=== PATIENT | male | born 1935 | race Caucasian/White ===

== ENCOUNTER → 2017-09-15 | Outpatient (CLI) | payer MEDICARE, BC ==
--- NOTE | 2017-09-15 09:14 | XR ---
EXAMINATION TYPE: XR chest 2V DATE OF EXAM: 09/15/2017 COMPARISON: NONE INDICATION: Asthma short of breath TECHNIQUE: Frontal and lateral views of the chest are obtained. FINDINGS: The heart size is normal. The pulmonary vasculature is normal. There is hyperinflation flattening the diaphragms compatible COPD. There is exaggeration of thoracic kyphosis and lower thoracic spine. Hiatal hernia is present. IMPRESSION: 1. COPD. 2. No acute pulmonary process. 3. Moderate size hiatal hernia
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
== END | disposition home or self-care (01) ==
LOC: RADCTMAIN 08:41
PROVIDERS: ATTEND Family Medicine
DX: J44.9 Chronic obstructive pulmonary disease, unspecified (principal); J45.901 Unspecified asthma with (acute) exacerbation; I63.9 Cerebral infarction, unspecified; I67.82 Cerebral ischemia; Z87.820 Personal history of traumatic brain injury
CPT/HCPCS: 70450; 71046

== ENCOUNTER 2017-11-23 13:47 | Emergency (ER) | payer OTHER, MEDICARE, BC ==
[2017-11-23] MEDS ORDERED: SODIUM CHLORIDE 0.9% 1,000 ML IV STA (14:51)
[2017-11-23] MEDS ORDERED: ACETAMINOPHEN IV (For NPO) 1,000 MG in EMPTY BAG 1 BAG IVPB STA (14:52)
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
[2017-11-23 15:40] LABS: Anisocytosis Slight; Basophils % (A) 0 %; Eosinophils # (A) 0.3 k/uL (0-0.7); Eosinophils % (A) 4 %; HCT 31.4 % (39.0-53.0); HGB 9.2 gm/dL (13.0-17.5); Hypochromasia Marked; Lymphocytes % (A) 10 %; MCH 20.7 pg (25.0-35.0); MCHC 29.4 g/dL (31.0-37.0); MCV 70.5 fL (80.0-100.0); Mean Platelet Volume 6.7; Microcytosis Marked; Monocytes # (A) 0.6 k/uL (0-1.0); Monocytes % (A) 6 %; Neutrophils # (A) 7.8 k/uL (1.3-7.7); Neutrophils % (A) 80 %; Platelet Count 386 k/uL (150-450); RBC 4.45 m/uL (4.30-5.90); RDW 16.8 % (11.5-15.5); WBC 9.8 k/uL (3.8-10.6)
[2017-11-23 15:50] LABS: ALT 33 U/L (21-72); AST 31 U/L (17-59); Albumin 3.2 g/dL (3.5-5.0); Alcohol <10 mg/dL; Alkaline Phosphatase 68 U/L (38-126); Anion Gap 8 mmol/L; Blood Urea Nitrogen 15 mg/dL (9-20); Calcium 8.4 mg/dL (8.4-10.2); Carbon Dioxide 26 mmol/L (22-30); Chloride 107 mmol/L (98-107); Glucose 89 mg/dL (74-99); Potassium 4.1 mmol/L (3.5-5.1); Sodium 141 mmol/L (137-145); Total Bilirubin 0.4 mg/dL (0.2-1.3); Total Protein 5.6 g/dL (6.3-8.2)
[2017-11-23 15:55] LABS: INR 1.1 (<1.2); Partial Thromboplastin Time 24.2 sec (22.0-30.0); Prothrombin Time 10.6 sec (9.0-12.0)
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
[2017-11-23 16:17] LABS: Creatine Kinase MB 0.6 ng/mL (0.0-2.4)
[2017-11-23 16:25] LABS: Troponin I 0.07 ng/mL (0.000-0.034)
[2017-11-23 16:29] LABS: Appearance,Urine Clear (Clear); Bilirubin,Urine Negative (Negative); Blood,Urine Negative (Negative); Color,Urine Yellow; Glucose,Urine (UA) Negative (Negative); Ketones,Urine Negative (Negative); Leukocyte Esterase,Urine Negative (Negative); Nitrite,Urine Negative (Negative); Protein,Urine Trace (Negative); Specific Gravity,Urine 1.025 (1.001-1.035)
[2017-11-23] MEDS ORDERED: SODIUM CHLORIDE 0.9% 500 ML IV STA (16:33)
[2017-11-23 16:40] LABS: Amphetamine Screen,Urine Not Detected (NotDetected); Barbiturate Screen,Urine Not Detected (NotDetected); Benzodiazepines Screen,Urine Detected (NotDetected); Cocaine Screen,Urine Not Detected (NotDetected); Methadone Screen, Urine Not Detected (NotDetected); Opiate Screen,Urine Not Detected (NotDetected); Oxycodone Screen, Urine Not Detected (NotDetected); Phencyclidine Screen,Urine Not Detected (NotDetected); Tricyclic Antidepressant,Urine Not Detected (NotDetected); Urn Cannabinoid Scrn Not Detected (NotDetected)
[2017-11-23 20:27] VITALS: BP 138/72; PULSE 63; RESP 18; TEMP 98.6
--- NOTE | 2017-11-24 18:16 | ECHOF ---
Referral Reason:elevTrop MEASUREMENTS -------- HEIGHT: 170.2 cm WEIGHT: 86.2 kg BP: 134/74 RVIDd: 4.8 cm (< 3.3) IVSd: 1.3 cm (0.6 - 1.1) LVIDd: 4.0 cm (3.9 - 5.3) LVPWd: 1.0 cm (0.6 - 1.1) IVSs: 1.5 cm LVIDs: 2.1 cm LVPWs: 1.2 cm LAESV Index (A-L): 29.57 ml/m Ao Diam: 3.8 cm (2.0 - 3.7) AV Cusp: 2.1 cm (1.5 - 2.6) LA Diam: 4.3 cm (2.7 - 3.8) EPSS: 0.7 cm MV E Alex: 0.93 m/s MV DecT: 218 ms MV A Alex: 0.91 m/s MV E/A Ratio: 1.01 AV maxP.95 mmHg AV meanP.48 mmHg RAP: 5.00 mmHg RVSP: 14.73 mmHg MV EF SLOPE: 54.61 mm/s (70 - 150) MV EXCURSION: 1.78 cm (> 18.000) FINDINGS -------- Undetermined rhythm. BBB This was a technically adequate study. The left ventricular size is normal. There is mild concentric left ventricular hypertrophy. Overa ll left ventricular systolic function is normal with, an EF between 55 - 60 %. The right ventricle is moderately enlarged. LA is midly dilated 29-33ml/m2. RA appears enlarged. Aortic valve is trileaflet and is mildly thickened. There is no evidence of aortic regurgitation. There is no evidence of aortic stenosis. The mitral valve leaflets are mildly thickened. Mild mitral annular calcification present. There is trace to mild mitral regurgitation. Trace tricuspid regurgitation present. Right ventricular systolic pressure is normal at < 35 mmHg. There is no evidence of pulmonary hypertension. The pulmonic valve was not well visualized. The aortic root size is normal. IVC Not well visulized. There is no pericardial effusion. CONCLUSIONS -------- 1. Undetermined rhythm. 2. BBB 3. This was a technically adequate study. 4. The left ventricular size is normal. 5. There is mild concentric left ventricular hypertrophy. 6. Overall left ventricular systolic function is normal with, an EF between 55 - 60 %. 7. The right ventricle is moderately enlarged. 8. LA is midly dilated 29-33ml/m2. 9. RA appears enlarged. 10. Aortic valve is trileaflet and is mildly thickened. 11. The mitral valve leaflets are mildly thickened. 12. Mild mitral annular calcification present. 13. There is trace to mild mitral regurgitation. 14. Trace tricuspid regurgitation present. 15. Right ventricular systolic pressure is normal at < 35 mmHg. 16. There is no evidence of pulmonary hypertension. 17. The pulmonic valve was not well visualized. 18. The aortic root size is normal. 19. IVC Not well visulized. 20. There is no pericardial effusion. PHYSICIAN RECRUITER: Manohar Rashid RDCS
== END 2017-11-23 20:15 | disposition home or self-care (01) ==
LOC: EC 13:47
DX: M54.5 Low back pain (principal); F03.90 Unspecified dementia, unspecified severity, without behavioral disturbance, psychotic disturbance, mood disturbance, and anxiety; J44.9 Chronic obstructive pulmonary disease, unspecified; K21.9 Gastro-esophageal reflux disease without esophagitis; K22.70 Barrett's esophagus without dysplasia; Z79.82 Long term (current) use of aspirin; Z79.899 Other long term (current) drug therapy; Z87.01 Personal history of pneumonia (recurrent); V43.53XA Car driver injured in collision with pick-up truck in traffic accident, initial encounter; Y92.410 Unspecified street and highway as the place of occurrence of the external cause
CPT/HCPCS: 36415; 93005; 93306; 86900; 86901; 80053; 82550; 82553; 84484; 85025; 85610; 85730; 86850; 81003; 80306; 80320; 72125; 70450; 71260; 74177; 99285; 96374; 96361 ×2; J0131; Q9967

== ENCOUNTER → 2018-02-27 | Outpatient (CLI) | payer MEDICARE, BC ==
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
== END | disposition home or self-care (01) ==
LOC: RADNMMAIN 09:48
PROVIDERS: ATTEND Family Medicine
DX: M85.80 Other specified disorders of bone density and structure, unspecified site (principal)
CPT/HCPCS: 78306; A9503

== ENCOUNTER 2019-06-29 13:42 | Inpatient (IN) | payer MEDICARE, BC ==
[2019-06-29] MEDS ORDERED: traMADol 50 MG TAB PO STA (14:03)
--- NOTE | 2019-06-29 14:09 | ED ---
Fall HPI - General Chief Complaint: Fall Stated Complaint: fell in shower Time Seen by Provider: 06/29/19 13:56 Source: patient Mode of arrival: ambulatory - History of Present Illness Initial Comments: Patient is an 83-year-old male presenting to the emergency department after falling in the shower prior to arrival. Patient states he went to grab his towel and slipped and he fell onto his left side hitting the side of the bathtub. Patient denies hitting his head, no LOC. Patient states he was able to get up after laying there for a few minutes and was walking around and did go sit down at the couch. Patient then started having more and more left-sided pain. Patient's son was needed to help him up from a seated position to come to the ER. Patient denies pain anywhere else. He denies nausea, vomiting, blurry vision, hip pain, abdominal pain. His only complaint is his left left-sided rib pain. Upon arrival to the ER, his vital signs are stable. - Related Data Home Medications Medication Instructions Recorded Confirmed ALPRAZolam [Xanax] 0.25 mg PO DAILY 11/23/17 11/23/17 Aspirin EC [Ecotrin Low Dose] 81 mg PO DAILY 11/23/17 11/23/17 Atorvastatin [Lipitor] 20 mg PO DAILY 11/23/17 11/23/17 Cetirizine HCl [Zyrtec] 10 mg PO DAILY 11/23/17 11/23/17 Isosorbide Mononitrate ER [Imdur] 30 mg PO DAILY 11/23/17 11/23/17 Metoprolol Succinate (ER) [Toprol 25 mg PO DAILY 11/23/17 11/23/17 Xl] Montelukast [Singulair] 10 mg PO DAILY 11/23/17 11/23/17 Omeprazole 20 mg PO DAILY 11/23/17 11/23/17 Allergies Allergy/AdvReac Type Severity Reaction Status Date / Time No Known Allergies Allergy Verified 06/29/19 13:45 Review of Systems ROS Statement: Those systems with pertinent positive or pertinent negative responses have been documented in the HPI. ROS Other: All systems not noted in ROS Statement are negative. Past Medical History Past Medical History: COPD, CVA/TIA, GERD/Reflux, GI Bleed, Hypertension, Memory Impairment, Pneumonia Additional Past Medical History / Comment(s): barretts esophagus, History of Any Multi-Drug Resistant Organisms: None Reported Past Surgical History: Heart Catheterization With Stent Additional Past Surgical History / Comment(s): Polyps removed via colonoscopy, 2 francisco holes and metal plates placed due to brain bleed. Past Psychological History: Depression Smoking Status: Never smoker Past Alcohol Use History: Rare Past Drug Use History: None Reported General Exam - General Exam Comments Initial Comments: GENERAL: Well-appearing, well-nourished and in mild distress secondary to pain. HEAD: Atraumatic, normocephalic. EYES: Pupils equal round and reactive to light, extraocular movements intact, sclera anicteric, conjunctiva are normal. ENT: TMs normal, nares patent, oropharynx clear without exudates. Moist mucous membranes. NECK: Normal range of motion, supple without lymphadenopathy or JVD. LUNGS: Breath sounds clear to auscultation bilaterally and equal. No wheezes rales or rhonchi. Tenderness with palpation of the left lateral, lower rib area. There is no bruising at this time. HEART: Regular rate and rhythm without murmurs, rubs or gallops. ABDOMEN: Soft, nontender, normoactive bowel sounds. No guarding, no rebound. No masses appreciated. : Deferred EXTREMITIES: Normal range of motion, no pitting or edema. No clubbing or cyanosis. NEUROLOGICAL: Cranial nerves II through XII grossly intact. Normal speech. PSYCH: Normal mood, normal affect. SKIN: Warm, Dry, normal turgor, no rashes or lesions noted. Limitations: no limitations Course Vital Signs 06/29/19 06/29/19 13:45 16:11 Temperature 97.8 F Pulse Rate 61 51 L Respiratory 18 20 Rate Blood Pressure 139/76 130/74 O2 Sat by Pulse 96 96 Oximetry Medical Decision Making - Medical Decision Making Patient is an 83-year-old male presenting with left-sided lateral rib pain after he fell in the shower just prior to arrival, and being on the side of the bathtub. Patient denies hitting his head, no LOC. Patient's exam reveals left lateral, lower rib pain. No other acute findings. Vital signs are stable. X-r ays reveal fractures with minimal displacement of the left seventh, eighth, ninth ribs. Patient was giving pain medication and is comfortable at this time. Patient has extreme pain with sitting up, going from sitting to standing. Given this, patient will be admitted for pain control and consult to pulmonology and anesthesia services. The patient was accepted by Dr. Blackburn. Case discussed with Dr. Webster. Disposition Clinical Impression: Fall, Multiple fractures of ribs, left side, initial encounter for closed fracture Disposition: ADMITTED IP TO THIS HOSP Is patient prescribed a controlled substance at d/c from ED?: No Referrals: Jason Johnson MD [Primary Care Provider] - 1-2 days Decision Date: 06/29/19 Decision Time: 16:26
--- NOTE | 2019-06-29 15:28 | XR ---
Chest x-ray and left RIBS HISTORY: Trauma and pain Frontal view of the chest, 4 views of left ribs submitted and correlated prior chest x-ray 09/15/2017 Some scarring persists in the mid right lung. Retrocardiac density with central lucency again noted c onsistent with partial intrathoracic stomach, hiatal hernia. There are fractures of the left seventh, eighth and ninth ribs with minimal displacement.. No pneumothorax or pleural effusion. Aorta is dens e. Heart size is stable. IMPRESSION: Left-sided rib fractures
[2019-06-29] MEDS ORDERED: NALOXONE 0.4 MG/ML 1 ML VIAL IV PRN (16:18)
[2019-06-29] MEDS ORDERED: ONDANSETRON 4 MG/2 ML VIAL IVP PRN (16:18)
[2019-06-29] MEDS ORDERED: ACETAMINOPHEN TAB 325 MG TAB PO PRN (16:18)
[2019-06-29] MEDS: MORPHINE SULFATE 4 MG/ML SYRINGE IVP PRN ×2 (16:49→22:54)
[2019-06-29] MEDS ORDERED: DOCUSATE 100 MG CAP PO PRN (21:05)
--- NOTE | 2019-06-29 21:05 | P.GSHP ---
History of Present Illness H&P Date: 06/29/19 Chief Complaint: Fractured ribs The patient is a 83-year-old man who was taking a shower this morning. While reaching for his towel, his foot slipped and he fell striking his side. He laid on the floor for a while and then was able to get up and go to the living room. The pain got progressively worse so he called family who brought him to the emergency room and workup showed several fractured ribs on the left side. He denies any other injuries. He is lying comfortably in bed at this time without pain. No shortness of breath. No pain in the anterior chest. Doesn't typically have a problem with falling. - Review of Systems All systems: negative Past Medical History Past Medical History: COPD, CVA/TIA, GERD/Reflux, GI Bleed, Hypertension, Memory Impairment, Pneumonia Additional Past Medical History / Comment(s): barretts esophagus, History of Any Multi-Drug Resistant Organisms: None Reported Past Surgical History: Heart Catheterization With Stent Additional Past Surgical History / Comment(s): Polyps removed via colonoscopy, 2 francisco holes and metal plates placed due to brain bleed. Date of Last Stent Placement:: 1989 Past Psychological History: Depression Smoking Status: Never smoker Past Alcohol Use History: Rare Past Drug Use History: None Reported - Past Family History Mother Family Medical History: AICD/Pacemaker Medications and Allergies Home Medications Medication Instructions Recorded Confirmed Type Aspirin EC [Ecotrin Low Dose] 81 mg PO DAILY 11/23/17 06/29/19 History Atorvastatin [Lipitor] 20 mg PO DAILY 11/23/17 06/29/19 History Cetirizine HCl [Zyrtec] 10 mg PO DAILY 11/23/17 06/29/19 History Isosorbide Mononitrate ER [Imdur] 30 mg PO DAILY 11/23/17 06/29/19 History Metoprolol Succinate (ER) [Toprol 25 mg PO DAILY 11/23/17 06/29/19 History Xl] Montelukast [Singulair] 10 mg PO DAILY 11/23/17 06/29/19 History Omeprazole 20 mg PO BID 11/23/17 06/29/19 History Docusate [Colace] 100 mg PO BID PRN 06/29/19 06/29/19 History Donepezil [Aricept] 10 mg PO DAILY 06/29/19 06/29/19 History Ergocalciferol [Vitamin D2] 50,000 unit PO Q7D 06/29/19 06/29/19 History Ferrous Sulfate [Feosol] 325 mg PO DAILY 06/29/19 06/29/19 History predniSONE 5 mg PO DAILY 06/29/19 06/29/19 History Allergies Allergy/AdvReac Type Severity Reaction Status Date / Time No Known Allergies Allergy Verified 06/29/19 16:41 Surgical - Exam Osteopathic Statement: *. No significant issues noted on an osteopathic structural exam other than those noted in the History and Physical/Consult. Vital Signs Temp Pulse Resp BP Pulse Ox 97.8 F 61 18 139/76 96 06/29/19 13:45 06/29/19 13:45 06/29/19 13:45 06/29/19 13:45 06/29/19 13:45 - General well developed, well nourished, no distress - Eyes normal ocular movement - Neck trachea midline - Respiratory Tenderness along the left lower rib cage, no obvious ecchymosis at this time normal expansion, clear to auscultation - Cardiovascular Rhythm: regular Results - Imaging Chest x-ray: report reviewed, image reviewed Assessment and Plan (1) COPD (chronic obstructive pulmonary disease) Current Visit: Yes Status: Acute Code(s): J44.9 - CHRONIC OBSTRUCTIVE PULMONARY DISEASE, UNSPECIFIED SNOMED Code(s): 01779502 (2) GERD (gastroesophageal reflux disease) Current Visit: Yes Status: Acute Code(s): K21.9 - GASTRO-ESOPHAGEAL REFLUX DISEASE WITHOUT ESOPHAGITIS SNOMED Code(s): 352016101 (3) Hypertension Current Visit: Yes Status: Acute Code(s): I10 - ESSENTIAL (PRIMARY) HYPERTENSION SNOMED Code(s): 81012651 (4) History of CVA (cerebrovascular accident) Current Visit: Yes Status: Acute Code(s): Z86.73 - PRSNL HX OF TIA (TIA), AND CEREB INFRC W/O RESID DEFICITS SNOMED Code(s): 767950718 (5) Fall Current Visit: Yes Status: Acute Code(s): W19.XXXA - UNSPECIFIED FALL, INITIAL ENCOUNTER SNOMED Code(s): 7844123 (6) Multiple fractures of ribs, left side, initial encounter for closed fracture Current Visit: Yes Status: Acute Code(s): S22.42XA - MULTIPLE FRACTURES OF RIBS, LEFT SIDE, INIT FOR CLOS FX SNOMED Code(s): 09758664 Plan: The patient is being observed for pain control and good pulmonary toilet. He was be seen by pulmonary. DVT and ulcer prophylaxis. Physical therapy to evaluate for fall risk. Further recommendations to follow.
[2019-06-30] MEDS: MORPHINE SULFATE 4 MG/ML SYRINGE IVP PRN (08:00)
[2019-06-30] MEDS: METOPROLOL SUCCINATE (ER) 25 MG TAB.ER.24H PO SCH (08:01)
[2019-06-30] MEDS: ASPIRIN 81 MG PO SCH (08:01)
[2019-06-30] MEDS: MONTELUKAST 10 MG TAB PO SCH (08:01)
[2019-06-30] MEDS: ATORVASTATIN 20 MG TAB PO SCH (08:01)
[2019-06-30] MEDS: DONEPEZIL 10 MG TAB PO SCH (08:01)
[2019-06-30] MEDS: FERROUS SULFATE 325 MG TAB PO SCH (08:01)
[2019-06-30] MEDS: ISOSORBIDE MONONITRATE ER 30 MG TAB.ER.24H PO SCH (08:01)
[2019-06-30] MEDS: LORATADINE 10 MG TAB PO SCH (08:01)
[2019-06-30] MEDS: predniSONE 5 MG TAB PO SCH (08:02)
[2019-06-30] MEDS ORDERED: PANTOPRAZOLE 40 MG/10 ML VIAL IVP SCH (09:00)
[2019-06-30] MEDS ORDERED: ERGOCALCIFEROL 50,000 UNIT CAP PO SCH (09:00)
[2019-06-30] MEDS ORDERED: NON FORMULARY DRUG (Omeprazole [Omeprazole] 20 MG) PO SCH (09:00)
[2019-06-30] MEDS: HYDROcodone/APAP 5-325MG 1 EACH TAB PO PRN (10:36)
--- NOTE | 2019-06-30 12:39 | P.PN ---
Subjective Progress Note Date: 06/30/19 Principal diagnosis: Rib fractures The patient is seen on rounds. He's fairly comfortable lying in bed but has significant left-sided chest pain when trying to move around. Nursing was unable to get him out of bed this morning. Objective - Vital Signs Vital signs: Vital Signs Temp 98.1 F 06/30/19 07:00 Pulse 71 06/30/19 07:00 Resp 18 06/30/19 07:00 BP 124/68 06/30/19 07:00 Pulse Ox 94 L 06/30/19 07:00 Intake & Output 06/29/19 06/30/19 06/30/19 18:59 06:59 18:59 Intake Total 100 Output Total 200 Balance -100 Weight 63.503 kg Intake: Oral 100 Output: Urine 200 - Constitutional General appearance: Present: cooperative, no acute distress - Respiratory Respiratory: bilateral: CTA, diminished (Minimally at the bases) Assessment and Plan (1) COPD (chronic obstructive pulmonary disease) Current Visit: Yes Status: Acute Code(s): J44.9 - CHRONIC OBSTRUCTIVE PULMONARY DISEASE, UNSPECIFIED SNOMED Code(s): 68950619 (2) GERD (gastroesophageal reflux disease) Current Visit: Yes Status: Acute Code(s): K21.9 - GASTRO-ESOPHAGEAL REFLUX DISEASE WITHOUT ESOPHAGITIS SNOMED Code(s): 192494225 (3) Hypertension Current Visit: Yes Status: Acute Code(s): I10 - ESSENTIAL (PRIMARY) HYPERTENSION SNOMED Code(s): 61103845 (4) History of CVA (cerebrovascular accident) Current Visit: Yes Status: Acute Code(s): Z86.73 - PRSNL HX OF TIA (TIA), AND CEREB INFRC W/O RESID DEFICITS SNOMED Code(s): 394626425 (5) Fall Current Visit: Yes Status: Acute Code(s): W19.XXXA - UNSPECIFIED FALL, INITIAL ENCOUNTER SNOMED Code(s): 4051782 (6) Multiple fractures of ribs, left side, initial encounter for closed fracture Current Visit: Yes Status: Acute Code(s): S22.42XA - MULTIPLE FRACTURES OF RIBS, LEFT SIDE, INIT FOR CLOS FX SNOMED Code(s): 25637175 Plan: He was not seen by anesthesia yesterday. I spoke with him via phone. He will be evaluated for rib block or epidural today. Doing well with incentive spirometry. Consult with physical therapy ordered. Progressing slowly.
[2019-06-30] MEDS ORDERED: NALOXONE 0.4 MG/ML 1 ML VIAL IV PRN (13:25)
[2019-06-30] MEDS ORDERED: fentaNYL (PF) 50 MCG/ML 2 ML AMP IVP ONE (14:25)
--- NOTE | 2019-06-30 14:29 | P.CNPUL ---
History of Present Illness Consult date: 06/30/19 Requesting physician: Samantha Blackburn Reason for consult: chest pain, abnormal CXR/CT Chief complaint: Left-sided chest pain, status post fall History of present illness: This is a very pleasant 83-year-old gentleman who follows with Dr. Johnson as his primary care provider. He has a history of hyperlipidemia, hypertension, CVA/TIA, GERD, coronary artery disease with previous stent placement, previous brain bleed requiring bur holes and plates, anxiety/depression. Lifelong nonsmoker. Yesterday he slipped and fell while in the shower hitting the side of the bathtub with his left chest wall. He denied any loss of consciousness. He did take, but to get up and get moving around. The pain was getting worse and he had significant discomfort changing positions. He was brought to the emergency room for the same. Rib x-rays did reveal fractures of left seventh and eighth and ninth ribs with minimal displacement. He was admitted for pain control. He is seen today in follow-up on the regular medical floor. He is currently awake and alert in no acute distress. Resting fairly comfortably in bed will not moving. He does have significant grimacing in pain while attempting to sit up in bed with assistance. He is maintaining O2 saturations in the 90s on room air. He's been afebrile. Hemodynamically stable. Chest x- ray revealed no acute process, persistent scarring in the mid right lung, retrocardiac density with central lucency consistent with partial intrathoracic stomach, hiatal hernia. He is educated on its use and working well with the incentive spirometer Review of Systems REVIEW OF SYSTEMS: CONSTITUTIONAL: Denies any recent significant weight loss or weight gain. EYES: Denies change in vision. EARS, NOSE, MOUTH, THROAT: Denies headaches, denies sore throat. CARDIOVASCULAR: Significant left-sided chest pain, no palpitations or syncopal episodes. RESPIRATORY: Denies shortness of breath, cough, congestion or hemoptysis. GASTROINTESTINAL: Denies change in appetite, denies abdominal pain GENITOURINARY: Denies hematuria, denies infections. MUSKULOSKELETAL: Denies pain, denies swelling. INTEGUMENTARY: Denies rash, denies eczema. NEUROLOGICAL: Denies recent memory loss, no recent seizure activity. PSYCHIATRIC: Denies anxiety, denies depression. HEMATOLOGIC/LYMPHATIC: Denies anemia, denies enlarged lymph nodes. Past Medical History Past Medical History: COPD, CVA/TIA, GERD/Reflux, GI Bleed, Hypertension, Memory Impairment, Pneumonia Additional Past Medical History / Comment(s): barretts esophagus, History of Any Multi-Drug Resistant Organisms: None Reported Past Surgical History: Heart Catheterization With Stent Additional Past Surgical History / Comment(s): Polyps removed via colonoscopy, 2 francisco holes and metal plates placed due to brain bleed. Date of Last Stent Placement:: 1989 Past Psychological History: Depression Smoking Status: Never smoker Past Alcohol Use History: Rare Past Drug Use History: None Reported - Past Family History Mother Family Medical History: AICD/Pacemaker Medications and Allergies Home Medications Medication Instructions Recorded Confirmed Type Aspirin EC [Ecotrin Low Dose] 81 mg PO DAILY 11/23/17 06/29/19 History Atorvastatin [Lipitor] 20 mg PO DAILY 11/23/17 06/29/19 History Cetirizine HCl [Zyrtec] 10 mg PO DAILY 11/23/17 06/29/19 History Isosorbide Mononitrate ER [Imdur] 30 mg PO DAILY 11/23/17 06/29/19 History Metoprolol Succinate (ER) [Toprol 25 mg PO DAILY 11/23/17 06/29/19 History Xl] Montelukast [Singulair] 10 mg PO DAILY 11/23/17 06/29/19 History Omeprazole 20 mg PO BID 11/23/17 06/29/19 History Docusate [Colace] 100 mg PO BID PRN 06/29/19 06/29/19 History Donepezil [Aricept] 10 mg PO DAILY 06/29/19 06/29/19 History Ergocalciferol [Vitamin D2] 50,000 unit PO Q7D 06/29/19 06/29/19 History Ferrous Sulfate [Feosol] 325 mg PO DAILY 06/29/19 06/29/19 History predniSONE 5 mg PO DAILY 06/29/19 06/29/19 History Allergies Allergy/AdvReac Type Severity Reaction Status Date / Time No Known Allergies Allergy Verified 06/29/19 16:41 Physical Exam Vitals: Vital Signs Temp Pulse Pulse Resp BP BP Pulse Ox 06/30/19 07:00 98.1 F 71 18 124/68 94 L 06/30/19 00:47 97.3 F L 62 14 125/76 92 L 06/29/19 19:02 97.7 F 55 L 14 124/71 95 06/29/19 17:16 97.8 F 51 L 20 130/74 96 06/29/19 16:11 51 L 20 130/74 96 Intake and Output 06/29/19 06/30/19 06/30/19 22:59 06:59 14:59 Intake Total 100 Output Total 200 Balance -100 Intake: Oral 100 Output: Urine 200 Other: Weight 63.503 kg GENERAL EXAM: Alert, very pleasant 83-year-old gentleman, on room air, comfortable at rest but significant left-sided chest discomfort with movement. HEAD: Normocephalic. EYES: Normal reaction of pupils, equal size. NOSE: Clear with pink turbinates. THROAT: No erythema or exudates. NECK: No masses, no JVD. CHEST: No chest wall deformity. Tender to touch the left chest wall secondary to fall. LUNGS: Equal air entry with no crackles, wheeze, rhonchi or dullness. CVS: S1 and S2 normal with no audible murmur, regular rhythm. ABDOMEN: No hepatosplenomegaly, normal bowel sounds, no guarding or rigidity. SPINE: No scoliosis or deformity SKIN: No rashes CENTRAL NERVOUS SYSTEM: No focal deficits, tone is normal in all 4 extremities. EXTREMITIES: There is no peripheral edema. No clubbing, no cyanosis. Peripheral pulses are intact. Results - Diagnostic Findings Chest x-ray: image reviewed Assessment and Plan Assessment: 1 Acute left-sided chest wall pain secondary to multiple left-sided rib fractures secondary to fall 2 History of hypertension 3 Coronary artery disease with previous stent placement #4 History of brain bleed with bur holes and plate placement 5 history of CVA/TIA 6 Memory impairment 7 Anxiety/depression 8 Hyperlipidemia 9 GERD Plan: The patient was seen and evaluated by Dr. Slade Chest x-ray reviewed Working well with the incentive spirometer, continue hourly Anesthesia for pain control Chest x-ray in the a.m. We'll continue to follow I, the cosigning physician, performed a history & physical examination of the patient. Lungs sounds are clear. Maintaining good O2 saturations in the 90s on room air. I discussed the assessment and plan of care with my nurse practitioner, Edna Sanches. I attest to the above consultation as dictated by her. Time with Patient: Greater than 30
[2019-06-30] MEDS ORDERED: ONDANSETRON 4 MG/2 ML VIAL IVP ONE (14:30)
[2019-06-30] MEDS ORDERED: LACTATED RINGERS 1,000 ML IV ONE (14:31)
--- NOTE | 2019-06-30 14:53 | P.PCN ---
Date of Procedure: 06/30/19 Procedure(s) Performed: Procedure= thoracic epidural catheter placement at T8-9 level. Preop diagnosis= acute pain secondary to multiple left side rib fractures. Postoperative diagnoses= acute pain secondary to multiple left side rib fractures. Anesthesia= local infiltration with lidocaine 1% 3 mL. Condition= stable. Complications=none. Indication and description of the procedure= this is a 83 years old male who had left-sided multiple rib fractures with acute and severe left-sided chest wall pain, patient failed conservative treatment and he will be good candidate to have thoracic epidural catheter placement for continuous infusion controlled his pain, procedure risk and benefits and alternatives discussed with the patient including but not limited to risk of infection bleeding, ALLERGIC reaction to the medication and posterior puncture headache, and he agreed with proceeding and he signed the consent patient placed in sitting position, back/thoracic and lumbar area prepped with Betadine 3, and local infiltration of the skin ,and subcutaneous tissue with lidocaine 1% 3 mL at T8-9 level , then 18-gauge Touhy needle advanced slowly under was positive loss of resistance to normal saline ,no heme, no paresthesia ,no supraspinal fluid, catherter advanced slowly, and there was no paresthesia Ransom test dose given and was negative, then the catheter secured with Tegaderm and tape, he will be started on continuous infusion of ropivacaine/fentanyl
[2019-06-30] MEDS ORDERED: METOCLOPRAMIDE 5 MG/ML 2 ML VIAL IVP ONE (15:00)
[2019-06-30] MEDS: IPRATROPIUM-ALBUTEROL 3 ML NEB INHALATION SCH (19:06)
[2019-06-30] MEDS: diphenhydrAMINE 50 MG/ML 1 ML VIAL IVP PRN (21:13)
[2019-07-01] MEDS: diphenhydrAMINE 50 MG/ML 1 ML VIAL IVP PRN ×3 (06:17→23:36)
--- NOTE | 2019-07-01 06:44 | P.PN ---
Progress Note - Text Progress Note Date: 07/01/19 83 years old male with a history of multiple rib fracture , thoracic epidural catheter placed for analgesia, patient doing well epidural site okay, patient currently on combination of epidural infusion solution of Ropivacaine 0.0625% and fentanyl 2.5 g per mL the infusion rate at 5 ml per hour , patient had no motor deficit epidural site okay , vital signs stable ,VAS 2 /10 , Patient had some itching, we are using Benadryl IV to treat his itching Assessment and plan= patient doing well ,pain well controlled , there is no anesthesia related complications
[2019-07-01] MEDS: ISOSORBIDE MONONITRATE ER 30 MG TAB.ER.24H PO SCH (07:31)
[2019-07-01] MEDS: MONTELUKAST 10 MG TAB PO SCH (07:31)
[2019-07-01] MEDS: METOPROLOL SUCCINATE (ER) 25 MG TAB.ER.24H PO SCH (07:31)
[2019-07-01] MEDS: FERROUS SULFATE 325 MG TAB PO SCH (07:32)
[2019-07-01] MEDS: ASPIRIN 81 MG PO SCH (07:32)
[2019-07-01] MEDS: predniSONE 5 MG TAB PO SCH (07:32)
[2019-07-01] MEDS: ATORVASTATIN 20 MG TAB PO SCH (07:32)
[2019-07-01] MEDS: LORATADINE 10 MG TAB PO SCH (07:32)
[2019-07-01] MEDS: DONEPEZIL 10 MG TAB PO SCH (07:33)
[2019-07-01] MEDS: PANTOPRAZOLE 40 MG TABLET PO SCH (07:33)
[2019-07-01] MEDS: IPRATROPIUM-ALBUTEROL 3 ML NEB INHALATION SCH ×4 (09:33→20:48)
--- NOTE | 2019-07-01 12:29 | P.PN ---
Subjective Progress Note Date: 07/01/19 Principal diagnosis: Rib fractures The patient is seen on rounds. An epidural was placed yesterday due to persistent pain. The pain is much better today. He is complaining of itching. No shortness of breath or cough. The patient is able to get up to the chair. Objective - Vital Signs Vital signs: Vital Signs Temp 98.8 F 07/01/19 07:00 Pulse 88 07/01/19 09:44 Resp 16 07/01/19 07:00 BP 107/62 07/01/19 07:00 Pulse Ox 95 07/01/19 09:36 Intake & Output 06/30/19 07/01/19 07/01/19 18:59 06:59 18:59 Intake Total 100 Output Total 200 600 Balance -200 -500 Intake: Oral 100 Output: Urine 200 600 Other: Voiding Method Indwelling Catheter Indwelling Catheter - Constitutional General appearance: Present: cooperative, no acute distress - Respiratory Respiratory: bilateral: CTA, diminished (At the bases) - Cardiovascular Rhythm: regular Assessment and Plan (1) COPD (chronic obstructive pulmonary disease) Current Visit: Yes Status: Acute Code(s): J44.9 - CHRONIC OBSTRUCTIVE PULMONARY DISEASE, UNSPECIFIED SNOMED Code(s): 54792232 (2) GERD (gastroesophageal reflux disease) Current Visit: Yes Status: Acute Code(s): K21.9 - GASTRO-ESOPHAGEAL REFLUX DISEASE WITHOUT ESOPHAGITIS SNOMED Code(s): 205824747 (3) Hypertension Current Visit: Yes Status: Acute Code(s): I10 - ESSENTIAL (PRIMARY) HYPERTENSION SNOMED Code(s): 75077954 (4) History of CVA (cerebrovascular accident) Current Visit: Yes Status: Acute Code(s): Z86.73 - PRSNL HX OF TIA (TIA), AND CEREB INFRC W/O RESID DEFICITS SNOMED Code(s): 503837887 (5) Fall Current Visit: Yes Status: Acute Code(s): W19.XXXA - UNSPECIFIED FALL, INITIAL ENCOUNTER SNOMED Code(s): 5559492 (6) Multiple fractures of ribs, left side, initial encounter for closed fracture Current Visit: Yes Status: Acute Code(s): S22.42XA - MULTIPLE FRACTURES OF RIBS, LEFT SIDE, INIT FOR CLOS FX SNOMED Code(s): 82966227 Plan: Epidural will be continued. Continue incentive spirometry. He is to be evaluated by physical therapy to check for his fall risk. Progressing slowly.
[2019-07-01] MEDS: ROPIVACAINE 250 MG, fentaNYL (PF) 625 MCG in SODIUM CHLORIDE 0.9% 188 ML EPIDURAL PRN (15:13)
--- NOTE | 2019-07-01 22:44 | PN ---
PROGRESS NOTE This patient is a white male admitted with left-sided rib fractures. He is able to lift his arm over his head with moderate amount of pain in his left ribs. His lungs are clear. His oxygen level is 95% on room air. Vital signs stable. Afebrile. Cardiovascular: S1, S2. Lungs show rales at the base. Hematology: Negative Homans. Psych: Fair mood and affect. PLAN: Updraft treatments. PT/OT and possible discharge home soon, as he is doing much better, saturating well on room air. MMODL / IJN: [id number] /
[2019-07-02] MEDS: ROPIVACAINE 250 MG, fentaNYL (PF) 625 MCG in SODIUM CHLORIDE 0.9% 188 ML EPIDURAL PRN ×2 (00:41→13:28)
[2019-07-02] MEDS: LORATADINE 10 MG TAB PO SCH (08:21)
[2019-07-02] MEDS: MONTELUKAST 10 MG TAB PO SCH (08:21)
[2019-07-02] MEDS: predniSONE 5 MG TAB PO SCH (08:21)
[2019-07-02] MEDS: PANTOPRAZOLE 40 MG TABLET PO SCH (08:21)
[2019-07-02] MEDS: ISOSORBIDE MONONITRATE ER 30 MG TAB.ER.24H PO SCH (08:21)
[2019-07-02] MEDS: ATORVASTATIN 20 MG TAB PO SCH (08:21)
[2019-07-02] MEDS: FERROUS SULFATE 325 MG TAB PO SCH (08:21)
[2019-07-02] MEDS: ASPIRIN 81 MG PO SCH (08:22)
[2019-07-02] MEDS: DONEPEZIL 10 MG TAB PO SCH (08:22)
--- NOTE | 2019-07-02 08:34 | P.PN ---
Progress Note - Text Progress Note Date: 07/02/19 Patient seen and examined at bedside at 6:30 AM on 07/02/2019. Patient has thoracic epidural placed for rib fractures, epidural catheter day 3, epidural catheter placed for rib fractures, patient doing well epidural site nontender to palpation, dressing is clean dry and intact, patient currently on epidural infusion rate at 7ml per hour , patient has no sensory or motor deficit, vital signs stable, VAS 4-5 /10, incentive spirometer 1000 mL. Patient denies side effects. Assessment and plan= epidural catheter day #3 placed for rib fractures, patient doing well, pain moderately controlled , there is no anesthesia related complications, will increase epidural catheter rate to 9 mL per hour.
[2019-07-02] MEDS: IPRATROPIUM-ALBUTEROL 3 ML NEB INHALATION SCH ×4 (09:33→19:47)
[2019-07-02] MEDS ORDERED: LACTATED RINGERS 1,000 ML IV ONE ×2 (11:18)
[2019-07-02] MEDS ORDERED: fentaNYL (PF) 50 MCG/ML 2 ML AMP IVP ONE (11:34)
--- NOTE | 2019-07-02 12:13 | P.PCN ---
Date of Procedure: 07/02/19 Procedure(s) Performed: Procedure= Replacement of thoracic epidural catheter. Preop diagnosis= 1-acute pain secondary to multiple left side rib fractures. 2- dislodge of the thoracic epidural catheter Postoperative diagnoses= 1-acute pain secondary to multiple left side rib fractures.2-dislodge of the thoracic epidural catheter Anesthesia= local infiltration with lidocaine 1% 3 mL. Condition= stable. Complications=none. Indication and description of the procedure= this is a 83 years old male ,who had left-sided multiple rib fractures with acute and severe left-sided chest wall pain, patient failed conservative treatment and thoracic epidural catheter placed 2 days ago, and yesterday we found out that the custom was dislodged, the patient continues to complain of severe chest wall pain for continuous infusion controlled his pain, and for this reason we have to replace the thoracic epidural catheter procedure risk and benefits and alternatives discussed with the patient including but not limited to risk of infection bleeding, ALLERGIC reaction to the medication and posterior puncture headache, and he agreed with proceeding ,and he signed the consent patient placed in sitting position, back/thoracic and lumbar area prepped with Betadine 3, and local infiltration of the skin ,and subcutaneous tissue with lidocaine 1% 3 mL at T8-9 level , then 18-gauge Touhy needle advanced slowly under was positive loss of resistance to normal saline ,no heme, no paresthesia ,no supraspinal fluid, catherter advanced slowly, and there was no paresthesia , test dose given, and was negative, then the catheter secured with Tegaderm and tape, he will be started on continuous infusion of ropivacaine/fentanyl
[2019-07-02] MEDS: METOPROLOL SUCCINATE (ER) 25 MG TAB.ER.24H PO SCH (12:48)
--- NOTE | 2019-07-02 13:51 | P.CNPUL ---
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 He denied any loss of consciousness. He did take, but to get up and get moving around. The pain was getting worse and he had significant discomfort changing positions. He was brought to the emergency room for the same. Rib x-rays did reveal fractures of left seventh and eighth and ninth ribs with minimal displacement. He was admitted for pain control. He is seen today in follow-up on the regular medical floor. He is currently awake and alert in no acute distress. Resting fairly comfortably in bed will not moving. He does have significant grimacing in pain while attempting to sit up in bed with assistance. He is maintaining O2 saturations in the 90s on room air. He's been afebrile. Hemodynamically stable. Chest x-ray revealed no acute process, working well with the incentive spirometer Due to severity of pain patient does require epidural but dislodge yesterday came out this morning a new one is placed patient's pain is improved the Review of Systems All systems: negative Past Medical History Past Medical History: COPD, CVA/TIA, GERD/Reflux, GI Bleed, Hypertension, Memory Impairment, Pneumonia Additional Past Medical History / Comment(s): barretts esophagus, History of Any Multi-Drug Resistant Organisms: None Reported Past Surgical History: Heart Catheterization With Stent Additional Past Surgical History / Comment(s): Polyps removed via colonoscopy, 2 francisco holes and metal plates placed due to brain bleed. Date of Last Stent Placement:: 1989 Past Psychological History: Depression Smoking Status: Never smoker Past Alcohol Use History: Rare Past Drug Use History: None Reported - Past Family History Mother Family Medical History: AICD/Pacemaker Medications and Allergies Home Medications Medication Instructions Recorded Confirmed Type Aspirin EC [Ecotrin Low Dose] 81 mg PO DAILY 11/23/17 06/29/19 History Atorvastatin [Lipitor] 20 mg PO DAILY 11/23/17 06/29/19 History Cetirizine HCl [Zyrtec] 10 mg PO DAILY 11/23/17 06/29/19 History Isosorbide Mononitrate ER [Imdur] 30 mg PO DAILY 11/23/17 06/29/19 History Metoprolol Succinate (ER) [Toprol 25 mg PO DAILY 11/23/17 06/29/19 History Xl] Montelukast [Singulair] 10 mg PO DAILY 11/23/17 06/29/19 History Omeprazole 20 mg PO BID 11/23/17 06/29/19 History Docusate [Colace] 100 mg PO BID PRN 06/29/19 06/29/19 History Donepezil [Aricept] 10 mg PO DAILY 06/29/19 06/29/19 History Ergocalciferol [Vitamin D2] 50,000 unit PO Q7D 06/29/19 06/29/19 History Ferrous Sulfate [Feosol] 325 mg PO DAILY 06/29/19 06/29/19 History predniSONE 5 mg PO DAILY 06/29/19 06/29/19 History Allergies Allergy/AdvReac Type Severity Reaction Status Date / Time No Known Allergies Allergy Verified 06/29/19 16:41 Physical Exam Vitals: Vital Signs Temp Pulse Pulse Pulse Resp BP BP 07/02/19 12:37 78 07/02/19 12:26 80 07/02/19 12:05 69 16 108/70 07/02/19 11:50 70 16 124/74 07/02/19 11:20 98.9 F 92 16 122/74 07/02/19 09:48 96 07/02/19 09:35 100 07/02/19 08:15 98.1 F 90 17 150/94 07/02/19 02:40 98.2 F 78 142/82 07/01/19 21:00 75 07/01/19 20:49 75 07/01/19 19:25 98.5 F 88 19 125/74 07/01/19 16:48 82 07/01/19 16:37 82 07/01/19 14:40 98.1 F 92 16 112/56 Pulse Ox 07/02/19 12:37 07/02/19 12:26 07/02/19 12:05 95 07/02/19 11:50 95 07/02/19 11:20 95 07/02/19 09:48 07/02/19 09:35 93 L 07/02/19 08:15 91 L 07/02/19 02:40 94 L 07/01/19 21:00 07/01/19 20:49 07/01/19 19:25 92 L 07/01/19 16:48 07/01/19 16:37 07/01/19 14:40 94 L Intake and Output 07/01/19 07/02/19 07/02/19 22:59 06:59 14:59 Intake Total 217.3 46.083 269.367 Output Total 400 Balance 217.3 -353.917 269.367 Intake: IV 200 Intake, IV Titration 17.3 46.083 69.367 Amount Ropivacaine 250 mg 17.3 46.083 69.367 fentaNYL (PF) 625 mcg In Sodium Chloride 0.9% 188 ml @ Per Protocol EPIDURAL .Q0M PRN Rx#: [id number] Oral 200 Output: Urine 400 Other: Voiding Method Indwelling Catheter Weight 63.503 kg GENERAL EXAM: Alert, very pleasant 83-year-old gentleman, on room air, comfortable at rest but significant left-sided chest discomfort with movement. HEAD: Normocephalic. EYES: Normal reaction of pupils, equal size. NOSE: Clear with pink turbinates. THROAT: No erythema or exudates. NECK: No masses, no JVD. CHEST: No chest wall deformity. Tender to touch the left chest wall secondary to fall. LUNGS: Equal air entry with no crackles, wheeze, rhonchi or dullness. CVS: S1 and S2 normal with no audible murmur, regular rhythm. ABDOMEN: No hepatosplenomegaly, normal bowel sounds, no guarding or rigidity. SPINE: No scoliosis or deformity SKIN: No rashes CENTRAL NERVOUS SYSTEM: No focal deficits, tone is normal in all 4 extremities. EXTREMITIES: There is no peripheral edema. No clubbing, no cyanosis. Peripheral pulses are intact. Results - Diagnostic Findings Chest x-ray: report reviewed, image reviewed (Finding as noted above) Assessment and Plan Assessment: Left-sided chest pain due to multiple left-sided 3 and a fracture Status post slip and fall History of end-stage COPD Hypertension hypertensive cardiovascular disease Coronary artery disease with history of stent placement Status post intra-cerebral hemorrhage requiring plate and bar holds Plan: Continue deep breathing exercise incentive spirometry Pain medications Continue home medications Continue bronchodilator Continue incentive spirometry Further recommendations pending plan of care as per clinical response of the patient Time with Patient: Greater than 30
--- NOTE | 2019-07-02 15:43 | P.PN ---
Subjective Progress Note Date: 07/02/19 Principal diagnosis: Rib fractures The patient is seen on rounds. He's doing well. Participating with physical therapy. Using incentive spirometry. Pain is controlled with the epidural. Objective - Vital Signs Vital signs: Vital Signs Temp 98.8 F 07/02/19 14:18 Pulse 82 07/02/19 14:18 Resp 16 07/02/19 14:18 BP 103/67 07/02/19 14:18 Pulse Ox 96 07/02/19 14:18 Intake & Output 07/01/19 07/02/19 07/02/19 18:59 06:59 18:59 Intake Total 17.3 246.083 269.367 Output Total 450 400 Balance -432.7 -153.917 269.367 Weight 63.503 kg Intake: IV 200 Intake, IV Titration 17.3 46.083 69.367 Amount Ropivacaine 250 mg 17.3 46.083 69.367 fentaNYL (PF) 625 mcg In Sodium Chloride 0.9% 188 ml @ Per Protocol EPIDURAL .Q0M PRN Rx#: [id number] Oral 200 Output: Urine 450 400 Other: Voiding Method Indwelling Catheter Indwelling Catheter Indwelling Catheter - Constitutional General appearance: Present: cooperative, no acute distress - Respiratory Details: on his incentive spirometry Respiratory: bilateral: CTA, diminished (Mildly at the bases) Assessment and Plan (1) COPD (chronic obstructive pulmonary disease) Current Visit: Yes Status: Acute Code(s): J44.9 - CHRONIC OBSTRUCTIVE PULMONARY DISEASE, UNSPECIFIED SNOMED Code(s): 34433431 (2) GERD (gastroesophageal reflux disease) Current Visit: Yes Status: Acute Code(s): K21.9 - GASTRO-ESOPHAGEAL REFLUX DISEASE WITHOUT ESOPHAGITIS SNOMED Code(s): 469912799 (3) Hypertension Current Visit: Yes Status: Acute Code(s): I10 - ESSENTIAL (PRIMARY) HYPERTENSION SNOMED Code(s): 54065103 (4) History of CVA (cerebrovascular accident) Current Visit: Yes Status: Acute Code(s): Z86.73 - PRSNL HX OF TIA (TIA), AND CEREB INFRC W/O RESID DEFICITS SNOMED Code(s): 777115614 (5) Fall Current Visit: Yes Status: Acute Code(s): W19.XXXA - UNSPECIFIED FALL, INITIAL ENCOUNTER SNOMED Code(s): 3183214 (6) Multiple fractures of ribs, left side, initial encounter for closed fracture Current Visit: Yes Status: Acute Code(s): S22.42XA - MULTIPLE FRACTURES OF RIBS, LEFT SIDE, INIT FOR CLOS FX SNOMED Code(s): 59311996 Plan: Good pain control and pulmonary toilet. Attempt to wean the epidural tomorrow and switch him over to oral medications. Hopefully ready for the discharge in 1-2 days
--- NOTE | 2019-07-02 23:02 | PN ---
PROGRESS NOTE This 83-year-old white male with rib fracture on the left, bronchospasm, COPD, hypertension, dementia continues to improve. He has some kind of pain pump implanted for severe pain due to his rib fractures. His lung saturation was 95% to 97% on room air. Continues on DuoNeb updraft treatments. Lungs reveal scattered wheeze, mild. Cardiac has regular rate, S1, S2. GI is soft. Hematology: Negative Homans. ASSESSMENT: 1. Rib fractures, left. 2. Bronchospasm. 3. Hypertension. 4. Chronic obstructive pulmonary disease. Continue current treatment. PT/OT. Pain control. Updraft treatments. Home medicines. Please see further orders. MMODL / IJN: [id number] /
[2019-07-03] MEDS: FERROUS SULFATE 325 MG TAB PO SCH (08:29)
[2019-07-03] MEDS: DONEPEZIL 10 MG TAB PO SCH (08:29)
[2019-07-03] MEDS: MONTELUKAST 10 MG TAB PO SCH (08:30)
[2019-07-03] MEDS: LORATADINE 10 MG TAB PO SCH (08:30)
[2019-07-03] MEDS: ISOSORBIDE MONONITRATE ER 30 MG TAB.ER.24H PO SCH (08:30)
[2019-07-03] MEDS: METOPROLOL SUCCINATE (ER) 25 MG TAB.ER.24H PO SCH (08:30)
[2019-07-03] MEDS: predniSONE 5 MG TAB PO SCH (08:31)
[2019-07-03] MEDS: ATORVASTATIN 20 MG TAB PO SCH (08:31)
[2019-07-03] MEDS: PANTOPRAZOLE 40 MG TABLET PO SCH (08:31)
[2019-07-03] MEDS: ASPIRIN 81 MG PO SCH (08:31)
[2019-07-03] MEDS: IPRATROPIUM-ALBUTEROL 3 ML NEB INHALATION SCH ×4 (08:52→20:58)
[2019-07-03] MEDS ORDERED: MAGNESIUM HYDROXIDE 2,400 MG/10 ML CUP PO PRN (12:50)
--- NOTE | 2019-07-03 12:52 | P.PN ---
Subjective Progress Note Date: 07/03/19 Principal diagnosis: Rib fractures The patient is doing well. Having some expected pain. Procedures to stop eating with physical therapy. No shortness of breath. Objective - Vital Signs Vital signs: Vital Signs Temp 99.0 F 07/03/19 07:00 Pulse 72 07/03/19 09:06 Resp 18 07/03/19 07:00 BP 118/76 07/03/19 07:00 Pulse Ox 93 L 07/03/19 09:45 Intake & Output 07/02/19 07/03/19 07/03/19 18:59 06:59 18:59 Intake Total 269.367 400 Output Total 525 600 Balance -255.633 -200 Weight 63.503 kg Intake: IV 200 Intake, IV Titration 69.367 Amount Ropivacaine 250 mg 69.367 fentaNYL (PF) 625 mcg In Sodium Chloride 0.9% 188 ml @ Per Protocol EPIDURAL .Q0M PRN Rx#: [id number] Oral 400 Output: Urine 525 600 Other: Voiding Method Indwelling Catheter Indwelling Catheter - Constitutional General appearance: Present: cooperative, no acute distress - Respiratory Details: Doing well with incentive spirometry Respiratory: bilateral: CTA, diminished (Mildly at the bases) Assessment and Plan (1) COPD (chronic obstructive pulmonary disease) Current Visit: Yes Status: Acute Code(s): J44.9 - CHRONIC OBSTRUCTIVE PULMONARY DISEASE, UNSPECIFIED SNOMED Code(s): 65757673 (2) GERD (gastroesophageal reflux disease) Current Visit: Yes Status: Acute Code(s): K21.9 - GASTRO-ESOPHAGEAL REFLUX DISEASE WITHOUT ESOPHAGITIS SNOMED Code(s): 363049991 (3) Hypertension Current Visit: Yes Status: Acute Code(s): I10 - ESSENTIAL (PRIMARY) HYPERTENSION SNOMED Code(s): 91021258 (4) History of CVA (cerebrovascular accident) Current Visit: Yes Status: Acute Code(s): Z86.73 - PRSNL HX OF TIA (TIA), AND CEREB INFRC W/O RESID DEFICITS SNOMED Code(s): 323253150 (5) Fall Current Visit: Yes Status: Acute Code(s): W19.XXXA - UNSPECIFIED FALL, INITIAL ENCOUNTER SNOMED Code(s): 7278706 (6) Multiple fractures of ribs, left side, initial encounter for closed fracture Current Visit: Yes Status: Acute Code(s): S22.42XA - MULTIPLE FRACTURES OF RIBS, LEFT SIDE, INIT FOR CLOS FX SNOMED Code(s): 49735840 Plan: Wean the epidural and change him over to oral pain medications. No bowel movement since admission so he'll get some milk of magnesia. Progressing slowly.
--- NOTE | 2019-07-03 13:19 | P.PN ---
Progress Note - Text 07/03 650am Male status post multiple rib fractures, was treated with thoracic epidural catheter but because it started to leak. Epidural was DC'd. A new thoracic epidural catheter was inserted, patient was seen this morning,doing well with a VAS of 0. No motor or sensory deficit noted, ambulating well. Plan to continue epidural infusion
--- NOTE | 2019-07-03 16:06 | P.PN ---
Subjective Progress Note Date: 07/03/19 Principal diagnosis: Left-sided chest pain due to multiple left-sided 3 rib fracture Status post slip and fall History of end-stage COPD Hypertension hypertensive cardiovascular disease Coronary artery disease with history of stent placement Status post intra-cerebral hemorrhage requiring plate and bar holds 07/03/2019, patient seen eval examined during the rounds patient has epidural working well denies any chest pain or shortness of breath breathing is stable patient has been pain-free cough shortness of breath is within reason, labs reviewed medications reviewed Objective - Vital Signs Vital signs: Vital Signs Temp 98.1 F 07/03/19 14:45 Pulse 100 07/03/19 14:45 Resp 16 07/03/19 14:45 BP 97/63 07/03/19 14:45 Pulse Ox 99 07/03/19 14:45 Intake & Output 07/02/19 07/03/19 07/03/19 18:59 06:59 18:59 Intake Total 269.367 400 Output Total 525 600 Balance -255.633 -200 Weight 63.503 kg Intake: IV 200 Intake, IV Titration 69.367 Amount Ropivacaine 250 mg 69.367 fentaNYL (PF) 625 mcg In Sodium Chloride 0.9% 188 ml @ Per Protocol EPIDURAL .Q0M PRN Rx#: [id number] Oral 400 Output: Urine 525 600 Other: Voiding Method Indwelling Catheter Indwelling Catheter - Exam GENERAL EXAM: Alert, very pleasant 83-year-old gentleman, on room air, comfortable at rest but significant left-sided chest discomfort with movement. HEAD: Normocephalic. EYES: Normal reaction of pupils, equal size. NOSE: Clear with pink turbinates. THROAT: No erythema or exudates. NECK: No masses, no JVD. CHEST: No chest wall deformity. Tender to touch the left chest wall secondary to fall. LUNGS: Equal air entry with no crackles, wheeze, rhonchi or dullness. CVS: S1 and S2 normal with no audible murmur, regular rhythm. ABDOMEN: No hepatosplenomegaly, normal bowel sounds, no guarding or rigidity. SPINE: No scoliosis or deformity SKIN: No rashes CENTRAL NERVOUS SYSTEM: No focal deficits, tone is normal in all 4 extremities. EXTREMITIES: There is no peripheral edema. No clubbing, no cyanosis. Peripheral pulses are intact. Assessment and Plan Assessment: Left-sided chest pain due to multiple left-sided 3 and a fracture Status post slip and fall History of end-stage COPD Hypertension hypertensive cardiovascular disease Coronary artery disease with history of stent placement Status post intra-cerebral hemorrhage requiring plate and bar holds Plan: Continue deep breathing exercise incentive spirometry Pain medications Continue home medications Continue bronchodilator Continue incentive spirometry Further recommendations pending plan of care as per clinical response of the patient Time with Patient: Greater than 30
[2019-07-03] MEDS: diphenhydrAMINE 50 MG/ML 1 ML VIAL IVP PRN (18:32)
[2019-07-03] MEDS: NAPROXEN 250 MG TAB PO SCH (19:57)
[2019-07-03] MEDS: HYDROcodone/APAP 5-325MG 1 EACH TAB PO PRN (23:37)
--- NOTE | 2019-07-04 00:02 | PN ---
PROGRESS NOTE 83-year-old white male with acute left-sided rib fractures x3, oxygen levels remains 90- 95 percent on room air. Lungs show decreased breath sounds at the bases. Scattered wheeze. ASSESSMENT: 1. Acute left-sided rib fractures. 2. Pleural effusions. 3. Chronic obstructive pulmonary disease. 4. Dementia. Continue current home medications. Wean PROCUREMENT CLERK pump. Increase PT OT and get him moving as he can move his left arm over his head without any pain. Get him off the PROCUREMENT CLERK pump. Get him ambulating. MMODL / IJN: [id number] /
[2019-07-04] MEDS: METOPROLOL SUCCINATE (ER) 25 MG TAB.ER.24H PO SCH (08:16)
[2019-07-04] MEDS: ATORVASTATIN 20 MG TAB PO SCH (08:16)
[2019-07-04] MEDS: DONEPEZIL 10 MG TAB PO SCH (08:16)
[2019-07-04] MEDS: MONTELUKAST 10 MG TAB PO SCH (08:16)
[2019-07-04] MEDS: ISOSORBIDE MONONITRATE ER 30 MG TAB.ER.24H PO SCH (08:16)
[2019-07-04] MEDS: ASPIRIN 81 MG PO SCH (08:16)
[2019-07-04] MEDS: LORATADINE 10 MG TAB PO SCH (08:16)
[2019-07-04] MEDS: NAPROXEN 250 MG TAB PO SCH ×2 (08:16→20:16)
[2019-07-04] MEDS: PANTOPRAZOLE 40 MG TABLET PO SCH (08:16)
[2019-07-04] MEDS: FERROUS SULFATE 325 MG TAB PO SCH (08:16)
[2019-07-04] MEDS: predniSONE 5 MG TAB PO SCH (08:16)
[2019-07-04] MEDS: IPRATROPIUM-ALBUTEROL 3 ML NEB INHALATION SCH ×4 (08:31→21:23)
--- NOTE | 2019-07-04 08:43 | P.PN ---
Progress Note - Text 07/04 650am 83-year-old male status post multiple rib fracture. Patient has a thoracic epidural for pain control, epidural solution is running at 4 mL an hour, with a VAS of 0. No motor or sensory deficits noted. Patient has been ambulating well. Plan to continue epidural infusion for another day and DC'd the epidural tomorrow morning
[2019-07-04] MEDS ORDERED: diphenhydrAMINE 25 MG CAP PO PRN (12:52)
[2019-07-04] MEDS: ROPIVACAINE 250 MG, fentaNYL (PF) 625 MCG in SODIUM CHLORIDE 0.9% 188 ML EPIDURAL PRN (13:33)
--- NOTE | 2019-07-04 15:01 | P.PN ---
Subjective Progress Note Date: 07/04/19 Principal diagnosis: Left-sided chest pain due to multiple left-sided 3 rib fracture Status post slip and fall History of end-stage COPD Hypertension hypertensive cardiovascular disease Coronary artery disease with history of stent placement Status post intra-cerebral hemorrhage requiring plate and bar holds 07/04/2019, patient seen eval examined respiratory status is stable patient is still an epidural severity of pain is much improved now, patient is currently running 4 mL an hour with a VAS score of 0 denies any weakness. Epidural likely be discontinued tomorrow 07/03/2019, patient seen eval examined during the rounds patient has epidural working well denies any chest pain or shortness of breath breathing is stable patient has been pain-free cough shortness of breath is within reason, labs reviewed medications reviewed This is a 83-year-old with end-stage COPD well-known to me from office, patient admitted into the hospital after he slipped and fell while in the shower hitting the side of the bathtub with his left chest wall. He denied any loss of cons ciousness. He did take, but to get up and get moving around. The pain was getting worse and he had significant discomfort changing positions. He was brought to the emergency room for the same. Rib x-rays did reveal fractures of left seventh and eighth and ninth ribs with minimal displacement. He was admitted for pain control. He is seen today in follow-up on the regular medical floor. He is currently awake and alert in no acute distress. Resting fairly comfortably in bed will not moving. He does have significant grimacing in pain while attempting to sit up in bed with assistance. He is maintaining O2 saturations in the 90s on room air. He's been afebrile. Hemodynamically stable. Chest x-ray revealed no acute process, working well with the incentive spirometer Due to severity of pain patient does require epidural but dislodge yesterday came out this morning a new one is placed patient's pain is improved Objective - Vital Signs Vital signs: Vital Signs Temp 97.8 F 07/04/19 07:00 Pulse 59 L 07/04/19 08:45 Resp 16 07/04/19 07:00 BP 123/59 07/04/19 07:00 Pulse Ox 96 07/04/19 07:00 Intake & Output 07/03/19 07/04/19 07/04/19 18:59 06:59 18:59 Intake Total 132.75 54.516 185.333 Output Total 550 775 850 Balance -417.25 -720.484 -664.667 Intake: Intake, IV Titration 132.75 54.516 35.333 Amount Ropivacaine 250 mg 132.75 54.516 35.333 fentaNYL (PF) 625 mcg In Sodium Chloride 0.9% 188 ml @ Per Protocol EPIDURAL .Q0M PRN Rx#: [id number] Oral 150 Output: Urine 550 775 850 Uretheral (Miles) 850 Other: Voiding Method Indwelling Catheter Indwelling Catheter Indwelling Catheter - Exam GENERAL EXAM: Alert, very pleasant 83-year-old gentleman, on room air, comfortable at rest but significant left-sided chest discomfort with movement. HEAD: Normocephalic. EYES: Normal reaction of pupils, equal size. NOSE: Clear with pink turbinates. THROAT: No erythema or exudates. NECK: No masses, no JVD. CHEST: No chest wall deformity. Tender to touch the left chest wall secondary to fall. LUNGS: Equal air entry with no crackles, wheeze, rhonchi or dullness. CVS: S1 and S2 normal with no audible murmur, regular rhythm. ABDOMEN: No hepatosplenomegaly, normal bowel sounds, no guarding or rigidity. SPINE: No scoliosis or deformity SKIN: No rashes CENTRAL NERVOUS SYSTEM: No focal deficits, tone is normal in all 4 extremities. EXTREMITIES: There is no peripheral edema. No clubbing, no cyanosis. Peripheral pulses are intact. Assessment and Plan Assessment: Left-sided chest pain due to multiple left-sided ribfracture Status post slip and fall History of end-stage COPD Hypertension hypertensive cardiovascular disease Coronary artery disease with history of stent placement Status post intra-cerebral hemorrhage requiring plate and bar holds Plan: Continue epidural for 1 more day Continue deep breathing exercise incentive spirometry Pain medications Continue home medications Continue bronchodilator Continue incentive spirometry Further recommendations pending plan of care as per clinical response of the patient Time with Patient: Greater than 30
--- NOTE | 2019-07-04 23:26 | PN ---
PROGRESS NOTE This is an 83-year-old white male with acute left-sided rib fractures, COPD, dementia, hypertension. He continues to improve. Saturations in mid to low 90s on room air. He can move his arm fully with minimal rib pain. Needs to be taken off his FILTER TANK OPERATOR pump and ambulated and possibly discharged home or to a rehab center in the next 24-48 hours. MMODL / ARACELIN: [id number] /
--- NOTE | 2019-07-05 08:14 | P.PN ---
Progress Note - Text Progress Note Date: 07/05/19 Patient was seen at 7:15 AM 07/05/2019 Thoracic epidural catheter placed for pain control for multiple rib fracture, acetabular day #4 ,patient doing well epidural site okay, patient currently on combination of epidural infusion solution of Ropivacaine 0.0625% and fentanyl mL the infusion rate at 2 ml per hour , patient had no motor deficit epidural site okay , vital signs stable ,VAS 2/10 , Assessment and plan= chest wall pain secondary to multiple rib fracture, patient doing well ,pain well controlled,Day #4 thoracic epidural catheter for pain control Will discontinue thoracic epidural
[2019-07-05] MEDS: FERROUS SULFATE 325 MG TAB PO SCH (08:37)
[2019-07-05] MEDS: ASPIRIN 81 MG PO SCH (08:37)
[2019-07-05] MEDS: DONEPEZIL 10 MG TAB PO SCH (08:37)
[2019-07-05] MEDS: ATORVASTATIN 20 MG TAB PO SCH (08:37)
[2019-07-05] MEDS: NAPROXEN 250 MG TAB PO SCH ×2 (08:38→22:11)
[2019-07-05] MEDS: LORATADINE 10 MG TAB PO SCH (08:38)
[2019-07-05] MEDS: MONTELUKAST 10 MG TAB PO SCH (08:38)
[2019-07-05] MEDS: ISOSORBIDE MONONITRATE ER 30 MG TAB.ER.24H PO SCH (08:38)
[2019-07-05] MEDS: METOPROLOL SUCCINATE (ER) 25 MG TAB.ER.24H PO SCH (08:38)
[2019-07-05] MEDS: PANTOPRAZOLE 40 MG TABLET PO SCH (08:40)
[2019-07-05] MEDS: predniSONE 5 MG TAB PO SCH (08:40)
[2019-07-05] MEDS: HYDROcodone/APAP 5-325MG 1 EACH TAB PO PRN (08:40)
[2019-07-05] MEDS: IPRATROPIUM-ALBUTEROL 3 ML NEB INHALATION SCH ×4 (08:51→19:28)
--- NOTE | 2019-07-05 14:57 | P.PN ---
Subjective Progress Note Date: 07/05/19 Patient seen and examined doing very well after DC of epidural. No complaints of pain Objective - Vital Signs Vital signs: Vital Signs Temp 98.1 F 07/05/19 07:00 Pulse 68 07/05/19 12:04 Resp 17 07/05/19 07:00 BP 160/84 07/05/19 07:00 Pulse Ox 96 07/05/19 07:00 Intake & Output 07/04/19 07/05/19 07/05/19 18:59 06:59 18:59 Intake Total 460.333 250 Output Total 1700 1000 800 Balance -1239.667 -750 -800 Intake: Intake, IV Titration 35.333 Amount Ropivacaine 250 mg 35.333 fentaNYL (PF) 625 mcg In Sodium Chloride 0.9% 188 ml @ Per Protocol EPIDURAL .Q0M PRN Rx#: [id number] Oral 425 250 Output: Urine 1700 1000 800 Uretheral (Miles) 1700 400 Other: Voiding Method Indwelling Catheter Indwelling Catheter Indwelling Catheter - Constitutional General appearance: Present: cooperative - Respiratory Details: Nonlabored - Gastrointestinal Gastrointestinal Comment(s): S/NT/ND - Psychiatric Psychiatric: Present: A&O x's 3 Assessment and Plan Assessment: Rib fractures Plan: Pain is resolved. Patient is stable from surgical standpoint for DC
--- NOTE | 2019-07-05 16:54 | P.PN ---
Subjective Progress Note Date: 07/05/19 Principal diagnosis: Left-sided chest pain due to multiple left-sided 3 rib fracture Status post slip and fall History of end-stage COPD Hypertension hypertensive cardiovascular disease Coronary artery disease with history of stent placement Status post intra-cerebral hemorrhage requiring plate and bar holds 07/05/2019, patient seen eval examined during the rounds labs reviewed medications reviewed care plan discussed with the patient as well, patient has episode of anxiety and delirium last night and still confused patient has one dementia and Alzheimer's disease, epidural has been removed 07/04/2019, patient seen eval examined respiratory status is stable patient is still an epidural severity of pain is much improved now, patient is currently running 4 mL an hour with a VAS score of 0 denies any weakness. Epidural likely be discontinued tomorrow 07/03/2019, patient seen eval examined during the rounds patient has epidural working well denies any chest pain or shortness of breath breathing is stable patient has been pain-free cough shortness of breath is within reason, labs reviewed medications reviewed This is a 83-year-old with end-stage COPD well-known to me from office, patient admitted into the hospital after he slipped and fell while in the shower hitting the side of the bathtub with his left chest wall. He denied any loss of consciousness. He did take, but to get up and get moving around. The pain was getting worse and he had significant discomfort changing positions. He was brought to the emergency room for the same. Rib x-rays did reveal fractures of left seventh and eighth and ninth ribs with minimal displacement. He was admit tiffanie for pain control. He is seen today in follow-up on the regular medical floor. He is currently awake and alert in no acute distress. Resting fairly comfortably in bed will not moving. He does have significant grimacing in pain while attempting to sit up in bed with assistance. He is maintaining O2 saturations in the 90s on room air. He's been afebrile. Hemodynamically stable. Chest x-ray revealed no acute process, working well with the incentive spirometer Due to severity of pain patient does require epidural but dislodge yesterday came out this morning a new one is placed patient's pain is improved Objective - Vital Signs Vital signs: Vital Signs Temp 98.2 F 07/05/19 15:00 Pulse 75 07/05/19 15:57 Resp 16 07/05/19 15:57 BP 163/90 07/05/19 15:00 Pulse Ox 94 L 07/05/19 15:00 Intake & Output 07/04/19 07/05/19 07/05/19 18:59 06:59 18:59 Intake Total 460.333 250 Output Total 1700 1000 950 Balance -1239.667 -750 -950 Intake: Intake, IV Titration 35.333 Amount Ropivacaine 250 mg 35.333 fentaNYL (PF) 625 mcg In Sodium Chloride 0.9% 188 ml @ Per Protocol EPIDURAL .Q0M PRN Rx#: [id number] Oral 425 250 Output: Urine 1700 1000 950 Uretheral (Miles) 1700 400 Other: Voiding Method Indwelling Catheter Indwelling Catheter Indwelling Catheter # Voids 1 - Exam GENERAL EXAM: Alert, very pleasant 83-year-old gentleman, on room air, comfortable at rest but significant left-sided chest discomfort with movement. HEAD: Normocephalic. EYES: Normal reaction of pupils, equal size. NOSE: Clear with pink turbinates. THROAT: No erythema or exudates. NECK: No masses, no JVD. CHEST: No chest wall deformity. Tender to touch the left chest wall secondary to fall. LUNGS: Equal air entry with no crackles, wheeze, rhonchi or dullness. CVS: S1 and S2 normal with no audible murmur, regular rhythm. ABDOMEN: No hepatosplenomegaly, normal bowel sounds, no guarding or rigidity. SPINE: No scoliosis or deformity SKIN: No rashes CENTRAL NERVOUS SYSTEM: No focal deficits, tone is normal in all 4 extremities. EXTREMITIES: There is no peripheral edema. No clubbing, no cyanosis. Peripheral pulses are intact. Assessment and Plan Assessment: Delirium likely medication related Advanced dementia exam is disease Left-sided chest pain due to multiple left-sided ribfracture Status post slip and fall History of end-stage COPD Hypertension hypertensive cardiovascular disease Coronary artery disease with history of stent placement Status post intra-cerebral hemorrhage requiring plate and bar holds Plan: Monitor patient off of epidural Continue supportive care and agree with set her Continue deep breathing exercise incentive spirometry Pain medications Continue home medications Continue bronchodilator Continue incentive spirometry Further recommendations pending plan of care as per clinical response of the patient Time with Patient: Greater than 30
[2019-07-06 07:10] VITALS: BP 134/78; RESP 15; TEMP 98
--- NOTE | 2019-07-06 07:13 | PN ---
PROGRESS NOTE COPD, dementia, sat in the mid 90s. Going to get PT, OT to ambulate. He has been confused today. We had got a sitter in his room. We hope this confusion clears up. CARDIOVASCULAR: S1-S2. LUNGS: Scattered wheeze. Decreased breath sounds. MUSCULOSKELETAL: He can move his arms over his head without minimal pain. ASSESSMENT: 1. Rib fracture left, bronchospasm. 2. Chronic obstructive pulmonary disease. 3. Dementia with some delirium. PT, OT, sitter at the bedside. Continue to monitor. possibly has been discontinued. Hopefully his mental status will improve off the IV pain medicine and be discharged home in the morning. MMODL / IJN: [id number] /
[2019-07-06] MEDS: IPRATROPIUM-ALBUTEROL 3 ML NEB INHALATION SCH (08:40)
[2019-07-06 08:52] VITALS: PULSE 80
[2019-07-06] MEDS: NAPROXEN 250 MG TAB PO SCH (09:41)
[2019-07-06] MEDS: METOPROLOL SUCCINATE (ER) 25 MG TAB.ER.24H PO SCH (09:42)
[2019-07-06] MEDS: MONTELUKAST 10 MG TAB PO SCH (09:42)
[2019-07-06] MEDS: DONEPEZIL 10 MG TAB PO SCH (09:42)
[2019-07-06] MEDS: PANTOPRAZOLE 40 MG TABLET PO SCH (09:42)
[2019-07-06] MEDS: LORATADINE 10 MG TAB PO SCH (09:42)
[2019-07-06] MEDS: FERROUS SULFATE 325 MG TAB PO SCH (09:42)
[2019-07-06] MEDS: ATORVASTATIN 20 MG TAB PO SCH (09:42)
[2019-07-06] MEDS: ASPIRIN 81 MG PO SCH (09:42)
[2019-07-06] MEDS: predniSONE 5 MG TAB PO SCH (09:42)
[2019-07-06] MEDS: ISOSORBIDE MONONITRATE ER 30 MG TAB.ER.24H PO SCH (09:42)
--- NOTE | 2019-07-06 12:36 | PN ---
PROGRESS NOTE An 83-year-old white male who is healing well. Since the PC pump has been removed, his mentation is back to his baseline. He is up ambulating. Wants to go home. Has minimal pain. Able to raise his arms over his head. Pain medicine has been been ordered by surgeon. He continues on his cardiac medications and hypertension medications. LUNGS: Clear. CARDIOVASCULAR: S1, S2. His saturations are in the mid to high 90s, 95% on room air. Blood pressure 134/78. PSYCH: He is alert and oriented. ASSESSMENT: 1. Status post rib fractures. 2. Delirium secondary to SUBSURFACE AUGMENTEE ELINT OPERATOR pump. 3. Dementia. 4. Hypertension. 5. Coronary artery disease. Continue current treatment. Possible discharge home today as he is stable medically. MMODL / IJN: [id number] /
--- NOTE | 2019-07-14 10:51 | DS ---
DISCHARGE SUMMARY 83-year-old white male who was admitted with rib fractures from a fall at home on the left side of the ribs. He was treated by the trauma surgeon and monitored for multiple days. Severe pain was given. He was placed on some kind of pain HOUSEKEEPER NANNY pump and was weaned to oral medications. He has some delirium due to the HOUSEKEEPER NANNY pump. Stabilized as a HOUSEKEEPER NANNY pump was discontinued. He will continue on his home medications and sent home in stable condition on: 1. Ecotrin 81 mg daily. 2. Singulair 10 mg daily. 3. Zyrtec 10 mg daily. 4. Omeprazole 20 b.i.d. 5. Metoprolol ER 25 mg daily. 6. Imdur 30 mg daily. 7. Lipitor 20 mg daily. 8. Colace 100 b.i.d. 9. Prednisone 5 mg daily. 10.Aricept 10 mg daily. 11.Iron sulfate 325 daily. 12.Vitamin D 44564 weekly. 13.Naprosyn 250 b.i.d. 14.Aricept 10 mg daily. 15.[place] 05/325 every 4-6 hours p.r.n. CONDITION: Stable. PROGNOSIS: Guarded. MMODL / IJN: [id number] /
--- NOTE | 2019-07-30 10:20 | CDI ---
Documentation Clarification Form Date: 07/30/2019 10:05:59 AM From: Aurora Davies RN, CCDS Admit Date: 07/01/2019 01:21:00 PM Patient Name: Lance Devi Visit Number: [id number] Discharge Date: 07/06/2019 01:20:00 PM ATTENTION: The Clinical Documentation Specialists (CDI) and [facility] Coding Staff appreciate your assistance in clarifying documentation. Please respond to the clarification below the line at the bottom and electronically sign. The CDI & [facility] Coding staff will review the response and follow-up if needed. Please note: Queries are made part of the Legal Health Record. If you have any questions, please contact the author of this message via ITS. Dr. Jason Johnson Delirium secondary to HOUSE CLEANER pump is documented and is a complication of care- can you please review and provide further specificity. History/Risk Factors: Fall with Fx ribs, had epidural in place prior. Hx of Alzheimers dementia Clinical Indicators: 07/05 Pulmonary: patient has episode of anxiety and delirium last night and still confused patient has one dementia and Alzheimer's disease, epidural has been removed." 07/06 Attending: "Since the PC pump has been removed, his mentation is back to his baseline. Hopefully his mental status will improve off the IV pain medicine and be discharged home in the morning." 07/14 D/C Summary: "He has some delirium due to the HOUSE CLEANER pump." Treatment Negative Spotter pump d/c and pt placed on Po ultram In your professional opinion, please clarify the etiology of the Altered Mental Status, if known. Encephalopathy (specify Type- Metabolic, Toxic, etc. and Underlying Medical Illness) Other condition (please specify) Unable to determine (Last Revision: September 2017) MTDD
--- NOTE | 2019-07-30 13:03 | DS ---
DISCHARGE SUMMARY ADDENDUM: Altered mental status, which is toxic encephalopathy secondary to METALLURGICAL ENGINEERING TEACHER pump use while being admitted. . MMODL / IJN: [id number] /
--- NOTE | 2019-08-01 07:49 | DS ---
DISCHARGE SUMMARY Please add to discharge diagnoses: Toxic encephalopathy. MMODL / IJN: [id number] /
== END 2019-07-06 13:20 | disposition home health service (06) | DRG 183 ==
LOC: EC 13:42 → 4SSUR 16:52 → OBSVTOIN 07-01 13:21
PROVIDERS: ADMIT Surgery; ATTEND Surgery
PROC: 3E0R3BZ Introduction of Anesthetic Agent into Spinal Canal, Percutaneous Approach (ICD-10-PCS; principal; 2019-06-30 13:17)
PROC: 00HU33Z Insertion of Infusion Device into Spinal Canal, Percutaneous Approach (ICD-10-PCS; principal; 2019-06-30 13:17)
PROC: 3E0R3BZ Introduction of Anesthetic Agent into Spinal Canal, Percutaneous Approach (ICD-10-PCS; 2019-07-02)
PROC: 00HU33Z Insertion of Infusion Device into Spinal Canal, Percutaneous Approach (ICD-10-PCS; 2019-07-02)
DX: S22.42XA Multiple fractures of ribs, left side, initial encounter for closed fracture (principal); G92 Toxic encephalopathy; F02.80 Dementia in other diseases classified elsewhere, unspecified severity, without behavioral disturbance, psychotic disturbance, mood disturbance, and anxiety; G30.9 Alzheimer's disease, unspecified; I11.9 Hypertensive heart disease without heart failure; T40.4X5A Adverse effect of other synthetic narcotics, initial encounter; T41.3X5A Adverse effect of local anesthetics, initial encounter; G89.11 Acute pain due to trauma; L29.9 Pruritus, unspecified; J98.01 Acute bronchospasm; F41.9 Anxiety disorder, unspecified; J44.9 Chronic obstructive pulmonary disease, unspecified; E78.5 Hyperlipidemia, unspecified; I25.10 Atherosclerotic heart disease of native coronary artery without angina pectoris; K21.9 Gastro-esophageal reflux disease without esophagitis; K22.70 Barrett's esophagus without dysplasia; Z79.82 Long term (current) use of aspirin; Z79.899 Other long term (current) drug therapy; Z86.73 Personal history of transient ischemic attack (TIA), and cerebral infarction without residual deficits; Z87.19 Personal history of other diseases of the digestive system; Z87.01 Personal history of pneumonia (recurrent); W01.198A Fall on same level from slipping, tripping and stumbling with subsequent striking against other object, initial encounter; Y92.002 Bathroom of unspecified non-institutional (private) residence as the place of occurrence of the external cause; Y93.E1 Activity, personal bathing and showering; Z95.5 Presence of coronary angioplasty implant and graft; Z86.010 Personal history of colon polyps; Z86.79 Personal history of other diseases of the circulatory system; Z86.59 Personal history of other mental and behavioral disorders; Z98.890 Other specified postprocedural states; Z82.49 Family history of ischemic heart disease and other diseases of the circulatory system
CPT/HCPCS: 62325; 94640; 94760; 96374; 99284

== ENCOUNTER 2019-08-06 13:39 | Inpatient (IN) | payer MEDICARE, BC ==
[2019-08-06] MEDS ORDERED: DEXAMETHASONE SOD PHOSPHATE 10 MG/ML 1 ML VIAL IV STA (14:33)
[2019-08-06] MEDS ORDERED: IPRATROPIUM-ALBUTEROL 3 ML NEB INHALATION STA (14:33)
[2019-08-06] MEDS ORDERED: SODIUM CHLORIDE 0.9% 500 ML 500 ML IV STA (14:33)
--- NOTE | 2019-08-06 14:38 | ED ---
General Adult HPI - General Chief complaint: Recheck/Abnormal Lab/Rx Stated complaint: left sided pain Time Seen by Provider: 08/06/19 13:50 Source: patient Mode of arrival: wheelchair Limitations: no limitations - History of Present Illness Initial comments: Dictation was produced using [employer]ond[employer] dictation software. please excuse any grammatical, word or spelling errors. Chief Complaint: 84-year-old male sent in by primary care physician for abnormal EKG and chest pain and shortness of breath. History of Present Illness:-year-old man has history of chronic bronchial asthma. He was at his primary care physician's office today were he was felt to have atrial fibrillation on EKG. Patient has been short of breath for last 2-3 days. He has history of bronchial asthma and takes baseline steroids. Patient has been having slight increase in cough. Patient denies any fever, chills or night sweats. He has extensive history of pneumonia and is very sensitive and susceptible. Patient denies any cardiac history. Daughter at bedside reports that patient fell approximately one week ago. He states he was walking around outside when his dog yanked on the leash causing him to fall landing on his left side. The ROS documented in this emergency department record has been reviewed and confirmed by me. Those systems with pertinent positive or negative responses have been documented in the HPI. All other systems are other negative and/or noncontributory. PHYSICAL EXAM: General Impression: Alert and oriented x3, not in acute distress HEENT: Normocephalic atraumatic, extra-ocular movements intact, pupils equal and reactive to light bilaterally, mucous membranes moist. Cardiovascular: Irregular Chest: Mild diffuse wheeze Abdomen: Bowel sounds present, abdomen soft, non-tender, non-distended, no organomegaly Musculoskeletal: Pulses present and equal in all extremities, no peripheral edema Motor: no focal deficits noted Neurological: CN II-XII grossly intact, no focal motor or sensory deficits noted Skin: Intact with no visualized rashes Psych: Normal affect and mood ED course: 84 Year old male presents with instruction from primary care doctor to come to the emergency department for abnormal EKG and shortness of breath. On arrival are within acceptable limits. EKG was reviewed from PMDs office showing concern for atrial fibrillation. EKG performed here showed sinus rhythm with premature atrial complexes. No concern for A. fib on our EKG. Return evaluation obtained. Leukocytosis of 13.0 likely secondary to stress. Hemoglobin stable at 13.8. Coag panel unremarkable. Metabolic panel is none unremarkable. Chest x-ray obtained showing pleural effusion to the left with left-sided rib fractures. Computed tomography scan of the chest was obtained showing large left effusion, hernia, multiple left-sided rib fractures and T12 compression fracture patient reevaluated bedside. He is notified of these results. Patient is in minimal pain. He is upset that he needs to be admitted to the hospital. Discussed patient case with Dr. Quintana who requests the patient be admitted to ICU with pulmonology on consult and cardiothoracic surgery on consult. Discussed patient case with Dr. Tony who requests interventional radiology be consulted for possible pigtail catheter thoracostomy. EKG interpretation: Ventricular rate sinus rhythm with premature atrial complexes, ND interval 172, QRS 1:30, QTc 516.. EKG consistent with prolonged QT - Related Data Home Medications Medication Instructions Recorded Confirmed Aspirin EC [Ecotrin Low Dose] 81 mg PO DAILY 11/23/17 08/06/19 Atorvastatin [Lipitor] 20 mg PO DAILY 11/23/17 08/06/19 Cetirizine HCl [Zyrtec] 10 mg PO DAILY 11/23/17 08/06/19 Isosorbide Mononitrate ER [Imdur] 30 mg PO DAILY 11/23/17 08/06/19 Metoprolol Succinate (ER) [Toprol 25 mg PO DAILY 11/23/17 08/06/19 Xl] Montelukast [Singulair] 10 mg PO DAILY 11/23/17 08/06/19 Omeprazole 20 mg PO BID 11/23/17 08/06/19 Docusate [Colace] 100 mg PO BID PRN 06/29/19 08/06/19 Donepezil [Aricept] 10 mg PO DAILY 06/29/19 08/06/19 Ergocalciferol [Vitamin D2] 50,000 unit PO FR 06/29/19 08/06/19 Ferrous Sulfate [Feosol] 325 mg PO DAILY 06/29/19 08/06/19 predniSONE 5 mg PO DAILY 06/29/19 08/06/19 Previous Rx's Medication Instructions Recorded HYDROcodone/APAP 5-325MG [[place]ath 1 - 2 tab PO Q4H PRN #30 tab 07/03/19 5-325] Naproxen [Naprosyn] 250 mg PO BID #60 tab 07/03/19 Allergies Allergy/AdvReac Type Severity Reaction Status Date / Time No Known Allergies Allergy Verified 08/06/19 14:28 Review of Systems ROS Statement: Those systems with pertinent positive or pertinent negative responses have been documented in the HPI. ROS Other: All systems not noted in ROS Statement are negative. Past Medical History Past Medical History: COPD, CVA/TIA, GERD/Reflux, GI Bleed, Hypertension, Memory Impairment, Pneumonia Additional Past Medical History / Comment(s): barretts esophagus, History of Any Multi-Drug Resistant Organisms: None Reported Past Surgical History: Heart Catheterization With Stent Additional Past Surgical History / Comment(s): Polyps removed via colonoscopy, 2 francisco holes and metal plates placed due to brain bleed. Date of Last Stent Placement:: 1989 Past Psychological History: Depression Smoking Status: Never smoker Past Alcohol Use History: Rare Past Drug Use History: None Reported - Past Family History Mother Family Medical History: AICD/Pacemaker General Exam Limitations: no limitations Course Vital Signs 08/06/19 08/06/19 08/06/19 13:41 15:00 15:17 Temperature 97.9 F Pulse Rate 87 81 73 Respiratory 18 18 Rate Blood Pressure 128/78 109/83 O2 Sat by Pulse 94 L 99 Oximetry 08/06/19 15:23 Temperature Pulse Rate 68 Respiratory Rate Blood Pressure O2 Sat by Pulse Oximetry Medical Decision Making - Lab Data Result diagrams: 08/06/19 14:40 08/06/19 14:40 Lab Results 08/06/19 08/06/19 08/06/19 Range/Units 14:40 14:40 14:40 WBC 13.0 H (3.8-10.6) k/uL RBC 4.62 (4.30-5.90) m/uL Hgb 13.8 (13.0-17.5) gm/dL Hct 42.4 (39.0-53.0) % MCV 91.8 (80.0-100.0) fL MCH 29.8 (25.0-35.0) pg MCHC 32.4 (31.0-37.0) g/dL RDW 12.1 (11.5-15.5) % Plt Count 555 H (150-450) k/uL Neutrophils % 71 % Lymphocytes % 6 % Monocytes % 6 % Eosinophils % 15 % Basophils % 0 % Neutrophils # 9.2 H (1.3-7.7) k/uL Lymphocytes # 0.8 L (1.0-4.8) k/uL Monocytes # 0.8 (0-1.0) k/uL Eosinophils # 1.9 H (0-0.7) k/uL Basophils # 0.0 (0-0.2) k/uL PT (9.0-12.0) sec INR (<1.2) APTT (22.0-30.0) sec Sodium 136 L (137-145) mmol/L Potassium 3.9 (3.5-5.1) mmol/L Chloride 103 (98-107) mmol/L Carbon Dioxide 30 (22-30) mmol/L Anion Gap 3 mmol/L BUN 12 (9-20) mg/dL Creatinine 0.77 (0.66-1.25) mg/dL Est GFR (CKD-EPI)AfAm >90 (>60 ml/min/1.73 sqM) Est GFR (CKD-EPI)NonAf 84 (>60 ml/min/1.73 sqM) Glucose 97 (74-99) mg/dL Calcium 8.4 (8.4-10.2) mg/dL Magnesium 2.0 (1.6-2.3) mg/dL Total Bilirubin 0.5 (0.2-1.3) mg/dL AST 29 (17-59) U/L ALT 15 (4-49) U/L Alkaline Phosphatase 83 (38-126) U/L Troponin I (0.000-0.034) ng/mL NT-Pro-B Natriuret Pep 280 pg/mL Total Protein 5.6 L (6.3-8.2) g/dL Albumin 2.8 L (3.5-5.0) g/dL 08/06/19 08/06/19 Range/Units 14:40 14:40 WBC (3.8-10.6) k/uL RBC (4.30-5.90) m/uL Hgb (13.0-17.5) gm/dL Hct (39.0-53.0) % MCV (80.0-100.0) fL MCH (25.0-35.0) pg MCHC (31.0-37.0) g/dL RDW (11.5-15.5) % Plt Count (150-450) k/uL Neutrophils % % Lymphocytes % % Monocytes % % Eosinophils % % Basophils % % Neutrophils # (1.3-7.7) k/uL Lymphocytes # (1.0-4.8) k/uL Monocytes # (0-1.0) k/uL Eosinophils # (0-0.7) k/uL Basophils # (0-0.2) k/uL PT 10.6 (9.0-12.0) sec INR 1.0 (<1.2) APTT 27.5 (22.0-30.0) sec Sodium (137-145) mmol/L Potassium (3.5-5.1) mmol/L Chloride (98-107) mmol/L Carbon Dioxide (22-30) mmol/L Anion Gap mmol/L BUN (9-20) mg/dL Creatinine (0.66-1.25) mg/dL Est GFR (CKD-EPI)AfAm (>60 ml/min/1.73 sqM) Est GFR (CKD-EPI)NonAf (>60 ml/min/1.73 sqM) Glucose (74-99) mg/dL Calcium (8.4-10.2) mg/dL Magnesium (1.6-2.3) mg/dL Total Bilirubin (0.2-1.3) mg/dL AST (17-59) U/L ALT (4-49) U/L Alkaline Phosphatase (38-126) U/L Troponin I <0.012 (0.000-0.034) ng/mL NT-Pro-B Natriuret Pep pg/mL Total Protein (6.3-8.2) g/dL Albumin (3.5-5.0) g/dL Disposition Clinical Impression: Hemothorax Disposition: ADMITTED IP TO THIS HOSP Condition: Fair Referrals: Jason Johnson MD [Primary Care Provider] - 1-2 days Decision Time: 16:34
[2019-08-06 14:59] LABS: Basophils % (A) 0 %; Eosinophils # (A) 1.9 k/uL (0-0.7); Eosinophils % (A) 15 %; HCT 42.4 % (39.0-53.0); HGB 13.8 gm/dL (13.0-17.5); Lymphocytes # (A) 0.8 k/uL (1.0-4.8); Lymphocytes % (A) 6 %; MCH 29.8 pg (25.0-35.0); MCHC 32.4 g/dL (31.0-37.0); MCV 91.8 fL (80.0-100.0); Mean Platelet Volume 7.1; Monocytes # (A) 0.8 k/uL (0-1.0); Monocytes % (A) 6 %; Neutrophils # (A) 9.2 k/uL (1.3-7.7); Neutrophils % (A) 71 %; Platelet Count 555 k/uL (150-450); RBC 4.62 m/uL (4.30-5.90); RDW 12.1 % (11.5-15.5)
--- NOTE | 2019-08-06 15:03 | XR ---
EXAMINATION TYPE: XR chest 2V DATE OF EXAM: 08/06/2019 COMPARISON: 06/29/2019 HISTORY: Difficulty breathing TECHNIQUE: Frontal and lateral views of the chest are obtained. FINDINGS: There is a new moderate to large left pleural effusion with associated left sided airspace disease. Large hiatal hernia is also demonstrated. There is obscuration of the cardiomediastinal nate houette. Right lung is well aerated as is the left lung apex. Lower thoracic compression deformity is stable from the prior. Exaggerated thoracic kyphosis is seen. IMPRESSION: New moderate to large left pleural effusion and associated left basilar airspace disease . Redemonstration of a large hiatal hernia.
[2019-08-06 15:08] LABS: ALT 15 U/L (4-49); AST 29 U/L (17-59); African American GFR (CKD) >90 (>60 ml/min/1.73 sqM); Albumin 2.8 g/dL (3.5-5.0); Alkaline Phosphatase 83 U/L (38-126); Anion Gap 3 mmol/L; Blood Urea Nitrogen 12 mg/dL (9-20); Calcium 8.4 mg/dL (8.4-10.2); Carbon Dioxide 30 mmol/L (22-30); Chloride 103 mmol/L (98-107); Glucose 97 mg/dL (74-99); Non-African American GFR(CKD) 84 (>60 ml/min/1.73 sqM); Potassium 3.9 mmol/L (3.5-5.1); Sodium 136 mmol/L (137-145); Total Bilirubin 0.5 mg/dL (0.2-1.3); Total Protein 5.6 g/dL (6.3-8.2)
[2019-08-06 15:09] LABS: Partial Thromboplastin Time 27.5 sec (22.0-30.0); Prothrombin Time 10.6 sec (9.0-12.0)
[2019-08-06] MEDS ORDERED: RX INFO: IV CONTRAST WAS GIVEN 1 EACH MISC MISCELLANE PRN (15:10)
--- NOTE | 2019-08-06 16:12 | CT ---
EXAMINATION TYPE: CT chest w con DATE OF EXAM: 08/06/2019 COMPARISON: Chest x-ray same date, prior CT 11/23/2017 HISTORY: Left sided chest pain. CT DLP: 451.4 mGycm Automated exposure control for dose reduction was used. CONTRAST: CT scan of the chest is performed with IV Contrast, patient injected with 100ml mL of Isovue 300. FINDINGS: LUNGS: The patient shows a large left pleural effusion and associated compressive atelectasis. MEDIASTINUM: There are no greater than 1 cm hilar or mediastinal lymph nodes. No pericardial effusi on is seen. There is a paraesophageal hernia with large portion of the stomach within the chest AORTA: No additional significant abnormality is seen. OTHER: Multiple left rib fractures are present to include the lateral seventh, eighth, ninth, hide salter ior 11th, 10th and ninth and eighth. Patient is post cholecystectomy. Compression fracture noted at T 12 with only minimal retropulsion, loss of height at 50%, interval finding compared to prior chest CT IMPRESSION: Large left effusion, associated atelectasis, paraesophageal hernia with intrathoracic st omach, multiple left-sided rib fractures
[2019-08-06] MEDS ORDERED: NALOXONE 0.4 MG/ML 1 ML VIAL IV PRN (16:26)
[2019-08-06] MEDS: SODIUM CHLORIDE 0.9% 1,000 ML IV SCH (17:12)
[2019-08-06 17:28] LABS: Glucose,Whole Blood 93 mg/dL (75-99)
[2019-08-06] MEDS ORDERED: DOCUSATE 100 MG CAP PO PRN (19:53)
[2019-08-06] MEDS ORDERED: HYDROcodone/APAP 5-325MG 1 EACH TAB PO PRN ×2 (19:53→19:57)
[2019-08-06] MEDS ORDERED: HALOPERIDOL LACTATE 5 MG/ML 1 ML VIAL IVP PRN (20:27)
[2019-08-07 05:25] LABS: Basophils % (A) 0 %; Eosinophils # (A) 0.1 k/uL (0-0.7); Eosinophils % (A) 1 %; HCT 39.7 % (39.0-53.0); HGB 12.4 gm/dL (13.0-17.5); Hypochromasia Slight; Lymphocytes # (A) 0.5 k/uL (1.0-4.8); Lymphocytes % (A) 6 %; MCH 29.5 pg (25.0-35.0); MCHC 31.2 g/dL (31.0-37.0); MCV 94.5 fL (80.0-100.0); Mean Platelet Volume 7.3; Monocytes # (A) 0.4 k/uL (0-1.0); Monocytes % (A) 4 %; Neutrophils # (A) 8.5 k/uL (1.3-7.7); Neutrophils % (A) 89 %; Platelet Count 674 k/uL (150-450); RDW 12.2 % (11.5-15.5); WBC 9.6 k/uL (3.8-10.6)
--- NOTE | 2019-08-07 07:27 | XR ---
EXAMINATION TYPE: XR chest 1V DATE OF EXAM: 08/07/2019 HISTORY: Shortness of breath. COMPARISON: 08/06/2019 TECHNIQUE: Single view of the chest is submitted. FINDINGS: Demonstrated are scattered senescent parenchymal change. There is layering of a large pleural effusion left lung. Left basilar atelectasis or infiltrate noted . The heart is stable. Hilar and mediastinal structures are within normal limits. Persistent fixed hiatal hernia. Degenerative changes are seen of the dorsal spine. IMPRESSION: 1. There is layering of a large pleural effusion left lung. Left basilar atelectasis or infiltrate n oted.
[2019-08-07] MEDS: FERROUS SULFATE 325 MG TAB PO SCH (08:00)
[2019-08-07] MEDS: MONTELUKAST 10 MG TAB PO SCH (08:00)
[2019-08-07] MEDS: PANTOPRAZOLE 40 MG TABLET PO SCH (08:00)
[2019-08-07] MEDS: predniSONE 5 MG TAB PO SCH (08:01)
[2019-08-07] MEDS: ISOSORBIDE MONONITRATE ER 30 MG TAB.ER.24H PO SCH (08:01)
[2019-08-07] MEDS: LORATADINE 10 MG TAB PO SCH (08:01)
[2019-08-07] MEDS: ATORVASTATIN 20 MG TAB PO SCH (08:01)
[2019-08-07] MEDS: METOPROLOL SUCCINATE (ER) 25 MG TAB.ER.24H PO SCH (08:01)
[2019-08-07] MEDS: DONEPEZIL 10 MG TAB PO SCH (08:01)
[2019-08-07] MEDS: IPRATROPIUM-ALBUTEROL 3 ML NEB INHALATION SCH ×4 (08:02→20:07)
--- NOTE | 2019-08-07 12:21 | P.GSCN ---
History of Present Illness Consult date: 08/07/19 Reason for Consult: Rib fractures, left hemothorax. Requesting physician: Bradley Louie History of present illness: This is an 84-year-old gentleman who follows with Dr. Jason Johnson on an outpatient basis. He is a past medical history significant for hypertension, hyperlipidemia, CVA/TIA, GERD, coronary artery disease with previous stent placement, previous brain bleed requiring bur holes and plates, depression, anxiety, lifetime nonsmoker, previous fall from standing around 1 month ago with rib fractures involving the left seventh, eighth and ninth ribs. The patient is somewhat of a poor historian with some episodes of forgetfulness. Some of the information obtained was obtained from his chart and his bedside nurses. The patient reports about 2 weeks ago he was walking his dog outside and subsequen tly slipped and fell on his left chest to the grass. He was able to get up on his own accord and reports he was not having any symptoms of shortness of breath at that time. Yesterday he presented to his primary care physician's office for a follow-up appointment, underwent a 12-lead EKG which possibly demonstrated atrial fibrillation and reports he had been experiencing some episodes of progressive shortness of breath over the last 2-3 day period. He denies any recent fever, chills, diarrhea, nausea, vomiting or hemoptysis. While in the emergency department here at [facility] he underwent a 12 EKG was completed which demonstrated him to be in normal sinus rhythm with premature atrial complexes and a heart rate of 90 bpm, and also a chest x-ray was completed on 08/06/2019 which showed a new moderate to large left sided pleural effusion associated with left basilar airspace disease and redemonstration of a large hiatal hernia. For further evaluation a computed tomography scan of his chest with contrast was completed which demonstrated a large left pleural effusion, associated atelectasis, paraesophageal hernia with intrathoracic stomach and multiple left-sided rib fractures which include the lateral seventh, eighth, ninth, posterior 11th, 10th, ninth and eighth. It also demonstrated compression fracture at T12. The patient was subsequently admitted to the hospital and a consult was placed to Dr. Nessa Cheatham from cardiothoracic surgery for further evaluation and treatment recommendations. Review of Systems A 14 point review of systems was completed and was negative except as mentioned in the HPI. 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 Past Anesthesia/Blood Transfusion Reactions: No Reported Reaction Date of Last Stent Placement:: 1989 Past Psychological History: Depression Smoking Status: Former smoker Past Alcohol Use History: Rare Additional Past Alcohol Use History / Comment(s): stopped smoking at last 40 years ago Past Drug Use History: None Reported - Past Family History Mother Family Medical History: AICD/Pacemaker Father Family Medical History: Congestive Heart Failure (CHF) Brother(s) Additional Family Medical History / Comment(s): 1 brother passed from sarcoidoisis. 1 brother, falls, Cancer, memory issues Sister(s) Additional Family Medical History / Comment(s): 1 sister passed from liver CA. 1 sister in [place] memory impairement Medications and Allergies Home Medications Medication Instructions Recorded Confirmed Type Aspirin EC [Ecotrin Low Dose] 81 mg PO DAILY 11/23/17 08/06/19 History Atorvastatin [Lipitor] 20 mg PO DAILY 11/23/17 08/06/19 History Cetirizine HCl [Zyrtec] 10 mg PO DAILY 11/23/17 08/06/19 History Isosorbide Mononitrate ER [Imdur] 30 mg PO DAILY 11/23/17 08/06/19 History Metoprolol Succinate (ER) [Toprol 25 mg PO DAILY 11/23/17 08/06/19 History Xl] Montelukast [Singulair] 10 mg PO DAILY 11/23/17 08/06/19 History Omeprazole 20 mg PO BID 11/23/17 08/06/19 History Docusate [Colace] 100 mg PO BID PRN 06/29/19 08/06/19 History Donepezil [Aricept] 10 mg PO DAILY 06/29/19 08/06/19 History Ergocalciferol [Vitamin D2] 50,000 unit PO FR 06/29/19 08/06/19 History Ferrous Sulfate [Feosol] 325 mg PO DAILY 06/29/19 08/06/19 History predniSONE 5 mg PO DAILY 06/29/19 08/06/19 History HYDROcodone/APAP 5-325MG [[place] 1 - 2 tab PO Q4H PRN #30 tab 07/03/19 08/06/19 Rx 5-325] Naproxen [Naprosyn] 250 mg PO BID #60 tab 07/03/19 08/06/19 Rx Allergies Allergy/AdvReac Type Severity Reaction Status Date / Time No Known Allergies Allergy Verified 08/06/19 14:28 Surgical - Exam Vital Signs Temp Pulse Resp BP Pulse Ox 97.9 F 87 18 128/78 94 L 08/06/19 13:41 08/06/19 13:41 08/06/19 13:41 08/06/19 13:41 08/06/19 13:41 - General Normocephalic atraumatic. well developed, well nourished, no distress, no pain, chronically ill - Eyes PERRL, normal ocular movement - ENT normal pinna, normal nares, normal mucosa, no hearing loss, no congestion - Neck Neck is supple, no lymphadenopathy. no masses, no bruits, trachea midline, no venous distension - Respiratory Lung sounds with expiratory wheezes throughout, diminished to his bilateral bases left greater than right. Respirations are symmetrical and nonlabored. - Cardiovascular Irregular rhythm with controlled rate. S1 and S2 present, negative for S3, gallop or murmur. - Abdomen Abdomen is soft, nontender and nondistended. Active bowel sounds present all 4 abdominal quadrants. No guarding or rigidity. No organomegaly. - Genitourinary Deferred - Rectum Deferred - Integumentary Skin is warm and dry. No clubbing or cyanosis is present. no rash, no growths, no abnormal pigmentation - Neurologic Cranial nerves II through XII intact. No focal motor or sensory deficits. - Musculoskeletal normal gait, normal posture - Psychiatric Episodes of forgetfulness. Alert and oriented [address] oriented to person, oriented to place, speech is normal Results - Labs 08/07/19 05:09 08/06/19 14:40 Abnormal Lab Results - Last 24 Hours (Table) 08/06/19 08/06/19 08/07/19 Range/Units 14:40 14:40 05:09 WBC 13.0 H (3.8-10.6) k/uL RBC 4.20 L (4.30-5.90) m/uL Hgb 12.4 L (13.0-17.5) gm/dL Plt Count 555 H 674 H (150-450) k/uL Neutrophils # 9.2 H 8.5 H (1.3-7.7) k/uL Lymphocytes # 0.8 L 0.5 L (1.0-4.8) k/uL Eosinophils # 1.9 H (0-0.7) k/uL Sodium 136 L (137-145) mmol/L Total Protein 5.6 L (6.3-8.2) g/dL Albumin 2.8 L (3.5-5.0) g/dL Diabetes panel 08/06/19 Range/Units 14:40 Sodium 136 L (137-145) mmol/L Potassium 3.9 (3.5-5.1) mmol/L Chloride 103 (98-107) mmol/L Carbon Dioxide 30 (22-30) mmol/L BUN 12 (9-20) mg/dL Creatinine 0.77 (0.66-1.25) mg/dL Glucose 97 (74-99) mg/dL Calcium 8.4 (8.4-10.2) mg/dL AST 29 (17-59) U/L ALT 15 (4-49) U/L Alkaline Phosphatase 83 (38-126) U/L Total Protein 5.6 L (6.3-8.2) g/dL Albumin 2.8 L (3.5-5.0) g/dL Calcium panel 08/06/19 Range/Units 14:40 Calcium 8.4 (8.4-10.2) mg/dL Albumin 2.8 L (3.5-5.0) g/dL Pituitary panel 08/06/19 Range/Units 14:40 Sodium 136 L (137-145) mmol/L Potassium 3.9 (3.5-5.1) mmol/L Chloride 103 (98-107) mmol/L Carbon Dioxide 30 (22-30) mmol/L BUN 12 (9-20) mg/dL Creatinine 0.77 (0.66-1.25) mg/dL Glucose 97 (74-99) mg/dL Calcium 8.4 (8.4-10.2) mg/dL Adrenal panel 08/06/19 Range/Units 14:40 Sodium 136 L (137-145) mmol/L Potassium 3.9 (3.5-5.1) mmol/L Chloride 103 (98-107) mmol/L Carbon Dioxide 30 (22-30) mmol/L BUN 12 (9-20) mg/dL Creatinine 0.77 (0.66-1.25) mg/dL Glucose 97 (74-99) mg/dL Calcium 8.4 (8.4-10.2) mg/dL Total Bilirubin 0.5 (0.2-1.3) mg/dL AST 29 (17-59) U/L ALT 15 (4-49) U/L Alkaline Phosphatase 83 (38-126) U/L Total Protein 5.6 L (6.3-8.2) g/dL Albumin 2.8 L (3.5-5.0) g/dL - Imaging Chest x-ray: report reviewed, image reviewed CT scan - chest: report reviewed, image reviewed Assessment and Plan Assessment: 1. Left hemothorax 2. Left-sided rib fracture secondary to fall from standing 3. Recent fall from standing 4. Coronary artery disease with previous stent placement 5. Hypertension 6. History of CVA/TIA 7. History of brain bleed with bur holes and plate placement 8. Memory impairment 9. History of depression/anxiety 10. Hyperlipidemia 11. GERD Plan: The patient was seen and examined at his bedside in intensive care unit. His chart diagnostics were reviewed. His case was discussed in detail with Dr. Szymanski his referring cardiothoracic surgery. Recommendations are for left chest thoracentesis to be performed by interventional radiology. Encourage use of his incentive spirometry every hour while awake. No surgical intervention is warranted at this time. Medical management other comorbidities per primary care service. Pulmonary management per Dr. Mendez's recommendations. Pain control per current when necessary orders, we will add Toradol 15 mg IV every 6 hours for pain control. More recommendations to follow based on patient's clinical course. Thank you for this consult and we look forward to working with you in the care of this patient. Time with Patient: Greater than 30
--- NOTE | 2019-08-07 13:03 | P.GSHP ---
History of Present Illness H&P Date: 08/07/19 Chief Complaint: fall CHIEF COMPLAINT: fall HISTORY OF PRESENT ILLNESS: 84-year-old male who recently sustained a fall while walking his dog about 2 weeks ago. Patient states he saw his primary care physician yesterday who recommended the patient come to the emergency room for further evaluation. Patient was evaluated in the intensive care unit with Dr. Huang. Patient states he is feeling well today. Denies abdominal pain. Denies shortness of breath. Denies heart palpitations. Tolerating diet without nausea or vomiting. PAST MEDICAL HISTORY: See list. PAST SURGICAL HISTORY: See list. SOCIAL HISTORY: No illicit drug use. REVIEW OF SYSTEMS: CONSTITUTIONAL: Denies fever or chills. Reports recent fall. HEENT: Denies blurred vision, vision changes, or eye pain. Denies hemoptysis CARDIOVASCULAR: Denies chest pain or pressure. RESPIRATORY: No shortness of breath. GASTROINTESTINAL: Denies abdominal pain. HEMATOLOGIC: Denies bleeding disorders. GENITOURINARY: Denies any blood in urine. SKIN: Denies pruitis. Denies rash. PHYSICAL EXAM: VITAL SIGNS: Reviewed. GENERAL: Well-developed in no acute distress. HEENT: No sclera icterus. Extraocular movements grossly intact. Moist buccal mucosa. Head is atraumatic, normocephalic. ABDOMEN: Soft. Nondistended. Nontender. NEUROLOGIC: Alert and oriented x 2. Cranial nerves II through XII grossly intact. LABORATORY DATA: WBC 13.0. Hemoglobin 13.8. Platelet count 555. Sodium 136 potassium 3.9. BUN 12. Creatinine 0.77. IMAGING: -Chest x-ray: New moderate to large left pleural effusion and associated left basilar airspace disease. Large hiatal hernia. -CT chest: Large left effusion, associated atelectasis, paraesophageal hernia with intrathoracic stomach multiple left-sided rib fractures ASSESSMENT: 1. S/P fall from standing 2. Left hemothorax 3. Multiple left-sided rib fractures 4. Paraesophageal hiatal hernia with intrathoracic stomach 5. History of CVA with stent placement, hypertension, CVA, hyperlipidemia PLAN: -Cardiothoracic surgery consulted for evaluation. Plans for interventional radiology for left chest thoracentesis. -Pulmonary consulted. Await recommendations and input -Incentive spirometer 10 times an hour -Activity as tolerated -Pain control -Medical management per Dr. Johnson -No general surgery intervention required from a trauma standpoint Nurse practitioner note has been reviewed by physician. Signing provider agrees with the documented findings, assessment, and plan of care. 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 Past Anesthesia/Blood Transfusion Reactions: No Reported Reaction Date of Last Stent Placement:: 1989 Past Psychological History: Depression Smoking Status: Former smoker Past Alcohol Use History: Rare Additional Past Alcohol Use History / Comment(s): stopped smoking at last 40 years ago Past Drug Use History: None Reported - Past Family History Mother Family Medical History: AICD/Pacemaker Father Family Medical History: Congestive Heart Failure (CHF) Brother(s) Additional Family Medical History / Comment(s): 1 brother passed from sarcoidoisis. 1 brother, falls, Cancer, memory issues Sister(s) Additional Family Medical History / Comment(s): 1 sister passed from liver CA. 1 sister in [place] memory impairement Medications and Allergies Home Medications Medication Instructions Recorded Confirmed Type Aspirin EC [Ecotrin Low Dose] 81 mg PO DAILY 11/23/17 08/06/19 History Atorvastatin [Lipitor] 20 mg PO DAILY 11/23/17 08/06/19 History Cetirizine HCl [Zyrtec] 10 mg PO DAILY 11/23/17 08/06/19 History Isosorbide Mononitrate ER [Imdur] 30 mg PO DAILY 11/23/17 08/06/19 History Metoprolol Succinate (ER) [Toprol 25 mg PO DAILY 11/23/17 08/06/19 History Xl] Montelukast [Singulair] 10 mg PO DAILY 11/23/17 08/06/19 History Omeprazole 20 mg PO BID 11/23/17 08/06/19 History Docusate [Colace] 100 mg PO BID PRN 06/29/19 08/06/19 History Donepezil [Aricept] 10 mg PO DAILY 06/29/19 08/06/19 History Ergocalciferol [Vitamin D2] 50,000 unit PO FR 06/29/19 08/06/19 History Ferrous Sulfate [Feosol] 325 mg PO DAILY 06/29/19 08/06/19 History predniSONE 5 mg PO DAILY 06/29/19 08/06/19 History HYDROcodone/APAP 5-325MG [[place] 1 - 2 tab PO Q4H PRN #30 tab 07/03/19 08/06/19 Rx 5-325] Naproxen [Naprosyn] 250 mg PO BID #60 tab 07/03/19 08/06/19 Rx Allergies Allergy/AdvReac Type Severity Reaction Status Date / Time No Known Allergies Allergy Verified 08/06/19 14:28 Surgical - Exam Vital Signs Temp Pulse Resp BP Pulse Ox 97.9 F 87 18 128/78 94 L 08/06/19 13:41 08/06/19 13:41 08/06/19 13:41 08/06/19 13:41 08/06/19 13:41 Results - Labs 08/07/19 05:09 08/06/19 14:40 Abnormal Lab Results - Last 24 Hours (Table) 08/06/19 08/06/19 08/07/19 Range/Units 14:40 14:40 05:09 WBC 13.0 H (3.8-10.6) k/uL RBC 4.20 L (4.30-5.90) m/uL Hgb 12.4 L (13.0-17.5) gm/dL Plt Count 555 H 674 H (150-450) k/uL Neutrophils # 9.2 H 8.5 H (1.3-7.7) k/uL Lymphocytes # 0.8 L 0.5 L (1.0-4.8) k/uL Eosinophils # 1.9 H (0-0.7) k/uL Sodium 136 L (137-145) mmol/L Total Protein 5.6 L (6.3-8.2) g/dL Albumin 2.8 L (3.5-5.0) g/dL Diabetes panel 08/06/19 Range/Units 14:40 Sodium 136 L (137-145) mmol/L Potassium 3.9 (3.5-5.1) mmol/L Chloride 103 (98-107) mmol/L Carbon Dioxide 30 (22-30) mmol/L BUN 12 (9-20) mg/dL Creatinine 0.77 (0.66-1.25) mg/dL Glucose 97 (74-99) mg/dL Calcium 8.4 (8.4-10.2) mg/dL AST 29 (17-59) U/L ALT 15 (4-49) U/L Alkaline Phosphatase 83 (38-126) U/L Total Protein 5.6 L (6.3-8.2) g/dL Albumin 2.8 L (3.5-5.0) g/dL Calcium panel 08/06/19 Range/Units 14:40 Calcium 8.4 (8.4-10.2) mg/dL Albumin 2.8 L (3.5-5.0) g/dL Pituitary panel 08/06/19 Range/Units 14:40 Sodium 136 L (137-145) mmol/L Potassium 3.9 (3.5-5.1) mmol/L Chloride 103 (98-107) mmol/L Carbon Dioxide 30 (22-30) mmol/L BUN 12 (9-20) mg/dL Creatinine 0.77 (0.66-1.25) mg/dL Glucose 97 (74-99) mg/dL Calcium 8.4 (8.4-10.2) mg/dL Adrenal panel 08/06/19 Range/Units 14:40 Sodium 136 L (137-145) mmol/L Potassium 3.9 (3.5-5.1) mmol/L Chloride 103 (98-107) mmol/L Carbon Dioxide 30 (22-30) mmol/L BUN 12 (9-20) mg/dL Creatinine 0.77 (0.66-1.25) mg/dL Glucose 97 (74-99) mg/dL Calcium 8.4 (8.4-10.2) mg/dL Total Bilirubin 0.5 (0.2-1.3) mg/dL AST 29 (17-59) U/L ALT 15 (4-49) U/L Alkaline Phosphatase 83 (38-126) U/L Total Protein 5.6 L (6.3-8.2) g/dL Albumin 2.8 L (3.5-5.0) g/dL
[2019-08-07] MEDS: KETOROLAC 30 MG/ML 1 ML VIAL IVP SCH ×3 (15:04→23:56)
--- NOTE | 2019-08-07 15:48 | XR ---
EXAMINATION TYPE: XR chest 1V portable DATE OF EXAM: 08/07/2019 HISTORY: Status post left-sided thoracentesis COMPARISON: Earlier in the day TECHNIQUE: Single view of the chest is submitted. FINDINGS: Demonstrated are scattered senescent parenchymal change. Diminution in left-sided pleural effusion. No evidence for left-sided pneumothorax. The heart is stable. Hilar and mediastinal structures are within normal limits. Degenerative changes are seen of the dorsal spine. IMPRESSION: 1. Diminution in left-sided pleural effusion. No evidence for left-sided pneumothorax.
--- NOTE | 2019-08-07 16:09 | US ---
EXAMINATION TYPE: US thoracentesis DATE OF EXAM: 08/07/2019 COMPARISON: NONE HISTORY: Pleural effusion. FINDINGS: Maximal barrier technique was utilized. The skin overlying a suitable pocket of fluid was localized and the overlying skin prepped and draped. Lidocaine was used for local anesthesia. Ultras ound was used with sterile technique. A 8 Chinese catheter over guide needle was advanced into the pl eural fluid collection using ultrasound guidance the catheter advanced, needle removed. Approximatel y 2.21 liter(s) of sanguinous fluid was removed. Catheter was withdrawn and hemostasis achieved. Th ere is no immediate complication. The patient discharged in stable condition without complication. IMPRESSION: STATUS POST ULTRASOUND GUIDED THORACENTESIS, POST PROCEDURE CHEST X-RAY PENDING. THIS MO OCEDURE WAS PERFORMED BY THE UNDERSIGNED.
[2019-08-07 17:46] LABS: Appearance,BF Bloody; Color,BF Red; Nucleated Cells, Body Fluid 1125 /uL; RBC, Body Fluid 297500 /uL
[2019-08-07 17:49] LABS: Mononuclear WBC,Body Fluid 61 %; Polynuclear WBC,Body Fluid 3 %; Total Cells Counted,Body Fluid 100
[2019-08-07] MEDS: SODIUM CHLORIDE 0.9% 1,000 ML IV SCH (19:30)
--- NOTE | 2019-08-07 23:47 | CONS ---
CONSULTATION This patient is an 84-year-old white male admitted to the hospital after sustaining a fall while walking a dog 2 weeks ago. I sent him to be directly admitted to the hospital. He was seen by ER instead, found to have a large pleural effusion. He was started on DuoNeb last night and IV steroids. His breathing is slowly improving. He has hemopneumothorax and multiple rib fractures. He has a history of COPD and dementia. Fourteen-point review of systems negative except as mentioned above. Chest x-ray shows moderate to large large left pleural effusion, left airspace disease, large hiatal hernia. CT of the chest shows large effusion, paraesophageal hernia, multiple left-sided rib fractures. Lungs show scattered wheeze x4. CARDIOVASCULAR: S1, S2. PSYCH: Fair mood and affect. He is sitting up in a chair, breathing on 2 L. NEUROLOGIC: Cranial nerves intact. ASSESSMENT: 1. Fall with left hemopneumothorax and multiple left rib fractures. 2. Paraesophageal hiatal hernia. 3. History of cerebrovascular accident with stents. 4. Hypertension. 5. Dyslipidemia. Will get a pulmonary consult. Drain the fluid out of his chest with radiology consult for thoracentesis. Ultrasound. Continue with IV steroids and updrafts. MMODL / IJN: [id number] /
[2019-08-08 05:26] LABS: Glucose, BF Source Thoracentesis Fluid; Glucose, Body Fluid 97 mg/dL; LDH, Body Fluid Source Thoracentesis Fluid
[2019-08-08 05:32] LABS: Basophils # (A) 0.1 k/uL (0-0.2); Basophils % (A) 0 %; Eosinophils # (A) 1.3 k/uL (0-0.7); Eosinophils % (A) 9 %; HCT 42.1 % (39.0-53.0); HGB 13.4 gm/dL (13.0-17.5); Lymphocytes # (A) 1.2 k/uL (1.0-4.8); Lymphocytes % (A) 9 %; MCH 29.2 pg (25.0-35.0); MCHC 31.8 g/dL (31.0-37.0); MCV 91.8 fL (80.0-100.0); Mean Platelet Volume 7.3; Monocytes # (A) 0.9 k/uL (0-1.0); Monocytes % (A) 7 %; Neutrophils % (A) 74 %; Platelet Count 513 k/uL (150-450); RBC 4.59 m/uL (4.30-5.90); RDW 12.3 % (11.5-15.5); WBC 13.5 k/uL (3.8-10.6)
[2019-08-08 05:40] LABS: African American GFR (CKD) >90 (>60 ml/min/1.73 sqM); Anion Gap 4 mmol/L; Blood Urea Nitrogen 14 mg/dL (9-20); Calcium 8.1 mg/dL (8.4-10.2); Carbon Dioxide 26 mmol/L (22-30); Chloride 105 mmol/L (98-107); Glucose 76 mg/dL (74-99); Magnesium 1.9 mg/dL (1.6-2.3); Non-African American GFR(CKD) 84 (>60 ml/min/1.73 sqM); Phosphorus 3.1 mg/dL (2.5-4.5); Potassium 4.1 mmol/L (3.5-5.1); Sodium 135 mmol/L (137-145)
[2019-08-08] MEDS: KETOROLAC 30 MG/ML 1 ML VIAL IVP SCH ×4 (06:48→23:15)
--- NOTE | 2019-08-08 08:07 | XR ---
EXAMINATION TYPE: XR chest 1V portable DATE OF EXAM: 08/08/2019 COMPARISON: 08/07/2019, CT chest 08/06/2019 INDICATION: TECHNIQUE: Single frontal view of the chest is obtained. FINDINGS: The heart size is normal. The pulmonary vasculature is normal. There is a moderate to large left pleural effusion. There is a large hiatal hernia along the right he art border. Some mild streak atelectasis may be within the right midlung. IMPRESSION: 1. Moderate to large left pleural effusion. This may be somewhat diminished from the chest CT 08/06/19 20. 2. Large hiatal hernia along the right heart border of the mediastinum.
[2019-08-08] MEDS: LORATADINE 10 MG TAB PO SCH (08:37)
[2019-08-08] MEDS: ATORVASTATIN 20 MG TAB PO SCH (08:37)
[2019-08-08] MEDS: PANTOPRAZOLE 40 MG TABLET PO SCH (08:37)
[2019-08-08] MEDS: MONTELUKAST 10 MG TAB PO SCH (08:37)
[2019-08-08] MEDS: METOPROLOL SUCCINATE (ER) 25 MG TAB.ER.24H PO SCH (08:37)
[2019-08-08] MEDS: IPRATROPIUM-ALBUTEROL 3 ML NEB INHALATION SCH ×5 (08:39→21:17)
[2019-08-08] MEDS: DONEPEZIL 10 MG TAB PO SCH (08:47)
[2019-08-08] MEDS: FERROUS SULFATE 325 MG TAB PO SCH (08:47)
[2019-08-08] MEDS: predniSONE 5 MG TAB PO SCH (08:49)
[2019-08-08] MEDS: ISOSORBIDE MONONITRATE ER 30 MG TAB.ER.24H PO SCH (08:55)
--- NOTE | 2019-08-08 10:05 | P.PN ---
Subjective Progress Note Date: 08/08/19 Principal diagnosis: Status post fall from standing 2 weeks ago, left rib fractures and left hemothorax. Past medical history significant for hypertension, hyperlipidemia, CVA/TIA, GERD, coronary artery disease with previous stent placement, previous brain bleed requiring bur holes and plates, depression, anxiety, lifetime nonsmoker, previous fall from standing around 1 month ago with rib fractures involving the left seventh, eighth and ninth ribs. The patient is somewhat of a poor historian with some episodes of forgetfulness. POD #1 status post ultrasound-guided thoracentesis with 2.21 L of sanguinous fluid removed by interventional radiology. The patient is laying in bed in the intensive care unit. He is in no acute distress. Denies any complaints of pain or shortness of breath at this time and reports that his breathing is slightly improved from yesterday after having that fluid removed. Oxygen saturations are 94% on 2 L nasal cannula and he is achieving 1000 mL on his incentive spirometry. He has been afebrile the last 24 hours. The bedside nurse reports that he did get out of bed to the bedside chair yesterday for all meals. Objective - Vital Signs Vital signs: Vital Signs Temp 97.6 F 08/08/19 09:00 Pulse 64 08/08/19 09:00 Resp 14 08/08/19 09:00 BP 110/62 08/08/19 09:00 Pulse Ox 94 L 08/08/19 09:00 Intake & Output 08/07/19 08/08/19 08/08/19 18:59 06:59 18:59 Intake Total 1080 100 250 Output Total 2560 Balance -1480 100 250 Weight 77 kg Intake: IV 240 100 Sodium Chloride 0.9% 1, 240 100 000 ml @ 20 mls/hr IV . Q24H [facility] Rx#:[id number] Oral 840 250 Output: Urine 400 Other 2160 Other: Voiding Method Urinal Toilet Toilet # Voids 1 0 0 # Bowel Movements 1 1 1 - Constitutional General appearance: Present: cooperative, no acute distress, obese - Respiratory Details: Lung sounds with scattered expiratory wheezes throughout, diminished to his bilateral bases left greater than right. Respirations are symmetrical and nonlabored. Oxygen saturation is 94% on 2 L nasal cannula. She 1000 mm on his incentive spirometry. - Cardiovascular Details: Irregular rhythm with controlled rate. S1 and S2 present, negative for S3, gallop or murmur. Bedside telemetry showing normal sinus rhythm with frequent PACs heart rate 68. - Gastrointestinal Gastrointestinal Comment(s): Abdomen is soft, nontender and nondistended. Active bowel sounds present in all 4 abdominal quadrants. No guarding or rigidity. Tolerating oral intake. - Integumentary Integumentary Comment(s): Skin is warm and dry. No clubbing or cyanosis is present. - Neurologic Neurologic: Present: CNII-XII intact - Musculoskeletal Musculoskeletal: Present: gait normal, generalized weakness, strength equal bilaterally - Psychiatric Psychiatric Comment(s): Alert and oriented [address] Episodes of forgetfulness with time. Psychiatric: Present: appropriate affect, intact judgment & insight - Allied health notes Allied health notes reviewed: nursing - Labs CBC & Chem 7: 08/08/19 04:50 08/08/19 04:50 Labs: Abnormal Lab Results - Last 24 Hours (Table) 08/08/19 08/08/19 Range/Units 04:50 04:50 WBC 13.5 H (3.8-10.6) k/uL Plt Count 513 H (150-450) k/uL Neutrophils # 10.0 H (1.3-7.7) k/uL Eosinophils # 1.3 H (0-0.7) k/uL Sodium 135 L (137-145) mmol/L Calcium 8.1 L (8.4-10.2) mg/dL Microbiology - Last 24 Hours (Table) 08/07/19 14:50 Body Fluid Culture - Preliminary Thoracic Fluid 08/07/19 14:50 Anaerobic Culture - Preliminary Thoracic Fluid 08/07/19 14:50 Acid Fast Bacilli Culture - Preliminary Thoracic Fluid 08/07/19 14:50 Fungal Culture - Preliminary Thoracic Fluid - Imaging and Cardiology Chest x-ray: report reviewed, image reviewed Assessment and Plan Assessment: 1. Left hemothorax 2. Left-sided rib fracture secondary to fall from standing 3. Recent fall from standing 4. Coronary artery disease with previous stent placement 5. Hypertension 6. History of CVA/TIA 7. History of brain bleed with bur holes and plate placement 8. Memory impairment 9. History of depression/anxiety 10. Hyperlipidemia 11. GERD Plan: 1. Continue to encourage use of his incentive spirometry every hour while oliver ke. 2. We will continue to follow his daily chest x-rays. 3. Increase activity as tolerated. 4. Pulmonary recommendations per Dr. Mendez. 5. Medical management other comorbidities per primary care service. 6. GI and DVT prophylaxis. 7. Pleural fluid cytology results remain pending. 8. More recommendations follow based on patient's clinical course. Time with Patient: Greater than 30
--- NOTE | 2019-08-08 12:47 | P.PN ---
Subjective Progress Note Date: 08/08/19 CHIEF COMPLAINT: fall HISTORY OF PRESENT ILLNESS: Patient examined at the bedside with Dr. Guerrier. He remains in the ICU. He states his SOB has improved. Patient is s/p thoracentesis with removal of 2.21 L. He denies abdominal pain. Denies nausea or vomiting. PHYSICAL EXAM: VITAL SIGNS: Reviewed. GENERAL: Well-developed in no acute distress. HEENT: No sclera icterus. Extraocular movements grossly intact. Moist buccal mucosa. Head is atraumatic, normocephalic. ABDOMEN: Soft. Nondistended. Nontender. NEUROLOGIC: Alert and oriented x 2. Cranial nerves II through XII grossly intact. ASSESSMENT: 1. S/P fall from standing 2. Left hemothorax 3. Multiple left-sided rib fractures 4. Paraesophageal hiatal hernia with intrathoracic stomach 5. History of CVA with stent placement, hypertension, CVA, hyperlipidemia PLAN: -Cardiothoracic surgery on consult. Appreciate recommendations -Pulmonary consulted. Appreciate recommendations -Incentive spirometer 10 times an hour -Activity as tolerated -Pain control -Medical management per Dr. Johnson -No general surgery intervention required from a trauma standpoint Nurse practitioner note has been reviewed by physician. Signing provider agrees with the documented findings, assessment, and plan of care. Objective - Vital Signs Vital signs: Vital Signs Temp 97.6 F 08/08/19 09:00 Pulse 84 08/08/19 10:00 Resp 24 08/08/19 10:00 BP 110/62 08/08/19 10:00 Pulse Ox 94 L 08/08/19 10:00 Intake & Output 08/07/19 08/08/19 08/08/19 18:59 06:59 18:59 Intake Total 1080 100 250 Output Total 2560 Balance -1480 100 250 Weight 77 kg Intake: IV 240 100 0 Sodium Chloride 0.9% 1, 240 100 0 000 ml @ 20 mls/hr IV . Q24H [facility] Rx#:[id number] Oral 840 250 Output: Urine 400 Other 2160 Other: Voiding Method Urinal Toilet Toilet # Voids 1 0 0 # Bowel Movements 1 1 1 - Labs CBC & Chem 7: 08/08/19 04:50 08/08/19 04:50 Labs: Abnormal Lab Results - Last 24 Hours (Table) 08/08/19 08/08/19 Range/Units 04:50 04:50 WBC 13.5 H (3.8-10.6) k/uL Plt Count 513 H (150-450) k/uL Neutrophils # 10.0 H (1.3-7.7) k/uL Eosinophils # 1.3 H (0-0.7) k/uL Sodium 135 L (137-145) mmol/L Calcium 8.1 L (8.4-10.2) mg/dL Microbiology - Last 24 Hours (Table) 08/07/19 14:50 Gram Stain - Preliminary Thoracic Fluid Body Fluid Culture - Preliminary 08/07/19 14:50 Anaerobic Culture - Preliminary Thoracic Fluid 08/07/19 14:50 Acid Fast Bacilli Culture - Preliminary Thoracic Fluid 08/07/19 14:50 Fungal Culture - Preliminary Thoracic Fluid
--- NOTE | 2019-08-08 15:14 | P.PN ---
Subjective Progress Note Date: 08/08/19 Principal diagnosis: Left-sided multiple rib fracture due to fall, left hemothorax, coronary artery disease, hypertension hypertensive cardiovascular disease, history of CVA TIA, m juliane impairment, history of cerebral hemorrhage with Lianet [place] and plate placement, generalized anxiety disorder, dyslipidemia, GERD 08/08/2019, patient seen eval reexamined during the rounds labs reviewed medications reviewed, he is sitting upright on the chair breathing comfortably he has a thoracentesis from the left side and 2.2 L of serous sanguinous fluid has been removed, denies any chest pain, breathing comfortably Objective - Vital Signs Vital signs: Vital Signs Temp 99.2 F 08/08/19 12:00 Pulse 67 08/08/19 13:00 Resp 16 08/08/19 13:00 BP 97/79 08/08/19 13:00 Pulse Ox 93 L 08/08/19 13:00 Intake & Output 08/07/19 08/08/19 08/08/19 18:59 06:59 18:59 Intake Total 1080 100 750 Output Total 2560 0 Balance -1480 100 750 Weight 77 kg Intake: IV 240 100 0 Sodium Chloride 0.9% 1, 240 100 0 000 ml @ 20 mls/hr IV . Q24H [facility] Rx#:[id number] Oral 840 750 Output: Urine 400 0 Other 2160 Other: Voiding Method Urinal Toilet Toilet # Voids 1 0 1 # Bowel Movements 1 1 1 - Exam - Constitutional General appearance: Present: cooperative, no acute distress, obese - Respiratory Details: Lung sounds with scattered expiratory wheezes throughout, diminished to his bilateral bases left greater than right. Respirations are symmetrical and nonlabored. Oxygen saturation is 94% on 2 L nasal cannula. She 1000 mm on his incentive spirometry. - Cardiovascular Details: Irregular rhythm with controlled rate. S1 and S2 present, negative for S3, gallop or murmur. Bedside telemetry showing normal sinus rhythm with frequent PACs heart rate 68. - Gastrointestinal Gastrointestinal Comment(s): Abdomen is soft, nontender and nondistended. Active bowel sounds present in all 4 abdominal quadrants. No guarding or rigidity. Tolerating oral intake. - Integumentary Integumentary Comment(s): Skin is warm and dry. No clubbing or cyanosis is present. - Neurologic Neurologic: Present: CNII-XII intact - Musculoskeletal Musculoskeletal: Present: gait normal, generalized weakness, strength equal bilaterally - Psychiatric Psychiatric Comment(s): Alert and oriented [address] Episodes of forgetfulness with time. Psychiatric: Present: appropriate affect, intact judgment & insight - Allied health notes Allied health notes reviewed: nursing - Labs CBC & Chem 7: 08/08/19 04:50 08/08/19 04:50 Labs: Abnormal Lab Results - Last 24 Hours (Table) 08/08/19 08/08/19 Range/Units 04:50 04:50 WBC 13.5 H (3.8-10.6) k/uL Plt Count 513 H (150-450) k/uL Neutrophils # 10.0 H (1.3-7.7) k/uL Eosinophils # 1.3 H (0-0.7) k/uL Sodium 135 L (137-145) mmol/L Calcium 8.1 L (8.4-10.2) mg/dL Microbiology - Last 24 Hours (Table) 08/07/19 14:50 Gram Stain - Preliminary Thoracic Fluid Body Fluid Culture - Preliminary 08/07/19 14:50 Anaerobic Culture - Preliminary Thoracic Fluid 08/07/19 14:50 Acid Fast Bacilli Culture - Preliminary Thoracic Fluid 08/07/19 14:50 Fungal Culture - Preliminary Thoracic Fluid Assessment and Plan Assessment: Left-sided pleural effusion likely reactive due to chest trauma Multiple left-sided rib fractures Status post fall Dementia and Alzheimer's disease History of cerebral hemorrhage status post francisco hole and plate placement Coronary artery disease with history of stent placement Plan: Continue pain medicine as needed increase activity as tolerated continue deep breathing sense incentive spirometry patient can be moved out of the ICU continue to monitor x-ray closely, continue monitor labs hemoglobin Time with Patient: Greater than 30
[2019-08-08] MEDS: SODIUM CHLORIDE 0.9% 1,000 ML IV SCH (17:06)
[2019-08-09 05:59] LABS: Basophils # (A) 0.1 k/uL (0-0.2); Basophils % (A) 1 %; Eosinophils % (A) 18 %; HGB 13.5 gm/dL (13.0-17.5); Lymphocytes # (A) 1.2 k/uL (1.0-4.8); Lymphocytes % (A) 11 %; MCH 29.7 pg (25.0-35.0); MCHC 32.1 g/dL (31.0-37.0); MCV 92.5 fL (80.0-100.0); Mean Platelet Volume 7.5; Monocytes # (A) 0.7 k/uL (0-1.0); Monocytes % (A) 6 %; Neutrophils # (A) 6.9 k/uL (1.3-7.7); Neutrophils % (A) 62 %; Platelet Count 486 k/uL (150-450); RBC 4.54 m/uL (4.30-5.90); RDW 12.3 % (11.5-15.5)
[2019-08-09 06:18] LABS: African American GFR (CKD) >90 (>60 ml/min/1.73 sqM); Anion Gap 5 mmol/L; Blood Urea Nitrogen 16 mg/dL (9-20); Carbon Dioxide 27 mmol/L (22-30); Chloride 103 mmol/L (98-107); Glucose 76 mg/dL (74-99); Non-African American GFR(CKD) 81 (>60 ml/min/1.73 sqM); Potassium 4.7 mmol/L (3.5-5.1); Sodium 135 mmol/L (137-145)
[2019-08-09] MEDS: KETOROLAC 30 MG/ML 1 ML VIAL IVP SCH ×3 (06:18→17:42)
--- NOTE | 2019-08-09 07:30 | XR ---
EXAMINATION TYPE: XR chest 1V portable DATE OF EXAM: 08/09/2019 COMPARISON: 08/08/2019 HISTORY: Rib fractures and chest pain TECHNIQUE: Single frontal view of the chest is obtained. FINDINGS: There is redemonstration of a large hiatal hernia/intrathoracic stomach and known paraesop hageal hernia seen on the prior CT of 08/06/2019. The multiple left-sided rib fractures are present bu t better visualized on the prior CT. The compression deformity at T12 is not visualized radiographica lly. There is a persistent moderate left pleural effusion and associated left basilar airspace diseas e. Right lung remains well aerated. IMPRESSION: Moderate left pleural effusion and associated left basilar airspace disease. Multiple le ft rib fractures and partially intrathoracic stomach are also redemonstrated.
[2019-08-09] MEDS: FERROUS SULFATE 325 MG TAB PO SCH (08:30)
[2019-08-09] MEDS: PANTOPRAZOLE 40 MG TABLET PO SCH (08:30)
[2019-08-09] MEDS: ISOSORBIDE MONONITRATE ER 30 MG TAB.ER.24H PO SCH (08:30)
[2019-08-09] MEDS: LORATADINE 10 MG TAB PO SCH (08:30)
[2019-08-09] MEDS: MONTELUKAST 10 MG TAB PO SCH (08:30)
[2019-08-09] MEDS: ATORVASTATIN 20 MG TAB PO SCH (08:30)
[2019-08-09] MEDS: METOPROLOL SUCCINATE (ER) 25 MG TAB.ER.24H PO SCH (08:30)
[2019-08-09] MEDS: DONEPEZIL 10 MG TAB PO SCH (08:31)
[2019-08-09] MEDS: predniSONE 5 MG TAB PO SCH (08:31)
[2019-08-09] MEDS ORDERED: ERGOCALCIFEROL 50,000 UNIT CAP PO SCH (09:00)
[2019-08-09] MEDS: IPRATROPIUM-ALBUTEROL 3 ML NEB INHALATION SCH ×4 (09:06→21:12)
--- NOTE | 2019-08-09 10:41 | P.PN ---
Subjective Progress Note Date: 08/09/19 Principal diagnosis: Status post fall from standing 2 weeks ago, left rib fractures and left hemothorax. Past medical history significant for hypertension, hyperlipidemia, CVA/TIA, GERD, coronary artery disease with previous stent placement, previous brain bleed requiring bur holes and plates, depression, anxiety, lifetime nonsmoker, previous fall from standing around 1 month ago with rib fractures involving the left seventh, eighth and ninth ribs. The patient is somewhat of a poor historian with some episodes of forgetfulness. POD #2 status post ultrasound-guided thoracentesis with 2.21 L of sanguinous fluid removed by interventional radiology. The patient is laying in bed in the intensive care unit. He is in no acute distress. He continues to deny any complaints of pain or shortness of breath. He is sitting up in bed tolerating his breakfast, remains having some episodes of forgetfulness to time. He is alert and oriented to person and place. The pleural fluid cytology remains pending. Oxygen saturation are 95% on 2 L nasal cannula and he is achieving 1000 mL on his incentive spirometry. He remains afebrile and his WBC count continues to trend down, yesterday the WBC count was 13.5 and today is 11.0. Hemoglobin remained stable at 13.5. He is hemo dynamically stable and is currently on no inotropic or pressor support. The chest x-ray was completed this morning which demonstrates a moderate left pleural effusion with associated left basilar airspace disease, multiple rib fractures and partially intrathoracic stomach. Objective - Vital Signs Vital signs: Vital Signs Temp 97.5 F L 08/09/19 08:00 Pulse 67 08/09/19 09:07 Resp 13 08/09/19 08:00 BP 101/73 08/09/19 08:00 Pulse Ox 94 L 08/09/19 08:00 Intake & Output 08/08/19 08/09/19 08/09/19 18:59 06:59 18:59 Intake Total 1300 100 250 Output Total 0 0 200 Balance 1300 100 50 Weight 78.2 kg Intake: IV 0 Sodium Chloride 0.9% 1, 0 000 ml @ 20 mls/hr IV . Q24H [facility] Rx#:[id number] Oral 1300 100 250 Output: Urine 0 0 200 Other: Voiding Method Toilet Toilet Toilet Urinal # Voids 1 1 1 # Bowel Movements 1 - Constitutional General appearance: Present: average body habitus, cooperative, no acute distress - Respiratory Details: Lung sounds essentially clear throughout, diminished to his bilateral bases. Respirations are symmetrical and nonlabored. Oxygen saturation is 95% on 2 L nasal cannula. Achieving 1000 mL on his incentive spirometry. - Cardiovascular Details: Irregular rhythm with controlled rate. S1 and S2 present, negative for S3, gallop or murmur. Bedside telemetry showing normal sinus rhythm with PACs heart rate 62. No edema present. - Gastrointestinal Gastrointestinal Comment(s): Abdomen is soft, nontender nondistended. Active bowel sounds is at all 4 abdominal quadrants. No guarding or rigidity. No organomegaly. Tolerating oral intake. - Genitourinary Genitourinary Comment(s): Voiding clear cosme urine. - Integumentary Integumentary Comment(s): Skin is warm and dry. No clubbing or cyanosis is present. - Neurologic Neurologic: Present: CNII-XII intact - Musculoskeletal Musculoskeletal: Present: gait normal, generalized weakness, strength equal bilaterally - Psychiatric Psychiatric Comment(s): Alert and oriented [address] Psychiatric: Present: appropriate affect, intact judgment & insight - Allied health notes Allied health notes reviewed: nursing - Labs CBC & Chem 7: 08/09/19 05:14 08/09/19 05:14 Labs: Abnormal Lab Results - Last 24 Hours (Table) 08/09/19 08/09/19 Range/Units 05:14 05:14 WBC 11.0 H (3.8-10.6) k/uL Plt Count 486 H (150-450) k/uL Eosinophils # 2.0 H (0-0.7) k/uL Sodium 135 L (137-145) mmol/L Calcium 8.0 L (8.4-10.2) mg/dL Microbiology - Last 24 Hours (Table) 08/07/19 14:50 Acid Fast Bacilli Smear - Final Thoracic Fluid Acid Fast Bacilli Culture - Preliminary 08/07/19 14:50 Gram Stain - Preliminary Thoracic Fluid Body Fluid Culture - Preliminary - Imaging and Cardiology Chest x-ray: report reviewed, image reviewed Assessment and Plan Assessment: 1. Left hemothorax, status post left thoracentesis with 2.2 L of sanguinous fluid removed by interventional radiology 2. Left-sided rib fracture secondary to fall from standing 3. Recent fall from standing 4. Coronary artery disease with previous stent placement 5. Hypertension 6. History of CVA/TIA 7. History of brain bleed with bur holes and plate placement 8. Memory impairment 9. History of depression/anxiety 10. Hyperlipidemia 11. GERD Plan: 1. Continue to encourage use of his incentive spirometry every hour while awake. 2. We will continue to follow his daily chest x-rays. 3. Increase activity as tolerated. Physical 4/occupational therapy is following. 4. Pulmonary recommendations per Dr. Mendez. 5. Medical management other comorbidities per primary care service. 6. GI and DVT prophylaxis. 7. Pleural fluid cytology results remain pending. 8. We will order an ultrasound of his left chest with markings. 9. More recommendations follow based on patient's clinical course. Time with Patient: Greater than 30
--- NOTE | 2019-08-09 11:59 | P.PN ---
Subjective Progress Note Date: 08/09/19 CHIEF COMPLAINT: fall HISTORY OF PRESENT ILLNESS: Patient examined at the bedside with Dr. Guerrier. He remains in the ICU. Patient is s/p thoracentesis with removal of 2.21 L. patient states his breathing feels well this morning and denies difficulty in breathing. He is using incentive spirometer. He denies abdominal pain. Tolerating diet. Denies nausea or vomiting. Chest x-ray from this morning reveals moderate left pleural effusion and associated left basilar airspace disease. PHYSICAL EXAM: VITAL SIGNS: Reviewed. GENERAL: Well-developed in no acute distress. HEENT: No sclera icterus. Extraocular movements grossly intact. Moist buccal mucosa. Head is atraumatic, normocephalic. ABDOMEN: Soft. Nondistended. Nontender. NEUROLOGIC: Alert and oriented x 2. Cranial nerves II through XII grossly intact. ASSESSMENT: 1. S/P fall from standing 2. Left hemothorax 3. Multiple left-sided rib fractures 4. Paraesophageal hiatal hernia with intrathoracic stomach 5. History of CVA with stent placement, hypertension, CVA, hyperlipidemia PLAN: -Cardiothoracic surgery on consult. Appreciate recommendations. Case discussed with Lavell Fitzpatrick NP. Ultrasound of the chest ordered. Await results. -Pulmonary consulted. Appreciate recommendations -Incentive spirometer 10 times an hour -Activity as tolerated -Pain control -Medical management per Dr. Johnson -No general surgery intervention required from a trauma standpoint Nurse practitioner note has been reviewed by physician. Signing provider agrees with the documented findings, assessment, and plan of care. Objective - Vital Signs Vital signs: Vital Signs Temp 97.5 F L 08/09/19 08:00 Pulse 77 08/09/19 11:00 Resp 18 08/09/19 11:00 BP 119/73 08/09/19 11:00 Pulse Ox 95 08/09/19 11:00 Intake & Output 08/08/19 08/09/19 08/09/19 18:59 06:59 18:59 Intake Total 1300 100 450 Output Total 0 0 350 Balance 1300 100 100 Weight 78.2 kg Intake: IV 0 Sodium Chloride 0.9% 1, 0 000 ml @ 20 mls/hr IV . Q24H [facility] Rx#:[id number] Oral 1300 100 450 Output: Urine 0 0 350 Other: Voiding Method Toilet Toilet Toilet Urinal # Voids 1 1 1 # Bowel Movements 1 - Labs CBC & Chem 7: 08/09/19 05:14 08/09/19 05:14 Labs: Abnormal Lab Results - Last 24 Hours (Table) 08/09/19 08/09/19 Range/Units 05:14 05:14 WBC 11.0 H (3.8-10.6) k/uL Plt Count 486 H (150-450) k/uL Eosinophils # 2.0 H (0-0.7) k/uL Sodium 135 L (137-145) mmol/L Calcium 8.0 L (8.4-10.2) mg/dL Microbiology - Last 24 Hours (Table) 08/07/19 14:50 Acid Fast Bacilli Smear - Final Thoracic Fluid Acid Fast Bacilli Culture - Preliminary 08/07/19 14:50 Gram Stain - Preliminary Thoracic Fluid Body Fluid Culture - Preliminary
--- NOTE | 2019-08-09 12:11 | US ---
EXAMINATION TYPE: US chest DATE OF EXAM: 08/09/2019 COMPARISON: Chest x-ray of the same date CLINICAL HISTORY: Left pleural effusion. Thoracentesis 2 days prior on the left, Pl Eff seen on xray TECHNIQUE: Targeted ultrasound of the posterior lower Left EXAM MEASUREMENTS: Left Pleural Effusion pocket size: 8.7 cm pocket does have several loculations but I did place mar k on the largest pocket if draining is necessary Left skin surface to fluid distance: 3.7 cm Left side marked for possible thoracentesis outside the dept. Pulmonologists are able to review the images in the patient?s EMR. IMPRESSIONS: Loculated moderate left pleural effusion with numerous septations.
--- NOTE | 2019-08-09 13:46 | P.PN ---
Subjective Progress Note Date: 08/09/19 Principal diagnosis: Left-sided multiple rib fracture due to fall, left hemothorax, coronary artery disease, hypertension hypertensive cardiovascular disease, history of CVA TIA, m juliane impairment, history of cerebral hemorrhage with Lianet [place] and plate placement, generalized anxiety disorder, dyslipidemia, GERD 08/09/2019, patient seen eval examined during the rounds labs reviewed medications reviewed radiographic studies reviewed as well so as the ultrasound fairly moderate to large left-sided pleural effusion is noted again about 8-9 cm was discussed with cardiothoracic surgery for tapping it again patient has been doing well labs reviewed has been doing I-S 08/08/2019, patient seen eval reexamined during the rounds labs reviewed medications reviewed, he is sitting upright on the chair breathing comfortably he has a thoracentesis from the left side and 2.2 L of serous sanguinous fluid has been removed, denies any chest pain, breathing comfortably Objective - Vital Signs Vital signs: Vital Signs Temp 97.9 F 08/09/19 13:00 Pulse 77 08/09/19 13:00 Resp 14 08/09/19 13:00 BP 106/66 08/09/19 13:00 Pulse Ox 93 L 08/09/19 13:00 Intake & Output 08/08/19 08/09/19 08/09/19 18:59 06:59 18:59 Intake Total 1300 100 700 Output Total 0 0 550 Balance 1300 100 150 Weight 78.2 kg Intake: IV 0 Sodium Chloride 0.9% 1, 0 000 ml @ 20 mls/hr IV . Q24H [facility] Rx#:[id number] Oral 1300 100 700 Output: Urine 0 0 550 Other: Voiding Method Toilet Toilet Toilet Urinal # Voids 1 1 1 # Bowel Movements 1 - Exam - Constitutional General appearance: Present: cooperative, no acute distress, obese - Respiratory Details: Lung sounds with scattered expiratory wheezes throughout, diminished to his bilateral bases left greater than right. Respirations are symmetrical and nonlabored. Oxygen saturation is 94% on 2 L nasal cannula. She 1000 mm on his incentive spirometry. - Cardiovascular Details: Irregular rhythm with controlled rate. S1 and S2 present, negative for S3, gallop or murmur. Bedside telemetry showing normal sinus rhythm with frequent PACs heart rate 68. - Gastrointestinal Gastrointestinal Comment(s): Abdomen is soft, nontender and nondistended. Active bowel sounds present in all 4 abdominal quadrants. No guarding or rigidity. Tolerating oral intake. - Integumentary Integumentary Comment(s): Skin is warm and dry. No clubbing or cyanosis is present. - Neurologic Neurologic: Present: CNII-XII intact - Musculoskeletal Musculoskeletal: Present: gait normal, generalized weakness, strength equal bilaterally - Psychiatric Psychiatric Comment(s): Alert and oriented [address] Episodes of forgetfulness with time. Psychiatric: Present: appropriate affect, intact judgment & insight - Allied health notes Allied health notes reviewed: nursing - Labs CBC & Chem 7: 08/09/19 05:14 08/09/19 05:14 Labs: Abnormal Lab Results - Last 24 Hours (Table) 08/09/19 08/09/19 Range/Units 05:14 05:14 WBC 11.0 H (3.8-10.6) k/uL Plt Count 486 H (150-450) k/uL Eosinophils # 2.0 H (0-0.7) k/uL Sodium 135 L (137-145) mmol/L Calcium 8.0 L (8.4-10.2) mg/dL Microbiology - Last 24 Hours (Table) 08/07/19 14:50 Acid Fast Bacilli Smear - Final Thoracic Fluid Acid Fast Bacilli Culture - Preliminary 08/07/19 14:50 Gram Stain - Preliminary Thoracic Fluid Body Fluid Culture - Preliminary Assessment and Plan Assessment: Left-sided pleural effusion likely reactive due to chest trauma Multiple left-sided rib fractures Status post fall Dementia and Alzheimer's disease History of cerebral hemorrhage status post francisco hole and plate placement Coronary artery disease with history of stent placement Plan: Consider redo thoracentesis of the left side Continue pain medicine as needed increase activity as tolerated continue deep breathing sense incentive spirometry patient can be moved out of the ICU continue to monitor x-ray closely, continue monitor labs hemoglobin Time with Patient: Greater than 30
--- NOTE | 2019-08-09 15:03 | PN ---
PROGRESS NOTE DATE OF SERVICE: 08/08/2019 An 84-year-old white male who presents with hemopneumothorax and had 2.2 L tapped, breathing much better today. Remains in ICU. CARDIOVASCULAR: S1, S2. LUNGS: Show decreased wheezing on the left base. HEMATOLOGY: Negative Homans. PSYCH: Fair mood and affect. ASSESSMENT: 1. Hemopneumothorax. 2. Multiple rib fractures. 3. Dementia. 4. Hypertension. Continue current treatments. Wean steroids, updraft treatments. Monitor for further bloating up of fluid. ICU time 20 minutes. MMODL / IJN: [id number] /
--- NOTE | 2019-08-09 16:07 | P.PCN ---
Date of Procedure: 08/09/19 Preoperative Diagnosis: left hemothorax Procedure(s) Performed: u/s chest tube placement Anesthesia: local Estimated Blood Loss (ml): 5 Pathology: other (specimen to cytology) Condition: stable Disposition: ICU Indications for Procedure: hemothorax Operative Findings: sanguinous material to gravity seal
--- NOTE | 2019-08-09 16:25 | XR ---
EXAMINATION TYPE: XR chest 1V portable DATE OF EXAM: 08/09/2019 Comparison: 08/09/2019 Clinical History: 84-year-old male post left chest tube placement Findings: Heart upper limits of normal in size. Left-sided pigtail pleural catheter has been placed. There is r esidual moderate effusion, decreased from prior left basilar opacity. Impression: Left pigtail pleural catheter in place. Decreased, now moderate residual effusion with adjacent atele ctasis and/or consolidation.
--- NOTE | 2019-08-09 16:35 | US ---
EXAMINATION TYPE: US guided chest tube insertion DATE OF EXAM: 08/09/2019 COMPARISON: NONE HISTORY: Left Pleural effusion. FINDINGS: Maximal barrier technique was utilized. The skin overlying a suitable pocket of fluid in t he posterior right chest was localized and the overlying skin prepped and draped. Lidocaine was used for local anesthesia. Ultrasound was used with sterile technique. A 21-gauge needle was advanced in to the pleural fluid collection using ultrasound guidance and a wire advanced, needle removed, access site was dilated with a transitional dilator, wire was upsized, dilation was performed and subsequen tly an 8.5 Armenian tube was advanced into the pleural fluid over wire, wire and stiffener were removed . Sanguinous material obtained. Catheter fixed in place and a sterile dressing placed. Hemostasis ach ieved. 20 cc obtained for laboratory analysis. Catheter attached to water seal. Post procedure chest x-ray pending. There is no immediate complication. The patient discharged in stable condition withou t complication. IMPRESSION: STATUS POST ULTRASOUND GUIDED PLEURAL DRAINAGE TUBE CATHETER PLACEMENT, POST PROCEDURE CH EST X-RAY PENDING. THIS PROCEDURE WAS PERFORMED BY THE UNDERSIGNED.
[2019-08-10] MEDS: KETOROLAC 30 MG/ML 1 ML VIAL IVP SCH ×5 (00:12→23:27)
[2019-08-10 05:42] LABS: HGB 12.7 gm/dL (13.0-17.5); MCH 29.7 pg (25.0-35.0); MCHC 32.6 g/dL (31.0-37.0); Mean Platelet Volume 7.1; Platelet Count 528 k/uL (150-450); RBC 4.29 m/uL (4.30-5.90); RDW 12.2 % (11.5-15.5); WBC 10.7 k/uL (3.8-10.6)
[2019-08-10 05:55] LABS: African American GFR (CKD) >90 (>60 ml/min/1.73 sqM); Anion Gap 3 mmol/L; Blood Urea Nitrogen 16 mg/dL (9-20); Calcium 8.4 mg/dL (8.4-10.2); Carbon Dioxide 28 mmol/L (22-30); Chloride 103 mmol/L (98-107); Glucose 88 mg/dL (74-99); Non-African American GFR(CKD) 81 (>60 ml/min/1.73 sqM); Potassium 4.1 mmol/L (3.5-5.1); Sodium 134 mmol/L (137-145)
--- NOTE | 2019-08-10 06:59 | XR ---
EXAMINATION TYPE: XR chest 1V portable DATE OF EXAM: 08/10/2019 HISTORY: Left hemothorax. REFERENCE: Previous study dated 08/09/2019. FINDINGS: There is a pigtail catheter in place in the left hemithorax. There is a left-sided effusion . There is atelectatic change at the right lung base. This confluent airspace disease the left lung b ase. Heart size is upper limits of normal. IMPRESSION: WORSENING ATELECTASIS, RIGHT LUNG BASE.
[2019-08-10] MEDS: IPRATROPIUM-ALBUTEROL 3 ML NEB INHALATION SCH ×4 (07:36→20:38)
[2019-08-10] MEDS: PANTOPRAZOLE 40 MG TABLET PO SCH (08:56)
[2019-08-10] MEDS: DONEPEZIL 10 MG TAB PO SCH (08:56)
[2019-08-10] MEDS: ISOSORBIDE MONONITRATE ER 30 MG TAB.ER.24H PO SCH (08:56)
[2019-08-10] MEDS: ATORVASTATIN 20 MG TAB PO SCH (08:56)
[2019-08-10] MEDS: FERROUS SULFATE 325 MG TAB PO SCH (08:56)
[2019-08-10] MEDS: MONTELUKAST 10 MG TAB PO SCH (08:56)
[2019-08-10] MEDS: predniSONE 5 MG TAB PO SCH (08:57)
[2019-08-10] MEDS: METOPROLOL SUCCINATE (ER) 25 MG TAB.ER.24H PO SCH (08:57)
[2019-08-10] MEDS: LORATADINE 10 MG TAB PO SCH (08:57)
--- NOTE | 2019-08-10 08:59 | P.PN ---
Progress Note - Text Progress Note Date: 08/10/19 The patient is resting comfortably in his chair. He had she feels better. He had an ultrasound-guided placement of a left chest tube yesterday. He's had some serosanguineous drainage. He denies any shortness of breath. On exam vital signs appear stable. Patient has some left chest wall pain. Patient will be continued to be observed for his left pleural effusion. We'll await thoracic surgery and put.
--- NOTE | 2019-08-10 09:38 | P.PN ---
Subjective Progress Note Date: 08/10/19 Principal diagnosis: Left-sided rib fractures, left hemothorax, status post fall from standing x 2. Previous medical history of coronary artery disease with previous stent placeme nt, hypertension, hyperlipidemia, CVA/TIA, previous brain bleed requiring bur holes and plates, depression/anxiety, dementia on Aricept, lifetime nonsmoker. POD #3 ultrasound-guided thoracentesis with 2.21 L of sanguinous fluid removed by interventional radiology. POD #1 ultrasound guided left smallbore chest tube placement by interventional radiology The patient is currently sitting up in bed in no acute distress. Denies significant pain or shortness of breath. Pigtail catheter was placed yesterday by interventional radiology. Patient states he has been ambulatory to and from the bathroom. No new complaints. Objective - Vital Signs Vital signs: Vital Signs Temp 97.9 F 08/10/19 08:00 Pulse 86 08/10/19 09:00 Resp 14 08/10/19 09:00 BP 120/68 08/10/19 09:00 Pulse Ox 93 L 08/10/19 09:00 Intake & Output 08/09/19 08/10/19 08/10/19 18:59 06:59 18:59 Intake Total 1400 240 Output Total 850 335 300 Balance 550 -335 -60 Weight 77.4 kg Intake: Oral 1400 240 Output: Chest Tube Drainage 225 Chest Tube Left Upper 225 Posterior Chest Urine 850 110 300 Other: Voiding Method Toilet Toilet Toilet Urinal Urinal Urinal # Voids 1 1 # Bowel Movements 1 - Constitutional General appearance: Present: cooperative, no acute distress - Respiratory Details: Lungs sounds diminished bilaterally with expiratory wheezes present. Respirations even, nonlabored. Currently on 2 L nasal cannula with oxygen saturation 94%. Able to achieve 750 mL on his incentive spirometry. Left pigtail catheter present to continuous wall suction, 750 mL serosanguineous output since placement, no air leak present. - Cardiovascular Details: S1, S2 present. Regular rate and rhythm, sinus rhythm with occasional PACs pr esent. Palpable peripheral pulses bilaterally. No edema present. No calf pain or tenderness noted. - Gastrointestinal Gastrointestinal Comment(s): Abdomen soft, nontender, nondistended. Active bowel sounds present 4 quadrants. Tolerating diet. Positive bowel movement - Genitourinary Genitourinary Comment(s): Continues to void clear, yellow urine. - Integumentary Integumentary Comment(s): Skin is warm and dry with evidence of good perfusion. - Neurologic Neurologic: Present: CNII-XII intact - Musculoskeletal Musculoskeletal: Present: strength equal bilaterally - Psychiatric Psychiatric Comment(s): Forgetful Psychiatric: Present: A&O x's 3, appropriate affect - Allied health notes Allied health notes reviewed: nursing - Labs CBC & Chem 7: 08/10/19 05:29 08/10/19 05:29 Labs: Abnormal Lab Results - Last 24 Hours (Table) 08/10/19 08/10/19 Range/Units 05:29 05:29 WBC 10.7 H (3.8-10.6) k/uL RBC 4.29 L (4.30-5.90) m/uL Hgb 12.7 L (13.0-17.5) gm/dL Plt Count 528 H (150-450) k/uL Sodium 134 L (137-145) mmol/L Microbiology - Last 24 Hours (Table) 08/07/19 14:50 Gram Stain - Preliminary Thoracic Fluid Body Fluid Culture - Preliminary - Imaging and Cardiology Chest x-ray: report reviewed, image reviewed Assessment and Plan Assessment: 1. Left-sided rib fractures, left hemothorax, status post left thoracentesis with 2.2 L of sanguinous fluid removed by IR, status post ultrasound-guided left small bore chest tube placement by IR 2. History of fall from standing x 2 3. Coronary artery disease with previous stent placement 4. Hypertension 5. Hyperlipidemia 6. History of CVA/TIA 7. History of brain bleed with bur holes and plate placement 8. Dementia, currently on Aricept 9. History of depression/anxiety Plan: 1. Will monitor output from pleural catheter. 2. Wean O2 as tolerated. Encourage incentive spirometry use 10x every hour while awake. 3. Continue to follow daily chest x-rays. 4. Increase activity as tolerated. PT/OT following. 5. Bronchodilators, pulmonary recommendations per Dr. Mendez. 6. GI and DVT prophylaxis. 7. Medical management of other comorbidities per Dr. Johnson 8. More recommendations to follow based on patient's clinical course. Time with Patient: Greater than 30
[2019-08-11] MEDS: PANTOPRAZOLE 40 MG TABLET PO SCH (05:58)
[2019-08-11] MEDS: KETOROLAC 30 MG/ML 1 ML VIAL IVP SCH ×4 (05:59→23:34)
--- NOTE | 2019-08-11 06:41 | XR ---
EXAMINATION TYPE: XR chest 1V portable DATE OF EXAM: 08/11/2019 HISTORY: effusion. REFERENCE: Previous study dated 08/10/2019. FINDINGS: A left pleural drain remains in place. There continues be left basilar airspace disease as well as a left effusion. There is improved aeration at the right lung base. The heart is not enlarged . IMPRESSION: CONTINUING LEFT BASILAR AIRSPACE DISEASE WELL A LEFT EFFUSION. THE OVERALL APPEARANCE HAS NOT C HANGED SIGNIFICANTLY FROM PREVIOUS.
[2019-08-11] MEDS: IPRATROPIUM-ALBUTEROL 3 ML NEB INHALATION SCH ×4 (08:34→21:03)
[2019-08-11] MEDS: ISOSORBIDE MONONITRATE ER 30 MG TAB.ER.24H PO SCH (08:44)
[2019-08-11] MEDS: LORATADINE 10 MG TAB PO SCH (08:44)
[2019-08-11] MEDS: ATORVASTATIN 20 MG TAB PO SCH (08:44)
[2019-08-11] MEDS: MONTELUKAST 10 MG TAB PO SCH (08:44)
[2019-08-11] MEDS: FERROUS SULFATE 325 MG TAB PO SCH (08:44)
[2019-08-11] MEDS: predniSONE 5 MG TAB PO SCH (08:44)
[2019-08-11] MEDS: METOPROLOL SUCCINATE (ER) 25 MG TAB.ER.24H PO SCH (08:44)
[2019-08-11] MEDS: DONEPEZIL 10 MG TAB PO SCH (08:44)
--- NOTE | 2019-08-11 08:58 | PN ---
PROGRESS NOTE This is a white male who remains in the ICU. He has a chest tube in place. Cardiovascular: S1 and S2. Lungs show rales at the base. Hematology: Negative Homans'. Psychiatric: Appropriate mood and affect. ASSESSMENT: 1. Rib fractures on the left. 2. Left hemopneumothorax. 3. Chronic obstructive pulmonary disease. 4. Dementia. Continue with current treatment. Chest tube is in place. Blood pressure control. Breathing control. Standard treatment for chest tube per Dr. Mendez. Follow up in the next 24-48 hours. MMODL / IJN: [id number] /
--- NOTE | 2019-08-11 10:09 | P.PN ---
Progress Note - Text Progress Note Date: 08/11/19 Patient resting comfortably is bed. He denies any shortness of breath. His chest x-ray from this morning shows residual left pleural effusion. On exam his vital signs are stable. Abdomen soft. Reactive left pleural effusion after chest wall trauma. Patient will continue receive supportive care.
--- NOTE | 2019-08-11 10:29 | P.PN ---
Subjective Progress Note Date: 08/11/19 Principal diagnosis: Left-sided rib fractures, left hemothorax, status post fall from standing x 2. Previous medical history of coronary artery disease with previous stent placeme nt, hypertension, hyperlipidemia, CVA/TIA, previous brain bleed requiring bur holes and plates, depression/anxiety, dementia on Aricept, lifetime nonsmoker. POD #4 ultrasound-guided thoracentesis with 2.21 L of sanguinous fluid removed by interventional radiology. POD #2 ultrasound guided left smallbore chest tube placement by interventional radiology The patient is currently sitting up in bed in no acute distress. Denies significant pain or shortness of breath. Pigtail catheter remains to continuous suction, no output since yesterday. Patient states he has been ambulatory to and from the bathroom. No new complaints. Objective - Vital Signs Vital signs: Vital Signs Temp 98.8 F 08/11/19 07:47 Pulse 90 08/11/19 07:47 Resp 18 08/11/19 07:47 BP 109/63 08/11/19 07:47 Pulse Ox 92 L 08/11/19 07:47 Intake & Output 08/10/19 08/11/19 08/11/19 18:59 06:59 18:59 Intake Total 960 Output Total 300 0 Balance 660 0 Weight 75 kg Intake: Oral 960 Output: Chest Tube Drainage 0 Chest Tube Left Upper 0 Posterior Chest Urine 300 Other: Voiding Method Toilet Urinal # Voids 1 1 1 - Constitutional General appearance: Present: cooperative, no acute distress - Respiratory Details: Lungs sounds diminished bilaterally. Respirations even, nonlabored. Currently on room air with oxygen saturation 92%. Able to achieve 750 mL on his incentive spirometry. Left pigtail catheter present to continuous wall suction, no drainage since yesterday, no air leak present. - Cardiovascular Details: S1, S2 present. Regular rate and rhythm, sinus rhythm with occasional PACs present. Palpable peripheral pulses bilaterally. No edema present. No calf pain or tenderness noted. - Gastrointestinal Gastrointestinal Comment(s): Abdomen soft, nontender, nondistended. Active bowel sounds present 4 quadrants. Tolerating diet. Positive bowel movement - Genitourinary Genitourinary Comment(s): Continues to void clear, yellow urine. - Integumentary Integumentary Comment(s): Skin is warm and dry with evidence of good perfusion. - Neurologic Neurologic: Present: CNII-XII intact - Musculoskeletal Musculoskeletal: Present: strength equal bilaterally - Psychiatric Psychiatric Comment(s): Forgetful Psychiatric: Present: A&O x's 3, appropriate affect - Allied health notes Allied health notes reviewed: nursing - Labs CBC & Chem 7: 08/10/19 05:29 08/10/19 05:29 - Imaging and Cardiology Chest x-ray: report reviewed, image reviewed Assessment and Plan Assessment: 1. Left-sided rib fractures, left hemothorax, status post left thoracentesis with 2.2 L of sanguinous fluid removed by IR, status post ultrasound-guided left small bore chest tube placement by IR 2. History of fall from standing x 2 3. Coronary artery disease with previous stent placement 4. Hypertension 5. Hyperlipidemia 6. History of CVA/TIA 7. History of brain bleed with bur holes and plate placement 8. Dementia, currently on Aricept 9. History of depression/anxiety Plan: 1. Will instill alteplase today, clamp tube for 1 hour, monitor drainage 2. Encourage incentive spirometry use 10x every hour while awake. 3. Continue to follow daily chest x-rays. 4. Increase activity as tolerated. PT/OT following. 5. Bronchodilators, pulmonary recommendations per Dr. Mendez. 6. GI and DVT prophylaxis. 7. Medical management of other comorbidities per Dr. Johnson 8. More recommendations to follow based on patient's clinical course. Time with Patient: Greater than 30
[2019-08-11] MEDS ORDERED: ALTEPLASE 10 MG in SODIUM CHLORIDE 0.9% 100 ML IRRIGATION ONE (10:30)
--- NOTE | 2019-08-11 11:13 | PN ---
PROGRESS NOTE The patient remains on Imdur, Toradol, Claritin, Toprol-XL, Singulair, Protonix, [place] for pain, Aricept, Lipitor, DuoNeb treatments. He still has chest tube in place. Hemoglobin is stable at 12.7, white count is 10.7, platelets 528. Sodium 134, potassium 4.1, BUN 16, creatinine 0.848. He had a chest tube in place. He is resting comfortably. Denies any shortness of breath. Chest x-ray shows residual left pleural effusion. Abdomen is soft. Chest wall trauma with hemopneumothorax. Will monitor hemoglobin. Chest tube removal when pulmonary clears. Continue home medications. Appears to be stable. He is breathing fine at this time. MMODL / IJN: [id number] /
--- NOTE | 2019-08-11 14:39 | P.PN ---
Subjective Progress Note Date: 08/10/19 Principal diagnosis: Left-sided multiple rib fracture due to fall, left hemothorax, coronary artery disease, hypertension hypertensive cardiovascular disease, history of CVA TIA, m juliane impairment, history of cerebral hemorrhage with Lianet [place] and plate placement, generalized anxiety disorder, dyslipidemia, GERD 08/10/2019, patient seen eval examined during the rounds labs reviewed medications reviewed care plan discussed, denies any chest pain, patient is being planned to be moved out of the ICU, patient has a pigtail catheter by interventional radiology placed, no air leak is present, minimal chest tube output 08/09/2019, patient seen eval examined during the rounds labs reviewed medications reviewed radiographic studies reviewed as well so as the ultrasound fairly moderate to large left-sided pleural effusion is noted again about 8-9 cm was discussed with cardiothoracic surgery for tapping it again patient has been doing well labs reviewed has been doing I-S 08/08/2019, patient seen eval reexamined during the rounds labs reviewed medications reviewed, he is sitting upright on the chair breathing comfortably he has a thoracentesis from the left side and 2.2 L of serous sanguinous fluid has been removed, denies any chest pain, breathing comfortably Objective - Vital Signs Vital signs: Vital Signs Temp 98.1 F 08/10/19 16:00 Pulse 96 08/10/19 18:00 Resp 20 08/10/19 18:00 BP 113/70 08/10/19 18:00 Pulse Ox 92 L 08/10/19 18:00 Intake & Output 08/09/19 08/10/19 08/10/19 18:59 06:59 18:59 Intake Total 1400 960 Output Total 850 335 300 Balance 550 -335 660 Weight 77.4 kg Intake: Oral 1400 960 Output: Chest Tube Drainage 225 Chest Tube Left Upper 225 Posterior Chest Urine 850 110 300 Other: Voiding Method Toilet Toilet Toilet Urinal Urinal Urinal # Voids 1 1 1 # Bowel Movements 1 - Exam - Constitutional General appearance: Present: cooperative, no acute distress, obese - Respiratory Details: Lung sounds with scattered expiratory wheezes throughout, diminished to his bilateral bases left greater than right. Respirations are symmetrical and nonlabored. Oxygen saturation is 94% on 2 L nasal cannula. She 1000 mm on his incentive spirometry. - Cardiovascular Details: Irregular rhythm with controlled rate. S1 and S2 present, negative for S3, gallop or murmur. Bedside telemetry showing normal sinus rhythm with frequent PACs heart rate 68. - Gastrointestinal Gastrointestinal Comment(s): Abdomen is soft, nontender and nondistended. Active bowel sounds present in all 4 abdominal quadrants. No guarding or rigidity. Tolerating oral intake. - Integumentary Integumentary Comment(s): Skin is warm and dry. No clubbing or cyanosis is present. - Neurologic Neurologic: Present: CNII-XII intact - Musculoskeletal Musculoskeletal: Present: gait normal, generalized weakness, strength equal bilaterally - Psychiatric Psychiatric Comment(s): Alert and oriented [address] Episodes of forgetfulness with time. Psychiatric: Present: appropriate affect, intact judgment & insight - Allied health notes Allied health notes reviewed: nursing - Labs CBC & Chem 7: 08/10/19 05:29 08/10/19 05:29 Labs: Abnormal Lab Results - Last 24 Hours (Table) 08/10/19 08/10/19 Range/Units 05:29 05:29 WBC 10.7 H (3.8-10.6) k/uL RBC 4.29 L (4.30-5.90) m/uL Hgb 12.7 L (13.0-17.5) gm/dL Plt Count 528 H (150-450) k/uL Sodium 134 L (137-145) mmol/L Microbiology - Last 24 Hours (Table) 08/07/19 14:50 Gram Stain - Preliminary Thoracic Fluid Body Fluid Culture - Preliminary Assessment and Plan Assessment: Left-sided pleural effusion likely reactive due to chest trauma Multiple left-sided rib fractures Status post fall Dementia and Alzheimer's disease History of cerebral hemorrhage status post francisco hole and plate placement Coronary artery disease with history of stent placement Plan: Status post pigtail catheter of the left side Cardiothoracic surgery following Continue pain medicine as needed increase activity as tolerated continue deep breathing sense incentive spirometry patient can be moved out of the ICU continue to monitor x-ray closely, continue monitor labs hemoglobin Time with Patient: Greater than 30
--- NOTE | 2019-08-11 14:41 | P.PN ---
Subjective Progress Note Date: 08/11/19 Principal diagnosis: Left-sided multiple rib fracture due to fall, left hemothorax, coronary artery disease, hypertension hypertensive cardiovascular disease, history of CVA TIA, m juliane impairment, history of cerebral hemorrhage with Lianet Parmer and plate placement, generalized anxiety disorder, dyslipidemia, GERD 08/11/2019, patient seen eval examined during the rounds labs reviewed medications reviewed care plan discussed, denies any chest pain, no significant output or air leak present on the chest tube, patient has been given alteplase for cardiothoracic surgery is still no output is present, chest x-ray basal sex segmental atelectasis with a small left-sided pleural effusion overall remains the same given patient stable no significant complains of present we'll observe it for now follow clinical course closely 08/10/2019, patient seen eval examined during the rounds labs reviewed medications reviewed care plan discussed, denies any chest pain, patient is ziyad ng planned to be moved out of the ICU, patient has a pigtail catheter by interventional radiology placed, no air leak is present, minimal chest tube output 08/09/2019, patient seen eval examined during the rounds labs reviewed medications reviewed radiographic studies reviewed as well so as the ultrasound fairly moderate to large left-sided pleural effusion is noted again about 8-9 cm was discussed with cardiothoracic surgery for tapping it again patient has been doing well labs reviewed has been doing I-S 08/08/2019, patient seen eval reexamined during the rounds labs reviewed medications reviewed, he is sitting upright on the chair breathing comfortably he has a thoracentesis from the left side and 2.2 L of serous sanguinous fluid has been removed, denies any chest pain, breathing comfortably Objective - Vital Signs Vital signs: Vital Signs Temp 97.6 F 08/11/19 12:00 Pulse 88 08/11/19 12:25 Resp 18 08/11/19 12:00 BP 95/68 08/11/19 12:00 Pulse Ox 92 L 08/11/19 12:00 Intake & Output 08/10/19 08/11/19 08/11/19 18:59 06:59 18:59 Intake Total 960 446 Output Total 300 0 0 Balance 660 0 446 Weight 75 kg Intake: IV 10 Invasive Line 4 10 Oral 960 436 Output: Chest Tube Drainage 0 0 Chest Tube Left Upper 0 0 Posterior Chest Urine 300 Other: Voiding Method Toilet Urinal # Voids 1 1 3 # Bowel Movements 2 - Exam - Constitutional General appearance: Present: cooperative, no acute distress, obese - Respiratory Details: Lung sounds with scattered expiratory wheezes throughout, diminished to his bilateral bases left greater than right. Respirations are symmetrical and nonlabored. Oxygen saturation is 94% on 2 L nasal cannula. Status post left- sided pigtail catheter- Cardiovascular Details: Irregular rhythm with controlled rate. S1 and S2 present, negative for S3, gallop or murmur. Bedside telemetry showing normal sinus rhythm with frequent PACs heart rate 68. - Gastrointestinal Gastrointestinal Comment(s): Abdomen is soft, nontender and nondistended. Active bowel sounds present in all 4 abdominal quadrants. No guarding or rigidity. Tolerating oral intake. - Integumentary Integumentary Comment(s): Skin is warm and dry. No clubbing or cyanosis is present. - Neurologic Neurologic: Present: CNII-XII intact - Musculoskeletal Musculoskeletal: Present: gait normal, generalized weakness, strength equal bilaterally - Psychiatric Psychiatric Comment(s): Alert and oriented [address] Episodes of forgetfulness with time. Psychiatric: Present: appropriate affect, intact judgment & insight - Allied health notes Allied health notes reviewed: nursing - Labs CBC & Chem 7: 08/10/19 05:29 08/10/19 05:29 Assessment and Plan Assessment: Left-sided pleural effusion likely reactive due to chest trauma Multiple left-sided rib fractures Status post left-sided pigtail catheter placement Status post fall Dementia and Alzheimer's disease History of cerebral hemorrhage status post francisco hole and plate placement Coronary artery disease with history of stent placement Plan: Status post pigtail catheter of the left side Cardiothoracic surgery following Continue pain medicine as needed increase activity as tolerated continue deep breathing sense incentive spirometry patient can be moved out of the ICU continue to monitor x-ray closely, continue monitor labs hemoglobin Time with Patient: Greater than 30
[2019-08-12 04:59] VITALS: RESP 18
[2019-08-12] MEDS: KETOROLAC 30 MG/ML 1 ML VIAL IVP SCH ×2 (05:56→12:00)
[2019-08-12] MEDS: PANTOPRAZOLE 40 MG TABLET PO SCH (05:56)
--- NOTE | 2019-08-12 07:32 | XR ---
EXAMINATION TYPE: XR chest 1V portable DATE OF EXAM: 08/12/2019 COMPARISON: 08/11/2019 HISTORY: Effusion. Follow-up exam. TECHNIQUE: Single frontal view of the chest is obtained. FINDINGS: There is a small left pleural effusion similar to the prior and associated left basilar ai rspace disease. Left thoracostomy tube is similar in position. Paraesophageal hernia overlies the med iastinum and right atrial border. Linear right lower lung atelectasis is new from the prior and plate like. Rotation artificially widens the upper mediastinum. IMPRESSION: Similar small left pleural effusion and left basilar airspace disease. Thoracostomy tube positioning is also similar to the prior. Known paraesophageal hernia and new platelike right lower lung atelectasis.
[2019-08-12] MEDS: IPRATROPIUM-ALBUTEROL 3 ML NEB INHALATION SCH ×3 (07:42→15:42)
[2019-08-12] MEDS: ISOSORBIDE MONONITRATE ER 30 MG TAB.ER.24H PO SCH (08:17)
[2019-08-12] MEDS: ATORVASTATIN 20 MG TAB PO SCH (08:17)
[2019-08-12] MEDS: MONTELUKAST 10 MG TAB PO SCH (08:18)
[2019-08-12] MEDS: METOPROLOL SUCCINATE (ER) 25 MG TAB.ER.24H PO SCH (08:18)
[2019-08-12] MEDS: FERROUS SULFATE 325 MG TAB PO SCH (08:18)
[2019-08-12] MEDS: LORATADINE 10 MG TAB PO SCH (08:18)
[2019-08-12] MEDS: predniSONE 5 MG TAB PO SCH (08:18)
[2019-08-12] MEDS: DONEPEZIL 10 MG TAB PO SCH (08:18)
--- NOTE | 2019-08-12 09:43 | P.PN ---
Subjective Progress Note Date: 08/12/19 Principal diagnosis: Left-sided rib fractures, left hemothorax, status post fall from standing x 2. Previous medical history of coronary artery disease with previous stent placeme nt, hypertension, hyperlipidemia, CVA/TIA, previous brain bleed requiring bur holes and plates, depression/anxiety, dementia on Aricept, lifetime nonsmoker. POD #5 ultrasound-guided thoracentesis with 2.21 L of sanguinous fluid removed by interventional radiology. POD #3 ultrasound guided left smallbore chest tube placement by interventional radiology The patient is currently sitting up in bed in no acute distress. Denies significant pain or shortness of breath. Pigtail catheter remains to continuous suction, no output in 24 hours despite instillation of alteplase yesterday. Patient states he has been ambulatory to and from the bathroom. No new complaints except that he wants to go home. Objective - Vital Signs Vital signs: Vital Signs Temp 97.7 F 08/12/19 08:00 Pulse 78 08/12/19 08:00 Resp 18 08/12/19 08:00 BP 107/68 08/12/19 08:00 Pulse Ox 95 08/12/19 08:00 Intake & Output 08/11/19 08/12/19 08/12/19 18:59 06:59 18:59 Intake Total 656 250 260 Output Total 11 0 Balance 645 250 260 Weight 74.8 kg Intake: IV 20 10 Invasive Line 4 20 10 Oral 636 240 260 Output: Chest Tube Drainage 11 0 Chest Tube Left Upper 11 0 Posterior Chest Other: Voiding Method Toilet Toilet Urinal Urinal # Voids 3 1 # Bowel Movements 2 1 - Constitutional General appearance: Present: cooperative, no acute distress - Respiratory Details: Lungs sounds diminished bilaterally. Respirations even, nonlabored. Currently on room air with oxygen saturation 93%. Able to achieve 1500 mL on his incentive spirometry. Left pigtail catheter present to continuous wall suction, no drainage >24 hours, no air leak present. - Cardiovascular Details: S1, S2 present. Regular rate and rhythm, sinus rhythm with occasional PACs present. Palpable peripheral pulses bilaterally. No edema present. No calf p ain or tenderness noted. - Gastrointestinal Gastrointestinal Comment(s): Abdomen soft, nontender, nondistended. Active bowel sounds present 4 quadrants. Tolerating diet. Positive bowel movement - Genitourinary Genitourinary Comment(s): Continues to void clear, yellow urine. - Integumentary Integumentary Comment(s): Skin is warm and dry with evidence of good perfusion. - Neurologic Neurologic: Present: CNII-XII intact - Musculoskeletal Musculoskeletal: Present: strength equal bilaterally - Psychiatric Psychiatric: Present: A&O x's 3, appropriate affect - Allied health notes Allied health notes reviewed: nursing - Labs CBC & Chem 7: 08/10/19 05:29 08/10/19 05:29 Labs: Microbiology - Last 24 Hours (Table) 08/07/19 14:50 Anaerobic Culture - Final Thoracic Fluid 08/07/19 14:50 Gram Stain - Final Thoracic Fluid Body Fluid Culture - Final - Imaging and Cardiology Chest x-ray: report reviewed, image reviewed Assessment and Plan Assessment: 1. Left-sided rib fractures, left hemothorax, status post left thoracentesis with 2.2 L of sanguinous fluid removed by IR, status post ultrasound-guided left small bore chest tube placement by IR 2. History of fall from standing x 2 3. Coronary artery disease with previous stent placement 4. Hypertension 5. Hyperlipidemia 6. History of CVA/TIA 7. History of brain bleed with bur holes and plate placement 8. Dementia, currently on Aricept 9. History of depression/anxiety Plan: 1. Discontinue pigtail catheter. No surgical intervention from our standpoint 2. Encourage incentive spirometry use 10x every hour while awake. 3. Continue to follow daily chest x-rays. 4. Increase activity as tolerated. PT/OT following. 5. Bronchodilators, pulmonary recommendations per Dr. Mendez. 6. GI and DVT prophylaxis. 7. Medical management of other comorbidities per Dr. Johnson 8. May discharge from our standpoint when okay with other services Time with Patient: Greater than 30
--- NOTE | 2019-08-12 11:09 | P.PN ---
Subjective Progress Note Date: 08/12/19 CHIEF COMPLAINT: fall HISTORY OF PRESENT ILLNESS: Patient examined at the bedside. Left pigtail catheter remains intact. He denies shortness of breath. Denies abdominal pain. Tolerating diet. Denies nausea or vomiting. PHYSICAL EXAM: VITAL SIGNS: Reviewed. GENERAL: Well-developed in no acute distress. HEENT: No sclera icterus. Extraocular movements grossly intact. Moist buccal mucosa. Head is atraumatic, normocephalic. CHEST: Left chest tube present ABDOMEN: Soft. Nondistended. Nontender. NEUROLOGIC: Alert and oriented x 2. Cranial nerves II through XII grossly intact. ASSESSMENT: 1. S/P fall from standing 2. Left hemothorax 3. Multiple left-sided rib fractures 4. Paraesophageal hiatal hernia with intrathoracic stomach 5. History of CVA with stent placement, hypertension, CVA, hyperlipidemia PLAN: -Management of left chest tube per CTS -Incentive spirometer 10 times an hour -Activity as tolerated -Pain control Nurse practitioner note has been reviewed by physician. Signing provider agrees with the documented findings, assessment, and plan of care. Objective - Vital Signs Vital signs: Vital Signs Temp 97.7 F 08/12/19 08:00 Pulse 78 08/12/19 08:00 Resp 18 08/12/19 08:00 BP 107/68 08/12/19 08:00 Pulse Ox 95 08/12/19 08:00 Intake & Output 08/11/19 08/12/19 08/12/19 18:59 06:59 18:59 Intake Total 656 250 260 Output Total 11 0 0 Balance 645 250 260 Weight 74.8 kg Intake: IV 20 10 Invasive Line 4 20 10 Oral 636 240 260 Output: Chest Tube Drainage 11 0 0 Chest Tube Left Upper 11 0 0 Posterior Chest Other: Voiding Method Toilet Toilet Urinal Urinal # Voids 3 1 # Bowel Movements 2 1 - Labs CBC & Chem 7: 08/10/19 05:29 08/10/19 05:29 Labs: Microbiology - Last 24 Hours (Table) 08/07/19 14:50 Anaerobic Culture - Final Thoracic Fluid 08/07/19 14:50 Gram Stain - Final Thoracic Fluid Body Fluid Culture - Final
[2019-08-12 15:43] VITALS: BP 107/54; TEMP 97.6
[2019-08-12 15:55] VITALS: PULSE 82
--- NOTE | 2019-08-15 13:57 | P.DS ---
Providers Date of admission: 08/06/19 16:27 Expected date of discharge: 08/15/19 Attending physician: Arden Guerrier Consults: 08/06/19 16:26 Consult Physician Routine Consulting Provider: Nessa Cheatham Consult Reason/Comments: rib fractures, hemothorax Do you want consulting provider notified?: Yes Consult to Anesthesia Routine Consulting Provider: Anesthesia,Services Consult Reason/Comments: rib block 08/06/19 17:17 Consult Physician Routine Consulting Provider: Jason Johnson Consult Reason/Comments: medical consultation Do you want consulting provider notified?: Already Contacted 08/06/19 19:57 Consult Physician Routine Consulting Provider: Bishop Mendez Consult Reason/Comments: pleural effusion, rib fractures, ICU management Do you want consulting provider notified?: Yes Primary care physician: [facility] Course: Final Diagnoses: Left-sided pleural effusion likely reactive due to chest trauma Multiple left-sided rib fractures Status post left-sided pigtail catheter placement Status post fall Dementia and Alzheimer's disease History of cerebral hemorrhage status post francisco hole and plate placement Coronary artery disease with history of stent placement Hospital course: This is an 84-year-old gentleman developed left hemothorax status post fall with multiple left-sided rib fractures and multiple other medical issues. Evaluated by pulmonary, cardiothoracic surgery, trauma surgery. Significant clinical improvement. Cardiothoracic surgery has ordered for pigtail catheter be discontinued as per interventional radiology. Patient will be discharged home in stable condition with guarded prognosis, pending final DC recommendations and clearance from pulmonary, cardiothoracic surgery and trauma surgery. The impression and plan of care has been dictated as directed. : I performed a history and examination of this patient, discussed the same with the dictator. I agree with the dictator's note ,documented as a scribe. Any additional findings or plans will be noted. Patient Condition at Discharge: Stable Plan - Discharge Summary Discharge Rx Participant: No New Discharge Prescriptions: New Ipratropium-Albuterol Nebulize [Duoneb 0.5 mg-3 mg/3 ml Soln] 3 ml INHALATION RT-QID #120 ml Continue Montelukast [Singulair] 10 mg PO DAILY Cetirizine HCl [Zyrtec] 10 mg PO DAILY Omeprazole 20 mg PO BID Metoprolol Succinate (ER) [Toprol XL] 25 mg PO DAILY Isosorbide Mononitrate ER [Imdur] 30 mg PO DAILY Atorvastatin [Lipitor] 20 mg PO DAILY Docusate [Colace] 100 mg PO BID PRN PRN Reason: Constipation predniSONE 5 mg PO DAILY Ergocalciferol [Vitamin D2 (DRISDOL)] 50,000 unit PO FR Ferrous Sulfate [Iron (65 MG Elemental)] 325 mg PO DAILY Donepezil [Aricept] 10 mg PO DAILY HYDROcodone/APAP 5-325MG [[place] 5-325] 1 - 2 tab PO Q4H PRN #30 tab PRN Reason: Pain Discontinued Naproxen [Naprosyn] 250 mg PO BID #60 tab Discharge Medication List Atorvastatin [Lipitor] 20 mg PO DAILY 11/23/17 [History] Cetirizine HCl [Zyrtec] 10 mg PO DAILY 11/23/17 [History] Isosorbide Mononitrate ER [Imdur] 30 mg PO DAILY 11/23/17 [History] Metoprolol Succinate (ER) [Toprol XL] 25 mg PO DAILY 11/23/17 [History] Montelukast [Singulair] 10 mg PO DAILY 11/23/17 [History] Omeprazole 20 mg PO BID 11/23/17 [History] Docusate [Colace] 100 mg PO BID PRN 06/29/19 [History] Donepezil [Aricept] 10 mg PO DAILY 06/29/19 [History] Ergocalciferol [Vitamin D2 (DRISDOL)] 50,000 unit PO FR 06/29/19 [History] Ferrous Sulfate [Iron (65 MG Elemental)] 325 mg PO DAILY 06/29/19 [History] predniSONE 5 mg PO DAILY 06/29/19 [History] HYDROcodone/APAP 5-325MG [[place] 5-325] 1 - 2 tab PO Q4H PRN #30 tab 07/03/19 [Rx] Ipratropium-Albuterol Nebulize [Duoneb 0.5 mg-3 mg/3 ml Soln] 3 ml INHALATION RT-QID #120 ml 08/12/19 [Rx] Follow up Appointment(s)/Referral(s): [facility] [NON-STAFF] - 1-2 Days Jason Johnson MD [Primary Care Provider] - 08/15/19 1:45 pm () Bishop Mendez MD [STAFF PHYSICIAN] - 1 Week (Office is closed. Please call to schedule appointment) Patient Instructions/Handouts: Thoracentesis (GEN) Discharge Disposition: HOME SELF-CARE
== END 2019-08-12 18:02 | disposition home or self-care (01) | DRG 200 ==
LOC: EC 13:39 → 2SICU 16:27 → 3SCARD 08-10 21:15
PROVIDERS: ADMIT Surgery; ATTEND Surgery
PROC: 0W9B3ZZ Drainage of Left Pleural Cavity, Percutaneous Approach (ICD-10-PCS; 2019-08-08)
PROC: 0W9B30Z Drainage of Left Pleural Cavity with Drainage Device, Percutaneous Approach (ICD-10-PCS; principal; 2019-08-09)
DX: S27.1XXA Traumatic hemothorax, initial encounter (principal); S22.42XA Multiple fractures of ribs, left side, initial encounter for closed fracture; J90 Pleural effusion, not elsewhere classified; J98.11 Atelectasis; S27.2XXA Traumatic hemopneumothorax, initial encounter; W01.0XXA Fall on same level from slipping, tripping and stumbling without subsequent striking against object, initial encounter; Y93.K1 Activity, walking an animal; D72.829 Elevated white blood cell count, unspecified; E78.5 Hyperlipidemia, unspecified; F02.80 Dementia in other diseases classified elsewhere, unspecified severity, without behavioral disturbance, psychotic disturbance, mood disturbance, and anxiety; G30.9 Alzheimer's disease, unspecified; F32.9 Major depressive disorder, single episode, unspecified; F41.1 Generalized anxiety disorder; I11.9 Hypertensive heart disease without heart failure; I25.10 Atherosclerotic heart disease of native coronary artery without angina pectoris; I49.1 Atrial premature depolarization; J44.9 Chronic obstructive pulmonary disease, unspecified; K21.9 Gastro-esophageal reflux disease without esophagitis; K22.70 Barrett's esophagus without dysplasia; K44.9 Diaphragmatic hernia without obstruction or gangrene; Z79.82 Long term (current) use of aspirin; Z79.899 Other long term (current) drug therapy; Z80.0 Family history of malignant neoplasm of digestive organs; Z82.49 Family history of ischemic heart disease and other diseases of the circulatory system; Z86.73 Personal history of transient ischemic attack (TIA), and cerebral infarction without residual deficits; Z87.01 Personal history of pneumonia (recurrent); Z87.891 Personal history of nicotine dependence; Z95.5 Presence of coronary angioplasty implant and graft; Z86.010 Personal history of colon polyps; Z79.52 Long term (current) use of systemic steroids
CPT/HCPCS: 32551; 32555; 36415; 71045; 71046; 71260; 76604; 76942; 80048; 80053; 82945; 83605; 83615; 83735; 83880; 84100; 84157; 84484; 85025; 85027; 85610; 85730; 86850; 86900; 86901; 87070; 87075; 87102; 87116; 87205; 87206; 88108; 88305; 89050; 93005; 94640; 96361; 96374; 99285

== ENCOUNTER → 2020-10-02 | Outpatient (CLI) | payer MEDICARE, BC ==
[~2020-10-02] MED LIST: REGADENOSON 0.4 MG/5 ML SYRINGE IV PRN
--- NOTE | 2020-10-02 13:00 | ECHOF ---
Referral Reason:Abn EKG R94.31 MEASUREMENTS -------- HEIGHT: 170.2 cm WEIGHT: 83.9 kg BP: RVIDd: 2.6 cm (< 3.3) IVSd: 0.9 cm (0.6 - 1.1) LVIDd: 4.3 cm (3.9 - 5.3) LVPWd: 1.1 cm (0.6 - 1.1) IVSs: 2.0 cm LVIDs: 1.8 cm LVPWs: 1.8 cm LAESV Index (A-L): 15.99 ml/m Ao Diam: 3.4 cm (2.0 - 3.7) AV Cusp: 1.5 cm (1.5 - 2.6) LA Diam: 3.8 cm (2.7 - 3.8) MV EXCURSION: 18.395 mm (> 18.000) MV EF SLOPE: 64 mm/s (70 - 150) EPSS: 0.6 cm MV E Alex: 0.55 m/s MV DecT: 310 ms MV A Alex: 0.77 m/s MV E/A Ratio: 0.71 AV maxP.25 mmHg AV meanP.63 mmHg RAP: 5.00 mmHg RVSP: 9.64 mmHg FINDINGS -------- This was a technically adequate study. The left ventricular size is normal. Left ventricular wall thickness is normal. Overall left vent ricular systolic function is normal with, an EF between 55 - 60 %. The diastolic filling pattern is normal for the age of the patient 8.42. The right ventricle is normal in size. The left atrial size is normal. Normal LA size by volume 22+/-6 ml/m2. The right atrial size is normal. Aortic valve is trileaflet and is mildly thickened. There is moderate aortic valve sclerosis. Pea k/mean gradient across the Aortic Valve is 12.25mmHg / 5.63mmHg. The mitral valve is normal. Mild mitral annular calcification present. There is trace mitral regu rgitation. The tricuspid valve appears structurally normal. Trace tricuspid regurgitation present. Right [place] tricular systolic pressure is normal at < 35 mmHg. There is no pulmonic regurgitation present. The aortic root size is normal. Normal inferior vena cava with normal inspiratory collapse consistent with estimated right atrial pre ssure of 5 mmHg. There is no pericardial effusion. CONCLUSIONS -------- 1. The left ventricular size is normal. 2. Left ventricular wall thickness is normal. 3. Overall left ventricular systolic function is normal with, an EF between 55 - 60 %. 4. The diastolic filling pattern is normal for the age of the patient 8.42 5. Aortic valve is trileaflet and is mildly thickened. 6. There is moderate aortic valve sclerosis. 7. Peak/mean gradient across the Aortic Valve is 12.25mmHg / 5.63mmHg. 8. Mild mitral annular calcification present. 9. There is trace mitral regurgitation. 10. Trace tricuspid regurgitation present. 11. There is no pericardial effusion. ORTHOTIC PRACTITIONER: Regina Bullock RDCS
--- NOTE | 2020-10-02 14:23 | EST ---
EXERCISE STRESS AGE: 85 SEX: M HT: 5'6" WT: 185 lbs. PROTOCOL: Lexiscan STAGE: N/A DURATION OF EXERCISE: N/A HEART RATE REST: 49 BLOOD PRESSURE REST: 111/72 MAXIMUM HEART RATE ACHIEVED: 64 MAXIMUM BLOOD PRESSURE: 111/72 85% MPHR: 115 100% MPHR: 135 METS: N/A INDICATIONS: Coronary artery disease, chest pain CLINICAL INFORMATION: STRESS DATA: Heart rate is 49. Blood pressure is 111/72 mmHg. Baseline EKG showed sinus mechanism. The patient was given 0.4 mg of Lexiscan over 15 seconds per protocol. Max heart rate was 64 beats per minute. Maximum blood pressure was 111/72 mmHg. Clinically, the patient did not have symptoms and the EKG did not show any significant ST or T-wave abnormalities concerning for ischemia. CONCLUSION: 1. Nondiagnostic electrocardiogram stress testing in response to Lexiscan. 2. Please follow up on the Cardiolite portion on separate report from Radiology Department. MMODL / IJN: [id number] /
--- NOTE | 2020-10-02 15:09 | NM ---
EXAMINATION TYPE: NM stress lexiscan cardiolite DATE OF EXAM: 10/02/2020 COMPARISON: NONE HISTORY: 85-year-old male abnormal EKG, R94.31 TECHNIQUE: After the intravenous administration of 9.8 mCi Tc 99m Sestamibi - Cardiolite resting SPE CT images acquired 45 minutes post injection. The patient received 0.4mg Lexiscan, 25.6 mCi Tc 99m Sestamibi - Stress images obtained [address] injection FINDINGS: Review of stress and rest SPECT images demonstrates a large area of fixed perfusion defect along the inferior wall. However, there is no corresponding perfusion abnormality on the polar maps. Gated anal ysis shows normal wall motion with an estimated left ventricular ejection fraction of 65 %. TID is c alculated at 1.11, within normal limits. IMPRESSION: Large fixed perfusion defect involving the inferior wall has no correlate on the polar maps or wall m otion abnormality and may reflect prominent diaphragmatic attenuation artifact rather than an area of prior infarct. Clinically correlate. Otherwise, no discrete reversibility is identified.
== END | disposition home or self-care (01) ==
LOC: RADNMMAIN 08:02
PROVIDERS: ATTEND Family Medicine
DX: R94.31 Abnormal electrocardiogram [ECG] [EKG] (principal); I08.1 Rheumatic disorders of both mitral and tricuspid valves; I25.10 Atherosclerotic heart disease of native coronary artery without angina pectoris; R07.9 Chest pain, unspecified
CPT/HCPCS: 93017; 93306; 78452; A9500; J2785

== ENCOUNTER 2021-02-09 17:37 | Emergency (ER) | payer MEDICARE, BC ==
[2021-02-09 18:02] VITALS: BP 105/61; RESP 20; TEMP 98.5
[2021-02-09] MEDS ORDERED: ALBUTEROL NEBULIZED 2.5 MG/3 ML INHALATION STA (18:45)
[2021-02-09] MEDS ORDERED: IPRATROPIUM-ALBUTEROL 3 ML NEB INHALATION STA (18:45)
[2021-02-09] MEDS ORDERED: methylPREDNISolone SOD SUCCI 125 MG/2 ML VIAL IV STA (18:45)
[2021-02-09 19:14] LABS: Basophils # (A) 0.1 k/uL (0-0.2); Basophils % (A) 1 %; Eosinophils # (A) 0.1 k/uL (0-0.7); Eosinophils % (A) 1 %; HCT 46.6 % (39.0-53.0); Lymphocytes # (A) 0.8 k/uL (1.0-4.8); Lymphocytes % (A) 7 %; MCH 33.1 pg (25.0-35.0); MCHC 34.3 g/dL (31.0-37.0); MCV 96.5 fL (80.0-100.0); Mean Platelet Volume 6.9; Monocytes # (A) 0.9 k/uL (0-1.0); Monocytes % (A) 8 %; Neutrophils # (A) 9.6 k/uL (1.3-7.7); Neutrophils % (A) 82 %; Platelet Count 286 k/uL (150-450); RBC 4.83 m/uL (4.30-5.90); RDW 13.3 % (11.5-15.5); WBC 11.8 k/uL (3.8-10.6)
[2021-02-09 19:23] LABS: Albumin 3.3 g/dL (3.5-5.0); Calcium 7.9 mg/dL (8.4-10.2); Potassium 3.2 mmol/L (3.5-5.1); Total Bilirubin 0.3 mg/dL (0.2-1.3); Total Protein 5.8 g/dL (6.3-8.2)
[2021-02-09 19:27] VITALS: PULSE 89
[2021-02-09 19:28] LABS: INR 0.9 (<1.2); Prothrombin Time 10.1 sec (9.0-12.0)
--- NOTE | 2021-02-09 20:13 | XR ---
EXAMINATION TYPE: XR chest 2V DATE OF EXAM: 02/09/2021 COMPARISON: August 12, 2019 HISTORY: Difficulty breathing TECHNIQUE: 2 views FINDINGS: There is large hiatal hernia. There is no heart failure nor confluent pneumonic infiltrate. There are chest leads. There is no evidence of pleural effusion. IMPRESSION: Large hiatal hernia. There is clearing of the left pleural effusion and left lower lobe i nfiltrate compared to old exam.
[2021-02-09] MEDS ORDERED: DOXYCYCLINE 100 MG CAP PO STA (22:02)
--- NOTE | 2021-02-09 22:09 | ED ---
SOB HPI - General Chief Complaint: Shortness of Breath Stated Complaint: SOB, congestion Time Seen by Provider: 02/09/21 18:33 Source: patient, family Mode of arrival: wheelchair - History of Present Illness Initial Comments: Patient is an 85-year-old male past medical history of COPD, CVA who presents emergency room with reported shortness of breath. Daughter is at bedside and helps provide the history. Daughter states that the patient has been more short of breath over the past couple of days. Today he was sweaty and so short of breath that she brought him into the emergency room for evaluation. He follows with Dr. Mendez. He is on chronic steroids - 10 mg daily. He was 2 L of oxygen at night until recently when they found that the patient was having hypoxia during the day. Patient is now on continuous oxygen. He has been using his nebulizers as directed without improvement. No fevers or chills. Admits to a productive cough. No hemoptysis. Patient had Covid earlier this year and states that his symptoms have been persistent since his infection. Patient was vaccinated at the time of his infection. He does have an appointment with his primary care doctor tomorrow however the daughter did not think that he would make it to the night. He denies any chest pain. No history of heart failure. No calf pain or swelling. No history of DVT or PE. No other alleviating, precipitating or modifying factors - Related Data Home Medications Medication Instructions Recorded Confirmed Atorvastatin [Lipitor] 20 mg PO DAILY 11/23/17 02/09/21 Cetirizine HCl [Zyrtec] 10 mg PO DAILY 11/23/17 02/09/21 Isosorbide Mononitrate ER [Imdur] 30 mg PO DAILY 11/23/17 02/09/21 Metoprolol Succinate (ER) [Toprol 25 mg PO DAILY 11/23/17 02/09/21 XL] Montelukast [Singulair] 10 mg PO DAILY 11/23/17 02/09/21 Omeprazole 20 mg PO BID 11/23/17 02/09/21 Donepezil [Aricept] 10 mg PO DAILY 06/29/19 02/09/21 Ergocalciferol [Vitamin D2 50,000 unit PO FR 06/29/19 02/09/21 (DRISDOL)] Ferrous Sulfate [Iron (65 MG 325 mg PO DAILY 06/29/19 02/09/21 Elemental)] predniSONE 10 mg PO DAILY 06/29/19 02/09/21 Aspirin EC [Ecotrin Low Dose] 81 mg PO DAILY 02/09/21 02/09/21 Budesonide [Pulmicort] 0.5 mg INHALATION RT-BID PRN 02/09/21 02/09/21 FLUoxetine HCL [PROzac] 10 mg PO DAILY 02/09/21 02/09/21 Furosemide [Lasix] 20 mg PO DAILY 02/09/21 02/09/21 Ipratropium-Albuterol Nebulize 3 ml INHALATION RT-Q4H PRN 02/09/21 02/09/21 [Duoneb 0.5 mg-3 mg/3 ml Soln] Memantine HCl 5 mg PO BID 02/09/21 02/09/21 Allergies Allergy/AdvReac Type Severity Reaction Status Date / Time No Known Allergies Allergy Verified 02/09/21 19:16 Review of Systems ROS Statement: Those systems with pertinent positive or pertinent negative responses have been documented in the HPI. ROS Other: All systems not noted in ROS Statement are negative. 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 Past Anesthesia/Blood Transfusion Reactions: No Reported Reaction Date of Last Stent Placement:: 1989 Past Psychological History: Depression Smoking Status: Never smoker Past Alcohol Use History: Rare Past Drug Use History: None Reported - Past Family History Mother Family Medical History: AICD/Pacemaker Father Family Medical History: Congestive Heart Failure (CHF) Brother(s) Additional Family Medical History / Comment(s): 1 brother passed from sarcoidoisis. 1 brother, falls, Cancer, memory issues Sister(s) Additional Family Medical History / Comment(s): 1 sister passed from liver CA. 1 sister in [place] memory impairement General Exam General appearance: alert, anxious, in distress Head exam: Present: atraumatic, normocephalic, normal inspection Eye exam: Present: normal appearance, PERRL, EOMI. Absent: scleral icterus, conjunctival injection, periorbital swelling Respiratory exam: Present: respiratory distress, wheezes, accessory muscle use Cardiovascular Exam: Present: regular rate, normal rhythm, normal heart sounds. Absent: systolic murmur, diastolic murmur, rubs, gallop, clicks GI/Abdominal exam: Present: soft, normal bowel sounds. Absent: distended, tenderness, guarding, rebound, rigid Extremities exam: Absent: pedal edema Neurological exam: Present: alert, oriented X3 Psychiatric exam: Present: agitated, anxious Skin exam: Present: warm, dry, intact, normal color. Absent: rash Course Vital Signs 02/09/21 02/09/21 02/09/21 17:59 18:57 19:26 Temperature 98.5 F Pulse Rate 80 80 89 Respiratory 20 Rate Blood Pressure 105/61 O2 Sat by Pulse 94 L Oximetry Medical Decision Making - Medical Decision Making Upon arrival patient is placed in room 9. Thorough history and physical exam is performed. Patient to placed on continuous pulse ox and cardiac monitoring. Placed on 4 L of oxygen. He is given a DuoNeb breathing treatment followed by a 5 mg of albuterol. Laboratories studies are conducted and a chest x-rays performed. I did review the patient's labs. Potassium low at 3.2. Chest x-ray demonstrates no acute process. Reevaluated the patient he appears to be breathing much more comfortably. Discussed the treatment plan with the patient. He would like to follow up with his primary care doctor tomorrow in office for which he already has a scheduled appointment. He is given a dose of doxycycline in the emergency room and will be discharged home. He is instructed to ask his primary care doctor if he feels that he should be on a higher dose of steroids or antibiotics at this time. Patient understood. Given written and verbal discharge instructions and discharged home in stable condition - Lab Data Result diagrams: 02/09/21 18:57 02/09/21 18:57 Lab Results 02/09/21 02/09/21 02/09/21 Range/Units 13:12 18:57 18:57 WBC 11.8 H (3.8-10.6) k/uL RBC 4.83 (4.30-5.90) m/uL Hgb 16.0 (13.0-17.5) gm/dL Hct 46.6 (39.0-53.0) % MCV 96.5 (80.0-100.0) fL MCH 33.1 (25.0-35.0) pg MCHC 34.3 (31.0-37.0) g/dL RDW 13.3 (11.5-15.5) % Plt Count 286 (150-450) k/uL MPV 6.9 Neutrophils % 82 % Lymphocytes % 7 % Monocytes % 8 % Eosinophils % 1 % Basophils % 1 % Neutrophils # 9.6 H (1.3-7.7) k/uL Lymphocytes # 0.8 L (1.0-4.8) k/uL Monocytes # 0.9 (0-1.0) k/uL Eosinophils # 0.1 (0-0.7) k/uL Basophils # 0.1 (0-0.2) k/uL PT 10.1 (9.0-12.0) sec INR 0.9 (<1.2) APTT 24.0 (22.0-30.0) sec Sodium (137-145) mmol/L Potassium (3.5-5.1) mmol/L Chloride (98-107) mmol/L Carbon Dioxide (22-30) mmol/L Anion Gap mmol/L BUN (9-20) mg/dL Creatinine (0.66-1.25) mg/dL Est GFR (CKD-EPI)AfAm (>60 ml/min/1.73 sqM) Est GFR (CKD-EPI)NonAf (>60 ml/min/1.73 sqM) Glucose (74-99) mg/dL Plasma Lactic Acid Anup (0.7-2.0) mmol/L Calcium (8.4-10.2) mg/dL Total Bilirubin (0.2-1.3) mg/dL AST (17-59) U/L ALT (4-49) U/L Alkaline Phosphatase (38-126) U/L Troponin I (0.000-0.034) ng/mL NT-Pro-B Natriuret Pep 169 pg/mL Total Protein (6.3-8.2) g/dL Albumin (3.5-5.0) g/dL 02/09/21 02/09/21 02/09/21 Range/Units 18:57 18:57 18:57 WBC (3.8-10.6) k/uL RBC (4.30-5.90) m/uL Hgb (13.0-17.5) gm/dL Hct (39.0-53.0) % MCV (80.0-100.0) fL MCH (25.0-35.0) pg MCHC (31.0-37.0) g/dL RDW (11.5-15.5) % Plt Count (150-450) k/uL MPV Neutrophils % % Lymphocytes % % Monocytes % % Eosinophils % % Basophils % % Neutrophils # (1.3-7.7) k/uL Lymphocytes # (1.0-4.8) k/uL Monocytes # (0-1.0) k/uL Eosinophils # (0-0.7) k/uL Basophils # (0-0.2) k/uL PT (9.0-12.0) sec INR (<1.2) APTT (22.0-30.0) sec Sodium 135 L (137-145) mmol/L Potassium 3.2 L (3.5-5.1) mmol/L Chloride 103 (98-107) mmol/L Carbon Dioxide 25 (22-30) mmol/L Anion Gap 7 mmol/L BUN 15 (9-20) mg/dL Creatinine 1.03 (0.66-1.25) mg/dL Est GFR (CKD-EPI)AfAm 77 (>60 ml/min/1.73 sqM) Est GFR (CKD-EPI)NonAf 66 (>60 ml/min/1.73 sqM) Glucose 105 H (74-99) mg/dL Plasma Lactic Acid Anup 2.0 (0.7-2.0) mmol/L Calcium 7.9 L (8.4-10.2) mg/dL Total Bilirubin 0.3 (0.2-1.3) mg/dL AST 47 (17-59) U/L ALT 31 (4-49) U/L Alkaline Phosphatase 52 (38-126) U/L Troponin I 0.014 (0.000-0.034) ng/mL NT-Pro-B Natriuret Pep pg/mL Total Protein 5.8 L (6.3-8.2) g/dL Albumin 3.3 L (3.5-5.0) g/dL - EKG Data EKG Comments: EKG demonstrates a sinus rhythm with PVCs. Rate of 79. CA interval 190. QRS 148. QTC of 497. Right bundle-branch block. No acute ST segment elevations Disposition Clinical Impression: COPD with acute exacerbation Disposition: HOME SELF-CARE Condition: Stable Instructions (If sedation given, give patient instructions): COPD (Chronic Obstructive Pulmonary Disease) (ED) Additional Instructions: Please see Dr. Cedeno tomorrow. He may want you on a higher dose of steroids and antibiotics. Return to the ED for any new or worsening symptoms. Is patient prescribed a controlled substance at d/c from ED?: No Referrals: Jason Johnson MD [Primary Care Provider] - 1-2 days Time of Disposition: 22:09
== END 2021-02-09 22:21 | disposition home or self-care (01) ==
LOC: EC 17:37
DX: J44.1 Chronic obstructive pulmonary disease with (acute) exacerbation (principal); I10 Essential (primary) hypertension; K21.9 Gastro-esophageal reflux disease without esophagitis; F32.9 Major depressive disorder, single episode, unspecified; Z79.51 Long term (current) use of inhaled steroids; Z79.52 Long term (current) use of systemic steroids; Z79.82 Long term (current) use of aspirin; Z79.899 Other long term (current) drug therapy; Z82.49 Family history of ischemic heart disease and other diseases of the circulatory system; Z86.73 Personal history of transient ischemic attack (TIA), and cerebral infarction without residual deficits; Z87.19 Personal history of other diseases of the digestive system; Z99.81 Dependence on supplemental oxygen
CPT/HCPCS: 36415; 94640; 93005; 83880; 80053; 83605; 84484; 85025; 85610; 85730; 71046; 99285; 96374; J2930

== ENCOUNTER 2021-11-12 16:48 | Inpatient (IN) | payer MEDICARE, BC ==
[2021-11-12 17:54] LABS: Basophils # (A) 0.8 k/uL (0-0.2); Basophils % (A) 1 %; Eosinophils # (A) 0.1 k/uL (0-0.7); Eosinophils % (A) 0 %; HGB 18.9 gm/dL (13.0-17.5); Lymphocytes # (A) 0.3 k/uL (1.0-4.8); MCH 30.6 pg (25.0-35.0); MCHC 31.9 g/dL (31.0-37.0); MCV 95.9 fL (80.0-100.0); Mean Platelet Volume 8.3; Monocytes # (A) 4.2 k/uL (0-1.0); Monocytes % (A) 7 %; Neutrophils # (A) 57.9 k/uL (1.3-7.7); Platelet Count 368 k/uL (150-450); RBC 6.17 m/uL (4.30-5.90); RDW 12.6 % (11.5-15.5)
--- NOTE | 2021-11-12 17:58 | ED ---
General Adult HPI - General Chief complaint: Weakness Stated complaint: Not feeling well Time Seen by Provider: 11/12/21 17:03 Source: patient Mode of arrival: ambulatory Limitations: no limitations - History of Present Illness Initial comments: Dictation was produced using [employer] dictation software. please excuse any grammatical, word or spelling errors. Chief Complaint: 86-year-old male past medical history of COPD, hypertension p resents to the emergency department for generalized weakness. History of Present Illness: Patient is an 86-year-old male he tested positive for COVID-19 a couple weeks ago. Since then he's been getting slowly weaker. He lives at home with his grandson who is his primary advanced manufacturing associate. Patient calmly by 2 daughters. He stated that he is not eaten in 4 days. He's been significantly weak and unable to perform his activities of daily living. They did report that he had a syncopal episode while coming to the emergency room. Patient is a poor historian. He has had episodes of abdominal pain per daughters at the bedside. He was seen initially at urgent care where urinalysis was performed and was found be unremarkable. He is instructed to come to the emergency room for further care. The ROS documented in this emergency department record has been reviewed and confirmed by me. Those systems with pertinent positive or negative responses have been documented in the HPI. All other systems are other negative and/or noncontributory. PHYSICAL EXAM: General Impression: Alert and oriented x3, not in acute distress, malaised HEENT: Normocephalic atraumatic, extra-ocular movements intact, pupils equal and reactive to light bilaterally, dry mucous membranes Cardiovascular: Heart regular rate and rhythm Chest: Able to complete full sentences, no retractions, no tachypnea Abdomen: abdomen soft, non-tender, non-distended, no organomegaly Musculoskeletal: Pulses present and equal in all extremities, no peripheral edema Motor: no focal deficits noted Neurological: CN II-XII grossly intact, no focal motor or sensory deficits noted Skin: Intact with no visualized rashes Psych: Normal affect and mood ED course: 86-year-old male presents emergency department for worsening weakness. Vital signs upon arrival are within acceptable limits. EKG interpretation: Ventricular rate 77, EKG machine reports junctional rhythm however there does appear to be consistent P waves identifiable in some leads. This likely reflects sinus rhythm with right bundle branch block. AZ interval 123, QS 141, QTc 46.. No AZ prolongation, no QTC prolongation, no ST or T-wave changes noted. Overall, this EKG is nonspecific Laboratory evaluation obtained showing critically high leukocytosis of 16.7. Hemoglobin is 18.9. Platelet count is normal. Coag panel is unremarkable. Metabolic panel shows hyponatremia 1:30. Elevated renal markers lactic acidosis of 5.3. Clinical presentation concerning for a hematologic malignancy. Patient covered with antibiotics for suspicion of potential bacterial infection. He does not have any localizing symptoms. X-rays unremarkable. He does not have her symptoms. Patient reevaluated bedside at 7:45 PM found to be in stable medical condition. Patient be admitted with consultation to hematology and infectious disease. - Related Data Home Medications Medication Instructions Recorded Confirmed Atorvastatin [Lipitor] 20 mg PO DAILY 11/23/17 02/09/21 Cetirizine HCl [Zyrtec] 10 mg PO DAILY 11/23/17 02/09/21 Isosorbide Mononitrate ER [Imdur] 30 mg PO DAILY 11/23/17 02/09/21 Metoprolol Succinate (ER) [Toprol 25 mg PO DAILY 11/23/17 02/09/21 XL] Montelukast [Singulair] 10 mg PO DAILY 11/23/17 02/09/21 Omeprazole 20 mg PO BID 11/23/17 02/09/21 Donepezil [Aricept] 10 mg PO DAILY 06/29/19 02/09/21 Ergocalciferol [Vitamin D2 50,000 unit PO FR 06/29/19 02/09/21 (DRISDOL)] Ferrous Sulfate [Iron (65 MG 325 mg PO DAILY 06/29/19 02/09/21 Elemental)] predniSONE 10 mg PO DAILY 06/29/19 02/09/21 Aspirin EC [Ecotrin Low Dose] 81 mg PO DAILY 02/09/21 02/09/21 Budesonide [Pulmicort] 0.5 mg INHALATION RT-BID PRN 02/09/21 02/09/21 FLUoxetine HCL [PROzac] 10 mg PO DAILY 02/09/21 02/09/21 Furosemide [Lasix] 20 mg PO DAILY 02/09/21 02/09/21 Ipratropium-Albuterol Nebulize 3 ml INHALATION RT-Q4H PRN 02/09/21 02/09/21 [Duoneb 0.5 mg-3 mg/3 ml Soln] Memantine HCl 5 mg PO BID 02/09/21 02/09/21 Allergies Allergy/AdvReac Type Severity Reaction Status Date / Time No Known Allergies Allergy Verified 02/09/21 19:16 Review of Systems ROS Statement: Those systems with pertinent positive or pertinent negative responses have been documented in the HPI. ROS Other: All systems not noted in ROS Statement are negative. 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 Past Anesthesia/Blood Transfusion Reactions: No Reported Reaction Date of Last Stent Placement:: 1989 Past Psychological History: Depression Smoking Status: Never smoker Past Alcohol Use History: Rare Past Drug Use History: None Reported - Past Family History Mother Family Medical History: AICD/Pacemaker Father Family Medical History: Congestive Heart Failure (CHF) Brother(s) Additional Family Medical History / Comment(s): 1 brother passed from sarcoidoisis. 1 brother, falls, Cancer, memory issues Sister(s) Additional Family Medical History / Comment(s): 1 sister passed from liver CA. 1 sister in [place] memory impairement General Exam Limitations: no limitations Course Vital Signs 11/12/21 11/12/21 11/12/21 16:49 17:00 17:30 Temperature 97.6 F Pulse Rate 100 63 77 Respiratory 18 16 17 Rate Blood Pressure 122/84 O2 Sat by Pulse 96 96 97 Oximetry 11/12/21 11/12/21 18:00 18:30 Temperature Pulse Rate 67 72 Respiratory 14 29 H Rate Blood Pressure O2 Sat by Pulse 96 96 Oximetry Medical Decision Making - Lab Data Result diagrams: 11/12/21 17:36 11/12/21 17:36 Lab Results 06/03/22 06/03/22 06/03/22 Range/Units 17:36 17:36 17:36 WBC 63.7 H* (3.8-10.6) k/uL RBC 6.17 H (4.30-5.90) m/uL Hgb 18.9 H (13.0-17.5) gm/dL Hct 59.2 H* (39.0-53.0) % MCV 95.9 (80.0-100.0) fL MCH 30.6 (25.0-35.0) pg MCHC 31.9 (31.0-37.0) g/dL RDW 12.6 (11.5-15.5) % Plt Count 368 (150-450) k/uL MPV 8.3 Neutrophils % 89 % Lymphocytes % 2 % Monocytes % 7 % Eosinophils % 0 % Basophils % 1 % Neutrophils # 57.9 H (1.3-7.7) k/uL Lymphocytes # 0.3 L (1.0-4.8) k/uL Monocytes # 4.2 H (0-1.0) k/uL Eosinophils # 0.1 (0-0.7) k/uL Basophils # 0.8 H (0-0.2) k/uL Manual Slide Review Performed Toxic Granulation Present PT (9.0-12.0) sec INR (<1.2) APTT (22.0-30.0) sec Sodium 130 L (137-145) mmol/L Potassium 5.0 (3.5-5.1) mmol/L Chloride 95 L (98-107) mmol/L Carbon Dioxide 25 (22-30) mmol/L Anion Gap 10 mmol/L BUN 44 H (9-20) mg/dL Creatinine 1.56 H (0.66-1.25) mg/dL Est GFR (CKD-EPI)AfAm 46 (>60 ml/min/1.73 sqM) Est GFR (CKD-EPI)NonAf 40 (>60 ml/min/1.73 sqM) Glucose 140 H (74-99) mg/dL Plasma Lactic Acid Anup 5.3 H* (0.7-2.0) mmol/L Calcium 7.7 L (8.4-10.2) mg/dL Magnesium 2.6 H (1.6-2.3) mg/dL Total Bilirubin 1.9 H (0.2-1.3) mg/dL AST 43 (17-59) U/L ALT 25 (4-49) U/L Alkaline Phosphatase 85 (38-126) U/L Total Protein 5.0 L (6.3-8.2) g/dL Albumin 2.6 L (3.5-5.0) g/dL 11/12/21 Range/Units 18:45 WBC (3.8-10.6) k/uL RBC (4.30-5.90) m/uL Hgb (13.0-17.5) gm/dL Hct (39.0-53.0) % MCV (80.0-100.0) fL MCH (25.0-35.0) pg MCHC (31.0-37.0) g/dL RDW (11.5-15.5) % Plt Count (150-450) k/uL MPV Neutrophils % % Lymphocytes % % Monocytes % % Eosinophils % % Basophils % % Neutrophils # (1.3-7.7) k/uL Lymphocytes # (1.0-4.8) k/uL Monocytes # (0-1.0) k/uL Eosinophils # (0-0.7) k/uL Basophils # (0-0.2) k/uL Manual Slide Review Toxic Granulation PT 11.0 (9.0-12.0) sec INR 1.0 (<1.2) APTT 22.6 (22.0-30.0) sec Sodium (137-145) mmol/L Potassium (3.5-5.1) mmol/L Chloride (98-107) mmol/L Carbon Dioxide (22-30) mmol/L Anion Gap mmol/L BUN (9-20) mg/dL Creatinine (0.66-1.25) mg/dL Est GFR (CKD-EPI)AfAm (>60 ml/min/1.73 sqM) Est GFR (CKD-EPI)NonAf (>60 ml/min/1.73 sqM) Glucose (74-99) mg/dL Plasma Lactic Acid Anup (0.7-2.0) mmol/L Calcium (8.4-10.2) mg/dL Magnesium (1.6-2.3) mg/dL Total Bilirubin (0.2-1.3) mg/dL AST (17-59) U/L ALT (4-49) U/L Alkaline Phosphatase (38-126) U/L Total Protein (6.3-8.2) g/dL Albumin (3.5-5.0) g/dL Disposition Clinical Impression: Leukocytosis Disposition: ADMITTED IP TO THIS HOSP Condition: Serious Referrals: Jason Johnson MD [Primary Care Provider] - 1-2 days Decision Time: 19:47
[2021-11-12 18:04] LABS: Albumin 2.6 g/dL (3.5-5.0); Calcium 7.7 mg/dL (8.4-10.2); Magnesium 2.6 mg/dL (1.6-2.3); Total Bilirubin 1.9 mg/dL (0.2-1.3)
[2021-11-12 18:11] LABS: WBC 63.7 k/uL (3.8-10.6)
[2021-11-12 18:12] LABS: HCT 59.2 % (39.0-53.0)
--- NOTE | 2021-11-12 18:14 | XR ---
EXAMINATION TYPE: XR chest 1V portable DATE OF EXAM: 11/12/2021 5:50 PM COMPARISON: Chest radiographs from 02/09/2021 TECHNIQUE: XR chest 1V portable Frontal view of the chest. CLINICAL INDICATION:Male, 86 years old with history of weakness; FINDINGS: Lungs/Pleura: There is no evidence of pleural effusion, focal consolidation, or pneumothorax. Pulmonary vascularity: Unremarkable. Heart/mediastinum: Cardiomediastinal silhouette is unremarkable. There is a large hiatal hernia as se en on prior. Musculoskeletal: No acute osseous pathology. IMPRESSION: 1. No acute cardiopulmonary disease/process. 2. Similar large hiatal hernia.
--- NOTE | 2021-11-12 18:18 | CT ---
EXAMINATION TYPE: CT brain wo con CT DLP: 1173.4 mGycm, Automated exposure control for dose reduction was used. DATE OF EXAM: 11/12/2021 5:52 PM COMPARISON: Prior CT Brain from 11/23/2017 CLINICAL INDICATION:Male, 86 years old with history of episode of slurred speech, and syncope, ams TECHNIQUE: Brain: Multiple axial CT images of the brain were obtained without IV contrast. FINDINGS: Brain: Extra-axial spaces: No abnormal extra-axial fluid collections. Ventricular system: Within normal limits Cerebral parenchyma: Similar bilateral basal ganglia and left thalamus hypodensities consistent with remote lacunar injuries. No acute intraparenchymal hemorrhage or mass effect. The german-white junctio n is well differentiated. Cerebellum: Unremarkable. Mass effect: No evidence of midline shift. Intracranial vasculature: unremarkable Soft tissues: Normal. Calvarium/osseous structures: No depressed skull fracture. Right craniotomy changes Paranasal sinuses and mastoid air cells: Mild scattered paranasal sinus disease. Visualized orbits: Orbital contents are intact. IMPRESSION: 1. No acute intracranial process. 2. Remote lacunar injuries along with nonspecific white matter changes likely secondary to chronic mi croangiopathy.
[2021-11-12] MEDS ORDERED: SODIUM CHLORIDE 0.9% 1,000 ML IV STA (18:19)
[2021-11-12 18:38] LABS: Lymphocytes % (A) 2 %; Neutrophils % (A) 89 %
[2021-11-12 18:39] LABS: Toxic Granulation Present
[2021-11-12 19:18] LABS: Partial Thromboplastin Time 22.6 sec (22.0-30.0)
[2021-11-12] MEDS ORDERED: NALOXONE 0.4 MG/ML 1 ML VIAL IV PRN (19:43)
[2021-11-12] MEDS ORDERED: VANCOMYCIN IV PER PHARMACY 1 EACH MISC MISCELLANE PRN (19:45)
[2021-11-12] MEDS ORDERED: PIPERACILLIN-TAZOBACTAM 3.375 GM in SODIUM CHLORIDE 0.9% 100 ML IVPB STA (19:45)
[2021-11-12] MEDS ORDERED: VANCOMYCIN 1,750 MG in SODIUM CHLORIDE 0.9% 500 ML 500 ML IVPB STA (19:53)
[2021-11-12] MEDS ORDERED: LOPERAMIDE 2 MG CAP PO STA (20:51)
[2021-11-12] MEDS: SODIUM CHLORIDE 0.9% 1,000 ML IV SCH (20:57)
[2021-11-12] MEDS ORDERED: ZOLPIDEM 5 MG TAB PO PRN (22:49)
[2021-11-13] MEDS: SODIUM CHLORIDE 0.9% 1,000 ML IV SCH ×3 (05:01→21:24)
[2021-11-13] MEDS: BUDESONIDE 0.5 MG/2 ML NEBU INHALATION SCH ×2 (08:08→19:50)
[2021-11-13] MEDS: ALBUTEROL NEBULIZED 2.5 MG/3 ML INHALATION SCH ×4 (08:08→19:50)
[2021-11-13] MEDS ORDERED: SODIUM CHLORIDE 0.9% 500 ML 500 ML IV ONE (08:23)
[2021-11-13] MEDS: SODIUM CHLORIDE 0.45% 1,000 ML IV SCH ×2 (08:41→21:25)
[2021-11-13] MEDS: MEMANTINE 5 MG TAB PO SCH (08:42)
[2021-11-13] MEDS: DONEPEZIL 10 MG TAB PO SCH (08:42)
[2021-11-13] MEDS: LORATADINE 10 MG TAB PO SCH (08:42)
[2021-11-13] MEDS: predniSONE 5 MG TAB PO SCH (08:42)
[2021-11-13] MEDS: PANTOPRAZOLE 40 MG TABLET PO SCH (08:42)
[2021-11-13] MEDS: FUROSEMIDE 20 MG TAB PO SCH (08:42)
[2021-11-13] MEDS: MONTELUKAST 10 MG TAB PO SCH (08:42)
[2021-11-13] MEDS: ISOSORBIDE MONONITRATE ER 30 MG TAB.ER.24H PO SCH (08:42)
[2021-11-13] MEDS: FLUoxetine HCL 10 MG CAP PO SCH (08:42)
[2021-11-13] MEDS: ATORVASTATIN 20 MG TAB PO SCH (08:42)
[2021-11-13] MEDS: METOPROLOL SUCCINATE (ER) 25 MG TAB.ER.24H PO SCH (08:42)
[2021-11-13 08:52] LABS: ALT 24 U/L (4-49); African American GFR (CKD) 45 (>60 ml/min/1.73 sqM); Albumin/Globulin Ratio 0.9; Anion Gap 8 mmol/L; Blood Urea Nitrogen 49 mg/dL (9-20); Carbon Dioxide 21 mmol/L (22-30); Chloride 102 mmol/L (98-107); Globulin 2.4 g/dL; Glucose 132 mg/dL (74-99); Non-African American GFR(CKD) 39 (>60 ml/min/1.73 sqM); Sodium 131 mmol/L (137-145); Total Bilirubin 1.5 mg/dL (0.2-1.3)
[2021-11-13 09:13] LABS: Albumin 2.2 g/dL (3.5-5.0); Total Protein 4.6 g/dL (6.3-8.2)
[2021-11-13 09:14] LABS: AST 38 U/L (17-59); Alkaline Phosphatase 55 U/L (38-126)
[2021-11-13] MEDS ORDERED: VANCOMYCIN 1,250 MG in SODIUM CHLORIDE 0.9% 250 ML IVPB SCH (10:00)
[2021-11-13 10:34] LABS: Basophils # (A) 1.7 k/uL (0-0.2); Basophils % (A) 4 %; Eosinophils # (A) 0.2 k/uL (0-0.7); Eosinophils % (A) 0 %; HCT 54.9 % (39.0-53.0); HGB 17.8 gm/dL (13.0-17.5); Lymphocytes # (A) 0.7 k/uL (1.0-4.8); Lymphocytes % (A) 1 %; MCH 30.6 pg (25.0-35.0); MCHC 32.5 g/dL (31.0-37.0); MCV 94.1 fL (80.0-100.0); Mean Platelet Volume 8.2; Monocytes # (A) 3.3 k/uL (0-1.0); Monocytes % (A) 7 %; Neutrophils # (A) 44.3 k/uL (1.3-7.7); Neutrophils % (A) 91 %; Platelet Count 251 k/uL (150-450); RBC 5.83 m/uL (4.30-5.90); RDW 12.9 % (11.5-15.5); WBC 48.7 k/uL (3.8-10.6)
[2021-11-13 11:00] LABS: Lymphocytes # (M) 2.92 k/uL (1.0-4.8); Monocytes # (M) 2.92 k/uL (0-1.0); Neutrophils # (M) 42.86 k/uL (1.3-7.7); Neutrophils % (M) 88 %; Nucleated Red Blood Cells 0 /100 WBC (0-0); Total Cells Counted 100
--- NOTE | 2021-11-13 11:02 | HP ---
HISTORY AND PHYSICAL This is an 86-year-old white male with a past medical history of COPD and hypertension who came into the emergency room with generalized weakness. He had COVID-19 a couple of weeks ago. He has been getting weaker. He has a history of atrial fibrillation and severe pulmonary COPD and pulmonary fibrosis. He also has dementia. He is a poor historian. He has refused to wear oxygen and BiPAP at night. Fourteen-point review of systems positive as mentioned above. Past medical history reviewed. Medications reviewed. Family history reviewed. Fourteen-point review of systems otherwise is negative. He looks his stated age. Integument: Dry skin turgor mucous membranes. He gives appropriate answers on psych eval, but he is lethargic and somnolent. Cardiovascular S1, S2. Lungs with scattered rhonchi and wheeze. Hematology: Two plus edema. Abdomen is soft, nontender. EKG shows junctional rhythm, no ST-T changes. Musculoskeletal range of motion full x4. Home medications include Lipitor 20 daily, Zyrtec 10 daily, Imdur 30 daily, metoprolol ER 25 daily, Singulair 10 daily, omeprazole 20 b.i.d., Aricept 10 daily, ferrous sulfate 325 daily, prednisone 10 mg daily, Pulmicort 0.5 nebulized b.i.d. Prozac 10 mg daily, Lasix 20 mg daily, DuoNeb q.i.d., 5 mg b.i.d. ALLERGIES: NO KNOWN DRUG ALLERGIES. PAST MEDICAL HISTORY: COPD, CVI, TIA, GERD, GI bleed, hypertension, memory impairment, pneumonia. White count is 63,000, hemoglobin is 13.9, platelets 358. Sodium 130, potassium 5.0, BUN 44, creatinine 1.56. ASSESSMENT: 1. Severe leukocytosis. 2. Severely dehydrated. 3. Rule out chronic leukemia. 4. Rule out pneumonia versus sepsis. 5. Severe dehydration, prerenal azotemia. 6. Acute tubular necrosis. IV fluid boluses will be given. Lactic acidosis. Give fluid boluses. Broad-spectrum antibiotics. Infectious disease and pulmonary consults as well as hematology. Continue with vancomycin and Zosyn at this time. Prognosis extremely guarded. Dehydrated. He will get multiple fluid boluses and be given 100 mL/hour after his normal saline boluses. MMODL / IJN: [id number] /
[2021-11-13] MEDS: PIPERACILLIN-TAZOBACTAM 3.375 GM in SODIUM CHLORIDE 0.9% 100 ML IVPB SCH ×3 (12:40→23:53)
[2021-11-13] MEDS: FAMOTIDINE 20 MG/2 ML VIAL IV SCH (13:22)
--- NOTE | 2021-11-13 14:08 | CT ---
EXAMINATION TYPE: CT ChestAbdPelvis wo con CT DLP: 875.3 mGycm, Automated exposure control for dose reduction was used. DATE OF EXAM: 11/13/2021 12:32 PM COMPARISON: CT chest 08/06/2021 chest abdomen pelvis of the 11/23/2017 CLINICAL INDICATION:Male, 86 years old with history of abscess/wbc 67k; , Abscess Technique: Multiple axial images of the chest, abdomen, and pelvis were obtained following the intrav enous administration of 100 mL Isovue-300. Two-dimensional coronal and sagittal reconstructions were obtained. Findings: CHEST: LUNGS/ PLEURA: The lung parenchyma appears unremarkable. Calcified granuloma without evidence for fo evens consolidation, pneumothorax or pleural effusion. AIRWAY: Patent and unremarkable.. HEART: Size within normal limits. Mild coronary artery atherosclerosis. MEDIASTINUM: No gross evidence of adenopathy. There is a large hiatal hernia present containing a lonnie ority of the stomach. Fluid is seen within the distal esophagus. VASCULATURE: No aortic aneurysm. MUSCULOSKELETAL: No acute osseous abnormalities. Multilevel disc degeneration changes throughout the spine. SOFT TISSUES/LYMPH NODES: Unremarkable. LOWER NECK: No significant findings. ABDOMEN: ABDOMEN LIVER: Unremarkable GALLBLADDER AND BILE DUCTS: The gallbladder is surgically absent. PANCREAS: Unremarkable. SPLEEN: Unremarkable. ADRENAL GLANDS: Unremarkable. KIDNEYS AND URETERS: No evidence of hydronephrosis or renal calculus. The ureters are unremarkable. PELVIS BLADDER: Unremarkable REPRODUCTIVE: Unremarkable. ABDOMEN & PELVIS STOMACH AND BOWEL: Bowel wall thickening of the colon within the right upper quadrant includes the ce cum and ascending colon and hepatic flexure. There is wall thickening extending to the sigmoid colon. Multiple clonic diverticula are present. No evidence of bowel obstruction. PERITONEUM: No evidence of pneumoperitoneum . Small amount of free fluid VASCULATURE: No evidence of aortic aneurysm. MUSCULOSKELETAL: No acute osseous abnormalities multilevel disc degeneration changes throughout the s pine with scattered compression deformities. LYMPH NODES: No gross evidence for lymphadenopathy. SOFT TISSUE/ABDOMINAL WALL: No evidence of organizing fluid collection within the soft tissues. IMPRESSION: No evidence of abscess. 1. Colitis involving a majority of the colon from the essentially hepatic flexures/right upper quadr ant to the sigmoid colon. Multiple colonic diverticula are present without definitive diverticulitis. Abundant to the right colon is square shift in the right upper quadrant. 2. Large hiatal hernia containing majority of the stomach. 3. Distal esophagus layering fluid could relate to reflux and/or dysmotility. 4. Colonic diverticulosis 5. Small amount of ascites present and likely reactive to #1.
--- NOTE | 2021-11-13 16:03 | P.CONS ---
History of Present Illness - Reason for Consult Consult date: 11/13/21 Leukocytosis and polycythemia - History of Present Illness The patient is an 86-year-old white male with multiple medical problems. The patient was brought into the hospital by his family because of significant change in his status over the last 4-5 days. The patient was diagnosed with coronavirus infection about 2 weeks ago. According to them he did recover and seemed to be back to his normal health status. However about 4-5 days ago he started complaining of abdominal pain and then developed marked decrease in appetite with progressive weakness and confusion/lethargy. He was taken to urgent care where urinalysis was found to be negative. He therefore came into the emergency room. Labs showed increase of a 63.7 and hemoglobin of 13.9. He was noted to have evidence of renal failure, the creatinine in the 1.6 range. These findings were new compared to labs from 01/30. At that time he had a mild leukocytosis in the 11-13 range. Consult was placed to rule out a primary hematologic malignancy. The patient was lethargic and difficult to arouse. Therefore most of the history was obtained from the family were at the bedside. They denied Any prior history of blood problems or cancer. The patient has been on prednisone chronically for many years because of COPD. No known history of any autoimmune disease. Interestingly the patient was also found to be hypothermic intermittently Patient's WBC and hemoglobin actually decreased after hospitalization, the WBC 48.7, and hemoglobin in the 70 range. Chest x-ray did not show any specific pathology. Computed tomography scan showed remote lacunar injuries. CT of the chest abdomen and pelvis however showed extensive colitis. Review of Systems Constitutional: Reports fatigue, Reports poor appetite, Reports weakness Eyes: denies blurred vision, denies pain Ears: deny: decreased hearing, ear discharge, earache, tinnitus Ears, nose, mouth and throat: Denies headache, Denies sore throat Cardiovascular: Reports decreased exercise tolerance Respiratory: Reports as per HPI, Reports dyspnea Gastrointestinal: Reports abdominal pain, Reports change in bowel habits Genitourinary: Reports as per HPI Musculoskeletal: Reports muscle weakness Integumentary: Denies pruritus, Denies rash Neurological: Reports as per HPI, Reports change in mentation, Reports confusion, Reports weakness Psychiatric: Reports confusion Endocrine: Reports fatigue Hematologic/Lymphatic: Reports as per HPI Past Medical History Past Medical History: COPD, CVA/TIA, GERD/Reflux, GI Bleed, Hypertension, Memory Impairment, Pneumonia Additional Past Medical History / Comment(s): barretts esophagus, 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 Past Anesthesia/Blood Transfusion Reactions: No Reported Reaction Date of Last Stent Placement:: 1989 Past Psychological History: Depression Smoking Status: Never smoker Past Alcohol Use History: Rare Additional Past Alcohol Use History / Comment(s): stopped smoking at last 40 years ago Past Drug Use History: None Reported - Past Family History Mother Family Medical History: AICD/Pacemaker Father Family Medical History: Congestive Heart Failure (CHF) Brother(s) Additional Family Medical History / Comment(s): 1 brother passed from sarcoidoisis. 1 brother, falls, Cancer, memory issues Sister(s) Additional Family Medical History / Comment(s): 1 sister passed from liver CA. 1 sister in [place] memory impairement Medications and Allergies Home Medications Medication Instructions Recorded Confirmed Type Atorvastatin [Lipitor] 20 mg PO DAILY 11/23/17 11/12/21 History Cetirizine HCl [Zyrtec] 10 mg PO DAILY 11/23/17 11/12/21 History Isosorbide Mononitrate ER [Imdur] 30 mg PO DAILY 11/23/17 11/12/21 History Metoprolol Succinate (ER) [Toprol 25 mg PO DAILY 11/23/17 11/12/21 History XL] Montelukast [Singulair] 10 mg PO DAILY 11/23/17 11/12/21 History Omeprazole 20 mg PO DAILY 11/23/17 11/12/21 History Donepezil [Aricept] 10 mg PO DAILY 06/29/19 11/12/21 History Budesonide [Pulmicort] 0.5 mg INHALATION RT-BID 02/09/21 11/12/21 History FLUoxetine HCL [PROzac] 10 mg PO DAILY 02/09/21 11/12/21 History Furosemide [Lasix] 20 mg PO DAILY 02/09/21 11/12/21 History Memantine HCl 5 mg PO DAILY 02/09/21 11/12/21 History Albuterol Nebulized [Ventolin 2.5 mg INHALATION RT-QID 11/12/21 11/12/21 History Nebulized] Megestrol Acetate 40 mg PO DAILY 11/12/21 11/12/21 History predniSONE 5 mg PO DAILY 11/12/21 11/12/21 History Allergies Allergy/AdvReac Type Severity Reaction Status Date / Time No Known Allergies Allergy Verified 11/12/21 20:16 Physical Exam Vitals: Vital Signs Temp Pulse Pulse Resp BP BP Pulse Ox 11/13/21 15:39 78 11/13/21 15:27 76 11/13/21 15:00 97.2 F L 54 L 18 127/72 98 11/13/21 11:39 70 11/13/21 11:32 68 11/13/21 08:00 96.4 F L 80 17 108/73 97 11/13/21 07:25 80 17 11/13/21 02:00 99.0 F 75 17 128/84 97 11/12/21 21:55 97.1 F L 71 17 107/75 96 11/12/21 20:58 80 18 125/88 94 L 11/12/21 18:30 72 29 H 96 11/12/21 18:00 67 14 96 11/12/21 17:30 77 17 97 11/12/21 17:00 63 16 96 11/12/21 16:49 97.6 F 100 18 122/84 96 Intake and Output 11/13/21 11/13/21 11/13/21 06:59 14:59 22:59 Other: # Voids 3 # Bowel Movements 1 - Constitutional Patient lethargic and sleepy, difficult to arouse. Intermittently verbal. Responding to commands appropriately General appearance: mild distress - EENT Eyes: EOMI, PERRLA ENT: hearing grossly normal, normal oropharynx - Neck Neck: no lymphadenopathy Thyroid: bilateral: normal size - Respiratory Respiratory: bilateral: CTA - Cardiovascular Rhythm: regular Heart sounds: normal: S1, S2 - Gastrointestinal General gastrointestinal: decreased bowel sounds, soft Localized gastrointestinal: tender: RLQ, LLQ - Integumentary Integumentary: normal - Neurologic Neurologic: CNII-XII intact - Musculoskeletal Musculoskeletal: generalized weakness, strength equal bilaterally - Psychiatric Mental status as noted above Results CBC & Chem 7: 11/13/21 10:15 11/13/21 08:27 Labs: Abnormal Lab Results - Last 24 Hours (Table) 11/12/21 11/12/21 11/12/21 Range/Units 17:36 17:36 17:36 WBC 63.7 H* (3.8-10.6) k/uL RBC 6.17 H (4.30-5.90) m/uL Hgb 18.9 H (13.0-17.5) gm/dL Hct 59.2 H* (39.0-53.0) % Neutrophils # 57.9 H (1.3-7.7) k/uL Neutrophils # (Manual) (1.3-7.7) k/uL Lymphocytes # 0.3 L (1.0-4.8) k/uL Monocytes # 4.2 H (0-1.0) k/uL Monocytes # (Manual) (0-1.0) k/uL Basophils # 0.8 H (0-0.2) k/uL Sodium 130 L (137-145) mmol/L Chloride 95 L (98-107) mmol/L Carbon Dioxide (22-30) mmol/L BUN 44 H (9-20) mg/dL Creatinine 1.56 H (0.66-1.25) mg/dL Glucose 140 H (74-99) mg/dL Plasma Lactic Acid Anup 5.3 H* (0.7-2.0) mmol/L Calcium 7.7 L (8.4-10.2) mg/dL Magnesium 2.6 H (1.6-2.3) mg/dL Total Bilirubin 1.9 H (0.2-1.3) mg/dL Total Protein 5.0 L (6.3-8.2) g/dL Albumin 2.6 L (3.5-5.0) g/dL 11/12/21 11/13/21 11/13/21 Range/Units 20:25 00:21 04:06 WBC (3.8-10.6) k/uL RBC (4.30-5.90) m/uL Hgb (13.0-17.5) gm/dL Hct (39.0-53.0) % Neutrophils # (1.3-7.7) k/uL Neutrophils # (Manual) (1.3-7.7) k/uL Lymphocytes # (1.0-4.8) k/uL Monocytes # (0-1.0) k/uL Monocytes # (Manual) (0-1.0) k/uL Basophils # (0-0.2) k/uL Sodium (137-145) mmol/L Chloride (98-107) mmol/L Carbon Dioxide (22-30) mmol/L BUN (9-20) mg/dL Creatinine (0.66-1.25) mg/dL Glucose (74-99) mg/dL Plasma Lactic Acid Anup 3.6 H* 3.3 H* 10.6 H* (0.7-2.0) mmol/L Calcium (8.4-10.2) mg/dL Magnesium (1.6-2.3) mg/dL Total Bilirubin (0.2-1.3) mg/dL Total Protein (6.3-8.2) g/dL Albumin (3.5-5.0) g/dL 11/13/21 11/13/21 11/13/21 Range/Units 08:27 08:27 10:15 WBC 48.7 H (3.8-10.6) k/uL RBC (4.30-5.90) m/uL Hgb 17.8 H (13.0-17.5) gm/dL Hct 54.9 H (39.0-53.0) % Neutrophils # 44.3 H (1.3-7.7) k/uL Neutrophils # (Manual) 42.86 H (1.3-7.7) k/uL Lymphocytes # 0.7 L (1.0-4.8) k/uL Monocytes # 3.3 H (0-1.0) k/uL Monocytes # (Manual) 2.92 H (0-1.0) k/uL Basophils # 1.7 H (0-0.2) k/uL Sodium 131 L (137-145) mmol/L Chloride (98-107) mmol/L Carbon Dioxide 21 L (22-30) mmol/L BUN 49 H (9-20) mg/dL Creatinine 1.60 H (0.66-1.25) mg/dL Glucose 132 H (74-99) mg/dL Plasma Lactic Acid Anup 3.2 H* (0.7-2.0) mmol/L Calcium 7.0 L (8.4-10.2) mg/dL Magnesium (1.6-2.3) mg/dL Total Bilirubin 1.5 H (0.2-1.3) mg/dL Total Protein 4.6 L (6.3-8.2) g/dL Albumin 2.2 L (3.5-5.0) g/dL 11/13/21 Range/Units 13:03 WBC (3.8-10.6) k/uL RBC (4.30-5.90) m/uL Hgb (13.0-17.5) gm/dL Hct (39.0-53.0) % Neutrophils # (1.3-7.7) k/uL Neutrophils # (Manual) (1.3-7.7) k/uL Lymphocytes # (1.0-4.8) k/uL Monocytes # (0-1.0) k/uL Monocytes # (Manual) (0-1.0) k/uL Basophils # (0-0.2) k/uL Sodium (137-145) mmol/L Chloride (98-107) mmol/L Carbon Dioxide (22-30) mmol/L BUN (9-20) mg/dL Creatinine (0.66-1.25) mg/dL Glucose (74-99) mg/dL Plasma Lactic Acid Anup 3.4 H* (0.7-2.0) mmol/L Calcium (8.4-10.2) mg/dL Magnesium (1.6-2.3) mg/dL Total Bilirubin (0.2-1.3) mg/dL Total Protein (6.3-8.2) g/dL Albumin (3.5-5.0) g/dL Chest x-ray: report reviewed CT scan - abdomen: report reviewed CT scan - chest: report reviewed CT Scan - head: report reviewed CT scan - pelvis: report reviewed Assessment and Plan (1) Leukocytosis Narrative/Plan: The patient's leukocytosis is new compared to 01/30. He does have a mild chronic leukocytosis even prior to that, most likely due to long-term prednisone use. The current clinical picture shows predominantly neutrophilia. There is some mild increase in basophils and monocytes which is overall minor. WBC actually improved since hospitalization. It was discussed with the family that clinically, this appears to be most likely reactive phenomenon. The patient has evidence of underlying SIRS type presentation, with confusion, and hypothermia. He appeared to be dehydrated. Subsequent imaging has shown evidence of colitis. - Therefore discharged time the patient does not require any workup for an underlying myeloproliferative disorder. Check iron studies. Continue to monitor. Expectation is of improvement in WBC assuming his underlying colitis improved with treatment. Discussed in detail with family. Current Visit: Yes Status: Acute Code(s): D72.829 - ELEVATED WHITE BLOOD CELL COUNT, UNSPECIFIED SNOMED Code(s): 939031582 Plan: Defer to the admitting service and ID for management of colitis and related SI RS.
--- NOTE | 2021-11-13 16:37 | P.CNPUL ---
History of Present Illness Consult date: 11/13/21 Reason for consult: asthma, COPD Chief complaint: COVID-19 infection History of present illness: Patient is a 86-year-old male well-known to me with a history of asthma in the past along with multiple complex medical problems and issues patient was diagnosed as COVID-19 infection about 14 days ago, postinfection become weak with rapidly declining status also had intermittent aspiration episodes of abdominal pain and diarrhea and loose stool, poor appetite came into the hospital for further evaluation along with family member due to failure to thrive, on arrival noted to have white cell count of 48,000 with hemoglobin of 17.8, sodium 131, rotation of 5, BUN/creatinine 49 and 1.6, lactic acid is 3.6 on arrival chest x-ray revealed large hiatal hernia no active pulmonary process, computed tomography scan no acute intracranial process with remote lacunar injury is seen with some white matter changes due to prior stroke, computed tomography scan of the chest abdominal and pelvis no significant pathology noted and lung and pleural space airways are patent, no adenopathy is seen, and large hiatal hernia seen, however abdominal CAT scan is positive for large bowel thickening extended to sigmoid colon with diverticula and no evidence of abscess, extensive colitis involving the majority of the colon seen no definite diverticulitis have been noted, currently patient is being treated with bronchodilator and continuation of his home medicines with IV Zosyn and vancomycin, patient has been on chronic maintenance dose of prednisone 5 mg for his chronic dermatitis as well as asthma per family he is slightly more responsive today compared to yesterday with hydration. ID has been consulted blood cultures have been drawn including C. 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 Past Anesthesia/Blood Transfusion Reactions: No Reported Reaction Date of Last Stent Placement:: 1989 Past Psychological History: Depression Smoking Status: Never smoker Past Alcohol Use History: Rare Additional Past Alcohol Use History / Comment(s): stopped smoking at last 40 years ago Past Drug Use History: None Reported - Past Family History Mother Family Medical History: AICD/Pacemaker Father Family Medical History: Congestive Heart Failure (CHF) Brother(s) Additional Family Medical History / Comment(s): 1 brother passed from sarcoidoisis. 1 brother, falls, Cancer, memory issues Sister(s) Additional Family Medical History / Comment(s): 1 sister passed from liver CA. 1 sister in [place] memory impairement Medications and Allergies Home Medications Medication Instructions Recorded Confirmed Type Atorvastatin [Lipitor] 20 mg PO DAILY 11/23/17 11/12/21 History Cetirizine HCl [Zyrtec] 10 mg PO DAILY 11/23/17 11/12/21 History Isosorbide Mononitrate ER [Imdur] 30 mg PO DAILY 11/23/17 11/12/21 History Metoprolol Succinate (ER) [Toprol 25 mg PO DAILY 11/23/17 11/12/21 History XL] Montelukast [Singulair] 10 mg PO DAILY 11/23/17 11/12/21 History Omeprazole 20 mg PO DAILY 11/23/17 11/12/21 History Donepezil [Aricept] 10 mg PO DAILY 06/29/19 11/12/21 History Budesonide [Pulmicort] 0.5 mg INHALATION RT-BID 02/09/21 11/12/21 History FLUoxetine HCL [PROzac] 10 mg PO DAILY 02/09/21 11/12/21 History Furosemide [Lasix] 20 mg PO DAILY 02/09/21 11/12/21 History Memantine HCl 5 mg PO DAILY 02/09/21 11/12/21 History Albuterol Nebulized [Ventolin 2.5 mg INHALATION RT-QID 11/12/21 11/12/21 History Nebulized] Megestrol Acetate 40 mg PO DAILY 11/12/21 11/12/21 History predniSONE 5 mg PO DAILY 11/12/21 11/12/21 History Allergies Allergy/AdvReac Type Severity Reaction Status Date / Time No Known Allergies Allergy Verified 11/12/21 20:16 Physical Exam Vitals: Vital Signs Temp Pulse Pulse Resp BP BP Pulse Ox 11/13/21 15:39 78 11/13/21 15:27 76 11/13/21 15:00 97.2 F L 54 L 18 127/72 98 11/13/21 11:39 70 11/13/21 11:32 68 11/13/21 08:00 96.4 F L 80 17 108/73 97 11/13/21 07:25 80 17 11/13/21 02:00 99.0 F 75 17 128/84 97 11/12/21 21:55 97.1 F L 71 17 107/75 96 11/12/21 20:58 80 18 125/88 94 L 11/12/21 18:30 72 29 H 96 11/12/21 18:00 67 14 96 11/12/21 17:30 77 17 97 11/12/21 17:00 63 16 96 11/12/21 16:49 97.6 F 100 18 122/84 96 Intake and Output 11/13/21 11/13/21 11/13/21 06:59 14:59 22:59 Other: # Voids 3 # Bowel Movements 1 - Constitutional General appearance: average body habitus, disheveled - EENT Eyes: EOMI, PERRLA Ears: bilateral: normal - Neck Neck: normal ROM Carotids: bilateral: upstroke normal Thyroid: bilateral: normal size - Respiratory Respiratory: bilateral: CTA - Cardiovascular Rhythm: regular Heart sounds: normal: S1, S2 - Gastrointestinal General gastrointestinal: decreased bowel sounds - Integumentary Integumentary: normal turgor - Musculoskeletal Musculoskeletal: generalized weakness Results - Laboratory Findings CBC and BMP: 11/13/21 10:15 11/13/21 08:27 PT/INR, D-dimer PT 11.0 sec (9.0-12.0) 11/12/21 18:45 INR 1.0 (<1.2) 11/12/21 18:45 Abnormal lab findings: Abnormal Labs 11/12/21 11/12/21 11/12/21 17:36 17:36 17:36 WBC 63.7 H* RBC 6.17 H Hgb 18.9 H Hct 59.2 H* Neutrophils # 57.9 H Neutrophils # (Manual) Lymphocytes # 0.3 L Monocytes # 4.2 H Monocytes # (Manual) Basophils # 0.8 H Sodium 130 L Chloride 95 L Carbon Dioxide BUN 44 H Creatinine 1.56 H Glucose 140 H Plasma Lactic Acid Anup 5.3 H* Calcium 7.7 L Magnesium 2.6 H Total Bilirubin 1.9 H Total Protein 5.0 L Albumin 2.6 L 11/12/21 11/13/21 11/13/21 20:25 00:21 04:06 WBC RBC Hgb Hct Neutrophils # Neutrophils # (Manual) Lymphocytes # Monocytes # Monocytes # (Manual) Basophils # Sodium Chloride Carbon Dioxide BUN Creatinine Glucose Plasma Lactic Acid Anup 3.6 H* 3.3 H* 10.6 H* Calcium Magnesium Total Bilirubin Total Protein Albumin 11/13/21 11/13/21 11/13/21 08:27 08:27 10:15 WBC 48.7 H RBC Hgb 17.8 H Hct 54.9 H Neutrophils # 44.3 H Neutrophils # (Manual) 42.86 H Lymphocytes # 0.7 L Monocytes # 3.3 H Monocytes # (Manual) 2.92 H Basophils # 1.7 H Sodium 131 L Chloride Carbon Dioxide 21 L BUN 49 H Creatinine 1.60 H Glucose 132 H Plasma Lactic Acid Anup 3.2 H* Calcium 7.0 L Magnesium Total Bilirubin 1.5 H Total Protein 4.6 L Albumin 2.2 L 11/13/21 13:03 WBC RBC Hgb Hct Neutrophils # Neutrophils # (Manual) Lymphocytes # Monocytes # Monocytes # (Manual) Basophils # Sodium Chloride Carbon Dioxide BUN Creatinine Glucose Plasma Lactic Acid Anup 3.4 H* Calcium Magnesium Total Bilirubin Total Protein Albumin - Diagnostic Findings Chest x-ray: report reviewed, image reviewed CT scan - chest: report reviewed, image reviewed Assessment and Plan Assessment: Sepsis due to diffuse colitis with a differential diagnoses of nonspecific colitis versus infectious colitis, patient has been on broad-spectrum antibiotics, aggressive rehydration ID workup is in progress, patient will benefit from endoscopy Asthma and chronic intermittent, overall stable on bronchodilators and maintenance prednisone Chronic dermatitis on prednisone COVID-19 infection History of CVA Advanced dementia exam is disease Coronary artery disease and stent placement Plan: Overall plan as above continue monitor lactic acid closely repeat labs tomorrow may need surgical evaluation if lactic acid do not trend down
[2021-11-13] MEDS: MORPHINE SULFATE 4 MG/ML SYRINGE IV PRN (17:12)
[2021-11-13] MEDS: VANCOMYCIN 1,750 MG in SODIUM CHLORIDE 0.9% 500 ML 500 ML IVPB SCH (23:43)
--- NOTE | 2021-11-14 00:03 | P.CONS ---
History of Present Illness - Reason for Consult Consult date: 11/13/21 [facility] Requesting physician: Bradley Louie - Chief Complaint Weakness and diarrhea x few days - History of Present Illness Patient is a 86 year male with a past medical history negative for COPD and hypertension the patient was recently diagnosed with covid 19 pneumonia or with the patient was treated with the Paxlovid and apparently the patient has recovered from it with repeat test was negative patient was doing well until 4 days ago with the patient stopped eating or drinking and has become more weaker and weaker patient is also develop diarrhea with multiple loose stools but no blood or mucus in the stool no clear history of any abdominal pain or any vomiting and no clear history of any chest pain shortness of breath or cough as per the history provided by the family the bedside. Patient on presentation to the hospital was afebrile and no valvular have been recorded subsequently, patient was noticed to have elevated white count was 63,000 that is down to 48.7 with a left shift, patient did have elevated BUN and Creatinine as well as a lactic acid of 10.6 however it is trending down liver enzymes are normal, the patient had been started on Zosyn and infectious disease was consulted for further management of antibiotic therapy most information has been obtained from review the chart and talking to family and some information from the patient who was lethargic but arousable and was able to answer some questions Review of Systems Positive point has been mentioned in the HPI rest of the systems are negative Past Medical History Past Medical History: COPD, CVA/TIA, GERD/Reflux, GI Bleed, Hypertension, Memory Impairment, Pneumonia Additional Past Medical History / Comment(s): barretts esophagus, 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 Past Anesthesia/Blood Transfusion Reactions: No Reported Reaction Date of Last Stent Placement:: 1989 Past Psychological History: Depression Smoking Status: Never smoker Past Alcohol Use History: Rare Additional Past Alcohol Use History / Comment(s): stopped smoking at last 40 years ago Past Drug Use History: None Reported - Past Family History Mother Family Medical History: AICD/Pacemaker Father Family Medical History: Congestive Heart Failure (CHF) Brother(s) Additional Family Medical History / Comment(s): 1 brother passed from sarcoidoisis. 1 brother, falls, Cancer, memory issues Sister(s) Additional Family Medical History / Comment(s): 1 sister passed from liver CA. 1 sister in [place] memory impairement Medications and Allergies Home Medications Medication Instructions Recorded Confirmed Type Atorvastatin [Lipitor] 20 mg PO DAILY 11/23/17 11/12/21 History Cetirizine HCl [Zyrtec] 10 mg PO DAILY 11/23/17 11/12/21 History Isosorbide Mononitrate ER [Imdur] 30 mg PO DAILY 11/23/17 11/12/21 History Metoprolol Succinate (ER) [Toprol 25 mg PO DAILY 11/23/17 11/12/21 History XL] Montelukast [Singulair] 10 mg PO DAILY 11/23/17 11/12/21 History Omeprazole 20 mg PO DAILY 11/23/17 11/12/21 History Donepezil [Aricept] 10 mg PO DAILY 06/29/19 11/12/21 History Budesonide [Pulmicort] 0.5 mg INHALATION RT-BID 02/09/21 11/12/21 History FLUoxetine HCL [PROzac] 10 mg PO DAILY 02/09/21 11/12/21 History Furosemide [Lasix] 20 mg PO DAILY 02/09/21 11/12/21 History Memantine HCl 5 mg PO DAILY 02/09/21 11/12/21 History Albuterol Nebulized [Ventolin 2.5 mg INHALATION RT-QID 11/12/21 11/12/21 History Nebulized] Megestrol Acetate 40 mg PO DAILY 11/12/21 11/12/21 History predniSONE 5 mg PO DAILY 11/12/21 11/12/21 History Allergies Allergy/AdvReac Type Severity Reaction Status Date / Time No Known Allergies Allergy Verified 11/12/21 20:16 Physical Exam Vitals: Vital Signs Temp Pulse Pulse Resp BP BP Pulse Ox 11/13/21 08:00 96.4 F L 80 17 108/73 97 11/13/21 07:25 80 17 11/13/21 02:00 99.0 F 75 17 128/84 97 11/12/21 21:55 97.1 F L 71 17 107/75 96 11/12/21 20:58 80 18 125/88 94 L 11/12/21 18:30 72 29 H 96 11/12/21 18:00 67 14 96 11/12/21 17:30 77 17 97 11/12/21 17:00 63 16 96 11/12/21 16:49 97.6 F 100 18 122/84 96 Intake and Output 11/12/21 11/13/21 11/13/21 22:59 06:59 14:59 Other: # Voids 3 # Bowel Movements 1 Weight 104.326 kg GENERAL DESCRIPTION: Elderly male lying in bed, no distress. No tachypnea or accessory muscle of respiration use. HEENT: Shows Pallor , no scleral icterus. Oral mucous membrane is dry. No pharyngeal erythema or thrush NECK: Trachea central, no thyromegaly. LUNGS: Unlabored breathing. Clear to auscultation anteriorly. No wheeze or crackle. HEART: S1, S2, regular rate and rhythm. No loud murmur ABDOMEN: Soft, left lower quadrant tenderness EXTREMITIES: No edema of feet. SKIN: No rash, no masses palpable. NEUROLOGICAL: The patient is sleepy lethargic but arousable and no neck rigidity Results CBC & Chem 7: 11/13/21 10:15 11/13/21 08:27 Labs: Abnormal Lab Results - Last 24 Hours (Table) 11/12/21 11/12/21 11/12/21 Range/Units 17:36 17:36 17:36 WBC 63.7 H* (3.8-10.6) k/uL RBC 6.17 H (4.30-5.90) m/uL Hgb 18.9 H (13.0-17.5) gm/dL Hct 59.2 H* (39.0-53.0) % Neutrophils # 57.9 H (1.3-7.7) k/uL Neutrophils # (Manual) (1.3-7.7) k/uL Lymphocytes # 0.3 L (1.0-4.8) k/uL Monocytes # 4.2 H (0-1.0) k/uL Monocytes # (Manual) (0-1.0) k/uL Basophils # 0.8 H (0-0.2) k/uL Sodium 130 L (137-145) mmol/L Chloride 95 L (98-107) mmol/L Carbon Dioxide (22-30) mmol/L BUN 44 H (9-20) mg/dL Creatinine 1.56 H (0.66-1.25) mg/dL Glucose 140 H (74-99) mg/dL Plasma Lactic Acid Anup 5.3 H* (0.7-2.0) mmol/L Calcium 7.7 L (8.4-10.2) mg/dL Magnesium 2.6 H (1.6-2.3) mg/dL Total Bilirubin 1.9 H (0.2-1.3) mg/dL Total Protein 5.0 L (6.3-8.2) g/dL Albumin 2.6 L (3.5-5.0) g/dL 11/12/21 11/13/21 11/13/21 Range/Units 20:25 00:21 04:06 WBC (3.8-10.6) k/uL RBC (4.30-5.90) m/uL Hgb (13.0-17.5) gm/dL Hct (39.0-53.0) % Neutrophils # (1.3-7.7) k/uL Neutrophils # (Manual) (1.3-7.7) k/uL Lymphocytes # (1.0-4.8) k/uL Monocytes # (0-1.0) k/uL Monocytes # (Manual) (0-1.0) k/uL Basophils # (0-0.2) k/uL Sodium (137-145) mmol/L Chloride (98-107) mmol/L Carbon Dioxide (22-30) mmol/L BUN (9-20) mg/dL Creatinine (0.66-1.25) mg/dL Glucose (74-99) mg/dL Plasma Lactic Acid Anup 3.6 H* 3.3 H* 10.6 H* (0.7-2.0) mmol/L Calcium (8.4-10.2) mg/dL Magnesium (1.6-2.3) mg/dL Total Bilirubin (0.2-1.3) mg/dL Total Protein (6.3-8.2) g/dL Albumin (3.5-5.0) g/dL 11/13/21 11/13/21 11/13/21 Range/Units 08:27 08:27 10:15 WBC 48.7 H (3.8-10.6) k/uL RBC (4.30-5.90) m/uL Hgb 17.8 H (13.0-17.5) gm/dL Hct 54.9 H (39.0-53.0) % Neutrophils # 44.3 H (1.3-7.7) k/uL Neutrophils # (Manual) 42.86 H (1.3-7.7) k/uL Lymphocytes # 0.7 L (1.0-4.8) k/uL Monocytes # 3.3 H (0-1.0) k/uL Monocytes # (Manual) 2.92 H (0-1.0) k/uL Basophils # 1.7 H (0-0.2) k/uL Sodium 131 L (137-145) mmol/L Chloride (98-107) mmol/L Carbon Dioxide 21 L (22-30) mmol/L BUN 49 H (9-20) mg/dL Creatinine 1.60 H (0.66-1.25) mg/dL Glucose 132 H (74-99) mg/dL Plasma Lactic Acid Anup 3.2 H* (0.7-2.0) mmol/L Calcium 7.0 L (8.4-10.2) mg/dL Magnesium (1.6-2.3) mg/dL Total Bilirubin 1.5 H (0.2-1.3) mg/dL Total Protein 4.6 L (6.3-8.2) g/dL Albumin 2.2 L (3.5-5.0) g/dL Assessment and Plan (1) Leukocytosis Current Visit: Yes Status: Acute Code(s): D72.829 - ELEVATED WHITE BLOOD CELL COUNT, UNSPECIFIED SNOMED Code(s): 139599069 Plan: 1patient with significant elevated white count which is likely multifactorial in this patient who recently has been exposed to steroids for his covid 19 pneumonia treatment and the patient also noted to have significant dehydration as well as elevated lactic acid and tenderness on the left side of the colon With a question of possible ischemic versus nonischemic colitis and need to cover for the polymicrobial enteric gram-negative tera. 2we will wait for the CT of abdominal pelvis to be completed. 3UA check stool culture and stool for C. diff. 4continue with the Zosyn and IV fluids. Family the bedside they have multiple questions were answered. We will follow on clinical condition and cultures to further adjust medication if needed Thank you for this consultation will follow this patient with you Time with Patient: Greater than 30
[2021-11-14] MEDS: SODIUM CHLORIDE 0.9% 1,000 ML IV SCH ×3 (06:08→19:04)
[2021-11-14] MEDS: PIPERACILLIN-TAZOBACTAM 3.375 GM in SODIUM CHLORIDE 0.9% 100 ML IVPB SCH ×3 (07:52→23:43)
[2021-11-14] MEDS: FAMOTIDINE 20 MG/2 ML VIAL IV SCH (07:52)
[2021-11-14] MEDS: ALBUTEROL NEBULIZED 2.5 MG/3 ML INHALATION SCH ×4 (08:03→19:38)
[2021-11-14] MEDS: BUDESONIDE 0.5 MG/2 ML NEBU INHALATION SCH ×2 (08:04→19:38)
[2021-11-14] MEDS: ATORVASTATIN 20 MG TAB PO SCH (09:28)
[2021-11-14] MEDS: ISOSORBIDE MONONITRATE ER 30 MG TAB.ER.24H PO SCH (09:28)
[2021-11-14] MEDS: MONTELUKAST 10 MG TAB PO SCH (09:28)
[2021-11-14] MEDS: LORATADINE 10 MG TAB PO SCH (09:28)
[2021-11-14] MEDS: MEMANTINE 5 MG TAB PO SCH (09:29)
[2021-11-14] MEDS: METOPROLOL SUCCINATE (ER) 25 MG TAB.ER.24H PO SCH (09:29)
[2021-11-14] MEDS: predniSONE 5 MG TAB PO SCH (09:29)
[2021-11-14] MEDS: DONEPEZIL 10 MG TAB PO SCH (09:29)
[2021-11-14] MEDS: FUROSEMIDE 20 MG TAB PO SCH (09:29)
[2021-11-14] MEDS: PANTOPRAZOLE 40 MG TABLET PO SCH (09:29)
[2021-11-14 10:40] LABS: HCT 55.5 % (39.6-50.0); HGB 18.4 g/dL (13.0-17.0); MCH 30.3 pg (27.0-32.0); MCHC 33.2 g/dL (32.0-37.0); MCV 91.3 fL (80.0-97.0); Mean Platelet Volume 10.8 fL (9.5-12.2); NRBC Per 100 WBC 0 /100 WBCS (0.0-0.0); Platelet Count 200 X 10*3/uL (140-440); RBC 6.08 X 10*6/uL (4.40-5.60); RDW 14.1 % (11.5-14.5); WBC 45.49 X 10*3/uL (4.50-10.00)
[2021-11-14 10:58] LABS: African American GFR (CKD) 48.2 (60.0-200.0); Albumin 2.1 g/dL (3.8-4.9); Albumin/Globulin Ratio 1.24 (1.60-3.17); Anion Gap 18.4 mmol/L (10.00-18.00); BUN/Creat Ratio 26.27 Ratio (12.00-20.00); Blood Urea Nitrogen 39.4 mg/dL (9.0-27.0); Calcium 6.9 mg/dL (8.7-10.3); Carbon Dioxide 14.6 mmol/L (20.0-27.5); Globulin 1.7 g/dL (1.6-3.3); Non-African American GFR(CKD) 41.6 (60.0-200.0); Total Bilirubin 0.8 mg/dL (0.30-1.20); Total Protein 3.8 g/dL (6.2-8.2)
[2021-11-14 11:31] LABS: Basophils # (M) 0 X 10*3/uL (0.00-0.10); Crenated RBC 2+; Eosinophils # (M) 0 X 10*3/uL (0.04-0.35); Lymphocytes # (M) 0.45 X 10*3/uL (0.90-5.00); Metamyelocytes % 1 % (0-0); Monocytes # (M) 4.55 X 10*3/uL (0.20-1.00); Myelocytes % 1 % (0-0); Neutrophils # (M) 39.58 X 10*3/uL (2.00-8.90); Neutrophils % (M) 87 %
[2021-11-14] MEDS: MORPHINE SULFATE 4 MG/ML SYRINGE IV PRN (12:15)
[2021-11-14 13:44] LABS: % Iron Saturation 19.47 (15.00-50.00)
--- NOTE | 2021-11-14 15:48 | PN ---
PROGRESS NOTE He is seen by Hematology/Oncology and Pulmonary. White count decreased today down to 47, up from 70s. 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 Extensive colitis on CT scan of the abdomen, chest. We started him on Flagyl to add to his current medications and get GI to see him. Sating at 94%, temp 97, respiratory rate 16 to 18, cardiovascular S1, S2. Lungs scattered rhonchi and wheeze. GI is decreased bowel sounds. Tender left lower quadrant, right lower quadrant. White count 47, hemoglobin 17.3, sodium 131, BUN 49, creatinine 1.5. Leukocytosis with predominant neutrophilia which is improved since admission, most likely a reactive phenomenon to the systemic inflammatory response syndrome with confusion, hypothermia, and colitis, COPD exacerbation, dehydration. He is to continue to monitor and check iron levels and treat for COPD exacerbation and possible pneumonia, hypertension, dementia. Continue current home medications. History of COVID 19 infection, chronic dermatitis on prednisone, asthma, COPD, sepsis due to colitis. Get GI consult. Prognosis guarded. MMODL / IJN: [id number] /
[2021-11-14] MEDS: metroNIDAZOLE 500 MG TAB PO SCH ×2 (16:49→22:44)
[2021-11-14] MEDS: methylPREDNISolone SOD SUCCI 40 MG/ML 1 ML VIAL IV SCH ×2 (16:49→23:48)
[2021-11-14] MEDS: SODIUM CHLORIDE 0.45% 1,000 ML IV SCH ×2 (19:03→22:26)
[2021-11-14] MEDS: VANCOMYCIN 1,750 MG in SODIUM CHLORIDE 0.9% 500 ML 500 ML IVPB SCH (22:44)
[2021-11-15] MEDS: SODIUM CHLORIDE 0.9% 1,000 ML IV SCH ×3 (02:54→16:12)
[2021-11-15] MEDS: SODIUM CHLORIDE 0.45% 1,000 ML IV SCH ×3 (02:54→23:12)
[2021-11-15] MEDS: ATORVASTATIN 20 MG TAB PO SCH (07:07)
[2021-11-15] MEDS: ISOSORBIDE MONONITRATE ER 30 MG TAB.ER.24H PO SCH (07:07)
[2021-11-15] MEDS: LORATADINE 10 MG TAB PO SCH (07:07)
[2021-11-15] MEDS: MEMANTINE 5 MG TAB PO SCH (07:08)
[2021-11-15] MEDS: MONTELUKAST 10 MG TAB PO SCH (07:08)
[2021-11-15] MEDS: METOPROLOL SUCCINATE (ER) 25 MG TAB.ER.24H PO SCH (07:08)
[2021-11-15] MEDS: predniSONE 5 MG TAB PO SCH (07:08)
[2021-11-15] MEDS: DONEPEZIL 10 MG TAB PO SCH (07:08)
[2021-11-15] MEDS: metroNIDAZOLE 500 MG TAB PO SCH ×3 (07:08→22:36)
[2021-11-15] MEDS: PANTOPRAZOLE 40 MG TABLET PO SCH (07:08)
[2021-11-15] MEDS: FUROSEMIDE 20 MG TAB PO SCH (07:08)
[2021-11-15] MEDS: FLUoxetine HCL 10 MG CAP PO SCH (07:08)
--- NOTE | 2021-11-15 07:20 | P.PN ---
Subjective Progress Note Date: 11/14/21 Principal diagnosis: Leukocytosis Patient is 86-year-old male was recently treated outpatient setting for covid 19 pneumonia treated with Paxlovid , presented to the hospital with weakness decrease oral intake and diarrhea in this patient did have significantly elevated white count on admission. On today's evaluation that is 11/14/2021, patient is afebrile, feeling slightly better oral intake remains to be poor some abdominal discomfort and is having diarrhea unfortunately stools for C. diff was requested were not collected stool cultures also not collected Objective - Vital Signs Vital signs: Vital Signs Temp 98.1 F 11/14/21 07:34 Pulse 72 11/14/21 11:42 Resp 18 11/14/21 07:34 BP 112/66 11/14/21 07:34 Pulse Ox 95 11/14/21 07:34 FiO2 Intake & Output 11/13/21 11/14/21 11/14/21 18:59 06:59 18:59 Intake Total 1550 Balance 1550 Intake: Intake, IV Titration 1300 Amount Piperacillin-Tazobactam 3 200 .375 gm In Sodium Chloride 0.9% 100 ml @ 25 mls/hr IVPB Q8HR [facility] Rx# :[id number] Sodium Chloride 0.45% 1, 600 000 ml @ 100 mls/hr IV . Q10H [facility] Rx#:[id number] Sodium Chloride 0.9% 500 500 ml 500 ml @ 999 mls/hr IV .Q31M [facility] Rx#:[id number] Oral 250 Other: Voiding Method Diaper Diaper # Voids 3 - Exam GENERAL DESCRIPTION: An elderly male lying in bed in no distress RESPIRATORY SYSTEM: Unlabored breathing , decreased breath sounds at bases HEART: S1 S2 regular rate and rhythm , ABDOMEN: Soft , mild lower abdominal tenderness EXTREMITIES: No edema feet - Labs CBC & Chem 7: 11/14/21 05:40 11/14/21 05:40 Labs: Abnormal Lab Results - Last 24 Hours (Table) 11/13/21 11/13/21 11/13/21 Range/Units 16:32 20:24 23:44 WBC (4.50-10.00) X 10*3/uL RBC (4.40-5.60) X 10*6/uL Hgb (13.0-17.0) g/dL Hct (39.6-50.0) % Metamyelocytes % (0-0) % Myelocytes % (0-0) % Neutrophils # (Manual) (2.00-8.90) X 10*3/uL Lymphocytes # (Manual) (0.90-5.00) X 10*3/uL Monocytes # (Manual) (0.20-1.00) X 10*3/uL Eosinophils # (Manual) (0.04-0.35) X 10*3/uL Carbon Dioxide (20.0-27.5) mmol/L Anion Gap (10.00-18.00) mmol/L BUN (9.0-27.0) mg/dL Est GFR (CKD-EPI)AfAm (60.0-200.0) Est GFR (CKD-EPI)NonAf (60.0-200.0) BUN/Creatinine Ratio (12.00-20.00) Ratio Glucose (70-110) mg/dL Plasma Lactic Acid Anup 2.7 H* 3.0 H* 4.0 H* (0.7-2.0) mmol/L Calcium (8.7-10.3) mg/dL Iron (65-175) ug/dL TIBC (228-460) ug/dL Transferrin (204.0-354.0) mg/dL Ferritin (22.0-322.0) ng/mL Total Protein (6.2-8.2) g/dL Albumin (3.8-4.9) g/dL Albumin/Globulin Ratio (1.60-3.17) g/dL 11/14/21 11/14/21 11/14/21 Range/Units 02:40 05:30 05:40 WBC 45.49 H (4.50-10.00) X 10*3/uL RBC 6.08 H (4.40-5.60) X 10*6/uL Hgb 18.4 H (13.0-17.0) g/dL Hct 55.5 H (39.6-50.0) % Metamyelocytes % 1 H (0-0) % Myelocytes % 1 H (0-0) % Neutrophils # (Manual) 39.58 H (2.00-8.90) X 10*3/uL Lymphocytes # (Manual) 0.45 L (0.90-5.00) X 10*3/uL Monocytes # (Manual) 4.55 H (0.20-1.00) X 10*3/uL Eosinophils # (Manual) 0 L (0.04-0.35) X 10*3/uL Carbon Dioxide (20.0-27.5) mmol/L Anion Gap (10.00-18.00) mmol/L BUN (9.0-27.0) mg/dL Est GFR (CKD-EPI)AfAm (60.0-200.0) Est GFR (CKD-EPI)NonAf (60.0-200.0) BUN/Creatinine Ratio (12.00-20.00) Ratio Glucose (70-110) mg/dL Plasma Lactic Acid Anup 2.7 H* 3.7 H* (0.7-2.0) mmol/L Calcium (8.7-10.3) mg/dL Iron (65-175) ug/dL TIBC (228-460) ug/dL Transferrin (204.0-354.0) mg/dL Ferritin (22.0-322.0) ng/mL Total Protein (6.2-8.2) g/dL Albumin (3.8-4.9) g/dL Albumin/Globulin Ratio (1.60-3.17) g/dL 11/14/21 Range/Units 05:40 WBC (4.50-10.00) X 10*3/uL RBC (4.40-5.60) X 10*6/uL Hgb (13.0-17.0) g/dL Hct (39.6-50.0) % Metamyelocytes % (0-0) % Myelocytes % (0-0) % Neutrophils # (Manual) (2.00-8.90) X 10*3/uL Lymphocytes # (Manual) (0.90-5.00) X 10*3/uL Monocytes # (Manual) (0.20-1.00) X 10*3/uL Eosinophils # (Manual) (0.04-0.35) X 10*3/uL Carbon Dioxide 14.6 L (20.0-27.5) mmol/L Anion Gap 18.40 H (10.00-18.00) mmol/L BUN 39.4 H (9.0-27.0) mg/dL Est GFR (CKD-EPI)AfAm 48.2 L (60.0-200.0) Est GFR (CKD-EPI)NonAf 41.6 L (60.0-200.0) BUN/Creatinine Ratio 26.27 H (12.00-20.00) Ratio Glucose 119 H (70-110) mg/dL Plasma Lactic Acid Anup (0.7-2.0) mmol/L Calcium 6.9 L (8.7-10.3) mg/dL Iron 22 L (65-175) ug/dL TIBC 113 L (228-460) ug/dL Transferrin 80.7 L (204.0-354.0) mg/dL Ferritin 1066.0 H (22.0-322.0) ng/mL Total Protein 3.8 L (6.2-8.2) g/dL Albumin 2.1 L (3.8-4.9) g/dL Albumin/Globulin Ratio 1.24 L (1.60-3.17) g/dL Microbiology - Last 24 Hours (Table) 11/12/21 18:45 Blood Culture - Preliminary Blood No Growth after 24 hours 11/12/21 18:53 Blood Culture - Preliminary Blood No Growth after 24 hours Assessment and Plan (1) Leukocytosis Current Visit: Yes Status: Acute Code(s): D72.829 - ELEVATED WHITE BLOOD CELL COUNT, UNSPECIFIED SNOMED Code(s): 144934454 Plan: 1patient with significant elevated white count which is likely multifactorial in this patient who recently has been exposed to steroids for his covid 19 pneumonia treatment and the patient also noted to have significant dehydration as well as elevated lactic acid and tenderness on the left side of the colon With a question of possible ischemic versus nonischemic colitis and need to cover for the polymicrobial enteric gram-negative tera. 2CT of abdominal pelvis which shows evidence of colitis 3RNhas been instructed again to collect stool culture and stool for C. diff. 4continue with the Zosyn and IV fluids. Family the bedside they have multiple questions were answered. Time with Patient: Less than 30
[2021-11-15] MEDS: FAMOTIDINE 20 MG/2 ML VIAL IV SCH (07:50)
[2021-11-15] MEDS: methylPREDNISolone SOD SUCCI 40 MG/ML 1 ML VIAL IV SCH ×3 (07:50→23:14)
[2021-11-15] MEDS: PIPERACILLIN-TAZOBACTAM 3.375 GM in SODIUM CHLORIDE 0.9% 100 ML IVPB SCH ×3 (07:54→23:14)
[2021-11-15] MEDS: BUDESONIDE 0.5 MG/2 ML NEBU INHALATION SCH ×2 (08:23→20:42)
[2021-11-15] MEDS: ALBUTEROL NEBULIZED 2.5 MG/3 ML INHALATION SCH ×4 (08:23→20:42)
[2021-11-15 08:45] LABS: ALT 27 U/L (4-49); African American GFR (CKD) 61 (>60 ml/min/1.73 sqM); Albumin/Globulin Ratio 0.9; Anion Gap 8 mmol/L; Blood Urea Nitrogen 33 mg/dL (9-20); Calcium 6.5 mg/dL (8.4-10.2); Carbon Dioxide 14 mmol/L (22-30); Chloride 111 mmol/L (98-107); Globulin 2.1 g/dL; Glucose 179 mg/dL (74-99); Non-African American GFR(CKD) 53 (>60 ml/min/1.73 sqM); Sodium 133 mmol/L (137-145); Total Bilirubin 1.1 mg/dL (0.2-1.3)
[2021-11-15 08:46] LABS: AST 52 U/L (17-59); Albumin 1.8 g/dL (3.5-5.0); Alkaline Phosphatase 85 U/L (38-126); Potassium 4.6 mmol/L (3.5-5.1); Total Protein 3.9 g/dL (6.3-8.2)
--- NOTE | 2021-11-15 10:50 | P.PN ---
Subjective Progress Note Date: 11/15/21 Principal diagnosis: leukocytosis In f/u today pt continually calling out "oh my Lord", when a direct question is asked he did answer appropriately. He denied pain, very distressed-stated he urinated. Objective - Vital Signs Vital signs: Vital Signs Temp 98.5 F 11/15/21 02:00 Pulse 72 11/15/21 08:36 Resp 22 11/15/21 02:00 BP 97/66 11/15/21 02:00 Pulse Ox 93 L 11/15/21 02:00 FiO2 Intake & Output 11/14/21 11/15/21 11/15/21 18:59 06:59 18:59 Intake Total 1770 Output Total 500 Balance 1270 Intake: Intake, IV Titration 1770 Amount Piperacillin-Tazobactam 3 100 .375 gm In Sodium Chloride 0.9% 100 ml @ 25 mls/hr IVPB Q8HR [facility] Rx# :[id number] Sodium Chloride 0.9% 1, 1170 000 ml @ 130 mls/hr IV . Q7H42M [facility] Rx#:[id number] Vancomycin 1,750 mg In 500 Sodium Chloride 0.9% 500 ml 500 ml @ 167 mls/hr IVPB Q24H [facility] Rx#: [id number] Output: Urine 500 Other: Voiding Method Diaper Diaper Diaper External Catheter External Catheter # Voids 3 - Constitutional General appearance: Present: average body habitus, cooperative, mild distress - EENT EENT Comment(s): very dry mucus membranes ENT: Present: hearing grossly normal - Respiratory Details: resp even and unlabored at rest, congested cough - Gastrointestinal General gastrointestinal: Present: soft, tenderness (rebound) - Integumentary Integumentary Comment(s): thin skin, mult bruises - Musculoskeletal Musculoskeletal: Present: generalized weakness - Psychiatric Psychiatric Comment(s): alert, oriented to self and place - Labs CBC & Chem 7: 11/14/21 05:40 11/15/21 08:14 Labs: Abnormal Lab Results - Last 24 Hours (Table) 11/14/21 11/14/21 11/14/21 Range/Units 05:40 05:40 15:43 WBC 45.49 H (4.50-10.00) X 10*3/uL RBC 6.08 H (4.40-5.60) X 10*6/uL Hgb 18.4 H (13.0-17.0) g/dL Hct 55.5 H (39.6-50.0) % Metamyelocytes % 1 H (0-0) % Myelocytes % 1 H (0-0) % Neutrophils # (Manual) 39.58 H (2.00-8.90) X 10*3/uL Lymphocytes # (Manual) 0.45 L (0.90-5.00) X 10*3/uL Monocytes # (Manual) 4.55 H (0.20-1.00) X 10*3/uL Eosinophils # (Manual) 0 L (0.04-0.35) X 10*3/uL Sodium (137-145) mmol/L Chloride (98-107) mmol/L Carbon Dioxide 14.6 L (20.0-27.5) mmol/L Anion Gap 18.40 H (10.00-18.00) mmol/L BUN 39.4 H (9.0-27.0) mg/dL Est GFR (CKD-EPI)AfAm 48.2 L (60.0-200.0) Est GFR (CKD-EPI)NonAf 41.6 L (60.0-200.0) BUN/Creatinine Ratio 26.27 H (12.00-20.00) Ratio Glucose 119 H (70-110) mg/dL Plasma Lactic Acid Anup 2.3 H* (0.7-2.0) mmol/L Calcium 6.9 L (8.7-10.3) mg/dL Iron 22 L (65-175) ug/dL TIBC 113 L (228-460) ug/dL Transferrin 80.7 L (204.0-354.0) mg/dL Ferritin 1066.0 H (22.0-322.0) ng/mL Total Protein 3.8 L (6.2-8.2) g/dL Albumin 2.1 L (3.8-4.9) g/dL Albumin/Globulin Ratio 1.24 L (1.60-3.17) g/dL 11/14/21 11/15/21 11/15/21 Range/Units 19:42 08:14 08:14 WBC (4.50-10.00) X 10*3/uL RBC (4.40-5.60) X 10*6/uL Hgb (13.0-17.0) g/dL Hct (39.6-50.0) % Metamyelocytes % (0-0) % Myelocytes % (0-0) % Neutrophils # (Manual) (2.00-8.90) X 10*3/uL Lymphocytes # (Manual) (0.90-5.00) X 10*3/uL Monocytes # (Manual) (0.20-1.00) X 10*3/uL Eosinophils # (Manual) (0.04-0.35) X 10*3/uL Sodium 133 L (137-145) mmol/L Chloride 111 H (98-107) mmol/L Carbon Dioxide 14 L (20.0-27.5) mmol/L Anion Gap (10.00-18.00) mmol/L BUN 33 H (9.0-27.0) mg/dL Est GFR (CKD-EPI)AfAm (60.0-200.0) Est GFR (CKD-EPI)NonAf (60.0-200.0) BUN/Creatinine Ratio (12.00-20.00) Ratio Glucose 179 H (70-110) mg/dL Plasma Lactic Acid Anup 2.4 H* 2.8 H* (0.7-2.0) mmol/L Calcium 6.5 L (8.7-10.3) mg/dL Iron (65-175) ug/dL TIBC (228-460) ug/dL Transferrin (204.0-354.0) mg/dL Ferritin (22.0-322.0) ng/mL Total Protein 3.9 L (6.2-8.2) g/dL Albumin 1.8 L (3.8-4.9) g/dL Albumin/Globulin Ratio (1.60-3.17) g/dL Microbiology - Last 24 Hours (Table) 11/14/21 21:30 Stool Culture - Preliminary Stool 11/12/21 18:53 Blood Culture - Preliminary Blood No Growth after 48 hours 11/12/21 18:45 Blood Culture - Preliminary Blood No Growth after 48 hours Assessment and Plan (1) Leukocytosis Current Visit: Yes Status: Acute Priority: Medium Code(s): D72.829 - ELEVATED WHITE BLOOD CELL COUNT, UNSPECIFIED SNOMED Code(s): 759583000 Plan: Suspect leukocytosis is multifactorial-reactive to infection, chronic steroid use. Work up so far neg for underlying malignant cause for leukocytosis. WBC is trending down. Cont to monitor CBC. Further work up will be considered if a bnormal lab values progress. Lactic acid did increase. Attending has consulted GI to evaluate colitis.
[2021-11-15] MEDS: MORPHINE SULFATE 2 MG/ML SYRINGE IVP PRN ×3 (10:56→22:34)
[2021-11-15 11:18] LABS: HCT 51.1 % (39.6-50.0); HGB 16.9 g/dL (13.0-17.0); MCH 30.3 pg (27.0-32.0); MCHC 33.1 g/dL (32.0-37.0); MCV 91.6 fL (80.0-97.0); Mean Platelet Volume 11.8 fL (9.5-12.2); NRBC Per 100 WBC 0.1 /100 WBCS (0.0-0.0); Platelet Count 155 X 10*3/uL (140-440); RBC 5.58 X 10*6/uL (4.40-5.60); RDW 14.1 % (11.5-14.5); WBC 36.34 X 10*3/uL (4.50-10.00)
[2021-11-15 11:34] LABS: Acanthocytes 2+; Basophils # (M) 0 X 10*3/uL (0.00-0.10); Eosinophils # (M) 0 X 10*3/uL (0.04-0.35); Lymphocytes # (M) 0.73 X 10*3/uL (0.90-5.00); Metamyelocytes % 1 % (0-0); Monocytes # (M) 0.36 X 10*3/uL (0.20-1.00); Myelocytes % 1 % (0-0); Neutrophils # (M) 34.16 X 10*3/uL (2.00-8.90); Neutrophils % (M) 94 %; Promyelocytes % 1 % (0-0)
--- NOTE | 2021-11-15 12:04 | P.CONS ---
History of Present Illness - Reason for Consult Consult date: 11/15/21 Colitis Requesting physician: Jason Johnson - Chief Complaint Abdominal pain - History of Present Illness this is an 86-year-old male with a past medical history COPD, atrial fibrillation, hypertension, memory impairment with recent COVID-19 infection who presented to the emergency department brought in by his daughters for increased weakness and abdominal pain. Most of the information is obtained from the patient's chart as he is confused at this time. Apparently patient had been complaining of abdominal pain and some loose stools. Nursing reports he had a very watery stool this morning, nonbloody. Initial C differential stool was negative. Stool cultures are pending. No reported nausea or vomiting. He is currently on Solu-Medrol 40 mg every 8 hours, Flagyl and Zosyn. He had a CT of the chest, abdomen and pelvis that reported no evidence of abscess. Colitis involving the majority of the colon with multiple colonic diverticula without definitive diverticulitis. Abundant to the right colon is square shift in the right upper quadrant. Large hiatal hernia containing majority of the stomach. Distal esophagus layering fluid could free relate to reflux and/or dysmotility. Colonic diverticulosis with a small amount of ascites present. Hematology was consulted and believes elevation in WBC and plasma lactic acid related to systemic inflammatory response syndrome weekly related from underlying colitis. Patient is unsure of last colonoscopy. On admission the patient was noted to have significant elevation in the WBC is 63.7 hemoglobin 18.9 hematocrit 59.2 platelet count 368,000 sodium 1:30 potassium 5.0P 144 creatinine 1.56 glucose 140 with elevated plasma lactic acid 3.6. Total bilirubin 1.9 AST 43 ALT 25 alkaline phosphatase 85. C. 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 Past Anesthesia/Blood Transfusion Reactions: No Reported Reaction Date of Last Stent Placement:: 1989 Past Psychological History: Depression Smoking Status: Never smoker Past Alcohol Use History: Rare Additional Past Alcohol Use History / Comment(s): stopped smoking at last 40 years ago Past Drug Use History: None Reported - Past Family History Mother Family Medical History: AICD/Pacemaker Father Family Medical History: Congestive Heart Failure (CHF) Brother(s) Additional Family Medical History / Comment(s): 1 brother passed from sarcoidoisis. 1 brother, falls, Cancer, memory issues Sister(s) Additional Family Medical History / Comment(s): 1 sister passed from liver [place]. 1 sister in [place] memory impairement Medications and Allergies Home Medications Medication Instructions Recorded Confirmed Type Atorvastatin [Lipitor] 20 mg PO DAILY 11/23/17 11/12/21 History Cetirizine HCl [Zyrtec] 10 mg PO DAILY 11/23/17 11/12/21 History Isosorbide Mononitrate ER [Imdur] 30 mg PO DAILY 11/23/17 11/12/21 History Metoprolol Succinate (ER) [Toprol 25 mg PO DAILY 11/23/17 11/12/21 History XL] Montelukast [Singulair] 10 mg PO DAILY 11/23/17 11/12/21 History Omeprazole 20 mg PO DAILY 11/23/17 11/12/21 History Donepezil [Aricept] 10 mg PO DAILY 06/29/19 11/12/21 History Budesonide [Pulmicort] 0.5 mg INHALATION RT-BID 02/09/21 11/12/21 History FLUoxetine HCL [PROzac] 10 mg PO DAILY 02/09/21 11/12/21 History Furosemide [Lasix] 20 mg PO DAILY 02/09/21 11/12/21 History Memantine HCl 5 mg PO DAILY 02/09/21 11/12/21 History Albuterol Nebulized [Ventolin 2.5 mg INHALATION RT-QID 11/12/21 11/12/21 History Nebulized] Megestrol Acetate 40 mg PO DAILY 11/12/21 11/12/21 History predniSONE 5 mg PO DAILY 11/12/21 11/12/21 History Allergies Allergy/AdvReac Type Severity Reaction Status Date / Time No Known Allergies Allergy Verified 11/12/21 20:16 Physical Exam Vitals: Vital Signs Temp Pulse Pulse Resp BP Pulse Ox 11/15/21 08:36 72 11/15/21 08:23 72 11/15/21 02:00 98.5 F 69 22 97/66 93 L 11/14/21 20:00 97.4 F L 74 20 93 L 11/14/21 19:46 66 11/14/21 19:40 62 11/14/21 14:00 98.5 F 62 19 111/73 95 11/14/21 11:42 72 11/14/21 11:34 72 Intake and Output 11/14/21 11/15/21 11/15/21 22:59 06:59 14:59 Intake Total 1770 Output Total 500 Balance 1270 Intake: Intake, IV Titration 1770 Amount Piperacillin-Tazobactam 3 100 .375 gm In Sodium Chloride 0.9% 100 ml @ 25 mls/hr IVPB Q8HR [facility] Rx# :[id number] Sodium Chloride 0.9% 1, 1170 000 ml @ 130 mls/hr IV . Q7H42M [facility] Rx#:[id number] Vancomycin 1,750 mg In 500 Sodium Chloride 0.9% 500 ml 500 ml @ 167 mls/hr IVPB Q24H [facility] Rx#: [id number] Output: Urine 500 Other: Voiding Method Diaper Diaper External Catheter External Catheter # Voids 3 General appearance: The patient is alert, oriented, appears in no acute distress. HET: Head is normocephalic and atraumatic. Conjunctiva pink. Sclera anicteric. Neck: Supple without lymphadenopathy. Trachea midline. Heart: S1 S2. Regular rate and rhythm. Lungs: Clear to auscultation. Abdomen: Soft, left lower quadrant tenderness, nondistended with bowel sounds. No guarding or rigidity. Skin: No rashes. No jaundice. Extremities: Normal skin color and turgor. No pedal edema. Neurological: No focal deficits. Alert and oriented x3. Results CBC & Chem 7: 11/15/21 08:14 11/15/21 08:14 Labs: Abnormal Lab Results - Last 24 Hours (Table) 11/14/21 11/14/21 11/14/21 Range/Units 05:40 05:40 15:43 WBC 45.49 H (4.50-10.00) X 10*3/uL RBC 6.08 H (4.40-5.60) X 10*6/uL Hgb 18.4 H (13.0-17.0) g/dL Hct 55.5 H (39.6-50.0) % Metamyelocytes % 1 H (0-0) % Myelocytes % 1 H (0-0) % Neutrophils # (Manual) 39.58 H (2.00-8.90) X 10*3/uL Lymphocytes # (Manual) 0.45 L (0.90-5.00) X 10*3/uL Monocytes # (Manual) 4.55 H (0.20-1.00) X 10*3/uL Eosinophils # (Manual) 0 L (0.04-0.35) X 10*3/uL Sodium (137-145) mmol/L Chloride (98-107) mmol/L Carbon Dioxide 14.6 L (20.0-27.5) mmol/L Anion Gap 18.40 H (10.00-18.00) mmol/L BUN 39.4 H (9.0-27.0) mg/dL Est GFR (CKD-EPI)AfAm 48.2 L (60.0-200.0) Est GFR (CKD-EPI)NonAf 41.6 L (60.0-200.0) BUN/Creatinine Ratio 26.27 H (12.00-20.00) Ratio Glucose 119 H (70-110) mg/dL Plasma Lactic Acid Anup 2.3 H* (0.7-2.0) mmol/L Calcium 6.9 L (8.7-10.3) mg/dL Iron 22 L (65-175) ug/dL TIBC 113 L (228-460) ug/dL Transferrin 80.7 L (204.0-354.0) mg/dL Ferritin 1066.0 H (22.0-322.0) ng/mL Total Protein 3.8 L (6.2-8.2) g/dL Albumin 2.1 L (3.8-4.9) g/dL Albumin/Globulin Ratio 1.24 L (1.60-3.17) g/dL 11/14/21 11/15/21 11/15/21 Range/Units 19:42 08:14 08:14 WBC (4.50-10.00) X 10*3/uL RBC (4.40-5.60) X 10*6/uL Hgb (13.0-17.0) g/dL Hct (39.6-50.0) % Metamyelocytes % (0-0) % Myelocytes % (0-0) % Neutrophils # (Manual) (2.00-8.90) X 10*3/uL Lymphocytes # (Manual) (0.90-5.00) X 10*3/uL Monocytes # (Manual) (0.20-1.00) X 10*3/uL Eosinophils # (Manual) (0.04-0.35) X 10*3/uL Sodium 133 L (137-145) mmol/L Chloride 111 H (98-107) mmol/L Carbon Dioxide 14 L (20.0-27.5) mmol/L Anion Gap (10.00-18.00) mmol/L BUN 33 H (9.0-27.0) mg/dL Est GFR (CKD-EPI)AfAm (60.0-200.0) Est GFR (CKD-EPI)NonAf (60.0-200.0) BUN/Creatinine Ratio (12.00-20.00) Ratio Glucose 179 H (70-110) mg/dL Plasma Lactic Acid Anup 2.4 H* 2.8 H* (0.7-2.0) mmol/L Calcium 6.5 L (8.7-10.3) mg/dL Iron (65-175) ug/dL TIBC (228-460) ug/dL Transferrin (204.0-354.0) mg/dL Ferritin (22.0-322.0) ng/mL Total Protein 3.9 L (6.2-8.2) g/dL Albumin 1.8 L (3.8-4.9) g/dL Albumin/Globulin Ratio (1.60-3.17) g/dL Microbiology - Last 24 Hours (Table) 11/14/21 21:30 Stool Culture - Preliminary Stool 11/12/21 18:53 Blood Culture - Preliminary Blood No Growth after 48 hours 11/12/21 18:45 Blood Culture - Preliminary Blood No Growth after 48 hours Comments: CT of the chest, abdomen and pelvis that reported no evidence of abscess. Colitis involving the majority of the colon with multiple colonic diverticula without definitive diverticulitis. Abundant to the right colon is square shift in the right upper quadrant. Large hiatal hernia containing majority of the stomach. Distal esophagus layering fluid could free relate to reflux and/or dysmotility. Colonic diverticulosis with a small amount of ascites present. Brain CT: No acute intracranial process. Remote lacunar injuries along with nonspecific white matter changes likely secondary to chronic microangiopathy Assessment and Plan (1) Colitis Narrative/Plan: 86-year-old male with history of multiple comorbidities who recently was diagnosed with COVID-19 infection presented to the emergency department for increased weakness and abdominal pain. Patient has memory impairment and is pleasantly confused. He had a CT of the chest abdomen and pelvis showing diffuse colitis involving the majority of the colon from the essentially hepatic flexure right upper quadrant to the sigmoid colon. Multiple colonic diverticula without definitive diverticulitis. He has a large hiatal hernia containing majority of the stomach, distal esophagus layering fluid could 3 weight to reflux or dysmotility colonic diverticulosis and a small amount of ascites. Patient had significant elevated white count on admission with elevated plasma lactic acid likely thought to be systemic inflammatory response syndrome. WBC improving. Likely we are dealing with acute colitis, possibly ischemic versus infectious. Continue to treat with antibiotics. No plans on endoscopic evaluation at this time. Current Visit: Yes Status: Acute Code(s): K52.9 - NONINFECTIVE GASTROENTERITIS AND COLITIS, UNSPECIFIED SNOMED Code(s): 18197404 (2) COPD (chronic obstructive pulmonary disease) Current Visit: No Status: Acute Code(s): J44.9 - CHRONIC OBSTRUCTIVE PULMONARY DISEASE, UNSPECIFIED SNOMED Code(s): 69639591 (3) GERD (gastroesophageal reflux disease) Current Visit: No Status: Acute Code(s): K21.9 - GASTRO-ESOPHAGEAL REFLUX DISEASE WITHOUT ESOPHAGITIS SNOMED Code(s): 285531610 (4) History of CVA (cerebrovascular accident) Current Visit: No Status: Acute Code(s): Z86.73 - PRSNL HX OF TIA (TIA), AND CEREB INFRC W/O RESID DEFICITS SNOMED Code(s): 698675595 Plan: 1. Continue symptomatic and supportive care 2. Continue antibiotics as ordered 3. Continue clear liquid diet 4. No plans at this time for colonoscopy 5. Stool culture currently pending 6. Daily CBC Thank you for this consultation, we will continue to follow. Dr. Jamel Ansari I agree with the dictator's note, documented as a scribe by Emerald Thakkar.
[2021-11-15 15:11] VITALS: BMI 29.5
--- NOTE | 2021-11-15 17:26 | P.PN ---
Subjective Progress Note Date: 11/14/21 Principal diagnosis: Sepsis due to diffuse colitis with a differential diagnoses of nonspecific colitis versus infectious colitis, patient has been on broad-spectrum antibiotics, aggressive rehydration ID workup is in progress, patient will benefit from endoscopy Asthma and chronic intermittent, overall stable on bronchodilators and maintenance prednisone Chronic dermatitis on prednisone COVID-19 infection History of CVA Advanced dementia exam is disease Coronary artery disease and stent placement 11/14/2021, patient seen and evaluated examined remains very weak and somnolent but arousable mumbles intermittently, labs from today reviewed white cell count is 45,000 hemoglobin and hematocrit 18/55 platelet count 200,000, lactic acid remains elevated, stool for C. diff is negative suspicion of diffuse ischemic colitis would recommend surgical consult Patient is a 86-year-old male well-known to me with a history of asthma in the past along with multiple complex medical problems and issues patient was diagnosed as COVID-19 infection about 14 days ago, postinfection become weak with rapidly declining status also had intermittent aspiration episodes of abdominal pain and diarrhea and loose stool, poor appetite came into the hospital for further evaluation along with family member due to failure to thrive, on arrival noted to have white cell count of 48,000 with hemoglobin of 17.8, sodium 131, rotation of 5, BUN/creatinine 49 and 1.6, lactic acid is 3.6 on arrival chest x-ray revealed large hiatal hernia no active pulmonary process, computed tomography scan no acute intracranial process with remote lacunar injury is seen with some white matter changes due to prior stroke, computed tomography scan of the chest abdominal and pelvis no significant pathology noted and lung and pleural space airways are patent, no adenopathy is seen, and large hiatal hernia seen, however abdominal CAT scan is positive for large bowel thickening extended to sigmoid colon with diverticula and no evidence of abscess, extensive colitis involving the majority of the colon seen no definite diverticulitis have been noted, currently patient is being treated with bronchodilator and continuation of his home medicines with IV Zosyn and vancomycin, patient has been on chronic maintenance dose of prednisone 5 mg for his chronic dermatitis as well as asthma per family he is slightly more responsive today compared to yesterday with hydration. ID has been consulted blood cultures have been drawn including C. difficile and stool culture Objective - Vital Signs Vital signs: Vital Signs Temp 98.1 F 11/14/21 07:34 Pulse 80 11/14/21 08:10 Resp 18 11/14/21 07:34 BP 112/66 11/14/21 07:34 Pulse Ox 95 11/14/21 07:34 FiO2 Intake & Output 11/13/21 11/14/21 11/14/21 18:59 06:59 18:59 Intake Total 1550 Balance 1550 Intake: Intake, IV Titration 1300 Amount Piperacillin-Tazobactam 3 200 .375 gm In Sodium Chloride 0.9% 100 ml @ 25 mls/hr IVPB Q8HR [facility] Rx# :[id number] Sodium Chloride 0.45% 1, 600 000 ml @ 100 mls/hr IV . Q10H [facility] Rx#:[id number] Sodium Chloride 0.9% 500 500 ml 500 ml @ 999 mls/hr IV .Q31M [facility] Rx#:[id number] Oral 250 Other: Voiding Method Diaper Diaper # Voids 3 - Exam - Constitutional General appearance: average body habitus, disheveled - EENT Eyes: EOMI, PERRLA Ears: bilateral: normal - Neck Neck: normal ROM Carotids: bilateral: upstroke normal Thyroid: bilateral: normal size - Respiratory Respiratory: bilateral: CTA - Cardiovascular Rhythm: regular Heart sounds: normal: S1, S2 - Gastrointestinal General gastrointestinal: decreased bowel sounds - Integumentary Integumentary: normal turgor - Musculoskeletal Musculoskeletal: generalized weakness - Labs CBC & Chem 7: 11/15/21 08:14 11/15/21 08:14 Labs: Abnormal Lab Results - Last 24 Hours (Table) 11/13/21 11/13/21 11/13/21 Range/Units 10:15 13:03 16:32 WBC (4.50-10.00) X 10*3/uL RBC (4.40-5.60) X 10*6/uL Hgb (13.0-17.0) g/dL Hct (39.6-50.0) % Neutrophils # 44.3 H (1.3-7.7) k/uL Neutrophils # (Manual) 42.86 H (1.3-7.7) k/uL Lymphocytes # 0.7 L (1.0-4.8) k/uL Monocytes # 3.3 H (0-1.0) k/uL Monocytes # (Manual) 2.92 H (0-1.0) k/uL Basophils # 1.7 H (0-0.2) k/uL Carbon Dioxide (20.0-27.5) mmol/L Anion Gap (10.00-18.00) mmol/L BUN (9.0-27.0) mg/dL Est GFR (CKD-EPI)AfAm (60.0-200.0) Est GFR (CKD-EPI)NonAf (60.0-200.0) BUN/Creatinine Ratio (12.00-20.00) Ratio Glucose (70-110) mg/dL Plasma Lactic Acid Anup 3.4 H* 2.7 H* (0.7-2.0) mmol/L Calcium (8.7-10.3) mg/dL Total Protein (6.2-8.2) g/dL Albumin (3.8-4.9) g/dL Albumin/Globulin Ratio (1.60-3.17) g/dL 11/13/21 11/13/21 11/14/21 Range/Units 20:24 23:44 02:40 WBC (4.50-10.00) X 10*3/uL RBC (4.40-5.60) X 10*6/uL Hgb (13.0-17.0) g/dL Hct (39.6-50.0) % Neutrophils # (1.3-7.7) k/uL Neutrophils # (Manual) (1.3-7.7) k/uL Lymphocytes # (1.0-4.8) k/uL Monocytes # (0-1.0) k/uL Monocytes # (Manual) (0-1.0) k/uL Basophils # (0-0.2) k/uL Carbon Dioxide (20.0-27.5) mmol/L Anion Gap (10.00-18.00) mmol/L BUN (9.0-27.0) mg/dL Est GFR (CKD-EPI)AfAm (60.0-200.0) Est GFR (CKD-EPI)NonAf (60.0-200.0) BUN/Creatinine Ratio (12.00-20.00) Ratio Glucose (70-110) mg/dL Plasma Lactic Acid Anup 3.0 H* 4.0 H* 2.7 H* (0.7-2.0) mmol/L Calcium (8.7-10.3) mg/dL Total Protein (6.2-8.2) g/dL Albumin (3.8-4.9) g/dL Albumin/Globulin Ratio (1.60-3.17) g/dL 11/14/21 11/14/21 11/14/21 Range/Units 05:30 05:40 05:40 WBC 45.49 H (4.50-10.00) X 10*3/uL RBC 6.08 H (4.40-5.60) X 10*6/uL Hgb 18.4 H (13.0-17.0) g/dL Hct 55.5 H (39.6-50.0) % Neutrophils # (1.3-7.7) k/uL Neutrophils # (Manual) (1.3-7.7) k/uL Lymphocytes # (1.0-4.8) k/uL Monocytes # (0-1.0) k/uL Monocytes # (Manual) (0-1.0) k/uL Basophils # (0-0.2) k/uL Carbon Dioxide 14.6 L (20.0-27.5) mmol/L Anion Gap 18.40 H (10.00-18.00) mmol/L BUN 39.4 H (9.0-27.0) mg/dL Est GFR (CKD-EPI)AfAm 48.2 L (60.0-200.0) Est GFR (CKD-EPI)NonAf 41.6 L (60.0-200.0) BUN/Creatinine Ratio 26.27 H (12.00-20.00) Ratio Glucose 119 H (70-110) mg/dL Plasma Lactic Acid Anup 3.7 H* (0.7-2.0) mmol/L Calcium 6.9 L (8.7-10.3) mg/dL Total Protein 3.8 L (6.2-8.2) g/dL Albumin 2.1 L (3.8-4.9) g/dL Albumin/Globulin Ratio 1.24 L (1.60-3.17) g/dL Microbiology - Last 24 Hours (Table) 11/12/21 18:45 Blood Culture - Preliminary Blood No Growth after 24 hours 11/12/21 18:53 Blood Culture - Preliminary Blood No Growth after 24 hours Assessment and Plan Assessment: Sepsis due to diffuse colitis with a differential diagnoses of nonspecific colitis versus infectious colitis, patient has been on broad-spectrum antibiotics, aggressive rehydration ID workup is in progress, patient will benefit from endoscopy and surgical evaluation Asthma and chronic intermittent, overall stable on bronchodilators and maintenance prednisone Chronic dermatitis on prednisone COVID-19 infection History of CVA Advanced dementia exam is disease Coronary artery disease and stent placement Plan: Overall plan as above continue monitor lactic acid closely repeat labs tomorrow may need surgical evaluation if lactic acid do not trend down Time with Patient: Greater than 30
--- NOTE | 2021-11-15 17:28 | P.PN ---
Subjective Progress Note Date: 11/15/21 Principal diagnosis: Sepsis due to diffuse colitis with a differential diagnoses of nonspecific colitis versus infectious colitis, patient has been on broad-spectrum antibiotics, aggressive rehydration ID workup is in progress, patient will benefit from endoscopy Asthma and chronic intermittent, overall stable on bronchodilators and maintenance prednisone Chronic dermatitis on prednisone COVID-19 infection History of CVA Advanced dementia exam is disease Coronary artery disease and stent placement 11/15/2021 patient is relatively more responsive now intermittently complains of pain has been given a gram of morphine now he is more somnolent however family history thing patient is more responsive remains on broad-spectrum antibiotics surgery on consult, along with supportive care 11/14/2021, patient seen and evaluated examined remains very weak and somnolent but arousable mumbles intermittently, labs from today reviewed white cell count is 45,000 hemoglobin and hematocrit 18/55 platelet count 200,000, lactic acid remains elevated, stool for C. diff is negative suspicion of diffuse ischemic colitis would recommend surgical consult Patient is a 86-year-old male well-known to me with a history of asthma in the past along with multiple complex medical problems and issues patient was diagnosed as COVID-19 infection about 14 days ago, postinfection become weak with rapidly declining status also had intermittent aspiration episodes of abdominal pain and diarrhea and loose stool, poor appetite came into the hospital for further evaluation along with family member due to failure to thrive, on arrival noted to have white cell count of 48,000 with hemoglobin of 17.8, sodium 131, rotation of 5, BUN/creatinine 49 and 1.6, lactic acid is 3.6 on arrival chest x-ray revealed large hiatal hernia no active pulmonary process, computed tomography scan no acute intracranial process with remote lacunar injury is seen with some white matter changes due to prior stroke, computed tomography scan of the chest abdominal and pelvis no significant pathology noted and lung and pleural space airways are patent, no adenopathy is seen, and large hiatal hernia seen, however abdominal CAT scan is positive for large bowel thickening extended to sigmoid colon with diverticula and no evidence of abscess, extensive colitis involving the majority of the colon seen no definite diverticulitis have been noted, currently patient is being treated with bronchodilator and continuation of his home medicines with IV Zosyn and vancomycin, patient has been on chronic maintenance dose of prednisone 5 mg for his chronic dermatitis as well as asthma per family he is slightly more responsive today compared to yesterday with hydration. ID has been consulted blood cultures have been drawn including C. difficile and stool culture Objective - Vital Signs Vital signs: Vital Signs Temp 97.4 F L 11/15/21 13:54 Pulse 68 11/15/21 16:08 Resp 19 11/15/21 13:54 BP 106/57 11/15/21 13:54 Pulse Ox 95 11/15/21 13:54 FiO2 Intake & Output 11/14/21 11/15/21 11/15/21 18:59 06:59 18:59 Intake Total 1770 60 Output Total 500 Balance 1270 60 Weight 104.326 kg Intake: Intake, IV Titration 1770 Amount Piperacillin-Tazobactam 3 100 .375 gm In Sodium Chloride 0.9% 100 ml @ 25 mls/hr IVPB Q8HR [facility] Rx# :[id number] Sodium Chloride 0.9% 1, 1170 000 ml @ 130 mls/hr IV . Q7H42M [facility] Rx#:[id number] Vancomycin 1,750 mg In 500 Sodium Chloride 0.9% 500 ml 500 ml @ 167 mls/hr IVPB Q24H [facility] Rx#: [id number] Oral 60 Output: Urine 500 Other: Voiding Method Diaper Diaper Diaper External Catheter External Catheter # Voids 3 # Bowel Movements 1 - Exam - Constitutional General appearance: average body habitus, disheveled - EENT Eyes: EOMI, PERRLA Ears: bilateral: normal - Neck Neck: normal ROM Carotids: bilateral: upstroke normal Thyroid: bilateral: normal size - Respiratory Respiratory: bilateral: CTA - Cardiovascular Rhythm: regular Heart sounds: normal: S1, S2 - Gastrointestinal General gastrointestinal: decreased bowel sounds - Integumentary Integumentary: normal turgor - Musculoskeletal Musculoskeletal: generalized weakness - Labs CBC & Chem 7: 11/15/21 08:14 11/15/21 08:14 Labs: Abnormal Lab Results - Last 24 Hours (Table) 11/14/21 11/15/21 11/15/21 Range/Units 19:42 08:14 08:14 WBC 36.34 H (4.50-10.00) X 10*3/uL Hct 51.1 H (39.6-50.0) % Absolute Nucleated RBC 0.02 H (0.00-0.00) X 10*3/uL Metamyelocytes % 1 H (0-0) % Myelocytes % 1 H (0-0) % Promyelocytes % 1 H (0-0) % Neutrophils # (Manual) 34.16 H (2.00-8.90) X 10*3/uL Lymphocytes # (Manual) 0.73 L (0.90-5.00) X 10*3/uL Eosinophils # (Manual) 0 L (0.04-0.35) X 10*3/uL NRBC/100 WBC Diff 0.1 H (0.0-0.0) /100 WBCS Sodium 133 L (137-145) mmol/L Chloride 111 H (98-107) mmol/L Carbon Dioxide 14 L (22-30) mmol/L BUN 33 H (9-20) mg/dL Glucose 179 H (74-99) mg/dL Plasma Lactic Acid Anup 2.4 H* (0.7-2.0) mmol/L Calcium 6.5 L (8.4-10.2) mg/dL Total Protein 3.9 L (6.3-8.2) g/dL Albumin 1.8 L (3.5-5.0) g/dL /12/01 Range/Units 08:14 WBC (4.50-10.00) X 10*3/uL Hct (39.6-50.0) % Absolute Nucleated RBC (0.00-0.00) X 10*3/uL Metamyelocytes % (0-0) % Myelocytes % (0-0) % Promyelocytes % (0-0) % Neutrophils # (Manual) (2.00-8.90) X 10*3/uL Lymphocytes # (Manual) (0.90-5.00) X 10*3/uL Eosinophils # (Manual) (0.04-0.35) X 10*3/uL NRBC/100 WBC Diff (0.0-0.0) /100 WBCS Sodium (137-145) mmol/L Chloride (98-107) mmol/L Carbon Dioxide (22-30) mmol/L BUN (9-20) mg/dL Glucose (74-99) mg/dL Plasma Lactic Acid Anup 2.8 H* (0.7-2.0) mmol/L Calcium (8.4-10.2) mg/dL Total Protein (6.3-8.2) g/dL Albumin (3.5-5.0) g/dL Microbiology - Last 24 Hours (Table) 11/14/21 21:30 Stool Culture - Preliminary Stool 11/12/21 18:53 Blood Culture - Preliminary Blood No Growth after 48 hours 11/12/21 18:45 Blood Culture - Preliminary Blood No Growth after 48 hours Assessment and Plan Assessment: Sepsis due to diffuse colitis with a differential diagnoses of nonspecific colitis versus ischemic colitis, patient has been on broad-spectrum antibiotics, aggressive rehydration ID workup is in progress, patient will benefit from endoscopy and surgical evaluation Asthma and chronic intermittent, overall stable on bronchodilators and maintenance prednisone Chronic dermatitis on prednisone COVID-19 infection History of CVA Advanced dementia exam is disease Coronary artery disease and stent placement Plan: Overall plan as above continue monitor lactic acid closely repeat labs tomorrow may need surgical evaluation if lactic acid do not trend down Time with Patient: Greater than 30
[2021-11-16] MEDS: SODIUM CHLORIDE 0.9% 1,000 ML IV SCH ×3 (01:53→17:08)
[2021-11-16] MEDS: MORPHINE SULFATE 2 MG/ML SYRINGE IVP PRN (04:42)
[2021-11-16] MEDS: BUDESONIDE 0.5 MG/2 ML NEBU INHALATION SCH ×2 (07:59→20:33)
[2021-11-16] MEDS: ALBUTEROL NEBULIZED 2.5 MG/3 ML INHALATION SCH ×4 (07:59→20:33)
[2021-11-16] MEDS: metroNIDAZOLE 500 MG TAB PO SCH ×3 (08:50→21:52)
[2021-11-16] MEDS: ATORVASTATIN 20 MG TAB PO SCH (08:50)
[2021-11-16] MEDS: MONTELUKAST 10 MG TAB PO SCH (08:50)
[2021-11-16] MEDS: MEMANTINE 5 MG TAB PO SCH (08:51)
[2021-11-16] MEDS: FLUoxetine HCL 10 MG CAP PO SCH (08:51)
[2021-11-16] MEDS: METOPROLOL SUCCINATE (ER) 25 MG TAB.ER.24H PO SCH (08:51)
[2021-11-16] MEDS: FUROSEMIDE 20 MG TAB PO SCH (08:51)
[2021-11-16] MEDS: predniSONE 5 MG TAB PO SCH (08:51)
[2021-11-16] MEDS: DONEPEZIL 10 MG TAB PO SCH (08:51)
[2021-11-16] MEDS: LORATADINE 10 MG TAB PO SCH (08:51)
[2021-11-16] MEDS: PANTOPRAZOLE 40 MG TABLET PO SCH (08:51)
[2021-11-16] MEDS: ISOSORBIDE MONONITRATE ER 30 MG TAB.ER.24H PO SCH (08:52)
[2021-11-16] MEDS: PIPERACILLIN-TAZOBACTAM 3.375 GM in SODIUM CHLORIDE 0.9% 100 ML IVPB SCH ×2 (08:54→15:42)
[2021-11-16] MEDS: SODIUM CHLORIDE 0.45% 1,000 ML IV SCH ×2 (09:10→17:05)
[2021-11-16] MEDS: FAMOTIDINE 20 MG/2 ML VIAL IV SCH (09:55)
[2021-11-16] MEDS: methylPREDNISolone SOD SUCCI 40 MG/ML 1 ML VIAL IV SCH ×2 (09:56→17:05)
--- NOTE | 2021-11-16 10:21 | PN ---
PROGRESS NOTE This patient is an 86-year-old white male suspected blood malignancy. He was admitted with severe colitis, for which white count is slowly improving. Remains on IV steroids, IV antibiotics. A surgical consult is pending. Cardiovascular S1, S2. Lungs clear. GI soft. Hematology negative Homans. ASSESSMENT: 1. Leukocytosis. 2. Diffuse colitis. Continue with IV antibiotics, IV steroids. Prognosis guarded. Morphine for pain. Increase his diet. GI and surgical consults. MMODL / IJN: [id number] /
[2021-11-16 10:23] LABS: HCT 49.6 % (39.6-50.0); HGB 16.2 g/dL (13.0-17.0); MCH 29.9 pg (27.0-32.0); MCHC 32.7 g/dL (32.0-37.0); MCV 91.5 fL (80.0-97.0); NRBC Per 100 WBC 0.1 /100 WBCS (0.0-0.0); Platelet Count 136 X 10*3/uL (140-440); RBC 5.42 X 10*6/uL (4.40-5.60); RDW 13.9 % (11.5-14.5); WBC 27.76 X 10*3/uL (4.50-10.00)
[2021-11-16 10:51] LABS: Basophils # (A) 0.01 X 10*3/uL (0.00-0.10); Basophils % (A) 0 %; Eosinophils # (A) 0 X 10*3/uL (0.04-0.35); Eosinophils % (A) 0 %; Immature Grans, Automated 3.8 %; Lymphocytes # (A) 0.45 X 10*3/uL (0.90-5.00); Lymphocytes % (A) 1.6 %; Monocytes % (A) 5.4 %; Neutrophils # (A) 24.75 X 10*3/uL (1.80-7.70); Neutrophils % (A) 89.2 %; RBC Morphology NORMAL
[2021-11-16] MEDS: IOPAMIDOL CONTRAST (ORAL USE) VIAL PO PRN ×2 (11:43→12:22)
--- NOTE | 2021-11-16 13:29 | CT ---
EXAMINATION TYPE: CT abdomen pelvis wo con DATE OF EXAM: 11/16/2021 COMPARISON: CT dated 11/13/2021 HISTORY: Abdominal pain CT DLP: 867.8 mGycm Automated exposure control for dose reduction was used. TECHNIQUE: Helical acquisition of images was performed from the lung bases through the pelvis. FINDINGS: LUNG BASES: Progressive bilateral pleural effusions with subsegmental pulmonary atelectasis. LIVER/GB: Previous cholecystectomy. No definite hepatic focal lesion. PANCREAS: Grossly unremarkable SPLEEN: Small spleen. ADRENALS: No significant abnormality is seen. KIDNEYS: Unchanged renal cysts and suspected left hemorrhagic/proteinaceous cyst. FREE AIR: No free air is visualized RETROPERITONEAL ADENOPATHY: None visualized REPRODUCTIVE ORGANS: Prominent prostate. Unremarkable seminal vesicles. URINARY BLADDER: No significant abnormality is seen. PELVIC ADENOPATHY: No pathology enlarged pelvic lymph nodes. OSSEOUS STRUCTURES: Osteopenia. Degenerative changes of the lower thoracic and lumbar spine. Stable L5 and T12 vertebral body collapse, likely chronic. BOWEL: Again noted is a large hiatal hernia containing most of the stomach with mass effect on the a djacent portion of the heart and lungs. Diffuse wall thickening of the small bowel without evidence o f bowel obstruction. There is also persistent wall thickening of the colon with surrounding fat stran ding, most evident involving the left hemicolon, suggestive of persistent acute colitis. This could b e from inflammatory, infectious or pseudomembranous, for clinical correlation and further workup. Col onic ischemia can't be excluded. OTHER: Moderate free abdominal and pelvic fluid. Scattered arterial calcifications. Peritoneal fat st randing, peritonitis can't be excluded. No free peritoneal air. IMPRESSION: Persistent signs suggestive of severe acute colitis which could be inflammatory, infectious or pseudo membranous. Colonic ischemia cannot be excluded. Recommend clinical correlation and further workup. Moderate free abdominal and pelvic fluid with progressive bilateral pleural effusions. Other interval changes and incidental findings as described above.
--- NOTE | 2021-11-16 13:48 | P.GSCN ---
History of Present Illness Consult date: 11/16/21 History of present illness: CHIEF COMPLAINT: Abdominal pain Reason for consult abdominal pain, acute colitis and leukocytosis HISTORY OF PRESENT ILLNESS: This is a 86-year-old male who presented to the hospital with increased weakness and abdominal pain. Patient has a history of dementia. Patient admitted to the hospital with colitis. Computed tomography scan from 11/13/2021 showed colitis involving the majority of the colon from the hepatic flexure right upper quadrant to the sigmoid colon. Multiple colonic diverticula are present without diverticulitis. There is also a large hiatal hernia containing majority of the stomach. Patient seen and evaluated by GI service. They have no plans for endoscopies. No nausea or vomiting have been reported. Nursing staff reports mucousy stools. Patient has been complaining of abdominal pain. There are concerns about ischemic versus infectious colitis. Patient had evidence of leukocytosis on admission and elevated lactic acid level. White count was elevated at 63. He has also on chronic steroids. Patient followed by oncology as well. They felt that there is no evidence of any malignancy. Patient seen and examined with Dr. webster PAST MEDICAL HISTORY: COPD, CVA/TIA, GERD/Reflux, GI Bleed, Hypertension, Memory Impairment, Pneumonia, Meek's esophagus, CVA PAST SURGICAL HISTORY: Polyps removed via colonoscopy, 2 francisco holes and metal plates placed due to brain bleed MEDICATIONS: See list. ALLERGIES: See list. SOCIAL HISTORY: No illicit drug use. REVIEW OF SYSTEMS: CONSTITUTIONAL: Denies fever or chills. HEENT: Denies blurred vision, vision changes, or eye pain. Denies hemoptysis CARDIOVASCULAR: Denies chest pain or pressure. RESPIRATORY: No shortness of breath. GASTROINTESTINAL: See HPI for pertinent findings HEMATOLOGIC: Denies bleeding disorders. GENITOURINARY: Denies any blood in urine or increased urinary frequency. SKIN: Denies pruitis. Denies rash. PHYSICAL EXAM: VITAL SIGNS: Reviewed GENERAL: Well-developed in no acute distress. HEENT: No sclera icterus. Extraocular movements grossly intact. Moist buccal mucosa. Head is atraumatic, normocephalic. No nasal drainage. ABDOMEN: Soft. Nondistended. Tender NEUROLOGIC: Alert and orientated to name and place LABORATORY DATA: WBC 63.7 down to 27.76 Hgb 16.2 platelets 136 Sodium 133 potassium 4.6 creatinine 1.24 Lactic acid 5.3 down to 2.4 and now up slightly at 2.8 Stool for C. diff negative IMAGING: Computed tomography scan chest abdomen pelvis colitis involving the majority of the colon from the hepatic flexure right upper quadrant to the sigmoid colon. Multiple colonic diverticula are present without diverticulitis. There is also a large hiatal hernia containing majority of the stomach. This esophagus layering fluid could relate to reflux and/or dysmotility. Colonic diverticulosis. Small amount of ascites present and likely reactive. ASSESSMENT: 1. Abdominal pain 2. Ischemic versus infectious colitis 3. Large hiatal hernia containing majority of the stomach 4. Sepsis PLAN: -Computed tomography scan abdomen and pelvis with oral contrast ordered for further evaluation of abdominal pain -Continue IV fluids -Continue antibiotics -Continue clear liquids -Further recommendations forthcoming per repeat computed tomography scan results thank you for this consultation Physician Other Sports Coach Or Instructor note has been reviewed by physician. Signing provider agrees with the documented findings, assessment, and plan of care. 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 Past Anesthesia/Blood Transfusion Reactions: No Reported Reaction Date of Last Stent Placement:: 1989 Past Psychological History: Depression Smoking Status: Never smoker Past Alcohol Use History: Rare Additional Past Alcohol Use History / Comment(s): stopped smoking at last 40 years ago Past Drug Use History: None Reported - Past Family History Mother Family Medical History: AICD/Pacemaker Father Family Medical History: Congestive Heart Failure (CHF) Brother(s) Additional Family Medical History / Comment(s): 1 brother passed from sarcoidoisis. 1 brother, falls, Cancer, memory issues Sister(s) Additional Family Medical History / Comment(s): 1 sister passed from liver CA. 1 sister in [place] memory impairement Medications and Allergies Home Medications Medication Instructions Recorded Confirmed Type Atorvastatin [Lipitor] 20 mg PO DAILY 11/23/17 11/12/21 History Cetirizine HCl [Zyrtec] 10 mg PO DAILY 11/23/17 11/12/21 History Isosorbide Mononitrate ER [Imdur] 30 mg PO DAILY 11/23/17 11/12/21 History Metoprolol Succinate (ER) [Toprol 25 mg PO DAILY 11/23/17 11/12/21 History XL] Montelukast [Singulair] 10 mg PO DAILY 11/23/17 11/12/21 History Omeprazole 20 mg PO DAILY 11/23/17 11/12/21 History Donepezil [Aricept] 10 mg PO DAILY 06/29/19 11/12/21 History Budesonide [Pulmicort] 0.5 mg INHALATION RT-BID 02/09/21 11/12/21 History FLUoxetine HCL [PROzac] 10 mg PO DAILY 02/09/21 11/12/21 History Furosemide [Lasix] 20 mg PO DAILY 02/09/21 11/12/21 History Memantine HCl 5 mg PO DAILY 02/09/21 11/12/21 History Albuterol Nebulized [Ventolin 2.5 mg INHALATION RT-QID 11/12/21 11/12/21 History Nebulized] Megestrol Acetate 40 mg PO DAILY 11/12/21 11/12/21 History predniSONE 5 mg PO DAILY 11/12/21 11/12/21 History Allergies Allergy/AdvReac Type Severity Reaction Status Date / Time No Known Allergies Allergy Verified 11/12/21 20:16 Surgical - Exam Vital Signs Temp Pulse Resp BP Pulse Ox 97.6 F 100 18 122/84 96 11/12/21 16:49 11/12/21 16:49 11/12/21 16:49 11/12/21 16:49 11/12/21 16:49 Results - Labs 11/16/21 04:45 11/15/21 08:14 Abnormal Lab Results - Last 24 Hours (Table) 11/15/21 11/16/21 Range/Units 08:14 04:45 WBC 36.34 H 27.76 H (4.50-10.00) X 10*3/uL Hct 51.1 H (39.6-50.0) % Plt Count 136 L (140-440) X 10*3/uL Plt Count Comment DECREASED A Absolute Nucleated RBC 0.02 H 0.02 H (0.00-0.00) X 10*3/uL Metamyelocytes % 1 H (0-0) % Myelocytes % 1 H (0-0) % Promyelocytes % 1 H (0-0) % Immature Gran # 1.05 H (0.00-0.04) X 10*3/uL Neutrophils # 24.75 H (1.80-7.70) X 10*3/uL Neutrophils # (Manual) 34.16 H (2.00-8.90) X 10*3/uL Lymphocytes # 0.45 L (0.90-5.00) X 10*3/uL Lymphocytes # (Manual) 0.73 L (0.90-5.00) X 10*3/uL Monocytes # 1.50 H (0.20-1.00) X 10*3/uL Eosinophils # 0 L (0.04-0.35) X 10*3/uL Eosinophils # (Manual) 0 L (0.04-0.35) X 10*3/uL NRBC/100 WBC Diff 0.1 H 0.1 H (0.0-0.0) /100 WBCS Microbiology - Last 24 Hours (Table) 11/12/21 18:45 Blood Culture - Preliminary Blood No Growth after 72 hours 11/12/21 18:53 Blood Culture - Preliminary Blood No Growth after 72 hours 11/14/21 21:30 Stool Culture - Preliminary Stool
--- NOTE | 2021-11-16 14:06 | CDI ---
Documentation Clarification Form Date: 11/16/2021 01:44:32 PM From: Jing Jordan RN CCDS Admit Date: 11/12/2021 07:43:00 PM Patient Name: Lance Devi Visit Number: [id number] Discharge Date: ATTENTION: The Clinical Documentation Specialists (CDI) and [facility] Coding Staff appreciate your assistance in clarifying documentation. Please respond to the clarification below the line at the bottom and electronically sign. The CDI & [facility] Coding staff will review the response and follow-up if needed. Please note: Queries are made part of the Legal Health Record. If you have any questions, please contact the author of this message via ITS. Dr. Jason Johnson Sepsis is documented Medicine progress note, 11/14, but is not noted in subsequent documentation. Clarification is requested. History/Risk Factors: 86-year-old male presents to the ED with generalized weakness. Medical History: Recent COVID 19 infection, COPD, GERD, HTN AND CVI. 11/13, H&P. Clinical Indicators: VSS: 11/12 B/P 122/84, HR 100, Temp 97.6 F Axillary, RR 18, SpO2 96% room air Labs: 11/12 Wbc 63.7; Neutrophils 57.9, Lactic acid 5.3 CT Abd Pelvis: 11/13 Colitis involving a majority of the colon from essentially hepatic flexures/right upper quadrant to the sigmoid colon. Hematology progress note: 11/15 Suspect leukocytosis is multifactorial reactive to infection, chronic steroid use. Work up so far negative for underlying malignant cause for leukocytosis. GI consult: 11/15 Colitis. Likely we are dealing with acute colitis, possibly ischemic versus infectious. Treatment: 11/12 0.9NS 1L bolus x 1; 11/12 Zosyn 3.375gm IVPB x 1; Vancomycin 1,750mg IVPB x 1; 11/13 current Zosyn 3.375gm IVPB Q8HR; 11/13 11/14 Vancomycin 1,1750mg IVPB Q24HR; 11/14- current Flagyl 500mg PO TID; 11/13 current Prednisone 5mg PO Daily; 11/14 current Solumedrol 40mg IV Q8HR. GI consult see above Hematology consult see above Please clarify if the Sepsis is: [ ] Sepsis confirmed, remains under treatment [ ] Sepsis confirmed, resolved [ ] Sepsis ruled out [ ] Other condition, please specify [ ] Unable to determine (Template Last Revised: August 2020) MTDD
--- NOTE | 2021-11-16 15:04 | P.PN ---
Subjective Progress Note Date: 11/16/21 Principal diagnosis: Abdominal pain, colitis Patient is seen and examined his follow-up for abdominal pain/colitis. Patient was seen and examined lying in bed. He has no longer moaning in pain. He denies any abdominal pain today. Nursing has reported he is still having loose bowel movements that are mucousy, nonbloody. He has been afebrile. He denies any nausea or vomiting. He is tolerating clear liquid diet. Daughter was at the bedside stating that he does appear better today. WBC 27.76 hemoglobin 16.2 hematocrit 29 platelet count 136,000 Objective - Vital Signs Vital signs: Vital Signs Temp 98.2 F 11/16/21 07:47 Pulse 56 L 11/16/21 08:14 Resp 18 11/16/21 07:47 BP 125/65 11/16/21 07:47 Pulse Ox 94 L 11/16/21 07:47 FiO2 Intake & Output 11/15/21 11/16/21 11/16/21 18:59 06:59 18:59 Intake Total 480 1660 Output Total 900 Balance 480 760 Weight 104.326 kg Intake: Intake, IV Titration 1660 Amount Piperacillin-Tazobactam 3 100 .375 gm In Sodium Chloride 0.9% 100 ml @ 25 mls/hr IVPB Q8HR [facility] Rx# :[id number] Sodium Chloride 0.45% 1, 1560 000 ml @ 100 mls/hr IV . Q10H [facility] Rx#:[id number] Oral 480 Output: Urine 900 Other: Voiding Method Diaper External Catheter External Catheter # Bowel Movements 1 - Exam General appearance: The patient is alert, oriented, appears in no acute distress. HET: Head is normocephalic and atraumatic. Conjunctiva pink. Sclera anicteric. Neck: Supple without lymphadenopathy. Abdomen: Soft, tenderness in the left lower quadran, nondistended with bowel sounds. No guarding or rigidity. Extremities: Normal skin color and turgor. No pedal edema Skin: No rashes, no jaundice Neurological: No focal deficits. Alert, oriented to self. - Labs CBC & Chem 7: 11/16/21 04:45 11/15/21 08:14 Labs: Abnormal Lab Results - Last 24 Hours (Table) 11/15/21 Range/Units 08:14 WBC 36.34 H (4.50-10.00) X 10*3/uL Hct 51.1 H (39.6-50.0) % Absolute Nucleated RBC 0.02 H (0.00-0.00) X 10*3/uL Metamyelocytes % 1 H (0-0) % Myelocytes % 1 H (0-0) % Promyelocytes % 1 H (0-0) % Neutrophils # (Manual) 34.16 H (2.00-8.90) X 10*3/uL Lymphocytes # (Manual) 0.73 L (0.90-5.00) X 10*3/uL Eosinophils # (Manual) 0 L (0.04-0.35) X 10*3/uL NRBC/100 WBC Diff 0.1 H (0.0-0.0) /100 WBCS Microbiology - Last 24 Hours (Table) 11/12/21 18:45 Blood Culture - Preliminary Blood No Growth after 72 hours 11/12/21 18:53 Blood Culture - Preliminary Blood No Growth after 72 hours 11/14/21 21:30 Stool Culture - Preliminary Stool Assessment and Plan (1) Colitis Narrative/Plan: 86-year-old male with history of multiple comorbidities who recently was diagnosed with COVID-19 infection presented to the emergency department for increased weakness and abdominal pain. Patient has memory impairment and is pleasantly confused. He had a CT of the chest abdomen and pelvis showing diffuse colitis involving the majority of the colon from the essentially hepatic flexure right upper quadrant to the sigmoid colon. Multiple colonic diverticula without definitive diverticulitis. He has a large hiatal hernia containing majority of the stomach, distal esophagus layering fluid could 3 weight to reflux or dysmotility colonic diverticulosis and a small amount of ascites. Patient had significant elevated white count on admission with elevated plasma lactic acid likely thought to be systemic inflammatory response syndrome. WBC improving. Likely we are dealing with acute colitis, possibly ischemic versus infectious. Continue to treat with antibiotics. No plans on endoscopic evaluation at this time. Current Visit: Yes Status: Acute Code(s): K52.9 - NONINFECTIVE GASTROENTERITIS AND COLITIS, UNSPECIFIED SNOMED Code(s): 06654398 (2) COPD (chronic obstructive pulmonary disease) Current Visit: No Status: Acute Code(s): J44.9 - CHRONIC OBSTRUCTIVE PULMONARY DISEASE, UNSPECIFIED SNOMED Code(s): 91910222 (3) GERD (gastroesophageal reflux disease) Current Visit: No Status: Acute Code(s): K21.9 - GASTRO-ESOPHAGEAL REFLUX DISEASE WITHOUT ESOPHAGITIS SNOMED Code(s): 212793635 (4) History of CVA (cerebrovascular accident) Current Visit: No Status: Acute Code(s): Z86.73 - PRSNL HX OF TIA (TIA), AND CEREB INFRC W/O RESID DEFICITS SNOMED Code(s): 046241509 Plan: 1. Continue symptomatic and supportive care 2. Continue antibiotics as ordered 3. Continue clear liquid diet 4. No plans at this time for colonoscopy especially with increased inflammation puts patient at higher risk for complications. 5. Stool culture currently pending 6. Daily CBC 7. Gen. surgery consulted appreciate the recommendations Thank you for this consultation, we will continue to follow. Dr. Jamel Ansari I agree with the dictator's note, documented as a scribe by Emerald Thakkar.
--- NOTE | 2021-11-16 16:06 | PN ---
PROGRESS NOTE He has elevated white count secondary to his pancolitis. His white count keeps improving, down to 27.76 today. Platelets are decreased to 136. That is a good sign. He was restarted back on morphine 1 to 2 mg down from 4, as he was more obtunded, so I cut the dose off. Now I am going to restart it yesterday because he was in severe pain so he is on half the dose he was before. Hopefully he will start eating more with protein supplements, etc. His white count is improving with broad-spectrum antibiotics. Sodium is 136, potassium 4.6, BUN 38, creatinine is 1.24. Lactic acid is still high at 2.8. May need some more fluids for rehydration. Severe protein-calorie malnutrition at 1.8. C difficile is negative. Cardiovascular S1, S2. Psych: He is pleasantly confused. Lungs clear. GI is soft. I suspect he is aspirating. He has COPD of significant nature and he is probably aspirating due to severe hiatal hernia seen on CT scan. Will do proton pump inhibitors twice a day. Continue broad-spectrum antibiotics. Prognosis guarded. MMODL / IJN: [id number] /
--- NOTE | 2021-11-16 17:27 | P.PN ---
Subjective Progress Note Date: 11/16/21 Principal diagnosis: Sepsis due to diffuse colitis with a differential diagnoses of nonspecific colitis versus infectious colitis, patient has been on broad-spectrum antibiotics, aggressive rehydration ID workup is in progress, patient will benefit from endoscopy Asthma and chronic intermittent, overall stable on bronchodilators and maintenance prednisone Chronic dermatitis on prednisone COVID-19 infection History of CVA Advanced dementia exam is disease Coronary artery disease and stent placement 11/16/2021, patient seen eval examined during rounds labs reviewed medications reviewed mental status improved S patient is more coherent oriented 1-2 follow simple commands patient does have some gurgling sounds appear to be coming from upper airway however no overt sign of aspiration has noted however patient has been tolerating clear liquid diet fairly well, general surgery is following, computed tomography scan of the chest revealed bilateral pleural effusion which is progressive along with subsegmental atelectasis, 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 diffuse thickening of the small bowel without bowel obstruction, thickening of colon with surrounding fat stranding most evident on her left side suggestive of acute colitis differential diagnoses being inflammatory infectious or ischemic general surgery is following currently being considered for conservative care, white cell count is down to 27,700 platelet count 136, patient is on Solu-Medrol Flagyl as well as Zosyn 11/15/2021 patient is relatively more responsive now intermittently complains of pain has been given a gram of morphine now he is more somnolent however family history thing patient is more responsive remains on broad-spectrum antibiotics surgery on consult, along with supportive care 11/14/2021, patient seen and evaluated examined remains very weak and somnolent but arousable mumbles intermittently, labs from today reviewed white cell count is 45,000 hemoglobin and hematocrit 18/55 platelet count 200,000, lactic acid remains elevated, stool for C. diff is negative suspicion of diffuse ischemic colitis would recommend surgical consult Patient is a 86-year-old male well-known to me with a history of asthma in the past along with multiple complex medical problems and issues patient was diagnosed as COVID-19 infection about 14 days ago, postinfection become weak with rapidly declining status also had intermittent aspiration episodes of abdominal pain and diarrhea and loose stool, poor appetite came into the hospital for further evaluation along with family member due to failure to thrive, on arrival noted to have white cell count of 48,000 with hemoglobin of 17.8, sodium 131, rotation of 5, BUN/creatinine 49 and 1.6, lactic acid is 3.6 on arrival chest x-ray revealed large hiatal hernia no active pulmonary process, computed tomography scan no acute intracranial process with remote lacunar injury is seen with some white matter changes due to prior stroke, computed tomography scan of the chest abdominal and pelvis no significant pathology noted and lung and pleural space airways are patent, no adenopathy is seen, and large hiatal hernia seen, however abdominal CAT scan is positive for large bowel thickening extended to sigmoid colon with diverticula and no evidence of abscess, extensive colitis involving the majority of the colon seen no definite diverticulitis have been noted, currently patient is being treated with bronchodilator and continuation of his home medicines with IV Zosyn and vancomycin, patient has been on chronic maintenance dose of prednisone 5 mg for his chronic dermatitis as well as asthma per family he is slightly more responsive today compared to yesterday with hydration. ID has been consulted blood cultures have been drawn including C. difficile and stool culture Objective - Vital Signs Vital signs: Vital Signs Temp 98.2 F 11/16/21 14:00 Pulse 64 11/16/21 16:27 Resp 18 11/16/21 14:00 BP 109/67 11/16/21 14:00 Pulse Ox 95 11/16/21 14:00 FiO2 Intake & Output 11/15/21 11/16/21 11/16/21 18:59 06:59 18:59 Intake Total 480 1660 480 Output Total 900 Balance 480 760 480 Weight 104.326 kg Intake: Intake, IV Titration 1660 Amount Piperacillin-Tazobactam 3 100 .375 gm In Sodium Chloride 0.9% 100 ml @ 25 mls/hr IVPB Q8HR [facility] Rx# :[id number] Sodium Chloride 0.45% 1, 1560 000 ml @ 100 mls/hr IV . Q10H [facility] Rx#:[id number] Oral 480 480 Output: Urine 900 Other: Voiding Method Diaper External Catheter External Catheter External Catheter # Bowel Movements 1 - Exam - Constitutional General appearance: average body habitus, disheveled - EENT Eyes: EOMI, PERRLA Ears: bilateral: normal - Neck Neck: normal ROM Carotids: bilateral: upstroke normal Thyroid: bilateral: normal size - Respiratory Respiratory: bilateral: CTA - Cardiovascular Rhythm: regular Heart sounds: normal: S1, S2 - Gastrointestinal General gastrointestinal: decreased bowel sounds - Integumentary Integumentary: normal turgor - Musculoskeletal Musculoskeletal: generalized weakness - Labs CBC & Chem 7: 11/16/21 04:45 11/15/21 08:14 Labs: Abnormal Lab Results - Last 24 Hours (Table) 11/16/21 Range/Units 04:45 WBC 27.76 H (4.50-10.00) X 10*3/uL Plt Count 136 L (140-440) X 10*3/uL Plt Count Comment DECREASED A Absolute Nucleated RBC 0.02 H (0.00-0.00) X 10*3/uL Immature Gran # 1.05 H (0.00-0.04) X 10*3/uL Neutrophils # 24.75 H (1.80-7.70) X 10*3/uL Lymphocytes # 0.45 L (0.90-5.00) X 10*3/uL Monocytes # 1.50 H (0.20-1.00) X 10*3/uL Eosinophils # 0 L (0.04-0.35) X 10*3/uL NRBC/100 WBC Diff 0.1 H (0.0-0.0) /100 WBCS Microbiology - Last 24 Hours (Table) 11/12/21 18:45 Blood Culture - Preliminary Blood No Growth after 72 hours 11/12/21 18:53 Blood Culture - Preliminary Blood No Growth after 72 hours Assessment and Plan Assessment: Sepsis due to diffuse colitis with a differential diagnoses of nonspecific colitis versus ischemic colitis, patient has been on broad-spectrum antibiotics, aggressive rehydration ID workup is in progress, patient will benefit from endoscopy and surgical evaluation Bilateral pleural effusion Bilateral basal compressive atelectasis Asthma and chronic intermittent, overall stable on bronchodilators and maintenance prednisone Chronic dermatitis on prednisone COVID-19 infection History of CVA Advanced dementia exam is disease Coronary artery disease and stent placement Plan: Overall plan as above continue monitor lactic acid closely repeat labs tomorrow appreciate surgical evaluation Will reduce IV fluids to 75 mL an hour before consideration of diuresis Time with Patient: Greater than 30
[2021-11-16] MEDS: PANTOPRAZOLE 40 MG/10 ML VIAL IVP SCH (21:52)
[2021-11-17] MEDS: PIPERACILLIN-TAZOBACTAM 3.375 GM in SODIUM CHLORIDE 0.9% 100 ML IVPB SCH ×3 (00:04→15:56)
[2021-11-17] MEDS: methylPREDNISolone SOD SUCCI 40 MG/ML 1 ML VIAL IV SCH ×3 (00:04→17:45)
[2021-11-17] MEDS: SODIUM CHLORIDE 0.45% 1,000 ML IV SCH ×2 (05:59→13:29)
[2021-11-17] MEDS: SODIUM CHLORIDE 0.9% 1,000 ML IV SCH ×2 (05:59→17:45)
[2021-11-17 06:29] LABS: Basophils # (A) 0.1 k/uL (0-0.2); Basophils % (A) 0 %; Eosinophils % (A) 0 %; HCT 51.9 % (39.0-53.0); HGB 16.8 gm/dL (13.0-17.5); Lymphocytes # (A) 0.4 k/uL (1.0-4.8); Lymphocytes % (A) 1 %; MCH 31.3 pg (25.0-35.0); MCHC 32.5 g/dL (31.0-37.0); MCV 96.6 fL (80.0-100.0); Mean Platelet Volume 8.8; Monocytes # (A) 1.8 k/uL (0-1.0); Monocytes % (A) 7 %; Neutrophils # (A) 23.8 k/uL (1.3-7.7); Neutrophils % (A) 91 %; Platelet Count 146 k/uL (150-450); RBC 5.37 m/uL (4.30-5.90); RDW 13.6 % (11.5-15.5); WBC 26.3 k/uL (3.8-10.6)
[2021-11-17 07:09] LABS: ALT 35 U/L (4-49); AST 55 U/L (17-59); African American GFR (CKD) 65 (>60 ml/min/1.73 sqM); Albumin 1.6 g/dL (3.5-5.0); Albumin/Globulin Ratio 0.8; Alkaline Phosphatase 116 U/L (38-126); Anion Gap 6 mmol/L; Blood Urea Nitrogen 24 mg/dL (9-20); Calcium 6.5 mg/dL (8.4-10.2); Carbon Dioxide 18 mmol/L (22-30); Chloride 107 mmol/L (98-107); Glucose 132 mg/dL (74-99); Non-African American GFR(CKD) 56 (>60 ml/min/1.73 sqM); Sodium 131 mmol/L (137-145); Total Bilirubin 0.9 mg/dL (0.2-1.3); Total Protein 3.6 g/dL (6.3-8.2)
[2021-11-17 07:13] LABS: Potassium 4.1 mmol/L (3.5-5.1)
--- NOTE | 2021-11-17 07:41 | P.PN ---
Subjective Progress Note Date: 11/15/21 Principal diagnosis: Leukocytosis Patient is 86-year-old male was recently treated outpatient setting for covid 19 pneumonia treated with Paxlovid , presented to the hospital with weakness decrease oral intake and diarrhea in this patient did have significantly elevated white count on admission. On today's evaluation that is 11/15/2021, patient remains to be afebrile, patient is breathing comfortably on room air, patient denies having any chest pain shortness breath or cough/some no vomiting has been reported, still have some abdominal discomfort and diarrhea Objective - Vital Signs Vital signs: Vital Signs Temp 97.5 F L 11/15/21 07:38 Pulse 72 11/15/21 08:36 Resp 16 11/15/21 07:38 BP 102/68 11/15/21 07:38 Pulse Ox 95 11/15/21 07:38 FiO2 Intake & Output 11/14/21 11/15/21 11/15/21 18:59 06:59 18:59 Intake Total 1770 60 Output Total 500 Balance 1270 60 Intake: Intake, IV Titration 1770 Amount Piperacillin-Tazobactam 3 100 .375 gm In Sodium Chloride 0.9% 100 ml @ 25 mls/hr IVPB Q8HR [facility] Rx# :[id number] Sodium Chloride 0.9% 1, 1170 000 ml @ 130 mls/hr IV . Q7H42M [facility] Rx#:[id number] Vancomycin 1,750 mg In 500 Sodium Chloride 0.9% 500 ml 500 ml @ 167 mls/hr IVPB Q24H [facility] Rx#: [id number] Oral 60 Output: Urine 500 Other: Voiding Method Diaper Diaper Diaper External Catheter External Catheter # Voids 3 # Bowel Movements 1 - Exam GENERAL DESCRIPTION: An elderly male lying in bed in no distress RESPIRATORY SYSTEM: Unlabored breathing , decreased breath sounds at bases HEART: S1 S2 regular rate and rhythm , ABDOMEN: Soft , mild lower abdominal tenderness EXTREMITIES: No edema feet - Labs CBC & Chem 7: 11/17/21 04:33 11/17/21 04:33 Labs: Abnormal Lab Results - Last 24 Hours (Table) 11/14/21 11/14/21 11/15/21 Range/Units 15:43 19:42 08:14 WBC 36.34 H (4.50-10.00) X 10*3/uL Hct 51.1 H (39.6-50.0) % Absolute Nucleated RBC 0.02 H (0.00-0.00) X 10*3/uL Metamyelocytes % 1 H (0-0) % Myelocytes % 1 H (0-0) % Promyelocytes % 1 H (0-0) % Neutrophils # (Manual) 34.16 H (2.00-8.90) X 10*3/uL Lymphocytes # (Manual) 0.73 L (0.90-5.00) X 10*3/uL Eosinophils # (Manual) 0 L (0.04-0.35) X 10*3/uL NRBC/100 WBC Diff 0.1 H (0.0-0.0) /100 WBCS Sodium (137-145) mmol/L Chloride (98-107) mmol/L Carbon Dioxide (22-30) mmol/L BUN (9-20) mg/dL Glucose (74-99) mg/dL Plasma Lactic Acid Anup 2.3 H* 2.4 H* (0.7-2.0) mmol/L Calcium (8.4-10.2) mg/dL Total Protein (6.3-8.2) g/dL Albumin (3.5-5.0) g/dL 11/15/21 11/15/21 Range/Units 08:14 08:14 WBC (4.50-10.00) X 10*3/uL Hct (39.6-50.0) % Absolute Nucleated RBC (0.00-0.00) X 10*3/uL Metamyelocytes % (0-0) % Myelocytes % (0-0) % Promyelocytes % (0-0) % Neutrophils # (Manual) (2.00-8.90) X 10*3/uL Lymphocytes # (Manual) (0.90-5.00) X 10*3/uL Eosinophils # (Manual) (0.04-0.35) X 10*3/uL NRBC/100 WBC Diff (0.0-0.0) /100 WBCS Sodium 133 L (137-145) mmol/L Chloride 111 H (98-107) mmol/L Carbon Dioxide 14 L (22-30) mmol/L BUN 33 H (9-20) mg/dL Glucose 179 H (74-99) mg/dL Plasma Lactic Acid Anup 2.8 H* (0.7-2.0) mmol/L Calcium 6.5 L (8.4-10.2) mg/dL Total Protein 3.9 L (6.3-8.2) g/dL Albumin 1.8 L (3.5-5.0) g/dL Microbiology - Last 24 Hours (Table) 11/14/21 21:30 Stool Culture - Preliminary Stool 11/12/21 18:53 Blood Culture - Preliminary Blood No Growth after 48 hours 11/12/21 18:45 Blood Culture - Preliminary Blood No Growth after 48 hours Assessment and Plan (1) Leukocytosis Current Visit: Yes Status: Acute Priority: Medium Code(s): D72.829 - ELEVATED WHITE BLOOD CELL COUNT, UNSPECIFIED SNOMED Code(s): 307238762 Plan: 1patient with significant elevated white count which is likely multifactorial in this patient who recently has been exposed to steroids for his covid 19 pneumonia treatment and the patient also noted to have significant dehydration as well as elevated lactic acid and tenderness on the left side of the colon With a question of possible ischemic versus nonischemic colitis and need to cover for the polymicrobial enteric gram-negative tera. 2CT of abdominal pelvis which shows evidence of colitis 3stool for C. diff negative stool cultures currently pending 4patient to continue with the Zosyn and IV fluids. Time with Patient: Less than 30
--- NOTE | 2021-11-17 07:42 | P.PN ---
Subjective Progress Note Date: 11/16/21 Principal diagnosis: Leukocytosis Patient is 86-year-old male was recently treated outpatient setting for covid 19 pneumonia treated with Paxlovid , presented to the hospital with weakness decrease oral intake and diarrhea in this patient did have significantly elevated white count on admission. On today's evaluation that is 11/16/2021, patient continues to be afebrile, patient is breathing comfortably on room air, patient denies having any chest pain shortness breath or cough , denies any worsening abdominal pain or diarrhea and no vomiting has been reported Objective - Vital Signs Vital signs: Vital Signs Temp 98.2 F 11/16/21 07:47 Pulse 56 L 11/16/21 08:14 Resp 18 11/16/21 07:47 BP 125/65 11/16/21 07:47 Pulse Ox 94 L 11/16/21 07:47 FiO2 Intake & Output 11/15/21 11/16/21 11/16/21 18:59 06:59 18:59 Intake Total 480 1660 Output Total 900 Balance 480 760 Weight 104.326 kg Intake: Intake, IV Titration 1660 Amount Piperacillin-Tazobactam 3 100 .375 gm In Sodium Chloride 0.9% 100 ml @ 25 mls/hr IVPB Q8HR [facility] Rx# :[id number] Sodium Chloride 0.45% 1, 1560 000 ml @ 100 mls/hr IV . Q10H [facility] Rx#:[id number] Oral 480 Output: Urine 900 Other: Voiding Method Diaper External Catheter External Catheter # Bowel Movements 1 - Exam GENERAL DESCRIPTION: An elderly male lying in bed in no distress RESPIRATORY SYSTEM: Unlabored breathing , decreased breath sounds at bases HEART: S1 S2 regular rate and rhythm , ABDOMEN: Soft , mild lower abdominal tenderness EXTREMITIES: No edema feet - Labs CBC & Chem 7: 11/17/21 04:33 11/17/21 04:33 Labs: Abnormal Lab Results - Last 24 Hours (Table) 11/15/21 11/16/21 Range/Units 08:14 04:45 WBC 36.34 H 27.76 H (4.50-10.00) X 10*3/uL Hct 51.1 H (39.6-50.0) % Plt Count 136 L (140-440) X 10*3/uL Absolute Nucleated RBC 0.02 H 0.02 H (0.00-0.00) X 10*3/uL Metamyelocytes % 1 H (0-0) % Myelocytes % 1 H (0-0) % Promyelocytes % 1 H (0-0) % Neutrophils # (Manual) 34.16 H (2.00-8.90) X 10*3/uL Lymphocytes # (Manual) 0.73 L (0.90-5.00) X 10*3/uL Eosinophils # (Manual) 0 L (0.04-0.35) X 10*3/uL NRBC/100 WBC Diff 0.1 H 0.1 H (0.0-0.0) /100 WBCS Microbiology - Last 24 Hours (Table) 11/12/21 18:45 Blood Culture - Preliminary Blood No Growth after 72 hours 11/12/21 18:53 Blood Culture - Preliminary Blood No Growth after 72 hours 11/14/21 21:30 Stool Culture - Preliminary Stool Assessment and Plan (1) Leukocytosis Current Visit: Yes Status: Acute Priority: Medium Code(s): D72.829 - ELEVATED WHITE BLOOD CELL COUNT, UNSPECIFIED SNOMED Code(s): 292183317 Plan: 1patient with significant elevated white count which is likely multifactorial in this patient who recently has been exposed to steroids for his covid 19 pneumonia treatment and the patient also noted to have significant dehydration as well as elevated lactic acid and tenderness on the left side of the colon With a question of possible ischemic versus nonischemic colitis and need to cover for the polymicrobial enteric gram-negative tera. 2CT of abdominal pelvis which shows evidence of colitis, patient has been evaluated by GI and general surgery has been consulted 3stool for C. diff negative stool cultures currently pending 4patient to continue with the Zosyn and IV fluids as a white count is trending down and will monitor clinical course closely Time with Patient: Less than 30
[2021-11-17] MEDS: BUDESONIDE 0.5 MG/2 ML NEBU INHALATION SCH ×2 (08:11→21:09)
[2021-11-17] MEDS: ALBUTEROL NEBULIZED 2.5 MG/3 ML INHALATION SCH ×4 (08:11→21:09)
[2021-11-17] MEDS: MONTELUKAST 10 MG TAB PO SCH (08:56)
[2021-11-17] MEDS: metroNIDAZOLE 500 MG TAB PO SCH ×3 (08:56→22:02)
[2021-11-17] MEDS: ATORVASTATIN 20 MG TAB PO SCH (08:56)
[2021-11-17] MEDS: ISOSORBIDE MONONITRATE ER 30 MG TAB.ER.24H PO SCH (08:56)
[2021-11-17] MEDS: FUROSEMIDE 20 MG TAB PO SCH (08:57)
[2021-11-17] MEDS: DONEPEZIL 10 MG TAB PO SCH (08:57)
[2021-11-17] MEDS: FLUoxetine HCL 10 MG CAP PO SCH (08:57)
[2021-11-17] MEDS: predniSONE 5 MG TAB PO SCH (08:57)
[2021-11-17] MEDS: METOPROLOL SUCCINATE (ER) 25 MG TAB.ER.24H PO SCH (08:57)
[2021-11-17] MEDS: LORATADINE 10 MG TAB PO SCH (08:57)
[2021-11-17] MEDS: MEMANTINE 5 MG TAB PO SCH (08:57)
[2021-11-17] MEDS: MORPHINE SULFATE 2 MG/ML SYRINGE IVP PRN (09:33)
[2021-11-17] MEDS: PANTOPRAZOLE 40 MG/10 ML VIAL IVP SCH ×2 (09:34→22:01)
[2021-11-17] MEDS: FAMOTIDINE 20 MG/2 ML VIAL IV SCH (09:34)
--- NOTE | 2021-11-17 15:05 | P.PN ---
Subjective Progress Note Date: 11/17/21 CHIEF COMPLAINT: Abdominal pain HISTORY OF PRESENT ILLNESS: Patient reports increase in abdominal pain after the clear liquids this morning. His diet has been downgraded to nothing by mouth. Reviewed CAT scan results with Dr. webster. Computed tomography scan shows persistent signs suggestive of severe acute colitis which could be inflammatory, infectious or pseudomembranous can't be excluded. Moderate free abdominal and pelvic fluid with progressive bilateral pleural effusions. Large hiatal hernia containing most of the stomach with mass effect on the adjacent portion of the heart and lung. Afebrile 26.3 hemoglobin 16.8 platelet 146 sodium 131 creatinine 1.17 Patient seen and examined with Dr. webster PHYSICAL EXAM: VITAL SIGNS: Reviewed. GENERAL: Well-developed in no acute distress. HEENT: No sclera icterus. Extraocular movements grossly intact. Moist buccal mucosa. Head is atraumatic, normocephalic. ABDOMEN: distended with diffuse tenderness NEUROLOGIC: awake and alert. ASSESSMENT: 1. Abdominal pain 2. Ischemic versus infectious colitis 3. Large hiatal hernia containing majority of the stomach with mass effect on the adjacent portion of the heart and lung 4. Sepsis PLAN: -Downgraded diet nothing by mouth due to increased abdominal pain -Patient may require surgical intervention -Continue to monitor patient closely -Continue antibiotics -Continue IV fluids Physician Machine Maintenance Repairer note has been reviewed by physician. Signing provider agrees with the documented findings, assessment, and plan of care. Objective - Vital Signs Vital signs: Vital Signs Temp 97.9 F 11/17/21 14:00 Pulse 60 11/17/21 14:00 Resp 22 11/17/21 14:00 BP 103/69 11/17/21 14:00 Pulse Ox 92 L 11/17/21 14:00 FiO2 Intake & Output 11/16/21 11/17/21 11/17/21 18:59 06:59 18:59 Intake Total 720 Output Total 1400 950 Balance -680 -950 Intake: Oral 720 Output: Urine 1400 950 Other: Voiding Method External Catheter External Catheter External Catheter # Voids 1 # Bowel Movements 3 1 - Labs CBC & Chem 7: 11/17/21 04:33 11/17/21 04:33 Labs: Abnormal Lab Results - Last 24 Hours (Table) 11/17/21 11/17/21 Range/Units 04:33 04:33 WBC 26.3 H (3.8-10.6) k/uL Plt Count 146 L (150-450) k/uL Neutrophils # 23.8 H (1.3-7.7) k/uL Lymphocytes # 0.4 L (1.0-4.8) k/uL Monocytes # 1.8 H (0-1.0) k/uL Sodium 131 L (137-145) mmol/L Carbon Dioxide 18 L (22-30) mmol/L BUN 24 H (9-20) mg/dL Glucose 132 H (74-99) mg/dL Calcium 6.5 L (8.4-10.2) mg/dL Total Protein 3.6 L (6.3-8.2) g/dL Albumin 1.6 L (3.5-5.0) g/dL Microbiology - Last 24 Hours (Table) 11/14/21 21:30 Stool Culture - Preliminary Stool 11/12/21 18:45 Blood Culture - Preliminary Blood No Growth after 96 hours 11/12/21 18:53 Blood Culture - Preliminary Blood No Growth after 96 hours
--- NOTE | 2021-11-17 16:01 | P.PN ---
Subjective Progress Note Date: 11/17/21 Principal diagnosis: Abdominal pain, colitis Patient is seen and examined his follow-up for abdominal pain/colitis. Patient was seen and examined lying in bed. Nursing reported that he was doing very well this morning. He was very much alert and talkative. He was not complai gato of any pain. He then had his clear liquid breakfast and began stating that he was having abdominal pain and crying out in pain. Patient had a small loose bowel movement this morning that again was nonbloody. Gen. surgery is following patient and he underwent a repeat CT of the abdomen and pelvis with not much change. He has been afebrile. No nausea or vomiting. Objective - Vital Signs Vital signs: Vital Signs Temp 97.6 F 11/17/21 07:26 Pulse 40 L 11/17/21 07:26 Resp 16 11/17/21 07:26 BP 108/69 11/17/21 07:26 Pulse Ox 96 11/17/21 07:26 FiO2 Intake & Output 11/16/21 11/17/21 11/17/21 18:59 06:59 18:59 Intake Total 720 Output Total 1400 950 Balance -680 -950 Intake: Oral 720 Output: Urine 1400 950 Other: Voiding Method External Catheter External Catheter # Voids 1 # Bowel Movements 3 1 - Exam General appearance: The patient is alert, oriented, appears in no acute distress. HET: Head is normocephalic and atraumatic. Conjunctiva pink. Sclera anicteric. Neck: Supple without lymphadenopathy. Abdomen: Soft, tenderness in the left lower quadrant, mildly distended with bowel sounds. No guarding or rigidity. Extremities: Normal skin color and turgor. No pedal edema Skin: No rashes, no jaundice Neurological: No focal deficits. Alert, oriented to self. - Labs CBC & Chem 7: 11/17/21 04:33 11/17/21 04:33 Labs: Abnormal Lab Results - Last 24 Hours (Table) 11/16/21 11/17/21 11/17/21 Range/Units 04:45 04:33 04:33 WBC 27.76 H 26.3 H (4.50-10.00) X 10*3/uL Plt Count 136 L 146 L (140-440) X 10*3/uL Plt Count Comment DECREASED A Absolute Nucleated RBC 0.02 H (0.00-0.00) X 10*3/uL Immature Gran # 1.05 H (0.00-0.04) X 10*3/uL Neutrophils # 24.75 H 23.8 H (1.80-7.70) X 10*3/uL Lymphocytes # 0.45 L 0.4 L (0.90-5.00) X 10*3/uL Monocytes # 1.50 H 1.8 H (0.20-1.00) X 10*3/uL Eosinophils # 0 L (0.04-0.35) X 10*3/uL NRBC/100 WBC Diff 0.1 H (0.0-0.0) /100 WBCS Sodium 131 L (137-145) mmol/L Carbon Dioxide 18 L (22-30) mmol/L BUN 24 H (9-20) mg/dL Glucose 132 H (74-99) mg/dL Calcium 6.5 L (8.4-10.2) mg/dL Total Protein 3.6 L (6.3-8.2) g/dL Albumin 1.6 L (3.5-5.0) g/dL Microbiology - Last 24 Hours (Table) 11/12/21 18:45 Blood Culture - Preliminary Blood No Growth after 96 hours 11/12/21 18:53 Blood Culture - Preliminary Blood No Growth after 96 hours Assessment and Plan (1) Colitis Narrative/Plan: 86-year-old male with history of multiple comorbidities who recently was diagnosed with COVID-19 infection presented to the emergency department for increased weakness and abdominal pain. Patient has memory impairment and is pleasantly confused. He had a CT of the chest abdomen and pelvis showing diffuse colitis involving the majority of the colon from the essentially hepatic flexure right upper quadrant to the sigmoid colon. Multiple colonic diverticula without definitive diverticulitis. He has a large hiatal hernia containing majority of the stomach, distal esophagus layering fluid could 3 weight to reflux or dysmotility colonic diverticulosis and a small amount of ascites. Patient had significant elevated white count on admission with elevated plasma lactic acid likely thought to be systemic inflammatory response syndrome. WBC improving. Likely we are dealing with acute colitis, possibly ischemic versus infectious. Continue to treat with antibiotics. No plans on endoscopic evaluation at this time. Current Visit: Yes Status: Acute Code(s): K52.9 - NONINFECTIVE GASTROENTERITIS AND COLITIS, UNSPECIFIED SNOMED Code(s): 52982471 (2) COPD (chronic obstructive pulmonary disease) Current Visit: No Status: Acute Code(s): J44.9 - CHRONIC OBSTRUCTIVE PULMONARY DISEASE, UNSPECIFIED SNOMED Code(s): 24242965 (3) GERD (gastroesophageal reflux disease) Current Visit: No Status: Acute Code(s): K21.9 - GASTRO-ESOPHAGEAL REFLUX DISEASE WITHOUT ESOPHAGITIS SNOMED Code(s): 398637661 (4) History of CVA (cerebrovascular accident) Current Visit: No Status: Acute Code(s): Z86.73 - PRSNL HX OF TIA (TIA), AND CEREB INFRC W/O RESID DEFICITS SNOMED Code(s): 730882189 Plan: 1. Continue symptomatic and supportive care 2. Continue antibiotics as ordered 3. Continue clear liquid diet 4. No plans at this time for colonoscopy especially with increased inflammation puts patient at higher risk for complications. 5. Stool cultures negative 6. Daily CBC 7. Gen. surgery consulted appreciate the recommendations Thank you for this consultation, we will continue to follow. Dr. Jamel Ansari I agree with the dictator's note, documented as a scribe by Emerald Thakkar.
--- NOTE | 2021-11-17 16:03 | P.PN ---
Subjective Progress Note Date: 11/17/21 Principal diagnosis: Sepsis due to diffuse colitis with a differential diagnoses of nonspecific colitis versus infectious colitis, patient has been on broad-spectrum antibiotics, aggressive rehydration ID workup is in progress, patient will benefit from endoscopy Asthma and chronic intermittent, overall stable on bronchodilators and maintenance prednisone Chronic dermatitis on prednisone COVID-19 infection History of CVA Advanced dementia exam is disease Coronary artery disease and stent placement 11/17/2021, patient seen eval examined during the rounds patient was on clear liquid diet has abdominal pain and distention again nothing by mouth, surgery has been evaluating the patient, patient is mentally more awake now, oriented 1-2, remains pleasantly confused, patient has some upper respiratory secretions which were improved and relieved with bronchodilator therapy no lungs are fairly clear to auscultation with stable oxygen saturation remains on room air 11/16/2021, patient seen eval examined during rounds labs reviewed medications reviewed mental status improved S patient is more coherent oriented 1-2 follow simple commands patient does have some gurgling sounds appear to be coming from upper airway however no overt sign of aspiration has noted however patient has been tolerating clear liquid diet fairly well, general surgery is following, computed tomography scan of the chest revealed bilateral pleural effusion which is progressive along with subsegmental atelectasis, 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 diffuse thickening of the small bowel without bowel obstruction, thickening of colon with surrounding fat stranding most evident on her left side suggestive of acute colitis differential diagnoses being inflammatory infectious or ischemic general surgery is following currently being considered for conservative care, white cell count is down to 27,700 platelet count 136, patient is on Solu-Medrol Flagyl as well as Zosyn 11/15/2021 patient is relatively more responsive now intermittently complains of pain has been given a gram of morphine now he is more somnolent however family history thing patient is more responsive remains on broad-spectrum antibiotics surgery on consult, along with supportive care 11/14/2021, patient seen and evaluated examined remains very weak and somnolent but arousable mumbles intermittently, labs from today reviewed white cell count is 45,000 hemoglobin and hematocrit 18/55 platelet count 200,000, lactic acid remains elevated, stool for C. diff is negative suspicion of diffuse ischemic colitis would recommend surgical consult Patient is a 86-year-old male well-known to me with a history of asthma in the past along with multiple complex medical problems and issues patient was diagnosed as COVID-19 infection about 14 days ago, postinfection become weak wit h rapidly declining status also had intermittent aspiration episodes of abdominal pain and diarrhea and loose stool, poor appetite came into the hospital for further evaluation along with family member due to failure to thrive, on arrival noted to have white cell count of 48,000 with hemoglobin of 1 7.8, sodium 131, rotation of 5, BUN/creatinine 49 and 1.6, lactic acid is 3.6 on arrival chest x-ray revealed large hiatal hernia no active pulmonary process, computed tomography scan no acute intracranial process with remote lacunar injury is seen with some white matter changes due to prior stroke, computed tomography scan of the chest abdominal and pelvis no significant pathology noted and lung and pleural space airways are patent, no adenopathy is seen, and large hiatal hernia seen, however abdominal CAT scan is positive for large bowel thickening extended to sigmoid colon with diverticula and no evidence of abscess, extensive colitis involving the majority of the colon seen no definite diverticulitis have been noted, currently patient is being treated with bronchodilator and continuation of his home medicines with IV Zosyn and vancomycin, patient has been on chronic maintenance dose of prednisone 5 mg for his chronic dermatitis as well as asthma per family he is slightly more respo nsive today compared to yesterday with hydration. ID has been consulted blood cultures have been drawn including C. difficile and stool culture Objective - Vital Signs Vital signs: Vital Signs Temp 97.9 F 11/17/21 14:00 Pulse 60 11/17/21 14:00 Resp 22 11/17/21 14:00 BP 103/69 11/17/21 14:00 Pulse Ox 92 L 11/17/21 14:00 FiO2 Intake & Output 11/16/21 11/17/21 11/17/21 18:59 06:59 18:59 Intake Total 720 Output Total 1400 950 Balance -680 -950 Intake: Oral 720 Output: Urine 1400 950 Other: Voiding Method External Catheter External Catheter External Catheter # Voids 1 # Bowel Movements 3 1 - Exam - Constitutional General appearance: average body habitus, disheveled - EENT Eyes: EOMI, PERRLA Ears: bilateral: normal - Neck Neck: normal ROM Carotids: bilateral: upstroke normal Thyroid: bilateral: normal size - Respiratory Respiratory: bilateral: CTA - Cardiovascular Rhythm: regular Heart sounds: normal: S1, S2 - Gastrointestinal General gastrointestinal: decreased bowel sounds - Integumentary Integumentary: normal turgor - Musculoskeletal Musculoskeletal: generalized weakness - Labs CBC & Chem 7: 11/17/21 04:33 11/17/21 04:33 Labs: Abnormal Lab Results - Last 24 Hours (Table) 11/17/21 11/17/21 Range/Units 04:33 04:33 WBC 26.3 H (3.8-10.6) k/uL Plt Count 146 L (150-450) k/uL Neutrophils # 23.8 H (1.3-7.7) k/uL Lymphocytes # 0.4 L (1.0-4.8) k/uL Monocytes # 1.8 H (0-1.0) k/uL Sodium 131 L (137-145) mmol/L Carbon Dioxide 18 L (22-30) mmol/L BUN 24 H (9-20) mg/dL Glucose 132 H (74-99) mg/dL Calcium 6.5 L (8.4-10.2) mg/dL Total Protein 3.6 L (6.3-8.2) g/dL Albumin 1.6 L (3.5-5.0) g/dL Microbiology - Last 24 Hours (Table) 11/14/21 21:30 Stool Culture - Preliminary Stool 11/12/21 18:45 Blood Culture - Preliminary Blood No Growth after 96 hours 11/12/21 18:53 Blood Culture - Preliminary Blood No Growth after 96 hours Assessment and Plan Assessment: Sepsis due to diffuse colitis with a differential diagnoses of nonspecific colitis versus ischemic colitis, patient has been on broad-spectrum antibiotics, aggressive rehydration ID workup is in progress, general surgery following patient is nothing by mouth currently Bilateral pleural effusion Bilateral basal compressive atelectasis Asthma and chronic intermittent, overall stable on bronchodilators and maintenance prednisone Chronic dermatitis on prednisone COVID-19 infection History of CVA Advanced dementia exam is disease Coronary artery disease and stent placement Plan: Overall plan as above continue monitor lactic acid closely repeat labs tomorrow appreciate surgical evaluation Continue IV fluids to 75 mL an hour before consideration of diuresis Agree with plans for nothing by mouth and surgical evaluation Time with Patient: Greater than 30
--- NOTE | 2021-11-17 22:34 | PN ---
PROGRESS NOTE This patient is improving from a medical standpoint. White count is down to 27,000 from 70,000. Admitted with ischemic versus infective colitis, large hiatal hernia. sepsis. Increased abdominal pain. Will get clear liquid diet. Surgical intervention for repair of the severe hiatal hernia. Continue current treatment for colitis. Wait for consult with Surgery for possible colitis repair. Temperature 97.9, pulse 60, respiratory rate 18 to 22, blood pressure 103/69. Please see further orders. The patient is continuing to improve. Continue with broad-spectrum antibiotics. Wait for surgical recommendations. MMODL / IJN: [id number] /
[2021-11-18] MEDS: methylPREDNISolone SOD SUCCI 40 MG/ML 1 ML VIAL IV SCH ×4 (01:09→23:26)
[2021-11-18] MEDS: PIPERACILLIN-TAZOBACTAM 3.375 GM in SODIUM CHLORIDE 0.9% 100 ML IVPB SCH ×4 (01:09→23:26)
[2021-11-18] MEDS: SODIUM CHLORIDE 0.45% 1,000 ML IV SCH ×2 (06:31→08:44)
[2021-11-18] MEDS: BUDESONIDE 0.5 MG/2 ML NEBU INHALATION SCH ×2 (08:12→21:11)
[2021-11-18] MEDS: ALBUTEROL NEBULIZED 2.5 MG/3 ML INHALATION SCH ×4 (08:12→21:11)
[2021-11-18] MEDS: SODIUM CHLORIDE 0.9% 1,000 ML IV SCH (08:35)
[2021-11-18] MEDS: MONTELUKAST 10 MG TAB PO SCH (08:48)
[2021-11-18] MEDS: metroNIDAZOLE 500 MG TAB PO SCH ×3 (08:49→22:07)
[2021-11-18] MEDS: predniSONE 5 MG TAB PO SCH (08:49)
[2021-11-18] MEDS: LORATADINE 10 MG TAB PO SCH (08:50)
[2021-11-18] MEDS: DONEPEZIL 10 MG TAB PO SCH (08:50)
[2021-11-18] MEDS: METOPROLOL SUCCINATE (ER) 25 MG TAB.ER.24H PO SCH (08:50)
[2021-11-18] MEDS: MEMANTINE 5 MG TAB PO SCH (08:50)
[2021-11-18] MEDS: ATORVASTATIN 20 MG TAB PO SCH (08:50)
[2021-11-18] MEDS: FLUoxetine HCL 10 MG CAP PO SCH (08:50)
[2021-11-18] MEDS: FUROSEMIDE 20 MG TAB PO SCH (08:50)
[2021-11-18] MEDS: PANTOPRAZOLE 40 MG/10 ML VIAL IVP SCH ×2 (09:39→22:07)
[2021-11-18] MEDS: FAMOTIDINE 20 MG/2 ML VIAL IV SCH (09:39)
[2021-11-18 12:41] LABS: African American GFR (CKD) 64 (>60 ml/min/1.73 sqM); Anion Gap 9 mmol/L; Blood Urea Nitrogen 27 mg/dL (9-20); Carbon Dioxide 12 mmol/L (22-30); Chloride 108 mmol/L (98-107); Glucose 228 mg/dL (74-99); Non-African American GFR(CKD) 55 (>60 ml/min/1.73 sqM); Sodium 129 mmol/L (137-145)
[2021-11-18 12:44] LABS: Basophils # (A) 0.1 k/uL (0-0.2); Basophils % (A) 0 %; Eosinophils % (A) 0 %; HGB 17.7 gm/dL (13.0-17.5); Lymphocytes # (A) 0.2 k/uL (1.0-4.8); Lymphocytes % (A) 1 %; MCH 30.7 pg (25.0-35.0); MCHC 31.4 g/dL (31.0-37.0); MCV 97.7 fL (80.0-100.0); Mean Platelet Volume 8.8; Monocytes # (A) 1.9 k/uL (0-1.0); Monocytes % (A) 7 %; Neutrophils # (A) 22.7 k/uL (1.3-7.7); Neutrophils % (A) 91 %; Platelet Count 100 k/uL (150-450); RBC 5.76 m/uL (4.30-5.90)
[2021-11-18 12:51] LABS: Calcium 6.4 mg/dL (8.4-10.2); HCT 56.3 % (39.0-53.0)
--- NOTE | 2021-11-18 13:18 | P.PN ---
Subjective Progress Note Date: 11/18/21 CHIEF COMPLAINT: Abdominal pain HISTORY OF PRESENT ILLNESS: Patient is much more comfortable today. He denies any abdominal pain. He was able to tolerate a clear liquid diet. He had a bowel movement yesterday and since then it appears his pain has shown improvement. Denies any nausea or vomiting. Afebrile. WBC is 25 hemoglobin 17.7 platelets 100 sodium 129 potassium is 4 creatinine is 1.19 Patient seen and examined with Dr. webster PHYSICAL EXAM: VITAL SIGNS: Reviewed. GENERAL: Well-developed in no acute distress. HEENT: No sclera icterus. Extraocular movements grossly intact. Moist buccal mucosa. Head is atraumatic, normocephalic. ABDOMEN: Soft nondistended nontender NEUROLOGIC: awake and alert. ASSESSMENT: 1. Abdominal pain 2. Ischemic versus infectious colitis 3. Large hiatal hernia containing majority of the stomach with mass effect on the adjacent portion of the heart and lung 4. Sepsis PLAN: -Advance diet to full liquids -Further recommendations forthcoming per surgeon -Continue to monitor patient closely -Continue antibiotics -Continue IV fluids Physician Telephone Interviewer note has been reviewed by physician. Signing provider agrees with the documented findings, assessment, and plan of care. Objective - Vital Signs Vital signs: Vital Signs Temp 97.5 F L 11/18/21 07:01 Pulse 65 11/18/21 08:30 Resp 15 11/18/21 07:01 BP 110/71 11/18/21 07:01 Pulse Ox 98 11/18/21 07:01 FiO2 Intake & Output 11/17/21 11/18/21 11/18/21 18:59 06:59 18:59 Intake Total 180 420 Balance 180 420 Weight 104.326 kg Intake: Oral 180 420 Other: Voiding Method External Catheter External Catheter External Catheter # Voids 3 2 1 # Bowel Movements 1 1 1 - Labs CBC & Chem 7: 11/18/21 11:50 11/18/21 11:50 Labs: Abnormal Lab Results - Last 24 Hours (Table) 11/18/21 11/18/21 Range/Units 11:50 11:50 WBC 25.0 H (3.8-10.6) k/uL Hgb 17.7 H (13.0-17.5) gm/dL Hct 56.3 H (39.0-53.0) % Plt Count 100 L (150-450) k/uL Neutrophils # 22.7 H (1.3-7.7) k/uL Lymphocytes # 0.2 L (1.0-4.8) k/uL Monocytes # 1.9 H (0-1.0) k/uL Sodium 129 L (137-145) mmol/L Chloride 108 H (98-107) mmol/L Carbon Dioxide 12 L (22-30) mmol/L BUN 27 H (9-20) mg/dL Glucose 228 H (74-99) mg/dL Calcium 6.4 L* (8.4-10.2) mg/dL Microbiology - Last 24 Hours (Table) 11/14/21 21:30 Stool Culture - Final Stool 11/12/21 18:45 Blood Culture - Preliminary Blood No Growth after 120 hours 11/12/21 18:53 Blood Culture - Preliminary Blood No Growth after 120 hours
[2021-11-18] MEDS ORDERED: CALCIUM GLUCONATE IN NACL 2 GM in SALINE 1 100ML.BAG IVPB ONE (15:30)
[2021-11-18] MEDS ORDERED: SODIUM BICARB 8.4% 50 ML SYR (1 MEQ/ML) IV STA (16:36)
[2021-11-18] MEDS: DEXTROSE 5% IN WATER 1,000 ML with SODIUM BICARB (1 MEQ/ML) 150 ML IV SCH (18:16)
[2021-11-19] MEDS: MORPHINE SULFATE 2 MG/ML SYRINGE IVP PRN ×2 (04:54→18:56)
[2021-11-19] MEDS: BUDESONIDE 0.5 MG/2 ML NEBU INHALATION SCH ×2 (08:37→18:00)
[2021-11-19] MEDS: ALBUTEROL NEBULIZED 2.5 MG/3 ML INHALATION SCH ×4 (08:37→18:00)
--- NOTE | 2021-11-19 08:45 | PN ---
PROGRESS NOTE 86-year-old white male came here with severe pancolitis, altered mental status, prerenal azotemia. Remains on Flagyl orally, IV steroids, sodium bicarbonate and Zosyn. Labs continue to improve. White count is way down from admission, now down to 25,000. His hemoglobin is 17.7, elevated neutrophil left shift. Sodium is 129, potassium 4, glucose 200s, calcium 6.4, possible give some calcium gluconate, protein calorie malnutrition severe add protein drinks. Continue with broad-spectrum antibiotics for pancolitis. Prognosis guarded. MMODL / IJN: [id number] /
[2021-11-19 09:06] LABS: Magnesium 2.3 mg/dL (1.5-2.4)
[2021-11-19 09:32] LABS: African American GFR (CKD) 52.4 (60.0-200.0); Albumin 1.8 g/dL (3.8-4.9); Albumin/Globulin Ratio 1.06 (1.60-3.17); Anion Gap 10.9 mmol/L (10.00-18.00); BUN/Creat Ratio 19.21 Ratio (12.00-20.00); Blood Urea Nitrogen 26.9 mg/dL (9.0-27.0); Carbon Dioxide 22.1 mmol/L (20.0-27.5); Globulin 1.7 g/dL (1.6-3.3); Non-African American GFR(CKD) 45.2 (60.0-200.0); Potassium 3.7 mmol/L (3.5-5.5); Total Bilirubin 0.9 mg/dL (0.30-1.20); Total Protein 3.5 g/dL (6.2-8.2)
[2021-11-19 10:34] LABS: Basophils # (A) 0.07 X 10*3/uL (0.00-0.10); Basophils % (A) 0.3 %; Eosinophils # (A) 0 X 10*3/uL (0.04-0.35); Eosinophils % (A) 0 %; HCT 55.1 % (39.6-50.0); HGB 18.8 g/dL (13.0-17.0); Immature Grans, Automated 1.3 %; Lymphocytes # (A) 0.45 X 10*3/uL (0.90-5.00); Lymphocytes % (A) 1.9 %; MCH 30.6 pg (27.0-32.0); MCHC 34.1 g/dL (32.0-37.0); MCV 89.6 fL (80.0-97.0); Mean Platelet Volume 11.5 fL (9.5-12.2); Monocytes % (A) 8.5 %; NRBC Per 100 WBC 0 /100 WBCS (0.0-0.0); Platelet Count 108 X 10*3/uL (140-440); RBC 6.15 X 10*6/uL (4.40-5.60); WBC 23.53 X 10*3/uL (4.50-10.00)
[2021-11-19] MEDS: PANTOPRAZOLE 40 MG/10 ML VIAL IVP SCH ×2 (11:36→21:32)
[2021-11-19] MEDS: ATORVASTATIN 20 MG TAB PO SCH (11:37)
[2021-11-19] MEDS: FUROSEMIDE 20 MG TAB PO SCH (11:37)
[2021-11-19] MEDS: PIPERACILLIN-TAZOBACTAM 3.375 GM in SODIUM CHLORIDE 0.9% 100 ML IVPB SCH ×3 (11:37→21:34)
[2021-11-19] MEDS: FAMOTIDINE 20 MG/2 ML VIAL IV SCH (11:37)
[2021-11-19] MEDS: metroNIDAZOLE 500 MG TAB PO SCH ×3 (11:37→21:32)
[2021-11-19] MEDS: methylPREDNISolone SOD SUCCI 40 MG/ML 1 ML VIAL IV SCH ×2 (11:37→15:59)
[2021-11-19] MEDS: MONTELUKAST 10 MG TAB PO SCH (11:38)
[2021-11-19] MEDS: predniSONE 5 MG TAB PO SCH (11:38)
[2021-11-19] MEDS: FLUoxetine HCL 10 MG CAP PO SCH (11:38)
[2021-11-19] MEDS: MEMANTINE 5 MG TAB PO SCH (11:38)
[2021-11-19] MEDS: ISOSORBIDE MONONITRATE ER 30 MG TAB.ER.24H PO SCH (11:38)
[2021-11-19] MEDS: DONEPEZIL 10 MG TAB PO SCH (11:38)
[2021-11-19] MEDS: LORATADINE 10 MG TAB PO SCH (11:38)
[2021-11-19] MEDS: METOPROLOL SUCCINATE (ER) 25 MG TAB.ER.24H PO SCH (11:38)
[2021-11-19] MEDS: DEXTROSE 5% IN WATER 1,000 ML with SODIUM BICARB (1 MEQ/ML) 150 ML IV SCH (11:39)
[2021-11-19] MEDS ORDERED: POTASSIUM CHLORIDE ER 20 MEQ TAB.ER PO STA (12:44)
--- NOTE | 2021-11-19 12:47 | P.NPCON ---
History of Present Illness - Reason for Consult hyponatremia - History of Present Illness Reason for consult: Hyponatremia and hypocalcemia. History of present illness: Patient is a 86-year-old male seen in renal consultation for hyponatremia and hypocalcemia. Patient is currently resting in bed and is not a very reliable historian. Patient came to the hospital on 11/12/2021 due to progressive weakness. He did test positive for coronary 19 about 2 weeks prior to admission. Patient's oral intake had been poor and he was able to perform his activities of daily living per the charting. Patient's sodium level has been in the range of 129-135 this admission. It is 134 today. He is currently main tained on bicarb drip. CAT scan it showed no evidence of hydronephrosis. Colitis was noted on CAT scan. He's being followed by infectious disease as well as surgery. He denies any diarrhea at this time. He was advanced to full liquid diet today. He is also receiving IV antibiotics. No history of diabetes. He is also receiving 20 mg daily of Lasix. Blood pressure stable. Patient has an external catheter and is nonoliguric. Vital signs are stable. General: No acute distress. HEENT: Head exam is unremarkable. LUNGS: Breath sounds decreased. HEART: Rate and Rhythm are regular. ABDOMEN: Soft, no distention. EXTREMITITES: No edema. 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 Past Anesthesia/Blood Transfusion Reactions: No Reported Reaction Date of Last Stent Placement:: 1989 Past Psychological History: Depression Smoking Status: Never smoker Past Alcohol Use History: Rare Additional Past Alcohol Use History / Comment(s): stopped smoking at last 40 years ago Past Drug Use History: None Reported - Past Family History Mother Family Medical History: AICD/Pacemaker Father Family Medical History: Congestive Heart Failure (CHF) Brother(s) Additional Family Medical History / Comment(s): 1 brother passed from sarcoidoisis. 1 brother, falls, Cancer, memory issues Sister(s) Additional Family Medical History / Comment(s): 1 sister passed from liver CA. 1 sister in [place] memory impairement Medications and Allergies Home Medications Medication Instructions Recorded Confirmed Type Atorvastatin [Lipitor] 20 mg PO DAILY 11/23/17 11/12/21 History Cetirizine HCl [Zyrtec] 10 mg PO DAILY 11/23/17 11/12/21 History Isosorbide Mononitrate ER [Imdur] 30 mg PO DAILY 11/23/17 11/12/21 History Metoprolol Succinate (ER) [Toprol 25 mg PO DAILY 11/23/17 11/12/21 History XL] Montelukast [Singulair] 10 mg PO DAILY 11/23/17 11/12/21 History Omeprazole 20 mg PO DAILY 11/23/17 11/12/21 History Donepezil [Aricept] 10 mg PO DAILY 06/29/19 11/12/21 History Budesonide [Pulmicort] 0.5 mg INHALATION RT-BID 02/09/21 11/12/21 History FLUoxetine HCL [PROzac] 10 mg PO DAILY 02/09/21 11/12/21 History Furosemide [Lasix] 20 mg PO DAILY 02/09/21 11/12/21 History Memantine HCl 5 mg PO DAILY 02/09/21 11/12/21 History Albuterol Nebulized [Ventolin 2.5 mg INHALATION RT-QID 11/12/21 11/12/21 History Nebulized] Megestrol Acetate 40 mg PO DAILY 11/12/21 11/12/21 History predniSONE 5 mg PO DAILY 11/12/21 11/12/21 History Allergies Allergy/AdvReac Type Severity Reaction Status Date / Time No Known Allergies Allergy Verified 11/12/21 20:16 Physical Exam Vitals: Vital Signs Temp Pulse Pulse Resp BP Pulse Ox 11/19/21 11:48 50 L 11/19/21 11:39 57 L 11/19/21 08:49 52 L 11/19/21 08:37 59 L 11/19/21 07:31 96.8 F L 50 L 17 113/82 96 11/19/21 01:38 97.8 F 49 L 20 117/83 96 11/18/21 21:30 64 11/18/21 21:11 64 11/18/21 19:10 97.5 F L 64 18 113/72 96 11/18/21 16:13 57 L 11/18/21 16:05 55 L 11/18/21 13:48 97.8 F 79 20 108/74 95 Intake and Output 11/18/21 11/19/21 11/19/21 22:59 06:59 14:59 Intake Total 180 Balance 180 Intake: Oral 180 Other: Voiding Method External Catheter External Catheter Weight 104.326 kg Results - Lab Results Most recent lab results Calcium 7.0 mg/dL (8.7-10.3) L 11/19/21 04:13 Magnesium 2.3 mg/dL (1.5-2.4) 11/19/21 04:13 11/19/21 04:13 11/19/21 04:13 Assessment and Plan Plan: Assessment: 1. Hypovolemic hyponatremia improved with IV hydration. Sodium level 134 today. 2. Acute kidney injury mostly prerenal secondary to hypovolemia. Creatinine peaked at 1.6 this admission and was down to 1.19 yesterday. It is 1.4 today. 3. Colitis. On antibiotics. Surgery following. On full liquid diet. C. diff negative. 4. Hypocalcemia secondary to hypoalbuminemia. Corrected calcium in the normal range. 5. Metabolic acidosis secondary to acute kidney injury and GI losses. Improved with bicarbonate drip. 6. Recent COVID-19 infection. 7. History of coronary stent placement. 8. Hypokalemia from poor intake and intracellular shifting from IV bicarb. Plan: Stop bicarb drip. Start normal saline at 50 mL an hour. 25 g IV albumin today. Avoid nephrotoxins. Continue to monitor renal function and urine output. Check urinalysis. Replace potassium. Thank you for the consultation. I will continue to follow the patient during his hospital stay.
[2021-11-19] MEDS: SODIUM CHLORIDE 0.9% 1,000 ML IV SCH (13:10)
--- NOTE | 2021-11-19 13:44 | CDI ---
Documentation Clarification Form Date: 11/19/2021 01:19:35 PM From: Jing Jordan RN CCDS Admit Date: 11/12/2021 07:43:00 PM Patient Name: Lance Devi Visit Number: [id number] Discharge Date: ATTENTION: The Clinical Documentation Specialists (CDI) and [facility] Coding Staff appreciate your assistance in clarifying documentation. Please respond to the clarification below the line at the bottom and electronically sign. The CDI & [facility] Coding staff will review the response and follow-up if needed. Please note: Queries are made part of the Legal Health Record. If you have any questions, please contact the author of this message via ITS. Dr. Jason Johnson Your patient has the documented symptom of Altered Mental Status 11/19, medicine progress note . Additional clarification regarding the etiology/cause of this symptom is requested. History/Risk Factors: 86-year-old male presents to the ED with generalized weakness. Medical History: Recent COVID 19 infection, COPD, GERD, HTN AND CVI. 11/13, H&P. Clinical Indicators: VSS: 11/12 B/P 122/84, HR 100, Temp 97.6 F Axillary, RR 18, SpO2 96% room air Labs: 11/12 Wbc 63.7; Neutrophils 57.9, Lactic acid 5.3. Brain CT: 11/12 No acute intracranial process. CT Abd Pelvis: 11/13 Colitis involving a majority of the colon from essentially hepatic flexures/right upper quadrant to the sigmoid colon. Hematology progress note: 11/15 Suspect leukocytosis is multifactorial reactive to infection, chronic steroid use. Work up so far negative for underlying malignant cause for leukocytosis. GI consult: 11/15 Colitis. Likely we are dealing with acute colitis, possibly ischemic versus infectious. Treatment: 11/12 0.9NS 1L bolus x 1; 11/12 Zosyn 3.375gm IVPB x 1; Vancomycin 1,750mg IVPB x 1; 11/13 current Zosyn 3.375gm IVPB Q8HR; 11/13 11/14 Vancomycin 1,1750mg IVPB Q24HR; 11/14- current Flagyl 500mg PO TID; 11/13 current Prednisone 5mg PO Daily; 11/14 current Solumedrol 40mg IV Q8HR. Please clarify the etiology of the symptom of Altered Mental Status: [ ] Metabolic Encephalopathy due to colitis [ ] Metabolic Encephalopathy due to [ ] Other condition (please specify) [ ] Unable to determine (Template Last Revised: July 2020) MTDD
--- NOTE | 2021-11-19 14:04 | P.PN ---
Subjective Progress Note Date: 11/19/21 Principal diagnosis: Abdominal pain, colitis Patient is seen and examined his follow-up for abdominal pain/colitis. Patient was seen and examined lying in bed. he is doing very well this morning. He denies any abdominal pain. No nausea or vomiting. He has been increased to a chopped diet. Having small amount of loose brown stool. He's been afebrile. WBC 23.5 hemoglobin 18.8 platelet count 108,000 stool C. difficile negative Objective - Vital Signs Vital signs: Vital Signs Temp 96.8 F L 11/19/21 07:31 Pulse 50 L 11/19/21 07:31 Resp 17 11/19/21 07:31 BP 113/82 11/19/21 07:31 Pulse Ox 96 11/19/21 07:31 FiO2 Intake & Output 11/18/21 11/19/21 11/19/21 18:59 06:59 18:59 Intake Total 780 Balance 780 Intake: Oral 780 Other: Voiding Method External Catheter External Catheter # Voids 1 # Bowel Movements 1 - Exam General appearance: The patient is alert, oriented, appears in no acute distr ess. HET: Head is normocephalic and atraumatic. Conjunctiva pink. Sclera anicteric. Neck: Supple without lymphadenopathy. Abdomen: Soft, nontender, nondistended with positive bowel sounds. No guarding or rigidity. Extremities: Normal skin color and turgor. No pedal edema Skin: No rashes, no jaundice Neurological: No focal deficits. Alert, oriented to self. - Labs CBC & Chem 7: 11/19/21 04:13 11/19/21 04:13 Labs: Abnormal Lab Results - Last 24 Hours (Table) 11/18/21 11/18/21 Range/Units 11:50 11:50 WBC 25.0 H (3.8-10.6) k/uL Hgb 17.7 H (13.0-17.5) gm/dL Hct 56.3 H (39.0-53.0) % Plt Count 100 L (150-450) k/uL Neutrophils # 22.7 H (1.3-7.7) k/uL Lymphocytes # 0.2 L (1.0-4.8) k/uL Monocytes # 1.9 H (0-1.0) k/uL Sodium 129 L (137-145) mmol/L Chloride 108 H (98-107) mmol/L Carbon Dioxide 12 L (22-30) mmol/L BUN 27 H (9-20) mg/dL Glucose 228 H (74-99) mg/dL Calcium 6.4 L* (8.4-10.2) mg/dL Microbiology - Last 24 Hours (Table) 11/12/21 18:45 Blood Culture - Final Blood No Growth after 144 hours 11/12/21 18:53 Blood Culture - Final Blood No Growth after 144 hours 11/14/21 21:30 Stool Culture - Final Stool Assessment and Plan (1) Colitis Narrative/Plan: 86-year-old male with history of multiple comorbidities who recently was diagnosed with COVID-19 infection presented to the emergency department for increased weakness and abdominal pain. Patient has memory impairment and is pleasantly confused. He had a CT of the chest abdomen and pelvis showing diffuse colitis involving the majority of the colon from the essentially hepatic flexure right upper quadrant to the sigmoid colon. Multiple colonic diverticula without definitive diverticulitis. He has a large hiatal hernia containing majority of the stomach, distal esophagus layering fluid could 3 weight to reflux or dysmotility colonic diverticulosis and a small amount of ascites. Patient had significant elevated white count on admission with elevated plasma lactic acid likely thought to be systemic inflammatory response syndrome. WBC improving. Likely we are dealing with acute colitis, possibly ischemic versus infectious. Continue to treat with antibiotics. No plans on endoscopic evaluation at this time. Current Visit: Yes Status: Acute Code(s): K52.9 - NONINFECTIVE GASTROENTERITIS AND COLITIS, UNSPECIFIED SNOMED Code(s): 48098994 (2) COPD (chronic obstructive pulmonary disease) Current Visit: No Status: Acute Code(s): J44.9 - CHRONIC OBSTRUCTIVE PULMONARY DISEASE, UNSPECIFIED SNOMED Code(s): 29889157 (3) GERD (gastroesophageal reflux disease) Current Visit: No Status: Acute Code(s): K21.9 - GASTRO-ESOPHAGEAL REFLUX DISEASE WITHOUT ESOPHAGITIS SNOMED Code(s): 832525446 (4) History of CVA (cerebrovascular accident) Current Visit: No Status: Acute Code(s): Z86.73 - PRSNL HX OF TIA (TIA), AND CEREB INFRC W/O RESID DEFICITS SNOMED Code(s): 922302805 Plan: 1. Continue symptomatic and supportive care 2. Continue antibiotics as ordered 3. Diet per surgical recommendations 4. No plans at this time for colonoscopy especially with increased inflammation puts patient at higher risk for complications. 5. Stool cultures negative 6. Gen. surgery consulted appreciate the recommendations Thank you for allowing us to participate in the care of the patient, the GI service will sign off, gastroenterology will not be available at the hospital this weekend. If further evaluation by gastroenterology is required the patient will need transfer as per the primary team's discretion. Dr. Jamel Ansari I agree with the dictator's note, documented as a scribe by Emerald Thakkar.
[2021-11-19] MEDS: ALBUMIN HUMAN 25% 50 ML in EMPTY BAG 1 BAG IVPB SCH ×3 (14:21→18:20)
--- NOTE | 2021-11-19 15:37 | P.PN ---
Subjective Progress Note Date: 11/19/21 CHIEF COMPLAINT: Abdominal pain HISTORY OF PRESENT ILLNESS: Patient lying in bed comfortably. Denies any abdominal pain. Tolerated a full liquid diet. He has been having bowel movements. He did receive a dose of morphine at 4 AM this morning. Stool for C. diff is negative. Afebrile. WBC trending downwards to 23.53 Hgb is 18 sodium is 134 potassium is 3.7 creatinine 1.4 Patient seen and examined with Dr. webster PHYSICAL EXAM: VITAL SIGNS: Reviewed. GENERAL: Well-developed in no acute distress. HEENT: No sclera icterus. Extraocular movements grossly intact. Moist buccal mucosa. Head is atraumatic, normocephalic. ABDOMEN: Soft nondistended nontender NEUROLOGIC: awake and alert. ASSESSMENT: 1. Abdominal pain 2. Ischemic versus infectious colitis 3. Large hiatal hernia containing majority of the stomach with mass effect on the adjacent portion of the heart and lung 4. Sepsis PLAN: -Advance diet to dysphagia chopped -Recommend elective repair of the large hiatal hernia -Continue antibiotics -Continue supportive care Physician Brand Protection Manager note has been reviewed by physician. Signing provider agrees with the documented findings, assessment, and plan of care. Objective - Vital Signs Vital signs: Vital Signs Temp 97.8 F 11/19/21 14:00 Pulse 56 L 11/19/21 14:00 Resp 18 11/19/21 14:00 BP 93/63 11/19/21 14:00 Pulse Ox 95 11/19/21 14:00 FiO2 Intake & Output 11/18/21 11/19/21 11/19/21 18:59 06:59 18:59 Intake Total 780 240 Balance 780 240 Weight 104.326 kg Intake: Oral 780 240 Other: Voiding Method External Catheter External Catheter External Catheter # Voids 1 # Bowel Movements 1 - Labs CBC & Chem 7: 11/19/21 04:13 11/19/21 04:13 Labs: Abnormal Lab Results - Last 24 Hours (Table) 11/19/21 11/19/21 Range/Units 04:13 04:13 WBC 23.53 H (4.50-10.00) X 10*3/uL RBC 6.15 H (4.40-5.60) X 10*6/uL Hgb 18.8 H (13.0-17.0) g/dL Hct 55.1 H (39.6-50.0) % Plt Count 108 L (140-440) X 10*3/uL Immature Gran # 0.31 H (0.00-0.04) X 10*3/uL Neutrophils # 20.70 H (1.80-7.70) X 10*3/uL Lymphocytes # 0.45 L (0.90-5.00) X 10*3/uL Monocytes # 2.00 H (0.20-1.00) X 10*3/uL Eosinophils # 0 L (0.04-0.35) X 10*3/uL Sodium 134 L (135-145) mmol/L Est GFR (CKD-EPI)AfAm 52.4 L (60.0-200.0) Est GFR (CKD-EPI)NonAf 45.2 L (60.0-200.0) Glucose 193 H (70-110) mg/dL Calcium 7.0 L (8.7-10.3) mg/dL AST 43 H (14-35) U/L ALT 50 H (10-49) U/L Total Protein 3.5 L (6.2-8.2) g/dL Albumin 1.8 L (3.8-4.9) g/dL Albumin/Globulin Ratio 1.06 L (1.60-3.17) g/dL Microbiology - Last 24 Hours (Table) 11/18/21 12:57 Stool Culture - Preliminary Stool 11/14/21 21:30 Stool Culture - Final Stool 11/12/21 18:45 Blood Culture - Final Blood No Growth after 144 hours 11/12/21 18:53 Blood Culture - Final Blood No Growth after 144 hours
[2021-11-19 15:45] LABS: Amorphous Sediment,Urine Moderate /hpf; Appearance,Urine Turbid (Clear); Bilirubin,Urine Negative (Negative); Blood,Urine Negative (Negative); Calcium Oxalate Crystals,Urine Occasional /hpf; Color,Urine Dark Brown; Glucose,Urine (UA) Trace (Negative); Ketones,Urine Negative (Negative); Leukocyte Esterase,Urine Negative (Negative); Nitrite,Urine Negative (Negative); Protein,Urine 1+ (Negative); Urobilinogen,Urine <2.0 mg/dL (<2.0)
--- NOTE | 2021-11-19 17:13 | PN ---
PROGRESS NOTE He remains on Flagyl 500 t.i.d. orally and Zosyn for pancolitis. He is back on chopped diet at this time. Labs show white count of 23.53, which are improved. Neutrophil count down to 20,000. Sodium 134, potassium is 3.7, glucose is mid 100s to 200s, calcium is up to 7. It is still low. We are going to increase the diet. Continue antibiotics. Home in a few days. Going to go to rehab in a few days. He continues to improve. Negative for C diff. He is up in bed, talking, appropriate. Lungs are clear. Cardiovascular S1, S2. GI is soft, nontender. ASSESSMENT: 1. Slater colitis. 2. Sepsis, severe. 3. Leukocytosis improved. 4. Dehydration, improved. 5. Mental status encephalopathy. 6. Delirium, improved. PROGNOSIS: Guarded. Continue broad-spectrum antibiotics. Hold steroids. Prognosis is fairly good. He will need a hiatal hernia repair as an outpatient. Dr. Guerrier has agreed to do it. MMODL / IJN: [id number] /
[2021-11-19] MEDS ORDERED: ONDANSETRON 4 MG/2 ML VIAL IVP PRN (18:08)
--- NOTE | 2021-11-19 19:00 | P.PN ---
Subjective Progress Note Date: 11/19/21 Principal diagnosis: leukocytosis and increased hemoglobin and hematocrit Acutely ill patient with increased H/H, no evidence for immediate intervention with phelobotomy in this situation. Objective - Vital Signs Vital signs: Vital Signs Temp 96.8 F L 11/19/21 07:31 Pulse 52 L 11/19/21 08:49 Resp 17 11/19/21 07:31 BP 113/82 11/19/21 07:31 Pulse Ox 96 11/19/21 07:31 FiO2 Intake & Output 11/18/21 11/19/21 11/19/21 18:59 06:59 18:59 Intake Total 780 Balance 780 Weight 104.326 kg Intake: Oral 780 Other: Voiding Method External Catheter External Catheter # Voids 1 # Bowel Movements 1 - Exam - Constitutional General appearance: Present: average body habitus, cooperative, mild distress - EENT EENT Comment(s): very dry mucus membranes ENT: Present: hearing grossly normal - Respiratory Details: resp even and unlabored at rest, congested cough - Gastrointestinal General gastrointestinal: Present: soft, tenderness (rebound) - Integumentary Integumentary Comment(s): thin skin, mult bruises - Musculoskeletal Musculoskeletal: Present: generalized weakness - Psychiatric Psychiatric Comment(s): alert, oriented to self and place - Labs CBC & Chem 7: 11/19/21 04:13 11/19/21 04:13 Labs: Abnormal Lab Results - Last 24 Hours (Table) 11/18/21 11/18/21 11/19/21 Range/Units 11:50 11:50 04:13 WBC 25.0 H (3.8-10.6) k/uL RBC (4.40-5.60) X 10*6/uL Hgb 17.7 H (13.0-17.5) gm/dL Hct 56.3 H (39.0-53.0) % Plt Count 100 L (150-450) k/uL Immature Gran # (0.00-0.04) X 10*3/uL Neutrophils # 22.7 H (1.3-7.7) k/uL Lymphocytes # 0.2 L (1.0-4.8) k/uL Monocytes # 1.9 H (0-1.0) k/uL Eosinophils # (0.04-0.35) X 10*3/uL Sodium 129 L 134 L (137-145) mmol/L Chloride 108 H (98-107) mmol/L Carbon Dioxide 12 L (22-30) mmol/L BUN 27 H (9-20) mg/dL Est GFR (CKD-EPI)AfAm 52.4 L (60.0-200.0) Est GFR (CKD-EPI)NonAf 45.2 L (60.0-200.0) Glucose 228 H 193 H (74-99) mg/dL Calcium 6.4 L* 7.0 L (8.4-10.2) mg/dL AST 43 H (14-35) U/L ALT 50 H (10-49) U/L Total Protein 3.5 L (6.2-8.2) g/dL Albumin 1.8 L (3.8-4.9) g/dL Albumin/Globulin Ratio 1.06 L (1.60-3.17) g/dL 11/19/21 Range/Units 04:13 WBC 23.53 H (3.8-10.6) k/uL RBC 6.15 H (4.40-5.60) X 10*6/uL Hgb 18.8 H (13.0-17.5) gm/dL Hct 55.1 H (39.0-53.0) % Plt Count 108 L (150-450) k/uL Immature Gran # 0.31 H (0.00-0.04) X 10*3/uL Neutrophils # 20.70 H (1.3-7.7) k/uL Lymphocytes # 0.45 L (1.0-4.8) k/uL Monocytes # 2.00 H (0-1.0) k/uL Eosinophils # 0 L (0.04-0.35) X 10*3/uL Sodium (137-145) mmol/L Chloride (98-107) mmol/L Carbon Dioxide (22-30) mmol/L BUN (9-20) mg/dL Est GFR (CKD-EPI)AfAm (60.0-200.0) Est GFR (CKD-EPI)NonAf (60.0-200.0) Glucose (74-99) mg/dL Calcium (8.4-10.2) mg/dL AST (14-35) U/L ALT (10-49) U/L Total Protein (6.2-8.2) g/dL Albumin (3.8-4.9) g/dL Albumin/Globulin Ratio (1.60-3.17) g/dL Microbiology - Last 24 Hours (Table) 11/18/21 12:57 Stool Culture - Preliminary Stool 11/14/21 21:30 Stool Culture - Final Stool 11/12/21 18:45 Blood Culture - Final Blood No Growth after 144 hours 11/12/21 18:53 Blood Culture - Final Blood No Growth after 144 hours Assessment and Plan Plan: Assessment and Plan (1) Leukocytosis Current Visit: Yes Status: Acute Priority: Medium Code(s): D72.829 - ELEVATED WHITE BLOOD CELL COUNT, UNSPECIFIED SNOMED Code(s): 085569164 Plan: Suspect leukocytosis is multifactorial-reactive to infection, chronic steroid use. Await resolution of underlying problem and Further work up will be considered if abnormal lab values progress after treatment for acute infectious inflammatory illness. Lactic acid did increase. Michael Puleren follows Expect resolution of CBC abnormalities with treatment of underlying problem. No data to support acute phlebotomy in patient with acute illness presenting with elevated hemo/hct due to an underlying infectious or inflammatory source COntinue IVF.
--- NOTE | 2021-11-19 19:13 | P.PN ---
Subjective Progress Note Date: 11/18/21 Principal diagnosis: Sepsis due to diffuse colitis with a differential diagnoses of nonspecific colitis versus infectious colitis, patient has been on broad-spectrum antibiotics, aggressive rehydration ID workup is in progress, patient will benefit from endoscopy Asthma and chronic intermittent, overall stable on bronchodilators and maintenance prednisone Chronic dermatitis on prednisone COVID-19 infection History of CVA Advanced dementia exam is disease Coronary artery disease and stent placement 11/18/2021, patient seen and evaluated examined, patient is slightly more comfortable today less pain able to tolerate clear liquid diet also had a bowel movement, general surgery is following white cell count remains elevated 25,000 however stable hemoglobin respiratory status is stable we'll continue to observe closely 11/17/2021, patient seen eval examined during the rounds patient was on clear liquid diet has abdominal pain and distention again nothing by mouth, surgery has been evaluating the patient, patient is mentally more awake now, oriented 1-2, remains pleasantly confused, patient has some upper respiratory secretions which were improved and relieved with bronchodilator therapy no lungs are fairly clear to auscultation with stable oxygen saturation remains on room air 11/16/2021, patient seen eval examined during rounds labs reviewed medications reviewed mental status improved S patient is more coherent oriented 1-2 follow simple commands patient does have some gurgling sounds appear to be coming from upper airway however no overt sign of aspiration has noted however patient has been tolerating clear liquid diet fairly well, general surgery is following, computed tomography scan of the chest revealed bilateral pleural effusion which is progressive along with subsegmental atelectasis, 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 diffuse thickening of the small bowel without bowel obstruction, thickening of colon with surrounding fat stranding most evident on her left side suggestive of acute colitis differential diagnoses being inflammatory infectious or ischemic general surgery is following currently being considered for conservative care, white cell count is down to 27,700 platelet count 136, patient is on Solu-Medrol Flagyl as well as Zosyn 11/15/2021 patient is relatively more responsive now intermittently complains of pain has been given a gram of morphine now he is more somnolent however family history thing patient is more responsive remains on broad-spectrum antibiotics surgery on consult, along with supportive care 11/14/2021, patient seen and evaluated examined remains very weak and somnolent but arousable mumbles intermittently, labs from today reviewed white cell count is 45,000 hemoglobin and hematocrit 18/55 platelet count 200,000, lactic acid remains elevated, stool for C. diff is negative suspicion of diffuse ischemic colitis would recommend surgical consult Patient is a 86-year-old male well-known to me with a history of asthma in the past along with multiple complex medical problems and issues patient was diagnosed as COVID-19 infection about 14 days ago, postinfection become weak with rapidly declining status also had intermittent aspiration episodes of abdo nomi pain and diarrhea and loose stool, poor appetite came into the hospital for further evaluation along with family member due to failure to thrive, on arrival noted to have white cell count of 48,000 with hemoglobin of 17.8, sodium 131, rotation of 5, BUN/creatinine 49 and 1.6, lactic acid is 3.6 on arrival chest x-ray revealed large hiatal hernia no active pulmonary process, computed tomography scan no acute intracranial process with remote lacunar injury is seen with some white matter changes due to prior stroke, computed tomography scan of the chest abdominal and pelvis no significant pathology noted and lung and pleural space airways are patent, no adenopathy is seen, and large hiatal hernia seen, however abdominal CAT scan is positive for large bowel thickening extended to sigmoid colon with diverticula and no evidence of abscess, extensive colitis involving the majority of the colon seen no definite diverticulitis have been noted, currently patient is being treated with bronchodilator and continuation of his home medicines with IV Zosyn and vancomycin, patient has been on chronic maintenance dose of prednisone 5 mg for his chronic dermatitis as well as asthma per family he is slightly more responsive today compared to yesterday with hydration. ID has been consulted blood cultures have been drawn including C. difficile and stool culture Objective - Vital Signs Vital signs: Vital Signs Temp 97.5 F L 11/18/21 19:10 Pulse 64 11/18/21 21:30 Resp 18 11/18/21 19:10 BP 113/72 11/18/21 19:10 Pulse Ox 96 11/18/21 19:10 FiO2 Intake & Output 11/18/21 11/18/21 11/19/21 06:59 18:59 06:59 Intake Total 780 Balance 780 Intake: Oral 780 Other: Voiding Method External Catheter External Catheter External Catheter # Voids 2 1 # Bowel Movements 1 1 - Exam - Constitutional General appearance: average body habitus, disheveled - EENT Eyes: EOMI, PERRLA Ears: bilateral: normal - Neck Neck: normal ROM Carotids: bilateral: upstroke normal Thyroid: bilateral: normal size - Respiratory Respiratory: bilateral: CTA - Cardiovascular Rhythm: regular Heart sounds: normal: S1, S2 - Gastrointestinal General gastrointestinal: decreased bowel sounds - Integumentary Integumentary: normal turgor - Musculoskeletal Musculoskeletal: generalized weakness - Labs CBC & Chem 7: 11/19/21 04:13 11/19/21 04:13 Labs: Abnormal Lab Results - Last 24 Hours (Table) 11/18/21 11/18/21 Range/Units 11:50 11:50 WBC 25.0 H (3.8-10.6) k/uL Hgb 17.7 H (13.0-17.5) gm/dL Hct 56.3 H (39.0-53.0) % Plt Count 100 L (150-450) k/uL Neutrophils # 22.7 H (1.3-7.7) k/uL Lymphocytes # 0.2 L (1.0-4.8) k/uL Monocytes # 1.9 H (0-1.0) k/uL Sodium 129 L (137-145) mmol/L Chloride 108 H (98-107) mmol/L Carbon Dioxide 12 L (22-30) mmol/L BUN 27 H (9-20) mg/dL Glucose 228 H (74-99) mg/dL Calcium 6.4 L* (8.4-10.2) mg/dL Microbiology - Last 24 Hours (Table) 11/12/21 18:45 Blood Culture - Final Blood No Growth after 144 hours 11/12/21 18:53 Blood Culture - Final Blood No Growth after 144 hours 11/14/21 21:30 Stool Culture - Final Stool Assessment and Plan Assessment: Sepsis due to diffuse colitis with a differential diagnoses of nonspecific colitis versus ischemic colitis, patient has been on broad-spectrum antibiotics, aggressive rehydration ID workup is in progress, general surgery following patient is nothing by mouth currently Bilateral pleural effusion Bilateral basal compressive atelectasis Asthma and chronic intermittent, overall stable on bronchodilators and maintenance prednisone Chronic dermatitis on prednisone COVID-19 infection History of CVA Advanced dementia exam is disease Coronary artery disease and stent placement Plan: Overall plan as above continue monitor closely repeat labs tomorrow appreciate surgical evaluation Monitor observe on clear liquid diet Continue IV fluids to 75 mL an hour before consideration of diuresis Agree with plans for nothing by mouth and surgical evaluation Time with Patient: Greater than 30
--- NOTE | 2021-11-19 19:15 | P.PN ---
Subjective Progress Note Date: 11/19/21 Principal diagnosis: Sepsis due to diffuse colitis with a differential diagnoses of nonspecific colitis versus infectious colitis, patient has been on broad-spectrum antibiotics, aggressive rehydration ID workup is in progress, patient will benefit from endoscopy Asthma and chronic intermittent, overall stable on bronchodilators and maintenance prednisone Chronic dermatitis on prednisone COVID-19 infection History of CVA Advanced dementia exam is disease Coronary artery disease and stent placement 11/19/2021, patient seen eval examined during the rounds labs reviewed medications reviewed, patient was started on solid food now he is complaining of severe pain also in mild respiratory distress oxygen saturation however stable, I have discussed with RN patient has order for Zofran and morphine will proceed with that probably best to keep him nothing by mouth tonight and keep him on clear liquid diet if remains stable 11/18/2021, patient seen and evaluated examined, patient is slightly more comfortable today less pain able to tolerate clear liquid diet also had a bowel movement, general surgery is following white cell count remains elevated 25,000 however stable hemoglobin respiratory status is stable we'll continue to observe closely 11/17/2021, patient seen eval examined during the rounds patient was on clear liquid diet has abdominal pain and distention again nothing by mouth, surgery has been evaluating the patient, patient is mentally more awake now, oriented 1-2, remains pleasantly confused, patient has some upper respiratory secretions which were improved and relieved with bronchodilator therapy no lungs are fairly clear to auscultation with stable oxygen saturation remains on room air 11/16/2021, patient seen eval examined during rounds labs reviewed medications reviewed mental status improved S patient is more coherent oriented 1-2 follow simple commands patient does have some gurgling sounds appear to be coming from upper airway however no overt sign of aspiration has noted however patient has been tolerating clear liquid diet fairly well, general surgery is following, computed tomography scan of the chest revealed bilateral pleural effusion which is progressive along with subsegmental atelectasis, 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 diffuse thickening of the small bowel without bowel obstruction, thickening of colon with surrounding fat stranding most evident on her left side suggestive of acute colitis differential diagnoses being inflammatory infectious or ischemic general surgery is following currently being considered for conservative care, white cell count is down to 27,700 platelet count 136, patient is on Solu-Medrol Flagyl as well as Zosyn 11/15/2021 patient is relatively more responsive now intermittently complains of pain has been given a gram of morphine now he is more somnolent however family history thing patient is more responsive remains on broad-spectrum antibiotics surgery on consult, along with supportive care 11/14/2021, patient seen and evaluated examined remains very weak and somnolent but arousable mumbles intermittently, labs from today reviewed white cell count is 45,000 hemoglobin and hematocrit 18/55 platelet count 200,000, lactic acid re dean elevated, stool for C. diff is negative suspicion of diffuse ischemic colitis would recommend surgical consult Patient is a 86-year-old male well-known to me with a history of asthma in the past along with multiple complex medical problems and issues patient was diagnosed as COVID-19 infection about 14 days ago, postinfection become weak with rapidly declining status also had intermittent aspiration episodes of abdominal pain and diarrhea and loose stool, poor appetite came into the [facility] evaluation along with family member due to failure to thrive, on arrival noted to have white cell count of 48,000 with hemoglobin of 17.8, sodium 131, rotation of 5, BUN/creatinine 49 and 1.6, lactic acid is 3.6 on arrival chest x-ray revealed large hiatal hernia no active pulmonary process, computed tomography scan no acute intracranial process with remote lacunar injury is seen with some white matter changes due to prior stroke, computed tomography scan of the chest abdominal and pelvis no significant pathology noted and lung and pleural space airways are patent, no adenopathy is seen, and large hiatal hernia seen, however abdominal CAT scan is positive for large bowel thickening extended to sigmoid colon with diverticula and no evidence of abscess, extensive colitis involving the majority of the colon seen no definite diverticulitis have been noted, currently patient is being treated with bronchodilator and continuation of his home medicines with IV Zosyn and vancomycin, patient has been on chronic maintenance dose of prednisone 5 mg for his chronic dermatitis as well as asthma per family he is slightly more responsive today compared to yesterday with hydration. ID has been consulted blood cultures have been drawn including C. difficile and stool culture Objective - Vital Signs Vital signs: Vital Signs Temp 97.2 F L 11/19/21 18:00 Pulse 71 11/19/21 18:09 Resp 16 11/19/21 18:09 BP 97/75 11/19/21 18:09 Pulse Ox 96 11/19/21 18:09 FiO2 Intake & Output 11/19/21 11/19/21 11/20/21 06:59 18:59 06:59 Intake Total 240 Output Total 600 Balance -360 Weight 104.326 kg Intake: Oral 240 Output: Urine 600 Other: Voiding Method External Catheter External Catheter # Bowel Movements 2 - Exam - Constitutional General appearance: average body habitus, disheveled - EENT Eyes: EOMI, PERRLA Ears: bilateral: normal - Neck Neck: normal ROM Carotids: bilateral: upstroke normal Thyroid: bilateral: normal size - Respiratory Respiratory: bilateral: CTA - Cardiovascular Rhythm: regular Heart sounds: normal: S1, S2 - Gastrointestinal General gastrointestinal: decreased bowel sounds - Integumentary Integumentary: normal turgor - Musculoskeletal Musculoskeletal: generalized weakness - Labs CBC & Chem 7: 11/19/21 04:13 11/19/21 04:13 Labs: Abnormal Lab Results - Last 24 Hours (Table) 11/19/21 11/19/21 11/19/21 Range/Units 04:13 04:13 14:58 WBC 23.53 H (4.50-10.00) X 10*3/uL RBC 6.15 H (4.40-5.60) X 10*6/uL Hgb 18.8 H (13.0-17.0) g/dL Hct 55.1 H (39.6-50.0) % Plt Count 108 L (140-440) X 10*3/uL Immature Gran # 0.31 H (0.00-0.04) X 10*3/uL Neutrophils # 20.70 H (1.80-7.70) X 10*3/uL Lymphocytes # 0.45 L (0.90-5.00) X 10*3/uL Monocytes # 2.00 H (0.20-1.00) X 10*3/uL Eosinophils # 0 L (0.04-0.35) X 10*3/uL Sodium 134 L (135-145) mmol/L Est GFR (CKD-EPI)AfAm 52.4 L (60.0-200.0) Est GFR (CKD-EPI)NonAf 45.2 L (60.0-200.0) Glucose 193 H (70-110) mg/dL Calcium 7.0 L (8.7-10.3) mg/dL AST 43 H (14-35) U/L ALT 50 H (10-49) U/L Total Protein 3.5 L (6.2-8.2) g/dL Albumin 1.8 L (3.8-4.9) g/dL Albumin/Globulin Ratio 1.06 L (1.60-3.17) g/dL Ur Specific Harvest 1.050 H (1.001-1.035) Urine Protein 1+ H (Negative) Urine Glucose (UA) Trace H (Negative) Calcium Oxalate Crystal Occasional H (None) /hpf Amorphous Sediment Moderate H (None) /hpf Microbiology - Last 24 Hours (Table) 11/18/21 12:57 Stool Culture - Preliminary Stool 11/14/21 21:30 Stool Culture - Final Stool 11/12/21 18:45 Blood Culture - Final Blood No Growth after 144 hours 11/12/21 18:53 Blood Culture - Final Blood No Growth after 144 hours Assessment and Plan Assessment: Sepsis due to diffuse colitis with a differential diagnoses of nonspecific colitis versus ischemic colitis, patient has been on broad-spectrum antibiotics, aggressive rehydration ID workup is in progress, general surgery following patient is nothing by mouth currently Bilateral pleural effusion Bilateral basal compressive atelectasis Asthma and chronic intermittent, overall stable on bronchodilators and maintenance prednisone Chronic dermatitis on prednisone COVID-19 infection History of CVA Advanced dementia and Alzheimer's disease Coronary artery disease and stent placement Plan: Overall plan as above continue monitor closely repeat labs tomorrow appreciate surgical evaluation Monitor observe on clear liquid diet Continue IV fluids to 75 mL an hour before consideration of diuresis Agree with plans for nothing by mouth and surgical evaluation Time with Patient: Greater than 30
--- NOTE | 2021-11-19 21:43 | P.PN ---
Subjective Progress Note Date: 11/17/21 Principal diagnosis: Leukocytosis Patient is 86-year-old male was recently treated outpatient setting for covid 19 pneumonia treated with Paxlovid , presented to the hospital with weakness decrease oral intake and diarrhea in this patient did have significantly elevated white count on admission. On today's evaluation that is 11/17/2021, patient remains to be afebrile, patient is breathing comfortably on room air, patient denies having any chest pain shortness breath or cough , abdominal pain is currently controlled and no worsening diarrhea reported no blood in his stool Objective - Vital Signs Vital signs: Vital Signs Temp 97.6 F 11/17/21 07:26 Pulse 54 L 11/17/21 11:39 Resp 16 11/17/21 07:26 BP 108/69 11/17/21 07:26 Pulse Ox 96 11/17/21 07:26 FiO2 Intake & Output 11/16/21 11/17/21 11/17/21 18:59 06:59 18:59 Intake Total 720 Output Total 1400 950 Balance -680 -950 Intake: Oral 720 Output: Urine 1400 950 Other: Voiding Method External Catheter External Catheter External Catheter # Voids 1 # Bowel Movements 3 1 - Exam GENERAL DESCRIPTION: An elderly male lying in bed in no distress RESPIRATORY SYSTEM: Unlabored breathing , decreased breath sounds at bases HEART: S1 S2 regular rate and rhythm , ABDOMEN: Soft , mild lower abdominal tenderness EXTREMITIES: No edema feet - Labs CBC & Chem 7: 11/19/21 04:13 11/19/21 04:13 Labs: Abnormal Lab Results - Last 24 Hours (Table) 11/17/21 11/17/21 Range/Units 04:33 04:33 WBC 26.3 H (3.8-10.6) k/uL Plt Count 146 L (150-450) k/uL Neutrophils # 23.8 H (1.3-7.7) k/uL Lymphocytes # 0.4 L (1.0-4.8) k/uL Monocytes # 1.8 H (0-1.0) k/uL Sodium 131 L (137-145) mmol/L Carbon Dioxide 18 L (22-30) mmol/L BUN 24 H (9-20) mg/dL Glucose 132 H (74-99) mg/dL Calcium 6.5 L (8.4-10.2) mg/dL Total Protein 3.6 L (6.3-8.2) g/dL Albumin 1.6 L (3.5-5.0) g/dL Microbiology - Last 24 Hours (Table) 11/14/21 21:30 Stool Culture - Preliminary Stool 11/12/21 18:45 Blood Culture - Preliminary Blood No Growth after 96 hours 11/12/21 18:53 Blood Culture - Preliminary Blood No Growth after 96 hours Assessment and Plan (1) Leukocytosis Current Visit: Yes Status: Acute Priority: Medium Code(s): D72.829 - ELEVATED WHITE BLOOD CELL COUNT, UNSPECIFIED SNOMED Code(s): 094722014 Plan: 1patient with significant elevated white count which is likely multifactorial in this patient who recently has been exposed to steroids for his covid 19 pneum onia treatment and the patient also noted to have significant dehydration as well as elevated lactic acid and tenderness on the left side of the colon With a question of possible ischemic versus nonischemic colitis and need to cover for the polymicrobial enteric gram-negative tera. 2CT of abdominal pelvis which shows evidence of colitis, patient has been evaluated by GI and general surgery are following the patient 3stool for C. diff negative stool cultures are negative as well 4patient to continue with the Zosyn and IV fluids and serial clinical response and will monitor clinical course closely
--- NOTE | 2021-11-19 21:44 | P.PN ---
Subjective Progress Note Date: 11/19/21 Principal diagnosis: Leukocytosis Patient is 86-year-old male was recently treated outpatient setting for covid 19 pneumonia treated with Paxlovid , presented to the hospital with weakness decrease oral intake and diarrhea in this patient did have significantly elevated white count on admission. On today's evaluation that is 11/18/2021, patient is afebrile, patient is breathing comfortably on room air, patient denies chest pain shortness breath or cough , the patient abdominal pain is currently controlled and no worsening diarrhea reported by the nursing staff Objective - Vital Signs Vital signs: Vital Signs Temp 96.8 F L 11/19/21 07:31 Pulse 50 L 11/19/21 11:48 Resp 17 11/19/21 07:31 BP 113/82 11/19/21 07:31 Pulse Ox 96 11/19/21 07:31 FiO2 Intake & Output 11/18/21 11/19/21 11/19/21 18:59 06:59 18:59 Intake Total 780 Balance 780 Weight 104.326 kg Intake: Oral 780 Other: Voiding Method External Catheter External Catheter External Catheter # Voids 1 # Bowel Movements 1 - Exam GENERAL DESCRIPTION: An elderly male lying in bed in no distress RESPIRATORY SYSTEM: Unlabored breathing , decreased breath sounds at bases HEART: S1 S2 regular rate and rhythm , ABDOMEN: Soft , mild lower abdominal tenderness EXTREMITIES: No edema feet - Labs CBC & Chem 7: 11/19/21 04:13 11/19/21 04:13 Labs: Abnormal Lab Results - Last 24 Hours (Table) 11/19/21 11/19/21 Range/Units 04:13 04:13 WBC 23.53 H (4.50-10.00) X 10*3/uL RBC 6.15 H (4.40-5.60) X 10*6/uL Hgb 18.8 H (13.0-17.0) g/dL Hct 55.1 H (39.6-50.0) % Plt Count 108 L (140-440) X 10*3/uL Immature Gran # 0.31 H (0.00-0.04) X 10*3/uL Neutrophils # 20.70 H (1.80-7.70) X 10*3/uL Lymphocytes # 0.45 L (0.90-5.00) X 10*3/uL Monocytes # 2.00 H (0.20-1.00) X 10*3/uL Eosinophils # 0 L (0.04-0.35) X 10*3/uL Sodium 134 L (135-145) mmol/L Est GFR (CKD-EPI)AfAm 52.4 L (60.0-200.0) Est GFR (CKD-EPI)NonAf 45.2 L (60.0-200.0) Glucose 193 H (70-110) mg/dL Calcium 7.0 L (8.7-10.3) mg/dL AST 43 H (14-35) U/L ALT 50 H (10-49) U/L Total Protein 3.5 L (6.2-8.2) g/dL Albumin 1.8 L (3.8-4.9) g/dL Albumin/Globulin Ratio 1.06 L (1.60-3.17) g/dL Microbiology - Last 24 Hours (Table) 11/18/21 12:57 Stool Culture - Preliminary Stool 11/14/21 21:30 Stool Culture - Final Stool 11/12/21 18:45 Blood Culture - Final Blood No Growth after 144 hours 11/12/21 18:53 Blood Culture - Final Blood No Growth after 144 hours Assessment and Plan (1) Leukocytosis Current Visit: Yes Status: Acute Priority: Medium Code(s): D72.829 - ELEVATED WHITE BLOOD CELL COUNT, UNSPECIFIED SNOMED Code(s): 122796928 Plan: 1patient with significant elevated white count which is likely multifactorial in this patient who recently has been exposed to steroids for his covid 19 pneumonia treatment and the patient also noted to have significant dehydration as well as elevated lactic acid and tenderness on the left side of the colon With a question of possible ischemic versus nonischemic colitis and need to cover for the polymicrobial enteric gram-negative tera. 2CT of abdominal pelvis which shows evidence of colitis, patient has been evaluated by GI and general surgery are following the patient 3stool for C. diff negative stool cultures are negative as well 4patient has shown some clinical improvement and will continue with the Zosyn and IV fluids, Time with Patient: Less than 30
--- NOTE | 2021-11-19 21:45 | P.PN ---
Subjective Progress Note Date: 11/18/21 Principal diagnosis: Leukocytosis Patient is 86-year-old male was recently treated outpatient setting for covid 19 pneumonia treated with Paxlovid , presented to the hospital with weakness decrease oral intake and diarrhea in this patient did have significantly elevated white count on admission. On today's evaluation that is 11/18/2021, patient remains to be afebrile, patient is breathing comfortably on room air, patient denies chest pain shortness breath or cough , the patient abdominal pain is currently controlled and diarrhea has slowed down Objective - Vital Signs Vital signs: Vital Signs Temp 97.5 F L 11/18/21 07:01 Pulse 65 11/18/21 08:30 Resp 15 11/18/21 07:01 BP 110/71 11/18/21 07:01 Pulse Ox 98 11/18/21 07:01 FiO2 Intake & Output 11/17/21 11/18/21 11/18/21 18:59 06:59 18:59 Intake Total 180 420 Balance 180 420 Weight 104.326 kg Intake: Oral 180 420 Other: Voiding Method External Catheter External Catheter External Catheter # Voids 3 2 1 # Bowel Movements 1 1 1 - Exam GENERAL DESCRIPTION: An elderly male lying in bed in no distress RESPIRATORY SYSTEM: Unlabored breathing , decreased breath sounds at bases HEART: S1 S2 regular rate and rhythm , ABDOMEN: Soft , mild lower abdominal tenderness EXTREMITIES: No edema feet - Labs CBC & Chem 7: 11/19/21 04:13 11/19/21 04:13 Labs: Abnormal Lab Results - Last 24 Hours (Table) 11/18/21 11/18/21 Range/Units 11:50 11:50 WBC 25.0 H (3.8-10.6) k/uL Hgb 17.7 H (13.0-17.5) gm/dL Hct 56.3 H (39.0-53.0) % Plt Count 100 L (150-450) k/uL Neutrophils # 22.7 H (1.3-7.7) k/uL Lymphocytes # 0.2 L (1.0-4.8) k/uL Monocytes # 1.9 H (0-1.0) k/uL Sodium 129 L (137-145) mmol/L Chloride 108 H (98-107) mmol/L Carbon Dioxide 12 L (22-30) mmol/L BUN 27 H (9-20) mg/dL Glucose 228 H (74-99) mg/dL Calcium 6.4 L* (8.4-10.2) mg/dL Microbiology - Last 24 Hours (Table) 11/14/21 21:30 Stool Culture - Final Stool 11/12/21 18:45 Blood Culture - Preliminary Blood No Growth after 120 hours 11/12/21 18:53 Blood Culture - Preliminary Blood No Growth after 120 hours Assessment and Plan (1) Leukocytosis Current Visit: Yes Status: Acute Priority: Medium Code(s): D72.829 - ELEVATED WHITE BLOOD CELL COUNT, UNSPECIFIED SNOMED Code(s): 959659504 Plan: 1patient with significant elevated white count which is likely multifactorial in this patient who recently has been exposed to steroids for his covid 19 pneumonia treatment and the patient also noted to have significant dehydration as well as elevated lactic acid and tenderness on the left side of the colon With a question of possible ischemic versus nonischemic colitis and need to cover for the polymicrobial enteric gram-negative trea. 2CT of abdominal pelvis which shows evidence of colitis, patient has been evaluated by GI and general surgery are following the patient 3stool for C. diff negative stool cultures are negative as well 4patient is tolerating improving and will continue with current treatment Zosyn and IV fluids, Time with Patient: Less than 30
[2021-11-20] MEDS: ALBUTEROL NEBULIZED 2.5 MG/3 ML INHALATION SCH ×4 (07:22→21:28)
[2021-11-20] MEDS: BUDESONIDE 0.5 MG/2 ML NEBU INHALATION SCH ×2 (07:22→21:28)
[2021-11-20] MEDS: MONTELUKAST 10 MG TAB PO SCH (08:12)
[2021-11-20] MEDS: MEMANTINE 5 MG TAB PO SCH (08:12)
[2021-11-20] MEDS: ISOSORBIDE MONONITRATE ER 30 MG TAB.ER.24H PO SCH (08:12)
[2021-11-20] MEDS: DONEPEZIL 10 MG TAB PO SCH (08:12)
[2021-11-20] MEDS: METOPROLOL SUCCINATE (ER) 25 MG TAB.ER.24H PO SCH (08:12)
[2021-11-20] MEDS: FAMOTIDINE 20 MG/2 ML VIAL IV SCH (08:12)
[2021-11-20] MEDS: PANTOPRAZOLE 40 MG/10 ML VIAL IVP SCH ×2 (08:12→20:06)
[2021-11-20] MEDS: LORATADINE 10 MG TAB PO SCH (08:12)
[2021-11-20] MEDS: ATORVASTATIN 20 MG TAB PO SCH (08:12)
[2021-11-20] MEDS: PIPERACILLIN-TAZOBACTAM 3.375 GM in SODIUM CHLORIDE 0.9% 100 ML IVPB SCH ×2 (08:15→17:42)
[2021-11-20] MEDS: SODIUM CHLORIDE 0.9% 1,000 ML IV SCH (08:16)
[2021-11-20] MEDS: FLUoxetine HCL 10 MG CAP PO SCH (08:19)
[2021-11-20] MEDS: predniSONE 5 MG TAB PO SCH (08:19)
[2021-11-20 09:32] LABS: Basophils % (A) 0.4 %; Eosinophils # (A) 0 X 10*3/uL (0.04-0.35); Eosinophils % (A) 0 %; HCT 49.9 % (39.6-50.0); HGB 16.8 g/dL (13.0-17.0); Immature Grans, Automated 1.2 %; Lymphocytes # (A) 0.47 X 10*3/uL (0.90-5.00); Lymphocytes % (A) 1.8 %; MCH 30.4 pg (27.0-32.0); MCHC 33.7 g/dL (32.0-37.0); MCV 90.4 fL (80.0-97.0); Mean Platelet Volume 11.8 fL (9.5-12.2); Monocytes # (A) 1.81 X 10*3/uL (0.20-1.00); NRBC Per 100 WBC 0 /100 WBCS (0.0-0.0); Neutrophils # (A) 23.06 X 10*3/uL (1.80-7.70); Neutrophils % (A) 89.6 %; Platelet Count 63 X 10*3/uL (140-440); RBC 5.52 X 10*6/uL (4.40-5.60); RDW 13.9 % (11.5-14.5); WBC 25.76 X 10*3/uL (4.50-10.00)
[2021-11-20] MEDS ORDERED: FUROSEMIDE 10 MG/ML 4 ML VIAL IV STA (09:43)
[2021-11-20 10:14] LABS: African American GFR (CKD) 52.4 (60.0-200.0); Albumin 2.4 g/dL (3.8-4.9); Albumin/Globulin Ratio 1.85 (1.60-3.17); Anion Gap 9.2 mmol/L (10.00-18.00); BUN/Creat Ratio 21.86 Ratio (12.00-20.00); Blood Urea Nitrogen 30.6 mg/dL (9.0-27.0); Calcium 7.3 mg/dL (8.7-10.3); Carbon Dioxide 21.8 mmol/L (20.0-27.5); Globulin 1.3 g/dL (1.6-3.3); Non-African American GFR(CKD) 45.2 (60.0-200.0); Potassium 4.3 mmol/L (3.5-5.5); Total Bilirubin 1.4 mg/dL (0.30-1.20); Total Protein 3.7 g/dL (6.2-8.2)
--- NOTE | 2021-11-20 11:17 | P.PN ---
Subjective Patient is seen in follow for acute kidney injury. Renal function stable. Nonoliguric. Patient is not a reliable historian. Receiving IV fluids. Hemodynamically stable. Vital signs are stable. General: Awake. No acute distress. HEENT: Head exam is unremarkable. LUNGS: Breath sounds decreased. HEART: Rate and Rhythm are regular. ABDOMEN: Soft, no distention. EXTREMITITES: 1+ edema. Objective - Vital Signs Vital signs: Vital Signs Temp 97.9 F 11/20/21 08:00 Pulse 68 11/20/21 11:07 Resp 16 11/20/21 08:00 BP 106/75 11/20/21 08:00 Pulse Ox 93 L 11/20/21 08:00 FiO2 Intake & Output 11/19/21 11/20/21 11/20/21 18:59 06:59 18:59 Intake Total 240 Output Total 600 600 Balance -360 -600 Weight 104.326 kg Intake: Oral 240 Output: Urine 600 600 Other: Voiding Method External Catheter External Catheter Diaper Incontinent External Catheter # Bowel Movements 2 - Labs CBC & Chem 7: 11/20/21 04:51 11/20/21 04:51 Labs: Abnormal Lab Results - Last 24 Hours (Table) 11/19/21 11/20/21 11/20/21 Range/Units 14:58 04:51 04:51 WBC 25.76 H (4.50-10.00) X 10*3/uL Plt Count 63 L (140-440) X 10*3/uL Immature Gran # 0.32 H (0.00-0.04) X 10*3/uL Neutrophils # 23.06 H (1.80-7.70) X 10*3/uL Lymphocytes # 0.47 L (0.90-5.00) X 10*3/uL Monocytes # 1.81 H (0.20-1.00) X 10*3/uL Eosinophils # 0 L (0.04-0.35) X 10*3/uL Immature Plt Fraction 9.0 H (1.1-6.1) % Anion Gap 9.20 L (10.00-18.00) mmol/L BUN 30.6 H (9.0-27.0) mg/dL Est GFR (CKD-EPI)AfAm 52.4 L (60.0-200.0) Est GFR (CKD-EPI)NonAf 45.2 L (60.0-200.0) BUN/Creatinine Ratio 21.86 H (12.00-20.00) Ratio Glucose 126 H (70-110) mg/dL Calcium 7.3 L (8.7-10.3) mg/dL Total Bilirubin 1.40 H (0.30-1.20) mg/dL AST 45 H (14-35) U/L Total Protein 3.7 L (6.2-8.2) g/dL Albumin 2.4 L (3.8-4.9) g/dL Globulin 1.3 L (1.6-3.3) g/dL Ur Specific [place] 1.050 H (1.001-1.035) Urine Protein 1+ H (Negative) Urine Glucose (UA) Trace H (Negative) Calcium Oxalate Crystal Occasional H (None) /hpf Amorphous Sediment Moderate H (None) /hpf Microbiology - Last 24 Hours (Table) 11/18/21 12:57 Stool Culture - Preliminary Stool 11/14/21 21:30 Stool Culture - Final Stool Assessment and Plan Plan: Assessment: 1. Hypovolemic hyponatremia improved with IV hydration. Sodium level 135 today. 2. Acute kidney injury mostly prerenal secondary to hypovolemia. Creatinine peaked at 1.6 this admission and was down to 1.19 - stable at 1.4 today. 3. Colitis. On antibiotics. Surgery following. On full liquid diet. C. diff negative. 4. Hypocalcemia secondary to hypoalbuminemia. Corrected calcium in the normal range. 5. Metabolic acidosis secondary to acute kidney injury and GI losses. Improved with bicarbonate drip. 6. Recent COVID-19 infection. 7. History of coronary stent placement. 8. Hypokalemia from poor intake and intracellular shifting from IV bicarb. Replaced. Better. 9. Lower extremity edema. Plan: Hep-Lock IV fluids. Lasix 40 mg IV once today. Status post 25 g IV albumin given 11/19/2021. Avoid nephrotoxins. Continue to monitor renal function and urine output. Encourage oral intake.
--- NOTE | 2021-11-20 11:54 | P.PN ---
Progress Note - Text Progress Note Date: 11/20/21 Patient states he had severe abdominal pain after eating breakfast. On exam vital signs appear stable. Abdomen soft. There is some minimal tenderness throughout his abdomen. There is no rebound or guarding. Resolving colitis and large paraesophageal hernia. Patient will remain on clear liquid diet. He'll be continued to be observed.
--- NOTE | 2021-11-20 12:15 | P.PN ---
Subjective Progress Note Date: 11/20/21 Principal diagnosis: Sepsis due to diffuse colitis with a differential diagnoses of nonspecific colitis versus infectious colitis, patient has been on broad-spectrum antibiotics, aggressive rehydration ID workup is in progress, patient will benefit from endoscopy Asthma and chronic intermittent, overall stable on bronchodilators and maintenance prednisone Chronic dermatitis on prednisone COVID-19 infection History of CVA Advanced dementia exam is disease Coronary artery disease and stent placement 11/20/2021, patient seen eval examined during the rounds labs reviewed medications reviewed care plan discussed with RN at length patient is back on clear liquid diet tolerating very well more comfortable, in no obvious respiratory distress remains on room air some rhonchi however were audible predominantly coming from upper airway patient advised to cough it up, patient remains on bronchodilator as needed and continuation of home medications labs reviewed white cell count is still high 25,000 labs reviewed indicated above the chronic low-grade inflammatory process, patient remains on IV antibiotics off of steroid 11/19/2021, patient seen eval examined during the rounds labs reviewed medications reviewed, patient was started on solid food now he is complaining of severe pain also in mild respiratory distress oxygen saturation however stable, I have discussed with RN patient has order for Zofran and morphine will proceed with that probably best to keep him nothing by mouth tonight and keep him on clear liquid diet if remains stable 11/18/2021, patient seen and evaluated examined, patient is slightly more comfortable today less pain able to tolerate clear liquid diet also had a bowel movement, general surgery is following white cell count remains elevated 25,000 however stable hemoglobin respiratory status is stable we'll continue to observe closely 11/17/2021, patient seen eval examined during the rounds patient was on clear liquid diet has abdominal pain and distention again nothing by mouth, surgery has been evaluating the patient, patient is mentally more awake now, oriented 1-2, remains pleasantly confused, patient has some upper respiratory secretions which were improved and relieved with bronchodilator therapy no lungs are fairly clear to auscultation with stable oxygen saturation remains on room air 11/16/2021, patient seen eval examined during rounds labs reviewed medications reviewed mental status improved S patient is more coherent oriented 1-2 follow simple commands patient does have some gurgling sounds appear to be coming from upper airway however no overt sign of aspiration has noted however patient has been tolerating clear liquid diet fairly well, general surgery is following, computed tomography scan of the chest revealed bilateral pleural effusion which is progressive along with subsegmental atelectasis, 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 diffuse thickening of the small bowel without bowel obstruction, thickening of colon with surrounding fat stranding most evident on her left side suggestive of acute colitis differential diagnoses being inflammatory infectious or ischemic general surgery is following currently being considered for conservative care, white cell count is down to 27,700 platelet count 136, patient is on Solu-Medrol Flagyl as well as Zosyn 11/15/2021 patient is relatively more responsive now intermittently complains of pain has been given a gram of morphine now he is more somnolent however family history thing patient is more responsive remains on broad-spectrum antibiotics surgery on consult, along with supportive care 11/14/2021, patient seen and evaluated examined remains very weak and somnolent but arousable mumbles intermittently, labs from today reviewed white cell count is 45,000 hemoglobin and hematocrit 18/55 platelet count 200,000, lactic acid remains elevated, stool for C. diff is negative suspicion of diffuse ischemic c olitis would recommend surgical consult Patient is a 86-year-old male well-known to me with a history of asthma in the past along with multiple complex medical problems and issues patient was diagnos ed as COVID-19 infection about 14 days ago, postinfection become weak with rapidly declining status also had intermittent aspiration episodes of abdominal pain and diarrhea and loose stool, poor appetite came into the hospital for further evaluation along with family member due to failure to thrive, on arrival noted to have white cell count of 48,000 with hemoglobin of 17.8, sodium 131, rotation of 5, BUN/creatinine 49 and 1.6, lactic acid is 3.6 on arrival chest x- ray revealed large hiatal hernia no active pulmonary process, computed tomography scan no acute intracranial process with remote lacunar injury is seen with some white matter changes due to prior stroke, computed tomography scan of the chest abdominal and pelvis no significant pathology noted and lung and pleural space airways are patent, no adenopathy is seen, and large hiatal hernia seen, however abdominal CAT scan is positive for large bowel thickening extended to sigmoid colon with diverticula and no evidence of abscess, extensive colitis involving the majority of the colon seen no definite diverticulitis have been noted, currently patient is being treated with bronchodilator and continuation of his home medicines with IV Zosyn and vancomycin, patient has been on chronic maintenance dose of prednisone 5 mg for his chronic dermatitis as well as asthma per family he is slightly more responsive today compared to yesterday with hydration. ID has been consulted blood cultures have been drawn including C. difficile and stool culture Objective - Vital Signs Vital signs: Vital Signs Temp 97.9 F 11/20/21 08:00 Pulse 68 11/20/21 11:07 Resp 16 11/20/21 08:00 BP 106/75 11/20/21 08:00 Pulse Ox 93 L 11/20/21 08:00 FiO2 Intake & Output 11/19/21 11/20/21 11/20/21 18:59 06:59 18:59 Intake Total 240 Output Total 600 600 Balance -360 -600 Weight 104.326 kg Intake: Oral 240 Output: Urine 600 600 Other: Voiding Method External Catheter External Catheter Diaper Incontinent External Catheter # Bowel Movements 2 - Exam - Constitutional General appearance: average body habitus, disheveled - EENT Eyes: EOMI, PERRLA Ears: bilateral: normal - Neck Neck: normal ROM Carotids: bilateral: upstroke normal Thyroid: bilateral: normal size - Respiratory Respiratory: bilateral: CTA - Cardiovascular Rhythm: regular Heart sounds: normal: S1, S2 - Gastrointestinal General gastrointestinal: decreased bowel sounds - Integumentary Integumentary: normal turgor - Musculoskeletal Musculoskeletal: generalized weakness - Labs CBC & Chem 7: 11/20/21 04:51 11/20/21 04:51 Labs: Abnormal Lab Results - Last 24 Hours (Table) 11/19/21 11/20/21 11/20/21 Range/Units 14:58 04:51 04:51 WBC 25.76 H (4.50-10.00) X 10*3/uL Plt Count 63 L (140-440) X 10*3/uL Immature Gran # 0.32 H (0.00-0.04) X 10*3/uL Neutrophils # 23.06 H (1.80-7.70) X 10*3/uL Lymphocytes # 0.47 L (0.90-5.00) X 10*3/uL Monocytes # 1.81 H (0.20-1.00) X 10*3/uL Eosinophils # 0 L (0.04-0.35) X 10*3/uL Immature Plt Fraction 9.0 H (1.1-6.1) % Anion Gap 9.20 L (10.00-18.00) mmol/L BUN 30.6 H (9.0-27.0) mg/dL Est GFR (CKD-EPI)AfAm 52.4 L (60.0-200.0) Est GFR (CKD-EPI)NonAf 45.2 L (60.0-200.0) BUN/Creatinine Ratio 21.86 H (12.00-20.00) Ratio Glucose 126 H (70-110) mg/dL Calcium 7.3 L (8.7-10.3) mg/dL Total Bilirubin 1.40 H (0.30-1.20) mg/dL AST 45 H (14-35) U/L Total Protein 3.7 L (6.2-8.2) g/dL Albumin 2.4 L (3.8-4.9) g/dL Globulin 1.3 L (1.6-3.3) g/dL Ur Specific [place] 1.050 H (1.001-1.035) Urine Protein 1+ H (Negative) Urine Glucose (UA) Trace H (Negative) Calcium Oxalate Crystal Occasional H (None) /hpf Amorphous Sediment Moderate H (None) /hpf Microbiology - Last 24 Hours (Table) 11/18/21 12:57 Stool Culture - Preliminary Stool 11/14/21 21:30 Stool Culture - Final Stool Assessment and Plan Assessment: Sepsis due to diffuse colitis likely ischemic general surgery following patient is being treated conservatively with antibiotics and fluid and electrolyte balance and clear liquid diet Diffuse colitis, management as above Bilateral pleural effusion Bilateral basal compressive atelectasis Asthma and chronic intermittent, overall stable on bronchodilators and maintenance prednisone Chronic dermatitis on prednisone COVID-19 infection History of CVA Advanced dementia and Alzheimer's disease Coronary artery disease and stent placement Plan: Overall plan as above continue monitor closely repeat labs tomorrow appreciate surgical evaluation Monitor observe on clear liquid diet Continue IV fluids Agree with plans for nothing by mouth and surgical evaluation Time with Patient: Greater than 30
[2021-11-20] MEDS: MORPHINE SULFATE 2 MG/ML SYRINGE IVP PRN ×2 (13:51→20:44)
--- NOTE | 2021-11-20 14:02 | P.PN ---
Subjective Progress Note Date: 11/20/21 Principal diagnosis: Leukocytosis Patient is 86-year-old male was recently treated outpatient setting for covid 19 pneumonia treated with Paxlovid , presented to the hospital with weakness decrease oral intake and diarrhea in this patient did have significantly elevated white count on admission. On today's evaluation that is 11/20/2021, patient denies any fever or chills, patient is breathing comfortably on room air, patient denies chest pain shortness breath or cough , the patient denies abdominal pain and diarrhea has slowed down Objective - Vital Signs Vital signs: Vital Signs Temp 97.9 F 11/20/21 08:00 Pulse 68 11/20/21 11:07 Resp 16 11/20/21 08:00 BP 106/75 11/20/21 08:00 Pulse Ox 93 L 11/20/21 08:00 FiO2 Intake & Output 11/19/21 11/20/21 11/20/21 18:59 06:59 18:59 Intake Total 240 Output Total 600 600 Balance -360 -600 Weight 104.326 kg Intake: Oral 240 Output: Urine 600 600 Other: Voiding Method External Catheter External Catheter Diaper Incontinent External Catheter # Bowel Movements 2 - Exam GENERAL DESCRIPTION: An elderly male lying in bed in no distress RESPIRATORY SYSTEM: Unlabored breathing , decreased breath sounds at bases HEART: S1 S2 regular rate and rhythm , ABDOMEN: Soft , mild lower abdominal tenderness EXTREMITIES: No edema feet - Labs CBC & Chem 7: 11/20/21 04:51 11/20/21 04:51 Labs: Abnormal Lab Results - Last 24 Hours (Table) 11/19/21 11/20/21 11/20/21 Range/Units 14:58 04:51 04:51 WBC 25.76 H (4.50-10.00) X 10*3/uL Plt Count 63 L (140-440) X 10*3/uL Immature Gran # 0.32 H (0.00-0.04) X 10*3/uL Neutrophils # 23.06 H (1.80-7.70) X 10*3/uL Lymphocytes # 0.47 L (0.90-5.00) X 10*3/uL Monocytes # 1.81 H (0.20-1.00) X 10*3/uL Eosinophils # 0 L (0.04-0.35) X 10*3/uL Immature Plt Fraction 9.0 H (1.1-6.1) % Anion Gap 9.20 L (10.00-18.00) mmol/L BUN 30.6 H (9.0-27.0) mg/dL Est GFR (CKD-EPI)AfAm 52.4 L (60.0-200.0) Est GFR (CKD-EPI)NonAf 45.2 L (60.0-200.0) BUN/Creatinine Ratio 21.86 H (12.00-20.00) Ratio Glucose 126 H (70-110) mg/dL Calcium 7.3 L (8.7-10.3) mg/dL Total Bilirubin 1.40 H (0.30-1.20) mg/dL AST 45 H (14-35) U/L Total Protein 3.7 L (6.2-8.2) g/dL Albumin 2.4 L (3.8-4.9) g/dL Globulin 1.3 L (1.6-3.3) g/dL Ur Specific [place] 1.050 H (1.001-1.035) Urine Protein 1+ H (Negative) Urine Glucose (UA) Trace H (Negative) Calcium Oxalate Crystal Occasional H (None) /hpf Amorphous Sediment Moderate H (None) /hpf Microbiology - Last 24 Hours (Table) 11/18/21 12:57 Stool Culture - Preliminary Stool 11/14/21 21:30 Stool Culture - Final Stool Assessment and Plan (1) Leukocytosis Current Visit: Yes Status: Acute Priority: Medium Code(s): D72.829 - ELEVATED WHITE BLOOD CELL COUNT, UNSPECIFIED SNOMED Code(s): 570525230 Plan: 1patient with significant elevated white count which is likely multifactorial in this patient who recently has been exposed to steroids for his covid 19 pneumonia treatment and the patient also noted to have significant dehydration as well as elevated lactic acid and tenderness on the left side of the colon With a question of possible ischemic versus nonischemic colitis and need to cover for the polymicrobial enteric gram-negative tera. 2CT of abdominal pelvis which shows evidence of colitis, patient has been evaluated by GI and general surgery are following the patient 3stool for C. diff negative stool cultures are negative as well 4patient has shown clinical improvement and will continue with current treatment Zosyn and IV fluids, and will monitor clinical course closely family at the bedside questions were answered Time with Patient: Less than 30
--- NOTE | 2021-11-20 17:08 | PN ---
PROGRESS NOTE This 86-year-old white male is doing better. When he eats food he still gets abdominal pain. He has been taken back to clear liquids. His white count is elevated at 25,000. He is on broad-spectrum antibiotics for pancolitis, including Zosyn IV. IV steroids have been stopped. His white count went up from 23 to 25, but he is feeling better. Neutrophil count is 23. Creatinine is . Condition is stable. Prognosis guarded. Ambulate as tolerated. Continue on current treatment. Follow up in next 24 to 48 hours. Possibly advance his diet versus have surgery on his severe hernia in his abdomen. Prognosis guarded. MMODL / IJN: [id number] /
[2021-11-21] MEDS: PIPERACILLIN-TAZOBACTAM 3.375 GM in SODIUM CHLORIDE 0.9% 100 ML IVPB SCH ×4 (00:04→23:22)
[2021-11-21 07:18] LABS: African American GFR (CKD) 59 (>60 ml/min/1.73 sqM); Anion Gap 7 mmol/L; Blood Urea Nitrogen 34 mg/dL (9-20); Calcium 6.8 mg/dL (8.4-10.2); Carbon Dioxide 21 mmol/L (22-30); Chloride 103 mmol/L (98-107); Glucose 113 mg/dL (74-99); Magnesium 2.2 mg/dL (1.6-2.3); Non-African American GFR(CKD) 51 (>60 ml/min/1.73 sqM); Potassium 4.1 mmol/L (3.5-5.1); Sodium 131 mmol/L (137-145)
[2021-11-21] MEDS: BUDESONIDE 0.5 MG/2 ML NEBU INHALATION SCH ×2 (08:18→20:33)
[2021-11-21] MEDS: ALBUTEROL NEBULIZED 2.5 MG/3 ML INHALATION SCH ×4 (08:18→20:33)
[2021-11-21] MEDS: ATORVASTATIN 20 MG TAB PO SCH (08:47)
[2021-11-21] MEDS: FAMOTIDINE 20 MG/2 ML VIAL IV SCH (08:47)
[2021-11-21] MEDS: DONEPEZIL 10 MG TAB PO SCH (08:47)
[2021-11-21] MEDS: LORATADINE 10 MG TAB PO SCH (08:48)
[2021-11-21] MEDS: ISOSORBIDE MONONITRATE ER 30 MG TAB.ER.24H PO SCH (08:48)
[2021-11-21] MEDS: FLUoxetine HCL 10 MG CAP PO SCH (08:48)
[2021-11-21] MEDS: MEMANTINE 5 MG TAB PO SCH (08:48)
[2021-11-21] MEDS: predniSONE 5 MG TAB PO SCH (08:49)
[2021-11-21] MEDS: METOPROLOL SUCCINATE (ER) 25 MG TAB.ER.24H PO SCH (08:49)
[2021-11-21] MEDS: MONTELUKAST 10 MG TAB PO SCH (08:49)
[2021-11-21] MEDS: PANTOPRAZOLE 40 MG/10 ML VIAL IVP SCH ×2 (08:49→20:58)
[2021-11-21] MEDS ORDERED: FUROSEMIDE 10 MG/ML 4 ML VIAL IV SCH (09:00)
--- NOTE | 2021-11-21 09:58 | P.PN ---
Subjective Patient is seen in follow for acute kidney injury. Renal function a little better today. Nonoliguric. Patient is not a reliable historian. Hemod ynamically stable. Vital signs are stable. General: Awake. No acute distress. HEENT: Head exam is unremarkable. LUNGS: Breath sounds decreased. HEART: Rate and Rhythm are regular. ABDOMEN: Soft, no distention. EXTREMITITES: 1+ edema. Objective - Vital Signs Vital signs: Vital Signs Temp 98.6 F 11/21/21 02:00 Pulse 80 11/21/21 08:33 Resp 18 11/20/21 20:00 BP 167/82 11/21/21 02:00 Pulse Ox 94 L 11/21/21 02:00 FiO2 Intake & Output 11/20/21 11/21/21 11/21/21 18:59 06:59 18:59 Intake Total 1560 Output Total 1000 1200 Balance 560 -1200 Intake: Oral 1560 Output: Urine 1000 1200 Other: Voiding Method Diaper Diaper Incontinent Incontinent External Catheter External Catheter # Voids 2 # Bowel Movements 1 - Labs CBC & Chem 7: 11/20/21 04:51 11/21/21 06:17 Labs: Abnormal Lab Results - Last 24 Hours (Table) 11/20/21 11/21/21 Range/Units 04:51 06:17 Sodium 131 L (137-145) mmol/L Carbon Dioxide 21 L (22-30) mmol/L Anion Gap 9.20 L (10.00-18.00) mmol/L BUN 30.6 H 34 H (9.0-27.0) mg/dL Creatinine 1.27 H (0.66-1.25) mg/dL Est GFR (CKD-EPI)AfAm 52.4 L (60.0-200.0) Est GFR (CKD-EPI)NonAf 45.2 L (60.0-200.0) BUN/Creatinine Ratio 21.86 H (12.00-20.00) Ratio Glucose 126 H 113 H (70-110) mg/dL Calcium 7.3 L 6.8 L (8.7-10.3) mg/dL Total Bilirubin 1.40 H (0.30-1.20) mg/dL AST 45 H (14-35) U/L Total Protein 3.7 L (6.2-8.2) g/dL Albumin 2.4 L (3.8-4.9) g/dL Globulin 1.3 L (1.6-3.3) g/dL Microbiology - Last 24 Hours (Table) 11/18/21 12:57 Stool Culture - Preliminary Stool 11/20/21 10:51 Urine Culture - Preliminary Urine,Voided Assessment and Plan Plan: Assessment: 1. Hypovolemic hyponatremia initially improved with IV hydration. Now hypervolemic. Sodium level 131 today. 2. Acute kidney injury mostly prerenal secondary to hypovolemia. Creatinine peaked at 1.6 this admission and was down to 1.19 - stable at 1.27 today. 3. Colitis. On antibiotics. Surgery following. On full liquid diet. C. diff negative. 4. Hypocalcemia secondary to hypoalbuminemia. Corrected calcium near 8.2. 5. Metabolic acidosis secondary to acute kidney injury and GI losses. Imp roved. 6. Recent COVID-19 infection. 7. History of coronary stent placement. 8. Hypokalemia from poor intake and intracellular shifting from IV bicarb. Replaced. Better. 9. Lower extremity edema. Plan: Increase Lasix to 40 mg IV twice daily. Status post 25 g IV albumin given 11/19/2021. Avoid nephrotoxins. Continue to monitor renal function and urine output. Encourage oral intake.
[2021-11-21] MEDS ORDERED: CALCIUM GLUCONATE IN NACL 1 GM in SALINE 1 100ML.BAG IVPB ONE (11:00)
--- NOTE | 2021-11-21 12:11 | P.PN ---
Progress Note - Text Progress Note Date: 11/21/21 Patient's extremely confused state. His dementia appears to be exacerbated. The patient was examined and cerumen. Patient's complaints of pain in his legs. He feels like his legs are restraint. There are no restraints on the bed. On exam vital signs are stable. Abdomen is soft. There is some minimal tenderness. There is no rebound or guarding. Severe colitis. This is slowly resolving. Patient has a large paraesophageal hernia. I had a discussion with the patient's grandson. The patient is not an operative candidate currently. He would to improve overall his medical condition."Did discuss the grandson the patient is a poor surgical candidate currently. His overall condition would need to be improved. He'll continue receive supportive care.
[2021-11-21 14:05] LABS: Basophils # (A) 0.2 k/uL (0-0.2); Basophils % (A) 1 %; Eosinophils % (A) 0 %; HGB 18.4 gm/dL (13.0-17.5); Lymphocytes # (A) 0.4 k/uL (1.0-4.8); Lymphocytes % (A) 1 %; MCH 31.4 pg (25.0-35.0); MCHC 32.6 g/dL (31.0-37.0); MCV 96.3 fL (80.0-100.0); Mean Platelet Volume 12.2; Monocytes # (A) 1.8 k/uL (0-1.0); Monocytes % (A) 6 %; Neutrophils # (A) 26.3 k/uL (1.3-7.7); Neutrophils % (A) 91 %; RBC 5.86 m/uL (4.30-5.90); RDW 13.9 % (11.5-15.5)
[2021-11-21 14:07] LABS: HCT 56.5 % (39.0-53.0)
[2021-11-21 14:33] LABS: Platelet Count 40 k/uL (150-450)
[2021-11-21 14:34] LABS: Anisocytosis (M) Present; Crenated RBC Present; Large Platelets Present; Poikilocytosis (M) Present
--- NOTE | 2021-11-21 15:08 | CT ---
EXAMINATION TYPE: CT abdomen pelvis wo con DATE OF EXAM: 11/21/2021 COMPARISON: 11/16/2021 HISTORY: Colitis CT DLP: 1029 mGycm Automated exposure control for dose reduction was used. There are moderate-sized bilateral pleural effusions. There is apparent large hiatal hernia. This par tly contains the transverse colon. Liver is small and could relate to cirrhosis. Spleen is intact. Th ere is no evidence of pancreatic mass. There is no adrenal mass. Kidneys show no hydronephrosis. There is a 4 cm cortical cyst lateral left kidney. There is no retroperitoneal adenopathy. There is abdominal ascites. There is extensive subcut aneous edema around the abdomen. Bladder distends smoothly. There are numerous sigmoid diverticula. N o evidence of free air. The lumbar vertebrae appear intact. There is a T12 anterior wedging 30%. There is 15% compression of L5. The bony pelvis is intact. The hip joints are intact. IMPRESSION: There is extensive subcutaneous edema around the abdomen which is significantly increased compared to recent exam. This could relate to anasarca. There is pleural effusions and abdominal ascites increas ed. Colonic diverticulosis without diverticulitis. Large hiatal hernia.
--- NOTE | 2021-11-21 15:10 | PN ---
PROGRESS NOTE ADDENDUM: Please add: Systemic inflammatory response syndrome. MMODL / IJN: [id number] /
--- NOTE | 2021-11-21 15:14 | PN ---
PROGRESS NOTE 86-year-old white male. He is sating 92 on room air. Blood pressure 101/77, temp 97.3, pulse 70s to 80s. Labs show sodium 131, potassium 4.1, BUN is 34, creatinine 1.27. He appears to be a little bit dehydrated. We had to give him Lasix due to generalized swelling yesterday. His magnesium is normal. He has low albumin 2.4, which is up from 1.8. Possible some tube feeding to get his albumin up which will help keep his fluids in. With food intake, he has been having abdominal pain and vomiting. Unable to do clear liquids at which time he has severe colitis and a large paraesophageal hernia. Possible tube feeding will be started and to use nutrition keep his fluid in. Will hold his Lasix as he has worsening prerenal azotemia. We will cut down his Lasix dose from 40 down to 20. PROGNOSIS: Guarded. MMJEANMARIE / ARACELIN: [id number] /
--- NOTE | 2021-11-21 15:14 | PN ---
PROGRESS NOTE ADDENDUM: Please add metabolic encephalopathy due to colitis. MMODL / IJN: [id number] /
[2021-11-21] MEDS ORDERED: CALCIUM GLUCONATE IN NACL 2 GM in SALINE 1 100ML.BAG IVPB ONE (15:32)
[2021-11-21] MEDS ORDERED: IOPAMIDOL CONTRAST (ORAL USE) VIAL PO PRN (15:41)
[2021-11-21 16:15] LABS: Bilirubin,Unconjugated 1.4 mg/dL (0.0-1.1); Total Bilirubin 1.8 mg/dL (0.2-1.3)
[2021-11-21] MEDS: metroNIDAZOLE-NS PMX 500 MG in SALINE 1 100ML.BAG IVPB SCH ×2 (17:52→23:22)
[2021-11-21] MEDS: FUROSEMIDE 10 MG/ML 4 ML VIAL IV SCH (20:57)
--- NOTE | 2021-11-21 23:53 | P.PN ---
Subjective Progress Note Date: 11/21/21 Principal diagnosis: Sepsis due to diffuse colitis with a differential diagnoses of nonspecific colitis versus infectious colitis, patient has been on broad-spectrum antibiotics, aggressive rehydration ID workup is in progress, patient will benefit from endoscopy Asthma and chronic intermittent, overall stable on bronchodilators and maintenance prednisone Chronic dermatitis on prednisone COVID-19 infection History of CVA Advanced dementia exam is disease Coronary artery disease and stent placement 11/21/2021, patient seen eval examined during the rounds overall patient remains confused surgery and renal service has been following as well patient currently is considered not to be a surgical candidate for diffuse colitis on conservative care, white cell count continue to go up however today 29,000 patient however is afebrile hemodynamic status stable. Oxygen saturation room air is 96%, a computed tomography scan of the abdominal and pelvis is done which revealed progressive subcutaneous edema in the abdomen increased compared to prior exam consistent with anasarca along with pleural effusion and ascites and large hiatal hernia. Patient remains on Zosyn and clear liquid diet 11/20/2021, patient seen eval examined during the rounds labs reviewed medicatio ns reviewed care plan discussed with RN at length patient is back on clear liquid diet tolerating very well more comfortable, in no obvious respiratory distress remains on room air some rhonchi however were audible predominantly coming from upper airway patient advised to cough it up, patient remains on bronchodilator as needed and continuation of home medications labs reviewed white cell count is still high 25,000 labs reviewed indicated above the chronic low-grade inflammatory process, patient remains on IV antibiotics off of steroid 11/19/2021, patient seen eval examined during the rounds labs reviewed medications reviewed, patient was started on solid food now he is complaining of severe pain also in mild respiratory distress oxygen saturation however stable, I have discussed with RN patient has order for Zofran and morphine will proceed with that probably best to keep him nothing by mouth tonight and keep him on clear liquid diet if remains stable 11/18/2021, patient seen and evaluated examined, patient is slightly more comfortable today less pain able to tolerate clear liquid diet also had a bowel movement, general surgery is following white cell count remains elevated 25,000 however stable hemoglobin respiratory status is stable we'll continue to observe closely 11/17/2021, patient seen eval examined during the rounds patient was on clear liquid diet has abdominal pain and distention again nothing by mouth, surgery has been evaluating the patient, patient is mentally more awake now, oriented 1-2, remains pleasantly confused, patient has some upper respiratory secretions which were improved and relieved with bronchodilator therapy no lungs are fairly clear to auscultation with stable oxygen saturation remains on room air 11/16/2021, patient seen eval examined during rounds labs reviewed medications reviewed mental status improved S patient is more coherent oriented 1-2 follow simple commands patient does have some gurgling sounds appear to be coming from upper airway however no overt sign of aspiration has noted however patient has been tolerating clear liquid diet fairly well, general surgery is following, computed tomography scan of the chest revealed bilateral pleural effusion which is progressive along with subsegmental atelectasis, 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 diffuse thickening of the small bowel without bowel obstruction, thickening of colon with surrounding fat stranding most evident on her left side suggestive of acute colitis differential diagnoses being inflammatory infectious or ischemic general surgery is following currently being considered for conservative care, white cell count is down to 27,700 platelet count 136, patient is on Solu-Medrol Flagyl as well as Zosyn 11/15/2021 patient is relatively more responsive now intermittently complains of pain has been given a gram of morphine now he is more somnolent however family history thing patient is more responsive remains on broad-spectrum antibiotics surgery on consult, along with supportive care 11/14/2021, patient seen and evaluated examined remains very weak and somnolent but arousable mumbles intermittently, labs from today reviewed white cell count is 45,000 hemoglobin and hematocrit 18/55 platelet count 200,000, lactic acid remains elevated, stool for C. diff is negative suspicion of diffuse ischemic colitis would recommend surgical consult Patient is a 86-year-old male well-known to me with a history of asthma in the past along with multiple complex medical problems and issues patient was diagnosed as COVID-19 infection about 14 days ago, postinfection become weak with rapidly declining status also had intermittent aspiration episodes of abdominal pain and diarrhea and loose stool, poor appetite came into the hospital for further evaluation along with family member due to failure to thrive, on arrival noted to have white cell count of 48,000 with hemoglobin of 17.8, sodium 131, rotation of 5, BUN/creatinine 49 and 1.6, lactic acid is 3.6 on arrival chest x-ray revealed large hiatal hernia no active pulmonary process, computed tomography scan no acute intracranial process with remote lacunar in jury is seen with some white matter changes due to prior stroke, computed tomography scan of the chest abdominal and pelvis no significant pathology noted and lung and pleural space airways are patent, no adenopathy is seen, and large hiatal hernia seen, however abdominal CAT scan is positive for large bowel thickening extended to sigmoid colon with diverticula and no evidence of abscess, extensive colitis involving the majority of the colon seen no definite diverticulitis have been noted, currently patient is being treated with bronchodilator and continuation of his home medicines with IV Zosyn and vancomycin, patient has been on chronic maintenance dose of prednisone 5 mg for his chronic dermatitis as well as asthma per family he is slightly more responsive today compared to yesterday with hydration. ID has been consulted blood cultures have been drawn including C. difficile and stool culture Objective - Vital Signs Vital signs: Vital Signs Temp 97.4 F L 11/21/21 20:00 Pulse 60 11/21/21 20:00 Resp 16 11/21/21 20:00 BP 104/66 11/21/21 20:00 Pulse Ox 96 11/21/21 20:00 FiO2 Intake & Output 11/21/21 11/21/21 11/22/21 06:59 18:59 06:59 Intake Total 480 Output Total 1200 100 Balance -1200 480 -100 Intake: Oral 480 Output: Urine 1200 100 Other: Voiding Method Diaper Diaper Incontinent Incontinent External Catheter External Catheter # Voids 4 # Bowel Movements 4 - Exam - Constitutional General appearance: average body habitus, disheveled - EENT Eyes: EOMI, PERRLA Ears: bilateral: normal - Neck Neck: normal ROM Carotids: bilateral: upstroke normal Thyroid: bilateral: normal size - Respiratory Respiratory: bilateral: CTA - Cardiovascular Rhythm: regular Heart sounds: normal: S1, S2 - Gastrointestinal General gastrointestinal: decreased bowel sounds mild diffuse tenderness hypoactive bowel sounds - Integumentary Integumentary: normal turgor - Musculoskeletal Musculoskeletal: generalized weakness - Labs CBC & Chem 7: 11/21/21 07:00 11/21/21 06:17 Labs: Abnormal Lab Results - Last 24 Hours (Table) 11/21/21 11/21/21 11/21/21 Range/Units 06:17 07:00 12:49 WBC 29.0 H (3.8-10.6) k/uL Hgb 18.4 H (13.0-17.5) gm/dL Hct 56.5 H (39.0-53.0) % Plt Count 40 L D (150-450) k/uL Neutrophils # 26.3 H (1.3-7.7) k/uL Lymphocytes # 0.4 L (1.0-4.8) k/uL Monocytes # 1.8 H (0-1.0) k/uL Sodium 131 L (137-145) mmol/L Carbon Dioxide 21 L (22-30) mmol/L BUN 34 H (9-20) mg/dL Creatinine 1.27 H (0.66-1.25) mg/dL Glucose 113 H (74-99) mg/dL Calcium 6.8 L (8.4-10.2) mg/dL Ionized Calcium [place] 4.4 L (4.5-5.3) mg/dL Total Bilirubin (0.2-1.3) mg/dL Unconjugated Bilirubin (0.0-1.1) mg/dL 11/21/21 Range/Units 15:41 WBC (3.8-10.6) k/uL Hgb (13.0-17.5) gm/dL Hct (39.0-53.0) % Plt Count (150-450) k/uL Neutrophils # (1.3-7.7) k/uL Lymphocytes # (1.0-4.8) k/uL Monocytes # (0-1.0) k/uL Sodium (137-145) mmol/L Carbon Dioxide (22-30) mmol/L BUN (9-20) mg/dL Creatinine (0.66-1.25) mg/dL Glucose (74-99) mg/dL Calcium (8.4-10.2) mg/dL Ionized Calcium [place] (4.5-5.3) mg/dL Total Bilirubin 1.8 H (0.2-1.3) mg/dL Unconjugated Bilirubin 1.4 H (0.0-1.1) mg/dL Microbiology - Last 24 Hours (Table) 11/20/21 10:51 Urine Culture - Final Urine,Voided 11/18/21 12:57 Stool Culture - Preliminary Stool Assessment and Plan Assessment: Sepsis due to diffuse colitis likely ischemic general surgery following patient is being treated conservatively with antibiotics and fluid and electrolyte balance and clear liquid diet Diffuse colitis, management as above Bilateral pleural effusion Anasarca and ascites Bilateral basal compressive atelectasis Asthma and chronic intermittent, overall stable on bronchodilators and maintenance prednisone Chronic dermatitis on prednisone COVID-19 infection History of CVA Advanced dementia and Alzheimer's disease Coronary artery disease and stent placement Plan: Overall plan as above continue monitor closely repeat labs tomorrow appreciate surgical evaluation Monitor observe on clear liquid diet Continue IV fluids Agree with plans for nothing by mouth and surgical evaluation Overall prognosis poor Time with Patient: Greater than 30
[2021-11-22] MEDS: MORPHINE SULFATE 2 MG/ML SYRINGE IVP PRN ×2 (01:40→13:37)
[2021-11-22 07:49] VITALS: TEMP 98.6
--- NOTE | 2021-11-22 08:04 | US ---
EXAMINATION TYPE: US liver DATE OF EXAM: 11/22/2021 COMPARISON: CT 11/21/2021 CLINICAL HISTORY: cirrhosis. EXAM MEASUREMENTS: Liver Length: 12.4 cm Gallbladder Wall: Surgically absent CBD: 0.4 cm Right Kidney: 9.9 x 4.8 x 6.0 cm Technically difficult exam, patient unable to cooperate for exam. Limited views of liver, limited to intercostal window. Pancreas: Obscured by bowel gas Liver: surrounded by fluid Gallbladder: Surgically absent CBD: wnl Right Kidney: No hydronephrosis or masses seen IMPRESSION: 1. Ascites. 2. Correlate for cirrhotic liver disease.
[2021-11-22] MEDS: BUDESONIDE 0.5 MG/2 ML NEBU INHALATION SCH (08:14)
[2021-11-22] MEDS: ALBUTEROL NEBULIZED 2.5 MG/3 ML INHALATION SCH ×3 (08:14→15:24)
[2021-11-22] MEDS: metroNIDAZOLE-NS PMX 500 MG in SALINE 1 100ML.BAG IVPB SCH (10:12)
[2021-11-22] MEDS: PIPERACILLIN-TAZOBACTAM 3.375 GM in SODIUM CHLORIDE 0.9% 100 ML IVPB SCH (10:13)
[2021-11-22] MEDS: FAMOTIDINE 20 MG/2 ML VIAL IV SCH (10:13)
[2021-11-22] MEDS: PANTOPRAZOLE 40 MG/10 ML VIAL IVP SCH (10:13)
[2021-11-22] MEDS: ISOSORBIDE MONONITRATE ER 30 MG TAB.ER.24H PO SCH (10:14)
[2021-11-22] MEDS: ATORVASTATIN 20 MG TAB PO SCH (10:14)
[2021-11-22] MEDS: FLUoxetine HCL 10 MG CAP PO SCH (10:14)
[2021-11-22] MEDS: MONTELUKAST 10 MG TAB PO SCH (10:14)
[2021-11-22] MEDS: predniSONE 5 MG TAB PO SCH (10:14)
[2021-11-22] MEDS: METOPROLOL SUCCINATE (ER) 25 MG TAB.ER.24H PO SCH (10:14)
[2021-11-22] MEDS: LORATADINE 10 MG TAB PO SCH (10:14)
[2021-11-22] MEDS: MEMANTINE 5 MG TAB PO SCH (10:14)
[2021-11-22] MEDS: DONEPEZIL 10 MG TAB PO SCH (10:14)
[2021-11-22 11:02] LABS: C Reactive Protein 3.6 mg/dL (0.00-0.80); Magnesium 2.1 mg/dL (1.5-2.4)
--- NOTE | 2021-11-22 11:03 | P.PN ---
Subjective Progress Note Date: 11/22/21 Principal diagnosis: Sepsis due to diffuse colitis with a differential diagnoses of nonspecific colitis versus infectious colitis, patient has been on broad-spectrum antibiotics, aggressive rehydration ID workup is in progress, patient will benefit from endoscopy Asthma and chronic intermittent, overall stable on bronchodilators and maintenance prednisone Chronic dermatitis on prednisone COVID-19 infection History of CVA Advanced dementia exam is disease Coronary artery disease and stent placement 11/22/2021, patient seen eval examined during the rounds labs reviewed medications reviewed care plan discussed, respiratory status stable but however patient anxious and restless required morphine this morning, now patient not eating much in terms of clear liquid diet however drinking intermittently water progressive anasarca is developing, patient has lower extremity edema with cyanotic changes in the lower extremity as well, and labs not done today BNP is 493 which is within normal limit, patient remains on broad-spectrum antibiotics, daughter is present at bedside leaning towards hospice 11/21/2021, patient seen eval examined during the rounds overall patient remains confused surgery and renal service has been following as well patient currently is considered not to be a surgical candidate for diffuse colitis on conservative care, white cell count continue to go up however today 29,000 patient however is afebrile hemodynamic status stable. Oxygen saturation room air is 96%, a computed tomography scan of the abdominal and pelvis is done which revealed progressive subcutaneous edema in the abdomen increased compared to prior exam consistent with anasarca along with pleural effusion and ascites and large hiatal hernia. Patient remains on Zosyn and clear liquid diet 11/20/2021, patient seen eval examined during the rounds labs reviewed medicati ons reviewed care plan discussed with RN at length patient is back on clear liquid diet tolerating very well more comfortable, in no obvious respiratory distress remains on room air some rhonchi however were audible predominantly coming from upper airway patient advised to cough it up, patient remains on bronchodilator as needed and continuation of home medications labs reviewed white cell count is still high 25,000 labs reviewed indicated above the chronic low-grade inflammatory process, patient remains on IV antibiotics off of steroid 11/19/2021, patient seen eval examined during the rounds labs reviewed medications reviewed, patient was started on solid food now he is complaining of severe pain also in mild respiratory distress oxygen saturation however stable, I have discussed with RN patient has order for Zofran and morphine will proceed with that probably best to keep him nothing by mouth tonight and keep him on clear liquid diet if remains stable 11/18/2021, patient seen and evaluated examined, patient is slightly more comfortable today less pain able to tolerate clear liquid diet also had a bowel movement, general surgery is following white cell count remains elevated 25,000 however stable hemoglobin respiratory status is stable we'll continue to observe closely 11/17/2021, patient seen eval examined during the rounds patient was on clear liquid diet has abdominal pain and distention again nothing by mouth, surgery has been evaluating the patient, patient is mentally more awake now, oriented 1-2, remains pleasantly confused, patient has some upper respiratory secretions which were improved and relieved with bronchodilator therapy no lungs are fairly clear to auscultation with stable oxygen saturation remains on room air 11/16/2021, patient seen eval examined during rounds labs reviewed medications reviewed mental status improved S patient is more coherent oriented 1-2 follow simple commands patient does have some gurgling sounds appear to be coming from upper airway however no overt sign of aspiration has noted however patient has been tolerating clear liquid diet fairly well, general surgery is following, computed tomography scan of the chest revealed bilateral pleural effusion which is progressive along with subsegmental atelectasis, 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 diffuse thickening of the small bowel without bowel obstruction, thickening of colon with surrounding fat stranding most evident on her left side suggestive of acute colitis differential diagnoses being inflammatory infectious or ischemic general surgery is following currently being considered for conservative care, white cell count is down to 27,700 platelet count 136, patient is on Solu-Medrol Flagyl as well as Zosyn 11/15/2021 patient is relatively more responsive now intermittently complains of pain has been given a gram of morphine now he is more somnolent however family history thing patient is more responsive remains on broad-spectrum antibiotics surgery on consult, along with supportive care 11/14/2021, patient seen and evaluated examined remains very weak and somnolent but arousable mumbles intermittently, labs from today reviewed white cell count is 45,000 hemoglobin and hematocrit 18/55 platelet count 200,000, lactic acid remains elevated, stool for C. diff is negative suspicion of diffuse ischemic colitis would recommend surgical consult Patient is a 86-year-old male well-known to me with a history of asthma in the past along with multiple complex medical problems and issues patient was diagnosed as COVID-19 infection about 14 days ago, postinfection become weak with rapidly declining status also had intermittent aspiration episodes of abdominal pain and diarrhea and loose stool, poor appetite came into the hospital for further evaluation along with family member due to failure to thrive, on arrival noted to have white cell count of 48,000 with hemoglobin of 17.8, sodium 131, rotation of 5, BUN/creatinine 49 and 1.6, lactic acid is 3.6 on arrival chest x-ray revealed large hiatal hernia no active pulmonary process, computed tomography scan no acute intracranial process with remote lacunar i njury is seen with some white matter changes due to prior stroke, computed tomography scan of the chest abdominal and pelvis no significant pathology noted and lung and pleural space airways are patent, no adenopathy is seen, and large hiatal hernia seen, however abdominal CAT scan is positive for large bowel thickening extended to sigmoid colon with diverticula and no evidence of abscess, extensive colitis involving the majority of the colon seen no definite diverticulitis have been noted, currently patient is being treated with bronchodilator and continuation of his home medicines with IV Zosyn and vancomycin, patient has been on chronic maintenance dose of prednisone 5 mg for his chronic dermatitis as well as asthma per family he is slightly more responsive today compared to yesterday with hydration. ID has been consulted blood cultures have been drawn including C. difficile and stool culture Objective - Vital Signs Vital signs: Vital Signs Temp 98.6 F 11/22/21 07:48 Pulse 74 11/22/21 08:23 Resp 17 11/22/21 07:48 BP 100/66 11/22/21 07:48 Pulse Ox 94 L 11/22/21 07:48 FiO2 Intake & Output 11/21/21 11/22/21 11/22/21 18:59 06:59 18:59 Intake Total 480 Output Total 300 Balance 480 -300 Intake: Oral 480 Output: Urine 300 Other: Voiding Method Diaper Incontinent External Catheter # Voids 4 1 # Bowel Movements 4 - Exam - Constitutional General appearance: average body habitus, disheveled - EENT Eyes: EOMI, PERRLA Ears: bilateral: normal - Neck Neck: normal ROM Carotids: bilateral: upstroke normal Thyroid: bilateral: normal size - Respiratory Respiratory: bilateral: CTA - Cardiovascular Rhythm: regular Heart sounds: normal: S1, S2 - Gastrointestinal General gastrointestinal: decreased bowel sounds mild diffuse tenderness hypoactive bowel sounds - Integumentary Integumentary: normal turgor - Musculoskeletal Musculoskeletal: generalized weakness - Labs CBC & Chem 7: 11/21/21 07:00 11/21/21 06:17 Labs: Abnormal Lab Results - Last 24 Hours (Table) 11/21/21 11/21/21 11/21/21 Range/Units 07:00 12:49 15:41 WBC 29.0 H (3.8-10.6) k/uL Hgb 18.4 H (13.0-17.5) gm/dL Hct 56.5 H (39.0-53.0) % Plt Count 40 L D (150-450) k/uL Neutrophils # 26.3 H (1.3-7.7) k/uL Lymphocytes # 0.4 L (1.0-4.8) k/uL Monocytes # 1.8 H (0-1.0) k/uL Ionized Calcium Maliha 4.4 L (4.5-5.3) mg/dL Total Bilirubin 1.8 H (0.2-1.3) mg/dL Unconjugated Bilirubin 1.4 H (0.0-1.1) mg/dL Microbiology - Last 24 Hours (Table) 11/20/21 10:51 Urine Culture - Final Urine,Voided 11/18/21 12:57 Stool Culture - Preliminary Stool Assessment and Plan Assessment: Protein calorie malnourishment of severe coronary Sepsis due to diffuse colitis likely ischemic general surgery following patient is being treated conservatively with antibiotics and fluid and electrolyte kade nce and clear liquid diet Diffuse colitis, management as above Bilateral pleural effusion Anasarca and ascites Bilateral basal compressive atelectasis Asthma and chronic intermittent, overall stable on bronchodilators and maintenance prednisone Chronic dermatitis on prednisone COVID-19 infection History of CVA Advanced dementia and Alzheimer's disease Coronary artery disease and stent placement Plan: Overall plan as above continue monitor closely repeat labs tomorrow appreciate surgical evaluation Monitor observe on clear liquid diet Continue IV fluids Agree with plans for nothing by mouth and surgical evaluation Overall prognosis poor and guarded daughter is leaning towards hospice patient is already DO NOT RESUSCITATE will sign off Time with Patient: Greater than 30
[2021-11-22 11:11] LABS: African American GFR (CKD) 46.3 (60.0-200.0); Albumin 2.1 g/dL (3.8-4.9); Albumin/Globulin Ratio 1.29 (1.60-3.17); Anion Gap 9.8 mmol/L (10.00-18.00); BUN/Creat Ratio 21.48 Ratio (12.00-20.00); Blood Urea Nitrogen 33.3 mg/dL (9.0-27.0); Calcium 7.6 mg/dL (8.7-10.3); Carbon Dioxide 22.1 mmol/L (20.0-27.5); Globulin 1.6 g/dL (1.6-3.3); Non-African American GFR(CKD) 39.9 (60.0-200.0); Total Bilirubin 1.7 mg/dL (0.30-1.20); Total Protein 3.7 g/dL (6.2-8.2)
[2021-11-22 11:39] LABS: Basophils # (A) 0.11 X 10*3/uL (0.00-0.10); Basophils % (A) 0.4 %; Eosinophils # (A) 0.02 X 10*3/uL (0.04-0.35); Eosinophils % (A) 0.1 %; HCT 53.5 % (39.6-50.0); Immature Platelet Fraction 15.1 % (1.1-6.1); Lymphocytes # (A) 0.76 X 10*3/uL (0.90-5.00); Lymphocytes % (A) 2.9 %; MCH 30.3 pg (27.0-32.0); MCHC 33.6 g/dL (32.0-37.0); MCV 89.9 fL (80.0-97.0); Mean Platelet Volume 13.1 fL (9.5-12.2); Monocytes # (A) 2.41 X 10*3/uL (0.20-1.00); Monocytes % (A) 9.3 %; NRBC Per 100 WBC 0 /100 WBCS (0.0-0.0); Neutrophils # (A) 22.32 X 10*3/uL (1.80-7.70); Neutrophils % (A) 86.3 %; Platelet Count 34 X 10*3/uL (140-440); RBC 5.95 X 10*6/uL (4.40-5.60); RDW 14.4 % (11.5-14.5); WBC 25.89 X 10*3/uL (4.50-10.00)
--- NOTE | 2021-11-22 12:06 | P.PN ---
Subjective Patient is seen for follow-up for acute kidney injury and hyponatremia. Patient's daughter is present at bedside Daughter states that they are likely proceeding with hospice care. Patient is currently maintained on IV Lasix. He does have significant edema He is not able to communicate much He is quite weak. 24 hour urine noted at 2.2 L. Blood pressure is on the lower side with systolic blood pressure 95-100 mmHg. Objective - Vital Signs Vital signs: Vital Signs Temp 98.6 F 11/22/21 07:48 Pulse 50 L 11/22/21 11:22 Resp 16 11/22/21 11:22 BP 100/66 11/22/21 07:48 Pulse Ox 94 L 11/22/21 07:48 FiO2 Intake & Output 11/21/21 11/22/21 11/22/21 18:59 06:59 18:59 Intake Total 480 Output Total 300 Balance 480 -300 Intake: Oral 480 Output: Urine 300 Other: Voiding Method Diaper Incontinent External Catheter # Voids 4 1 # Bowel Movements 4 - Exam Sleeping but arousable Comfortable No acute distress Lethargic Abdomen is soft Exertion lower ex Mittie shows significant edema bilaterally - Labs CBC & Chem 7: 11/22/21 07:02 11/22/21 07:02 Labs: Abnormal Lab Results - Last 24 Hours (Table) 11/21/21 11/21/21 11/21/21 Range/Units 07:00 12:49 15:41 WBC 29.0 H (3.8-10.6) k/uL RBC (4.40-5.60) X 10*6/uL Hgb 18.4 H (13.0-17.5) gm/dL Hct 56.5 H (39.0-53.0) % Plt Count 40 L D (150-450) k/uL Plt Count Comment MPV (9.5-12.2) fL Immature Gran # (0.00-0.04) X 10*3/uL Neutrophils # 26.3 H (1.3-7.7) k/uL Lymphocytes # 0.4 L (1.0-4.8) k/uL Monocytes # 1.8 H (0-1.0) k/uL Eosinophils # (0.04-0.35) X 10*3/uL Basophils # (0.00-0.10) X 10*3/uL Immature Plt Fraction (1.1-6.1) % Sodium (135-145) mmol/L Anion Gap (10.00-18.00) mmol/L BUN (9.0-27.0) mg/dL Creatinine (0.6-1.5) mg/dL Est GFR (CKD-EPI)AfAm (60.0-200.0) Est GFR (CKD-EPI)NonAf (60.0-200.0) BUN/Creatinine Ratio (12.00-20.00) Ratio Glucose (70-110) mg/dL Calcium (8.7-10.3) mg/dL Ionized Calcium Maliha 4.4 L (4.5-5.3) mg/dL Total Bilirubin 1.8 H (0.2-1.3) mg/dL Unconjugated Bilirubin 1.4 H (0.0-1.1) mg/dL AST (14-35) U/L ALT (10-49) U/L Alkaline Phosphatase (41-126) U/L C-Reactive Protein (0.00-0.80) mg/dL Total Protein (6.2-8.2) g/dL Albumin (3.8-4.9) g/dL Albumin/Globulin Ratio (1.60-3.17) g/dL 11/22/21 11/22/21 Range/Units 07:02 07:02 WBC 25.89 H (3.8-10.6) k/uL RBC 5.95 H (4.40-5.60) X 10*6/uL Hgb 18.0 H (13.0-17.5) gm/dL Hct 53.5 H (39.0-53.0) % Plt Count 34 L (150-450) k/uL Plt Count Comment A MPV 13.1 H (9.5-12.2) fL Immature Gran # 0.27 H (0.00-0.04) X 10*3/uL Neutrophils # 22.32 H (1.3-7.7) k/uL Lymphocytes # 0.76 L (1.0-4.8) k/uL Monocytes # 2.41 H (0-1.0) k/uL Eosinophils # 0.02 L (0.04-0.35) X 10*3/uL Basophils # 0.11 H (0.00-0.10) X 10*3/uL Immature Plt Fraction 15.1 H (1.1-6.1) % Sodium 133 L (135-145) mmol/L Anion Gap 9.80 L (10.00-18.00) mmol/L BUN 33.3 H (9.0-27.0) mg/dL Creatinine 1.6 H (0.6-1.5) mg/dL Est GFR (CKD-EPI)AfAm 46.3 L (60.0-200.0) Est GFR (CKD-EPI)NonAf 39.9 L (60.0-200.0) BUN/Creatinine Ratio 21.48 H (12.00-20.00) Ratio Glucose 113 H (70-110) mg/dL Calcium 7.6 L (8.7-10.3) mg/dL Ionized Calcium Maliha (4.5-5.3) mg/dL Total Bilirubin 1.70 H (0.2-1.3) mg/dL Unconjugated Bilirubin (0.0-1.1) mg/dL AST 60 H (14-35) U/L ALT 54 H (10-49) U/L Alkaline Phosphatase 276 H (41-126) U/L C-Reactive Protein 3.60 H (0.00-0.80) mg/dL Total Protein 3.7 L (6.2-8.2) g/dL Albumin 2.1 L (3.8-4.9) g/dL Albumin/Globulin Ratio 1.29 L (1.60-3.17) g/dL Microbiology - Last 24 Hours (Table) 11/20/21 10:51 Urine Culture - Final Urine,Voided Assessment and Plan Assessment: 1. Hyponatremia currently hypervolemic and maintained on IV Lasix. Sodium is stable 2. Acute kidney injury mostly associated with low blood pressure 3. Colitis being followed by surgery. Maintained on full liquid diet 4. Metabolic acidosis secondary to acute kidney injury and GI fluid losses 5. Recent COVID-19 infection 6. Lower extremity edema, third spacing Plan: Add midodrine as blood pressure remains low Continue with IV Lasix Repeat labs in a.m. Patient's daughter wishes to proceed with hospice care.
[2021-11-22] MEDS ORDERED: MIDODRINE 5 MG TAB PO SCH (12:30)
--- NOTE | 2021-11-22 13:05 | P.PN ---
Subjective Progress Note Date: 11/22/21 Principal diagnosis: leukocytosis and increased hemoglobin and hematocrit Patients daughter at bedside and they are discouraged with his continued downhill in health. He is lethargic, opens eyes but not answering. Platelets have dropped since admission. 38K today They are ok with taking him home with hoispice care but having a difficult time understanding how this went from stable to worse and the underlying picture worsened so quickly. They do not understand why he is sick, why he is not improving. and they express if they knew these answers would be much easier to understand. Objective - Vital Signs Vital signs: Vital Signs Temp 98.6 F 11/22/21 07:48 Pulse 50 L 11/22/21 11:22 Resp 16 11/22/21 11:22 BP 100/66 11/22/21 07:48 Pulse Ox 94 L 11/22/21 07:48 FiO2 Intake & Output 11/21/21 11/22/21 11/22/21 18:59 06:59 18:59 Intake Total 480 Output Total 300 Balance 480 -300 Intake: Oral 480 Output: Urine 300 Other: Voiding Method Diaper Diaper Incontinent Incontinent External Catheter External Catheter # Voids 4 1 # Bowel Movements 4 - Exam - Constitutional General appearance: Present: average body habitus, cooperative, mild distress - EENT EENT Comment(s): very dry mucus membranes ENT: Present: hearing grossly normal - Respiratory Details: resp even and unlabored at rest, congested cough - Gastrointestinal General gastrointestinal: Present: soft, tenderness (rebound) - Integumentary Integumentary Comment(s): thin skin, mult bruises - Musculoskeletal Musculoskeletal: Present: generalized weakness - Psychiatric Psychiatric Comment(s): alert, oriented to self and place - Labs CBC & Chem 7: 11/22/21 07:02 11/22/21 07:02 Labs: Abnormal Lab Results - Last 24 Hours (Table) 11/21/21 11/21/21 11/21/21 Range/Units 07:00 12:49 15:41 WBC 29.0 H (3.8-10.6) k/uL RBC (4.40-5.60) X 10*6/uL Hgb 18.4 H (13.0-17.5) gm/dL Hct 56.5 H (39.0-53.0) % Plt Count 40 L D (150-450) k/uL Plt Count Comment MPV (9.5-12.2) fL Immature Gran # (0.00-0.04) X 10*3/uL Neutrophils # 26.3 H (1.3-7.7) k/uL Lymphocytes # 0.4 L (1.0-4.8) k/uL Monocytes # 1.8 H (0-1.0) k/uL Eosinophils # (0.04-0.35) X 10*3/uL Basophils # (0.00-0.10) X 10*3/uL Immature Plt Fraction (1.1-6.1) % Sodium (135-145) mmol/L Anion Gap (10.00-18.00) mmol/L BUN (9.0-27.0) mg/dL Creatinine (0.6-1.5) mg/dL Est GFR (CKD-EPI)AfAm (60.0-200.0) Est GFR (CKD-EPI)NonAf (60.0-200.0) BUN/Creatinine Ratio (12.00-20.00) Ratio Glucose (70-110) mg/dL Calcium (8.7-10.3) mg/dL Ionized Calcium Maliha 4.4 L (4.5-5.3) mg/dL Total Bilirubin 1.8 H (0.2-1.3) mg/dL Unconjugated Bilirubin 1.4 H (0.0-1.1) mg/dL AST (14-35) U/L ALT (10-49) U/L Alkaline Phosphatase (41-126) U/L C-Reactive Protein (0.00-0.80) mg/dL Total Protein (6.2-8.2) g/dL Albumin (3.8-4.9) g/dL Albumin/Globulin Ratio (1.60-3.17) g/dL 11/22/21 11/22/21 Range/Units 07:02 07:02 WBC 25.89 H (3.8-10.6) k/uL RBC 5.95 H (4.40-5.60) X 10*6/uL Hgb 18.0 H (13.0-17.5) gm/dL Hct 53.5 H (39.0-53.0) % Plt Count 34 L (150-450) k/uL Plt Count Comment A MPV 13.1 H (9.5-12.2) fL Immature Gran # 0.27 H (0.00-0.04) X 10*3/uL Neutrophils # 22.32 H (1.3-7.7) k/uL Lymphocytes # 0.76 L (1.0-4.8) k/uL Monocytes # 2.41 H (0-1.0) k/uL Eosinophils # 0.02 L (0.04-0.35) X 10*3/uL Basophils # 0.11 H (0.00-0.10) X 10*3/uL Immature Plt Fraction 15.1 H (1.1-6.1) % Sodium 133 L (135-145) mmol/L Anion Gap 9.80 L (10.00-18.00) mmol/L BUN 33.3 H (9.0-27.0) mg/dL Creatinine 1.6 H (0.6-1.5) mg/dL Est GFR (CKD-EPI)AfAm 46.3 L (60.0-200.0) Est GFR (CKD-EPI)NonAf 39.9 L (60.0-200.0) BUN/Creatinine Ratio 21.48 H (12.00-20.00) Ratio Glucose 113 H (70-110) mg/dL Calcium 7.6 L (8.7-10.3) mg/dL Ionized Calcium Maliha (4.5-5.3) mg/dL Total Bilirubin 1.70 H (0.2-1.3) mg/dL Unconjugated Bilirubin (0.0-1.1) mg/dL AST 60 H (14-35) U/L ALT 54 H (10-49) U/L Alkaline Phosphatase 276 H (41-126) U/L C-Reactive Protein 3.60 H (0.00-0.80) mg/dL Total Protein 3.7 L (6.2-8.2) g/dL Albumin 2.1 L (3.8-4.9) g/dL Albumin/Globulin Ratio 1.29 L (1.60-3.17) g/dL Microbiology - Last 24 Hours (Table) 11/20/21 10:51 Urine Culture - Final Urine,Voided Assessment and Plan Plan: Assessment and Plan (1) Leukocytosis Current Visit: Yes Status: Acute Priority: Medium Code(s): D72.829 - ELEVATED WHITE BLOOD CELL COUNT, UNSPECIFIED SNOMED Code(s): 119234476 Plan: Suspect leukocytosis is multifactorial-reactive to infection, chronic steroid use. Now with progresively worse thrombocytopenia: - DIC work-up Await resolution of underlying problem and Further work up will be considered if abnormal lab values progress after treatment for acute infectious inflammatory illness. Lactic acid did increase. Full etiology of worsening picture difficult to understand for family. They feel that they are being told many different stories and if he is not going to get better would like to bring home. Platelet drop likely due to infectious inflammatory process Elevated H/H from diuresis Nephrology following HOld any anticoagulation Pallliative care consult maybe helpful
--- NOTE | 2021-11-22 14:27 | P.PN ---
Progress Note - Text Progress Note Date: 11/22/21 The patient remains clinically unchanged. His abdomen soft. The patient's daughter wishes to make the patient hospice. I do not think he is a good surgical candidate. The patient and family will meet with the hospice nurse today.
[2021-11-22] MEDS: FUROSEMIDE 10 MG/ML 4 ML VIAL IV SCH (14:37)
[2021-11-22 15:22] VITALS: BP 91/66; PULSE 84; RESP 19
--- NOTE | 2021-11-22 17:28 | P.PN ---
Subjective Progress Note Date: 11/22/21 Principal diagnosis: Abdominal pain, colitis Patient is seen and examined his follow-up for abdominal pain/colitis. Patient underwent a CT of the abdomen showing small amount of ascites and generalized anasarca in the abdomen, as well as pleural effusions. Apparently the patient has not eaten in the last 2-3 days. Family history climbing any sort of feeding assistance. They are discussing hospice and would like to take the patient home. Objective - Vital Signs Vital signs: Vital Signs Temp 98.6 F 11/22/21 07:48 Pulse 74 11/22/21 08:23 Resp 17 11/22/21 07:48 BP 100/66 11/22/21 07:48 Pulse Ox 94 L 11/22/21 07:48 FiO2 Intake & Output 11/21/21 11/22/21 11/22/21 18:59 06:59 18:59 Intake Total 480 Output Total 300 Balance 480 -300 Intake: Oral 480 Output: Urine 300 Other: Voiding Method Diaper Incontinent External Catheter # Voids 4 1 # Bowel Movements 4 - Exam General appearance: The patient is alert, oriented to self. appears in no acute distress. HET: Head is normocephalic and atraumatic. Conjunctiva pink. Sclera anicteric. Neck: Supple without lymphadenopathy. Abdomen: Soft, nontender, nondistended with positive bowel sounds. No guarding or rigidity. Extremities: Normal skin color and turgor. No pedal edema Skin: No rashes, no jaundice Neurological: No focal deficits. Alert, oriented to self. - Labs CBC & Chem 7: 11/22/21 07:02 11/22/21 07:02 Labs: Abnormal Lab Results - Last 24 Hours (Table) 11/21/21 11/21/21 11/21/21 Range/Units 07:00 12:49 15:41 WBC 29.0 H (3.8-10.6) k/uL Hgb 18.4 H (13.0-17.5) gm/dL Hct 56.5 H (39.0-53.0) % Plt Count 40 L D (150-450) k/uL Neutrophils # 26.3 H (1.3-7.7) k/uL Lymphocytes # 0.4 L (1.0-4.8) k/uL Monocytes # 1.8 H (0-1.0) k/uL Ionized Calcium Maliha 4.4 L (4.5-5.3) mg/dL Total Bilirubin 1.8 H (0.2-1.3) mg/dL Unconjugated Bilirubin 1.4 H (0.0-1.1) mg/dL Microbiology - Last 24 Hours (Table) 11/20/21 10:51 Urine Culture - Final Urine,Voided 11/18/21 12:57 Stool Culture - Preliminary Stool Assessment and Plan (1) Colitis Narrative/Plan: 86-year-old male with history of multiple comorbidities who recently was diagnosed with COVID-19 infection presented to the emergency department for increased weakness and abdominal pain. Patient has memory impairment and is pleasantly confused. He had a CT of the chest abdomen and pelvis showing diffuse colitis involving the majority of the colon from the essentially hepatic flexure right upper quadrant to the sigmoid colon. Multiple colonic diverticula without definitive diverticulitis. He has a large hiatal hernia containing majority of the stomach, distal esophagus layering fluid could 3 weight to reflux or dysmotility colonic diverticulosis and a small amount of ascites. Patient had significant elevated white count on admission with elevated plasma lactic acid likely thought to be systemic inflammatory response syndrome. WBC improving. Likely we are dealing with acute colitis, possibly ischemic versus infectious. Continue to treat with antibiotics. No plans on endoscopic evaluation at this time. Status: Acute Code(s): K52.9 - NONINFECTIVE GASTROENTERITIS AND COLITIS, UNSPECIFIED SNOMED Code(s): 14622026 (2) COPD (chronic obstructive pulmonary disease) Status: Acute Code(s): J44.9 - CHRONIC OBSTRUCTIVE PULMONARY DISEASE, UNSPECIFIED SNOMED Code(s): 16158033 (3) GERD (gastroesophageal reflux disease) Status: Acute Code(s): K21.9 - GASTRO-ESOPHAGEAL REFLUX DISEASE WITHOUT ESOPHAGITIS SNOMED Code(s): 564593189 (4) History of CVA (cerebrovascular accident) Status: Acute Code(s): Z86.73 - PRSNL HX OF TIA (TIA), AND CEREB INFRC W/O RESID DEFICITS SNOMED Code(s): 035908332 Plan: Patient family at the bedside and requesting to meet with palliative nurse for hospice for the patient. Gastroenterology will sign off at this time. Dr. Jamel Ansari I agree with the dictator's note, documented as a scribe by Emerald Thakkar.
== END 2021-11-22 16:07 | disposition hospice, inpatient (51) | DRG 871 ==
LOC: EC 16:48 → 4SSUR 19:43
PROVIDERS: ADMIT Family Medicine; ATTEND Family Medicine
PROC: 05HF33Z Insertion of Infusion Device into Left Cephalic Vein, Percutaneous Approach (ICD-10-PCS; 2021-11-15 09:15)
PROC: 05HC33Z Insertion of Infusion Device into Left Basilic Vein, Percutaneous Approach (ICD-10-PCS; principal; 2021-11-19 12:00)
DX: A41.9 Sepsis, unspecified organism (principal); N17.0 Acute kidney failure with tubular necrosis; G93.41 Metabolic encephalopathy; E43 Unspecified severe protein-calorie malnutrition; J44.1 Chronic obstructive pulmonary disease with (acute) exacerbation; F05 Delirium due to known physiological condition; E87.1 Hypo-osmolality and hyponatremia; E87.2 Acidosis; J90 Pleural effusion, not elsewhere classified; J98.11 Atelectasis; K55.9 Vascular disorder of intestine, unspecified; R18.8 Other ascites; Z86.16 Personal history of COVID-19; Z51.5 Encounter for palliative care; Z66 Do not resuscitate; I69.319 Unspecified symptoms and signs involving cognitive functions following cerebral infarction; I69.398 Other sequelae of cerebral infarction; R65.20 Severe sepsis without septic shock; K21.00 Gastro-esophageal reflux disease with esophagitis, without bleeding; K22.70 Barrett's esophagus without dysplasia; K44.9 Diaphragmatic hernia without obstruction or gangrene; K57.30 Diverticulosis of large intestine without perforation or abscess without bleeding; I48.91 Unspecified atrial fibrillation; J84.10 Pulmonary fibrosis, unspecified; I10 Essential (primary) hypertension; D75.1 Secondary polycythemia; E83.51 Hypocalcemia; E86.0 Dehydration; K52.9 Noninfective gastroenteritis and colitis, unspecified; E86.1 Hypovolemia; E87.6 Hypokalemia; T68.XXXA Hypothermia, initial encounter; E87.70 Fluid overload, unspecified; E88.09 Other disorders of plasma-protein metabolism, not elsewhere classified; F02.80 Dementia in other diseases classified elsewhere, unspecified severity, without behavioral disturbance, psychotic disturbance, mood disturbance, and anxiety; G30.9 Alzheimer's disease, unspecified; I25.10 Atherosclerotic heart disease of native coronary artery without angina pectoris; I45.10 Unspecified right bundle-branch block; L30.9 Dermatitis, unspecified; Z79.51 Long term (current) use of inhaled steroids; Z79.52 Long term (current) use of systemic steroids; Z79.82 Long term (current) use of aspirin; Z79.899 Other long term (current) drug therapy; Z80.0 Family history of malignant neoplasm of digestive organs; Z82.49 Family history of ischemic heart disease and other diseases of the circulatory system; Z95.5 Presence of coronary angioplasty implant and graft; Z86.010 Personal history of colon polyps
CPT/HCPCS: 36410; 36415; 70450; 71045; 71250; 74176; 76705; 76937; 80048; 80053; 81001; 82140; 82248; 82330; 82728; 83540; 83550; 83605; 83735; 83880; 85025; 85610; 85730; 86140; 87040; 87045; 87046; 87086; 87324; 93005; 94640; 96361; 96365; 99285

== ENCOUNTER 2021-11-22 14:26 | Inpatient (IN) | payer MEDICAID ==
[2021-11-22] MEDS ORDERED: GLYCOPYRROLATE 0.2 MG/ML 2 ML VIAL IVP PRN (14:43)
[2021-11-22] MEDS ORDERED: MORPHINE SULFATE 2 MG/ML SYRINGE IV PRN (14:43)
[2021-11-22] MEDS ORDERED: ACETAMINOPHEN SUPPOSITORY 650 MG SUPP RECTAL PRN (14:43)
[2021-11-22] MEDS ORDERED: LORazepam 2 MG/ML INJ IV PRN (14:43)
[2021-11-22] MEDS ORDERED: HALOPERIDOL LACTATE 5 MG/ML 1 ML VIAL IM PRN (14:43)
[2021-11-22] MEDS ORDERED: ONDANSETRON 4 MG/2 ML VIAL IVP PRN (14:43)
[2021-11-22] MEDS ORDERED: SCOPOLAMINE 1 MG/72 HR PATCH TRANSDERM SCH (14:45)
[2021-11-22 17:13] VITALS: BMI 29.5
[2021-11-22] MEDS: MORPHINE SULFATE (100 MG/2 ML) 100 MG in SODIUM CHLORIDE 0.9% 100 ML IV SCH (18:38)
[2021-11-22] MEDS: MORPHINE CONC SOLN 10mg/0.5mL ORAL SYRG SL PRN (19:59)
[2021-11-23] MEDS: MORPHINE CONC SOLN 10mg/0.5mL ORAL SYRG SL PRN ×3 (04:51→09:11)
[2021-11-23 07:52] VITALS: PULSE 93; RESP 15; TEMP 98.1
[2021-11-23] MEDS: ATROPINE OPHTH SOLN 1% 5ML BTL SUBLINGUAL PRN ×3 (08:25→15:16)
[2021-11-23] MEDS ORDERED: GLYCOPYRROLATE 0.2 MG/ML 2 ML VIAL IM PRN (10:11)
[2021-11-23] MEDS ORDERED: SCOPOLAMINE 1 MG/72 HR PATCH TRANSDERM SCH (10:15)
[2021-11-23] MEDS: LORazepam ORAL CONC 60 MG/30 ML BOTTLE SL PRN ×2 (10:43→15:16)
--- NOTE | 2021-11-23 14:03 | PN ---
PROGRESS NOTE DATE OF SERVICE: 11/22/2021 This is a white male with ischemic versus pancolitis, has not improved. His white count is down to 25 from 29. Family wants him in hospice, which has been consulted. Will turn him over to hospice care at this time. Medicines will be arranged with the hospice nurse. He is sitting up, talking, giving appropriate answers. He seems to not be in pain. Cardiovascular S1, S2. Lungs clear. GI soft. Hematology negative Homans. ASSESSMENT: 1. Pancolitis. 2. Ischemic colitis. 3. Leukocytosis secondary to above. 4. History of dementia. 5. History of sleep apnea. Prognosis is guarded. He is going to go into hospice care per family wishes. MMODL / IJN: [id number] /
[2021-11-23] MEDS: MORPHINE SULFATE (100 MG/2 ML) 100 MG in SODIUM CHLORIDE 0.9% 100 ML IV SCH (15:16)
[2021-11-23] MEDS ORDERED: LORazepam ORAL CONC 60 MG/30 ML BOTTLE SL SCH (16:00)
== END 2021-11-23 17:48 | disposition expired | DRG 951 ==
LOC: 4SSUR 16:08
PROVIDERS: ADMIT Family Medicine; ATTEND Family Medicine
DX: Z51.5 Encounter for palliative care (principal); N17.0 Acute kidney failure with tubular necrosis; K55.9 Vascular disorder of intestine, unspecified; E86.0 Dehydration; J44.9 Chronic obstructive pulmonary disease, unspecified; D72.829 Elevated white blood cell count, unspecified; G47.30 Sleep apnea, unspecified; K52.9 Noninfective gastroenteritis and colitis, unspecified; F03.90 Unspecified dementia, unspecified severity, without behavioral disturbance, psychotic disturbance, mood disturbance, and anxiety; Z86.16 Personal history of COVID-19; Z87.19 Personal history of other diseases of the digestive system; K21.9 Gastro-esophageal reflux disease without esophagitis; Z86.73 Personal history of transient ischemic attack (TIA), and cerebral infarction without residual deficits; Z87.01 Personal history of pneumonia (recurrent)